=== PATIENT | female | born 1990 | race Caucasian/White ===

== ENCOUNTER 2018-02-19 19:46 | Emergency (ER) | payer SELFPAY ==
[2018-02-19] MEDS ORDERED: DIPHENHYDRAMINE 25 MG TAB/CAP ONE (20:32)
[2018-02-19] MEDS ORDERED: FAMOTIDINE 20 MG TAB ONE (20:32)
[2018-02-19] MEDS ORDERED: predniSONE 20 MG TAB ONE (20:33)
--- NOTE | 2018-02-19 20:40 | ER ---
Nurse's Notes [facility] Name: Elham Moran Age: 27 yrs Sex: Female : 1990 Arrival Date: 02/19/2018 Time: 19:52 Bed 12 Private MD: Diagnosis: Urticaria Presentation: 02/19 19:57 Presenting complaint: Patient states: Reports itchy rash to bilateral hand and feet aj that started today. Transition of care: patient was not received from another setting of care. Onset: The symptoms/episode began/occurred acutely. Anaphylaxis evaluation, no signs or symptoms of anaphylaxis were noted. Onset of symptoms was February 19, 2018. Risk Assessment: Do you want to hurt yourself or someone else? Patient reports no desire to harm self or others. Initial Sepsis Screen: Does the patient meet any 2 criteria? No. Patient's initial sepsis screen is negative. Does the patient have a suspected source of infection? No. Patient's initial sepsis screen is negative. Care prior to arrival: None. 19:57 Method Of Arrival: Ambulatory 19:57 Acuity: MISSAEL 5 Triage Assessment: 19:59 General: Appears in no apparent distress. comfortable, Behavior is calm, cooperative, aj appropriate for age. Pain: Denies pain. Neuro: Level of Consciousness is awake, alert, obeys commands, Oriented to person, place, time, situation, Appropriate for age. Respiratory: Airway is patent Respiratory effort is even, unlabored, Respiratory pattern is regular, symmetrical. Derm: Skin is pink, warm \T\ dry. normal, Rash noted that is itchy, red, on right hand, left hand and right foot. 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 - Social history:: Smoking status: Patient/guardian denies using tobacco. - Ebola Screening: : Patient negative for fever greater than or equal to 101.5 degrees Fahrenheit, and additional compatible Ebola Virus Disease symptoms Patient denies exposure to infectious person Patient denies travel to an Ebola-affected area in the 21 days before illness onset No symptoms or risks identified at this time. Screenin:21 Abuse screen: Denies threats or abuse. Denies injuries from another. Nutritional ao screening: No deficits noted. Tuberculosis screening: No symptoms or risk factors identified. Fall Risk None identified. Assessment: 20:19 General: Appears in no apparent distress. comfortable, Behavior is calm, cooperative, ao appropriate for age. Pain: Denies pain. Neuro: Level of Consciousness is awake, alert, obeys commands, Oriented to person, place, time, situation, Appropriate for age Moves all extremities. Full function Speech is normal, Facial symmetry appears normal. Cardiovascular: Capillary refill < 3 seconds Patient's skin is warm and dry. Respiratory: Airway is patent Respiratory effort is even, unlabored, Respiratory pattern is regular, symmetrical, Breath sounds are clear bilaterally. GI: No signs and/or symptoms were reported involving the gastrointestinal system. : No signs and/or symptoms were reported regarding the genitourinary system. EENT: No signs and/or symptoms were reported regarding the EENT system. Derm: Skin is intact, Skin is moist, Skin is pink, warm \T\ dry. normal, Skin temperature is warm Rash noted that is itchy, urticaria. Musculoskeletal: No signs and/or symptoms reported regarding the musculoskeletal system. 21:14 Reassessment: DC patient home. Patient agree with the POC and to follow up with PCP. ao Patient had no questions at this time. Vital Signs: 19:59 BP 117 / 76; Pulse 99; Resp 18; Temp 97.4; Pulse Ox 99% on R/A; Weight 103.87 kg; aj Height 5 ft. 7 in. (170.18 cm); 20:22 BP 115 / 80; Pulse 88; Resp 16; Pulse Ox 95% on R/A; Pain 0/10; ao 19:59 Body Mass Index 35.87 (103.87 kg, 170.18 cm) aj ED Course: 19:52 Patient arrived in ED. ds1 19:58 Triage completed. aj 19:59 Arm band placed on left wrist. Patient placed in waiting room, Patient notified of wait aj time. 20:11 Chacho Zaragoza NP is PHCP. pm1 20:11 Santino uBrr MD is Attending Physician. pm1 20:17 Feliz, Dandre, RN is Primary Nurse. ao 20:21 Patient has correct armband on for positive identification. Pulse ox on. ao 21:13 No provider procedures requiring assistance completed. Patient did not have IV access ao during this emergency room visit. Administered Medications: 20:27 Drug: Benadryl 25 mg Route: PO; ao 21:15 Follow up: Response: No adverse reaction ao 20:27 Drug: predniSONE 60 mg Route: PO; ao 21:15 Follow up: Response: No adverse reaction ao 20:27 Drug: Pepcid 20 mg Route: PO; ao 21:15 Follow up: Response: No adverse reaction ao Outcome: 20:40 Discharge ordered by MD. pm1 21:13 Discharged to home ambulatory. ao 21:13 Condition: stable 21:13 Discharge instructions given to patient, Instructed on discharge instructions, follow up and referral plans. Demonstrated understanding of instructions, follow-up care, Prescriptions given X 3. 21:15 Patient left the ED. ao Signatures: Donna Mac RN RN aj Sanford, Demi ds1 Dandre Feliz RN RN ao Marinas, Patrick, NP DIRECTOR OF STRATEGY & MOBILE pm1
--- NOTE | 2018-02-19 20:40 | EDPHYS ---
Physician Documentation [facility] Name: Elham Moran Age: 27 yrs Sex: Female : 1990 Arrival Date: 02/19/2018 Time: 19:52 Bed 12 Private MD: ED Physician Santino Burr HPI: 02/19 20:05 This 27 yrs old Female presents to ER via Ambulatory with complaints of pm1 Allergic Reaction. 20:05 The patient presents with rash, of the right hand, left hand and right foot. Onset: The pm1 symptoms/episode began/occurred today. Associated signs and symptoms: Pertinent positives: hives, itching, Pertinent negatives: chest pain, nausea, vomiting. Possible causes: The patient has no known obvious cause for the symptoms. At home the patient or guardian has treated the symptoms with nothing. The patient has not experienced similar symptoms in the past. The patient has not recently seen a physician. 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 - Social history:: Smoking status: Patient/guardian denies using tobacco. - Ebola Screening: : Patient negative for fever greater than or equal to 101.5 degrees Fahrenheit, and additional compatible Ebola Virus Disease symptoms Patient denies exposure to infectious person Patient denies travel to an Ebola-affected area in the 21 days before illness onset No symptoms or risks identified at this time. ROS: 20:05 Constitutional: Negative for fever, chills, and weight loss, Eyes: Negative for injury, pm1 pain, redness, and discharge, ENT: Negative for injury, pain, and discharge, Neck: Negative for injury, pain, and swelling, Cardiovascular: Negative for chest pain, palpitations, and edema, Respiratory: Negative for shortness of breath, cough, wheezing, and pleuritic chest pain, Abdomen/GI: Negative for abdominal pain, nausea, vomiting, diarrhea, and constipation, Back: Negative for injury and pain, MS/Extremity: Negative for injury and deformity. 20:05 Neuro: Negative for headache, weakness, numbness, tingling, and seizure. 20:05 Skin: Positive for rash, of the left hand and right hand and right foot. Exam: 20:05 Constitutional: This is a well developed, well nourished patient who is awake, alert, pm1 and in no acute distress. Head/Face: Normocephalic, atraumatic. Eyes: Pupils equal round and reactive to light, extra-ocular motions intact. Lids and lashes normal. Conjunctiva and sclera are non-icteric and not injected. Cornea within normal limits. Periorbital areas with no swelling, redness, or edema. ENT: Nares patent. No nasal discharge, no septal abnormalities noted. Tympanic membranes are normal and external auditory canals are clear. Oropharynx with no redness, swelling, or masses, exudates, or evidence of obstruction, uvula midline. Mucous membranes moist. Neck: Trachea midline, no thyromegaly or masses palpated, and no cervical lymphadenopathy. Supple, full range of motion without nuchal rigidity, or vertebral point tenderness. No Meningismus. Chest/axilla: Normal chest wall appearance and motion. Nontender with no deformity. No lesions are appreciated. Cardiovascular: Regular rate and rhythm with a normal S1 and S2. No gallops, murmurs, or rubs. Normal PMI, no JVD. No pulse deficits. Respiratory: Lungs have equal breath sounds bilaterally, clear to auscultation and percussion. No rales, rhonchi or wheezes noted. No increased work of breathing, no retractions or nasal flaring. Abdomen/GI: Soft, non-tender, with normal bowel sounds. No distension or tympany. No guarding or rebound. No evidence of tenderness throughout. Back: No spinal tenderness. No costovertebral tenderness. Full range of motion. 20:05 Skin: Appearance: normal except for affected area, consistent with urticaria, on the right foot and right hand and left hand. 20:05 Neuro: Orientation: is normal, Motor: is normal, moves all fours. Vital Signs: 19:59 BP 117 / 76; Pulse 99; Resp 18; Temp 97.4; Pulse Ox 99% on R/A; Weight 103.87 kg; aj Height 5 ft. 7 in. (170.18 cm); 20:22 BP 115 / 80; Pulse 88; Resp 16; Pulse Ox 95% on R/A; Pain 0/10; ao 19:59 Body Mass Index 35.87 (103.87 kg, 170.18 cm) arielle MDM: 20:12 Patient medically screened. pm1 20:34 Data reviewed: vital signs. Counseling: I had a detailed discussion with the patient pm1 and/or guardian regarding: the historical points, exam findings, and any diagnostic results supporting the discharge/admit diagnosis. Administered Medications: 20:27 Drug: Benadryl 25 mg Route: PO; ao 21:15 Follow up: Response: No adverse reaction ao 20:27 Drug: predniSONE 60 mg Route: PO; ao 21:15 Follow up: Response: No adverse reaction ao 20: Drug: Pepcid 20 mg Route: PO; ao 21:15 Follow up: Response: No adverse reaction ao Disposition: 02/20 06:36 Co-signature as Attending Physician, Santino Burr MD Available for consultation at ps1 all times. . Disposition: 02/19/18 20:40 Discharged to Home. Impression: Urticaria. - Condition is Stable. - Discharge Instructions: Food Allergy, Hives. - Prescriptions for Benadryl 25 mg Oral Capsule - take 1 capsule by ORAL route every 6 hours As needed; 30 tablet. Pepcid 20 mg Oral Tablet - take 1 tablet by ORAL route every 12 hours for 5 days; 10 tablet. Medrol (Donavon) 4 mg Oral Tablets, Dose Pack - take 1 tablet by ORAL route as directed - follow package instructions; 1 packet. - Medication Reconciliation Form, Thank You Letter form. - Follow up: Emergency Department; When: As needed; Reason: Worsening of condition. Follow up: Private Physician; When: 2 - 3 days; Reason: Recheck today's complaints, Continuance of care, Re-evaluation by your physician. - Problem is new. - Symptoms have improved. Signatures: Donna Mac RN RN aj Ortiz, Alex, RN RN ao Marinas, Patrick, JOEL EXPLOSIVE ORDNANCE DISPOSAL TECHNICIAN pm1 Santino Burr MD MD ps1 Corrections: (The following items were deleted from the chart) 02/19 21:15 20:40 02/19/2018 20:40 Discharged to Home. Impression: Urticaria. Condition is Stable. ao Forms are Medication Reconciliation Form, Thank You Letter, Antibiotic Education, Prescription Opioid Use. Follow up: Emergency Department; When: As needed; Reason: Worsening of condition. Follow up: Private Physician; When: 2 - 3 days; Reason: Recheck today's complaints, Continuance of care, Re-evaluation by your physician. Problem is new. Symptoms have improved. pm1
[2018-02-19 21:39] VITALS: TEMP 97.4
[2018-02-19 21:47] VITALS: BP 115/80; O2SAT 95
== END 2018-02-19 21:15 | disposition home or self-care (01) ==
LOC: ER 19:46
DX: L50.9 Urticaria, unspecified (principal)
CPT/HCPCS: 99283; J7512

== ENCOUNTER 2018-06-23 22:59 | Emergency (ER) | payer OTHER ==
--- OUTSIDE RECORDS SUMMARY | 2018-06-23 23:01 | XMS REPORT ---
:1990 [facility] Address [address] [place] [address] [address] [place] [address] Care Team Providers Name Role Phone Unavailable Unavailable Unavailable Problems This patient has no known problems. Allergies, Adverse Reactions, Alerts This patient has no known allergies or adverse reactions. Medications This patient has no known medications.
[2018-06-23] MEDS ORDERED: ONDANSETRON 4 MG (ODT) TAB ONE (23:46)
[2018-06-23] MEDS ORDERED: MORPHINE 4 MG/ML SYR ONE (23:46)
--- NOTE | 2018-06-24 01:16 | ER ---
Nurse's Notes [facility] Name: Elham Moran Age: 28 yrs Sex: Female : 1990 Arrival Date: 06/23/2018 Time: 23:08 Bed 18 Private MD: Diagnosis: Pilonidal sinus with abscess Presentation: 06/23 23:19 Presenting complaint: Patient states: abscess since last Saturday . Transition of care: ak1 patient was not received from another setting of care. Onset of symptoms is unknown. Risk Assessment: Do you want to hurt yourself or someone else? Patient reports no desire to harm self or others. Care prior to arrival: None. 23:19 Method Of Arrival: Ambulatory ak1 23:19 Acuity: MISSAEL 4 ak1 Triage Assessment: 23:20 General: Appears uncomfortable, Behavior is calm, cooperative. ak1 23:20 Pain: Complains of pain in gluteal cleft. 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 - Social history:: Smoking status: Patient uses tobacco products, smokes one-half pack cigarettes per day. - Ebola Screening: : No symptoms or risks identified at this time. Screenin:30 Abuse screen: Denies threats or abuse. Nutritional screening: No deficits noted. jb4 Tuberculosis screening: No symptoms or risk factors identified. Fall Risk None identified. Assessment: 23:30 General: Appears in no apparent distress. uncomfortable, Behavior is calm, cooperative, jb4 appropriate for age. Pain: Complains of pain in gluteal cleft Pain does not radiate. Pain currently is 10 out of 10 on a pain scale. Neuro: Level of Consciousness is awake, alert, obeys commands, Oriented to person, place, time, situation. Cardiovascular: Patient's skin is warm and dry. Respiratory: Airway is patent Respiratory effort is even, unlabored, Respiratory pattern is regular, symmetrical. GI: No signs and/or symptoms were reported involving the gastrointestinal system. : No signs and/or symptoms were reported regarding the genitourinary system. EENT: No signs and/or symptoms were reported regarding the EENT system. Derm: Skin is intact, Skin is pink, warm \T\ dry. Abscess located on gluteal cleft is half dollar sized. Musculoskeletal: Circulation, motion, and sensation intact. 06/24 00:30 Reassessment: Patient appears in no apparent distress at this time. Patient and/or jb4 family updated on plan of care and expected duration. Pain level reassessed. Patient is alert, oriented x 3, equal unlabored respirations, skin warm/dry/pink. 01:49 Reassessment: Patient appears in no apparent distress at this time. Patient and/or jb4 family updated on plan of care and expected duration. Pain level reassessed. Patient is alert, oriented x 3, equal unlabored respirations, skin warm/dry/pink. Vital Signs: 06/23 23:19 BP 107 / 61; Pulse 98; Resp 18; Temp 98.5(O); Pulse Ox 99% on R/A; Weight 103.42 kg ak1 (R); Height 5 ft. 7 in. (170.18 cm) (R); Pain 10/10; 06/24 01:20 BP 118 / 74; Pulse 90; Resp 16; Pulse Ox 97% on R/A; jb4 06/23 23:19 Body Mass Index 35.71 (103.42 kg, 170.18 cm) ak ED Course: 06/23 23:08 Patient arrived in ED. es 23:15 Laureano Mack PA is PHCP. [facility] 23:16 Elliott Garza MD is Attending Physician. [facility] 23:20 Triage completed. ak1 23:20 Arm band placed on Patient placed in an exam room, on a stretcher, Patient notified of ak1 wait time. 23:30 Yaw Awan, SKYE is Primary Nurse. jb4 23:30 Patient has correct armband on for positive identification. Bed in low position. Call jb4 light in reach. Side rails up X 1. Pulse ox on. NIBP on. 06/24 00:59 Assist provider with I \T\ D: of an abscess on right pilonidal cyst Set up I\T\D tray. mildred 4 Performed by Laureano LEUNG. 01:15 Valentín rOtiz MD is Referral Physician. jm 01:20 Patient did not have IV access during this emergency room visit. jb4 Administered Medications: 06/23 23:46 Drug: morphine 4 mg Route: IM; Site: left gluteus; jb4 06/24 01:48 Follow up: Response: No adverse reaction; Pain is decreased jb4 06/23 23:47 Drug: Zofran 4 mg Route: PO; jb4 06/24 01:48 Follow up: Response: No adverse reaction; Nausea is decreased jb4 00:08 Drug: Marcaine (0.5 %) 10 ml {Note: Administered by ER provider..} Volume: 10 ml; jb4 Route: Infiltration; 01:49 Follow up: Response: No adverse reaction jb4 00:09 Drug: Lidocaine (1 %) 20 ml {Note: Administered by ER provider .} Volume: 20 ml; Route: jb4 Infiltration; 01:49 Follow up: Response: No adverse reaction jb4 01:44 Drug: Tylenol #3 (300 mg-30 mg) 1 tablet Route: PO; jb4 01:44 Follow up: Response: No adverse reaction; Medication administered at discharge. jb4 Outcome: 01:16 Discharge ordered by . jm 01:20 Discharged to home ambulatory, with family. jb4 01:20 Condition: stable 01:20 Discharge instructions given to patient, family, Instructed on discharge instructions, follow up and referral plans. medication usage, Demonstrated understanding of instructions, follow-up care, medications, Prescriptions given X 2. 01:55 Patient left the ED. jb4 Signatures: Laureano Mack PA PA jmm Salyer, Edna es Krenek, Amber, RN RN ak1 Yaw Awan RN RN jb4
--- NOTE | 2018-06-24 01:16 | EDPHYS ---
Physician Documentation [facility] Name: Elham Moran Age: 28 yrs Sex: Female : 1990 Arrival Date: 06/23/2018 Time: 23:08 Bed 18 Private MD: ED Physician Elliott Garza HPI: 06/23 23:25 This 28 yrs old Female presents to ER via Ambulatory with complaints of STAFF jmm INFECTION. 23:25 the patient presents with a swollen area of the gluteal cleft. Onset: The jmm symptoms/episode began/occurred gradually, 1 week(s) ago. Possible cause(s): unknown. Associated signs and symptoms: Pertinent negatives: fever. Modifying factors: the symptoms are alleviated by repositioning , the symptoms are aggravated by pressure, sitting. The patient has not experienced similar symptoms in the past. 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 - Social history:: Smoking status: Patient uses tobacco products, smokes one-half pack cigarettes per day. - Ebola Screening: : No symptoms or risks identified at this time. ROS: 23:25 Constitutional: Negative for fever, chills, and weight loss, Cardiovascular: Negative jmm for chest pain, palpitations, and edema, Respiratory: Negative for shortness of breath, cough, wheezing, and pleuritic chest pain. 23:25 Skin: Positive for erythema, swelling. 23:25 All other systems are negative. Exam: 23:25 Head/Face: atraumatic. Eyes: EOMI, no conjunctival erythema appreciated ENT: Moist jmm Mucus Membranes Neck: Trachea midline, Supple Chest/axilla: Normal chest wall appearance and motion. Cardiovascular: Regular rate and rhythm. No edema appreciated Respiratory: Normal respirations, no respiratory distress appreciated Abdomen/GI: Non distended, soft 23:25 Constitutional: The patient appears alert, awake, uncomfortable. 23:25 Skin: erythema and swelling noted to the superior gluteal cleft, TTP. 23:25 Neuro: Orientation: is normal, Mentation: is normal, Memory: is normal. 23:25 Psych: Behavior/mood is pleasant, cooperative. Vital Signs: 23:19 BP 107 / 61; Pulse 98; Resp 18; Temp 98.5(O); Pulse Ox 99% on R/A; Weight 103.42 kg ak1 (R); Height 5 ft. 7 in. (170.18 cm) (R); Pain 10/10; 06/24 01:20 BP 118 / 74; Pulse 90; Resp 16; Pulse Ox 97% on R/A; jb4 06/23 23:19 Body Mass Index 35.71 (103.42 kg, 170.18 cm) ak1 Procedures: 06/23 23:25 I \T\ D: Incision and drainage was performed for an abscess of the pilonidal cyst Prepped [facility] with Betadine, Anesthetized with 10 ml's 1% Lidocaine. Incised with #11 blade. Drained moderate amount purulent fluid. bloody fluid. Packed with iodoform gauze, Dressing: sterile 4x4 gauze, the patient tolerated the procedure well. MDM: 23:25 Patient medically screened. [facility] 06/24 01:15 Data reviewed: vital signs, nurses notes. Counseling: I had a detailed discussion with [facility] the patient and/or guardian regarding: the historical points, exam findings, and any diagnostic results supporting the discharge/admit diagnosis, the need for outpatient follow up, to return to the emergency department if symptoms worsen or persist or if there are any questions or concerns that arise at home. 01:15 ED course: Patient advised to follow up with gen surgery. patient was otherwise given [facility] wound return precautions. . Administered Medications: 06/23 23:46 Drug: morphine 4 mg Route: IM; Site: left gluteus; jb4 06/24 01:48 Follow up: Response: No adverse reaction; Pain is decreased 4 06/23 23:47 Drug: Zofran 4 mg Route: PO; jb4 06/24 01:48 Follow up: Response: No adverse reaction; Nausea is decreased jb4 00:08 Drug: Marcaine (0.5 %) 10 ml {Note: Administered by ER provider..} Volume: 10 ml; jb4 Route: Infiltration; 01:49 Follow up: Response: No adverse reaction jb4 00:09 Drug: Lidocaine (1 %) 20 ml {Note: Administered by ER provider .} Volume: 20 ml; Route: jb4 Infiltration; 01:49 Follow up: Response: No adverse reaction jb4 01:44 Drug: Tylenol #3 (300 mg-30 mg) 1 tablet Route: PO; jb4 01:44 Follow up: Response: No adverse reaction; Medication administered at discharge. jb4 Disposition: 06/24/18 01:16 Discharged to Home. Impression: Pilonidal sinus with abscess. - Condition is Stable. - Discharge Instructions: Pilonidal Cyst, Incision and Drainage, Care After. - Prescriptions for Clindamycin HCl 300 mg Oral Capsule - take 1 capsule by ORAL route every 6 hours for 10 days; 40 capsule. Tylenol- Codeine #3 300-30 mg Oral Tablet - take 1 tablet by ORAL route every 6 hours As needed; 20 tablet. - Medication Reconciliation Form, Thank You Letter, Antibiotic Education, Prescription Opioid Use form. - Work release form (06/24/18 01:56). ak1 - Follow up: Valentín Ortiz MD; When: 2 - 3 days; Reason: Recheck today's complaints, Continuance of care, Re-evaluation by your physician. Addendum: 06/25/2018 07:22 Co-signature as Attending Physician, Elliott Garza MD I agree with the assessment and t w4 plan of care. Signatures: Laureano Mack PA PA jmm Krenek, Amber RN RN ak1 Yaw Awan RN RN jb4 Elliott Garza MD MD tw4 Corrections: (The following items were deleted from the chart) 06/24 01:55 01:16 06/24/2018 01:16 Discharged to Home. Impression: Pilonidal sinus with abscess. jb4 Condition is Stable. Forms are Medication Reconciliation Form, Thank You Letter, Antibiotic Education, Prescription Opioid Use. Follow up: Valentín Ortiz; When: 2 - 3 days; Reason: Recheck today's complaints, Continuance of care, Re-evaluation by your physician. jerica
[2018-06-24] MEDS ORDERED: CODEINE 30MG/APAP 300MG TAB ONE (01:50)
[2018-06-24 04:47] VITALS: TEMP 98.5
[2018-06-24 04:48] VITALS: BP 118/74; O2SAT 97
== END 2018-06-24 01:55 | disposition home or self-care (01) ==
LOC: ER 22:59
PROC: 0H98XZZ Drainage of Buttock Skin, External Approach (ICD-10-PCS; principal; 2018-06-24)
DX: L05.01 Pilonidal cyst with abscess (principal); F17.210 Nicotine dependence, cigarettes, uncomplicated
CPT/HCPCS: 96372; 99284

== ENCOUNTER 2018-09-06 20:21 | Emergency (ER) | payer OTHER, SELFPAY ==
--- OUTSIDE RECORDS SUMMARY | 2018-09-06 20:23 | XMS REPORT ---
:1990 [facility] Address [address] [place] [address] [address] [place] [address] Care Team Providers Name Role Phone Unavailable Unavailable Unavailable Problems This patient has no known problems. Allergies, Adverse Reactions, Alerts This patient has no known allergies or adverse reactions. Medications This patient has no known medications.
--- OUTSIDE RECORDS SUMMARY | 2018-09-06 20:24 | XMS REPORT ---
:1990 Author Organization [employer] Care Team Providers Name Role Phone Aniceto Pisano Provider Role Unavailable Allergies, Adverse Reactions, Alerts Substance Reaction Event Type N.K.D.A. Info Not Available Non Drug Allergy Problems Problem Type Condition Code Onset Dates Condition Status Assessment Pilonidal abscess of cleft L05.01 Active Medications No Known Medications Results No Known Results Summary Purpose [employer] Submission
[2018-09-06 21:43] LABS: Absolute Lymphocytes (CBC) 1.9 K/uL (0.7-4.9); Absolute Monocytes 0.6 K/uL (0.1-1.3); Basophils % 0.4 % (0-1.3); Eosinophils % 1.7 % (0-4.4); Lymphocytes % 19.8 % (15.3-44.8); MPV 8.8 fL (7.6-11.3); Monocytes % 5.7 % (3.3-12.3); RBC Red Blood Cell Count 4.73 M/uL (3.86-4.86)
[2018-09-06 21:50] LABS: Protime INR 1.04
[2018-09-06 22:07] LABS: Urine Blood NEGATIVE (NEG); Urine Glucose NEGATIVE (NEG); Urine Protein NEGATIVE (NEG); Urine Specific Gravity >1.030 (1.005-1.030); Urine pH 5.5 (5.0-7.0)
[2018-09-06 22:12] LABS: Barbiturates NEGATIVE (NEGATIVE); Benzodiazepines NEGATIVE (NEGATIVE); Cocaine NEGATIVE (NEGATIVE); METHAMPHETAM POSITIVE (NEGATIVE); Methadone NEGATIVE (NEGATIVE); Opiates NEGATIVE (NEGATIVE); Phencyclidine NEGATIVE (NEGATIVE); THC Cannibis NEGATIVE (NEGATIVE)
[2018-09-06 22:18] LABS: ALT/SGPT 35 U/L (12-78); AST/SGOT 61 U/L (15-37); Albumin 3.5 g/dL (3.4-5.0); Alkaline Phosphatase 98 U/L (45-117); BUN Blood Urea Nitrogen 14 mg/dL (7-18); Bicarbonate 26 mmol/L (21-32); Bilirubin Direct 0.2 mg/dL (0-0.2); Bilirubin Total 0.6 mg/dL (0.2-1.0); Glucose Level 100 mg/dL (74-106); NT PRO-BNP 24 pg/mL (<125); Potassium 3.6 mmol/L (3.5-5.1); Protein, Total 6.4 g/dL (6.4-8.2); Sodium Level 141 mmol/L (136-145); Troponin (Emerg Dept Use Only) < 0.02 ng/mL (0.0-0.045)
--- NOTE | 2018-09-06 23:16 | EDPHYS ---
Physician Documentation [facility] Name: Elham Moran Age: 28 yrs Sex: Female : 1990 Arrival Date: 09/06/2018 Time: 20:24 Bed 18 Private MD: TIFFANY Physician Jonathan Du HPI: 09/06 21:22 This 28 yrs old Female presents to ER via Wheelchair with complaints of Chest jessica Pain, Breathing Difficulty. 21:22 The patient or guardian reports chest pain that is located primarily in the substernal jessica area, anterior chest wall, bilaterally. The pain does not radiate. Associated signs and symptoms: Pertinent positives: shortness of breath. The chest pain is described as a heaviness. Duration: The patient or guardian reports a single episode, that is still ongoing, but improving. Modifying factors: The symptoms are alleviated by nothing. the symptoms are aggravated by nothing. Severity of pain: At its worst the pain was moderate in the emergency department the pain has improved mildly. The patient has not experienced similar symptoms in the past. 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 - Social history:: Smoking status: Patient uses tobacco products, smokes one pack cigarettes per day. - Ebola Screening: : Patient negative for fever greater than or equal to 101.5 degrees Fahrenheit, and additional compatible Ebola Virus Disease symptoms Patient denies exposure to infectious person Patient denies travel to an Ebola-affected area in the 21 days before illness onset No symptoms or risks identified at this time. - Family history:: not pertinent. ROS: 21:22 Constitutional: Negative for fever, chills, and weight loss, Eyes: Negative for injury, jessica pain, redness, and discharge, ENT: Negative for injury, pain, and discharge, Neck: Negative for injury, pain, and swelling, Abdomen/GI: Negative for abdominal pain, nausea, vomiting, diarrhea, and constipation, Back: Negative for injury and pain, : Negative for injury, bleeding, discharge, and swelling, MS/Extremity: Negative for injury and deformity, Skin: Negative for injury, rash, and discoloration, Neuro: Negative for headache, weakness, numbness, tingling, and seizure, Psych: Negative for depression, anxiety, suicide ideation, homicidal ideation, and hallucinations, Allergy/Immunology: Negative for hives, rash, and allergies, Endocrine: Negative for neck swelling, polydipsia, polyuria, polyphagia, and marked weight changes, Hematologic/Lymphatic: Negative for swollen nodes, abnormal bleeding, and unusual bruising. 21:22 Cardiovascular: Positive for chest pain. 21:22 Respiratory: Positive for cough, with no reported sputum. Exam: 21:22 Constitutional: This is a well developed, well nourished patient who is awake, alert, jessica and in no acute distress. Head/Face: Normocephalic, atraumatic. Eyes: Pupils equal round and reactive to light, extra-ocular motions intact. Lids and lashes normal. Conjunctiva and sclera are non-icteric and not injected. Cornea within normal limits. Periorbital areas with no swelling, redness, or edema. ENT: Nares patent. No nasal discharge, no septal abnormalities noted. Tympanic membranes are normal and external auditory canals are clear. Oropharynx with no redness, swelling, or masses, exudates, or evidence of obstruction, uvula midline. Mucous membranes moist. Neck: Trachea midline, no thyromegaly or masses palpated, and no cervical lymphadenopathy. Supple, full range of motion without nuchal rigidity, or vertebral point tenderness. No Meningismus. Chest/axilla: Normal chest wall appearance and motion. Nontender with no deformity. No lesions are appreciated. Cardiovascular: Regular rate and rhythm with a normal S1 and S2. No gallops, murmurs, or rubs. Normal PMI, no JVD. No pulse deficits. Respiratory: Lungs have equal breath sounds bilaterally, clear to auscultation and percussion. No rales, rhonchi or wheezes noted. No increased work of breathing, no retractions or nasal flaring. Abdomen/GI: Soft, non-tender, with normal bowel sounds. No distension or tympany. No guarding or rebound. No evidence of tenderness throughout. Back: No spinal tenderness. No costovertebral tenderness. Full range of motion. Skin: Warm, dry with normal turgor. Normal color with no rashes, no lesions, and no evidence of cellulitis. MS/ Extremity: Pulses equal, no cyanosis. Neurovascular intact. Full, normal range of motion. Neuro: Awake and alert, GCS 15, oriented to person, place, time, and situation. Cranial nerves II-XII grossly intact. Motor strength 5/5 in all extremities. Sensory grossly intact. Cerebellar exam normal. Normal gait. Psych: Awake, alert, with orientation to person, place and time. Behavior, mood, and affect are within normal limits. 21:22 Musculoskeletal/extremity: Extremities: all appear grossly normal, with no appreciated pain with palpation, ROM: no acute changes, intact in all extremities, full active range of motion, full passive range of motion, Circulation is intact in all extremities. DVT Exam: No signs of deep vein thrombosis. no pain, no swelling, no tenderness, negative Homans' sign noted on exam, no appreciated bluish discoloration, no erythema, no increased warmth. Vital Signs: 20:42 BP 120 / 82; Pulse 69; Resp 25; Temp 97.4(O); Pulse Ox 100% on R/A; Weight 90.72 kg; ed1 Height 5 ft. 6 in. (167.64 cm); Pain 10/10; 22:15 BP 124 / 73; Pulse 71; Resp 19; Temp 97.8(O); Pulse Ox 100% on R/A; Pain 0/10; ed1 09/07 00:54 BP 122 / 78; Pulse 83; Resp 15; Temp 97.9(TE); Pulse Ox 100% on R/A; Pain 6/10; ed1 09/06 20:42 Body Mass Index 32.28 (90.72 kg, 167.64 cm) ed1 MDM: 09/06 20:43 Patient medically screened. [facility] 21:25 Data reviewed: vital signs, nurses notes, lab test result(s), EKG, radiologic studies, [facility] plain films. 09/06 21:22 Order name: Basic Metabolic Panel [facility] 09/06 21:22 Order name: CBC with Diff [facility] 09/06 21:22 Order name: LFT's [facility] 09/06 21:22 Order name: Magnesium [facility] 09/06 21:22 Order name: NT PRO-BNP [facility] 09/06 21:22 Order name: PT-INR [facility] 09/06 21:22 Order name: Troponin (emerg Dept Use Only); Complete Time: 22:45 [facility] 09/06 21:22 Order name: Urine Drug Screen; Complete Time: 22:16 [facility] 09/06 21:22 Order name: Acetaminophen; Complete Time: 22:45 [facility] 09/06 21:22 Order name: ETOH Level; Complete Time: 22:18 [facility] 09/06 21:22 Order name: Ptt, Activated; Complete Time: 22:08 [facility] 09/06 21:22 Order name: Salicylate; Complete Time: 22:18 [facility] 09/06 21:25 Order name: Basic Metabolic Panel; Complete Time: 22:45 EDMS 09/06 21:25 Order name: CBC with Automated Diff; Complete Time: 22:08 EDSC 09/06 21:22 Order name: XRAY Chest (1 view); Complete Time: 00:46 [facility] 09/06 21:25 Order name: Liver (Hepatic) Function; Complete Time: 22:45 [facility]SC 09/06 21:26 Order name: Magnesium; Complete Time: 22:45 [facility] 09/06 21:26 Order name: NT PRO-BNP; Complete Time: 22:45 [facility]SC 09/06 21:26 Order name: Protime (+INR); Complete Time: 22:08 [facility] 09/06 21:27 Order name: D-Dimer; Complete Time: 22:30 [facility] 09/06 22:03 Order name: Urine Dipstick--Ancillary (enter results); Complete Time: 22:16 [facility] 09/06 22:03 Order name: Urine --Ancillary (enter results); Complete Time: 22:16 [facility] 09/06 22:10 Order name: Urine Culture [facility] 09/06 22:30 Order name: CT Chest For PE Angio [facility] 09/06 22:30 Order name: US Extremity Venous W Compression Ramses; Complete Time: 00:46 [facility] 09/06 22:37 Order name: Test, Serum; Complete Time: 22:45 dc 09/06 20:43 Order name: EKG - Nurse/Tech; Complete Time: 20:43 ed1 09/06 21:22 Order name: EKG; Complete Time: 21:27 [facility] 09/06 21:22 Order name: Cardiac monitoring; Complete Time: 21:32 [facility] 09/06 21:22 Order name: IV Saline Lock; Complete Time: 21:32 [facility] 09/06 21:22 Order name: Labs collected and sent; Complete Time: :32 [facility] 09/06 21:22 Order name: O2 Per Protocol; Complete Time: :32 [facility] 09/06 21:22 Order name: O2 Sat Monitoring; Complete Time: :32 [facility] 09/06 21:22 Order name: Urine Dipstick-Ancillary (obtain specimen); Complete Time: 22:02 [facility] 09/06 21:22 Order name: Urine Test (obtain specimen); Complete Time: 22:02 [facility] Administered Medications: 22:06 Not Given (Patient Refused): NS 0.9% 1000 ml IV at 1 bolus Per protocol; 1000 mL bolus ed1 22:26 Not Given (Patient Refused): Rocephin - (cefTRIAXone) 1 grams IVPB once over 30 mins; ed1 (mix in 50 mL NS) 09/07 00:02 Drug: Rocephin - (cefTRIAXone) 1 grams Route: IVPB; Infused Over: 30 mins; Site: left ed1 antecubital; 00:57 Follow up: Response: No adverse reaction; IV Status: Completed infusion; IV Intake: [id number] 00:02 Drug: NS 0.9% 1000 ml Route: IV; Rate: 1 bolus; Site: left antecubital; ed1 00:56 Follow up: IV Status: Completed infusion; IV Intake: 1000ml ed1 00:02 Not Given (Patient Refused): Mucomyst - Acetylcysteine 600 mg PO once ed1 Disposition: 09/06/18 23:16 Discharged to Home. Impression: Chest pain, unspecified, Dyspnea, Urinary tract infection, site not specified. - Condition is Stable. - Discharge Instructions: Nonspecific Chest Pain, Shortness of Breath, Urinary Tract Infection, Adult, Shortness of Breath, Fvhk-uz-Rmax, Urinary Tract Infection, Adult, Prhu-ej-Uran, Nonspecific Chest Pain, Sgcv-ju-Nlxi, Heat Exhaustion Information, Aspirin and Your Heart. - Prescriptions for Bactrim DS 800- 160 mg Oral Tablet - take 1 tablet by ORAL route every 12 hours for 7 days; 14 tablet. - Medication Reconciliation Form, Thank You Letter, Antibiotic Education, Prescription Opioid Use, Work release form form. - Follow up: Private Physician; When: 2 - 3 days; Reason: Recheck today's complaints, Continuance of care, Re-evaluation by your physician. - Problem is new. - Symptoms have improved. Signatures: Dispatcher [employer] EDMS Jonathan Du MD MD cha Riggs, Erika, RN RN ed1 Corrections: (The following items were deleted from the chart) 00:58 09/06 23:16 09/06/2018 23:16 Discharged to Home. Impression: Chest pain, unspecified; ed1 Dyspnea; Urinary tract infection, site not specified. Condition is Stable. Discharge Instructions: Nonspecific Chest Pain, Shortness of Breath, Shortness of Breath, Klyp-hj-Xcre, Nonspecific Chest Pain, Kfvk-pk-Ygfq, Heat Exhaustion Information, Aspirin and Your Heart, Urinary Tract Infection, Adult, Urinary Tract Infection, Adult, Vghf-un-Nvdg. Prescriptions for Bactrim DS 800-160 mg Oral Tablet - take 1 tablet by ORAL route every 12 hours for 7 days; 14 tablet. and Forms are Medication Reconciliation Form, Thank You Letter, Antibiotic Education, Prescription Opioid Use. Follow up: Private Physician; When: 2 - 3 days; Reason: Recheck today's complaints, Continuance of care, Re-evaluation by your physician. Problem is new. Symptoms have improved. jessica
--- NOTE | 2018-09-06 23:16 | ER ---
Nurse's Notes [facility] Name: Elham Moran Age: 28 yrs Sex: Female : 1990 Arrival Date: 09/06/2018 Time: 20:24 Bed 18 Private MD: Diagnosis: Chest pain, unspecified;Dyspnea;Urinary tract infection, site not specified Presentation: 09/06 20:40 Presenting complaint: Patient states: 30 minutes ago I was in [place] and my chest ed1 started hurting. It is getting worse and it feels like my throat is closing and I can't breathe. Transition of care: patient was not received from another setting of care. Onset of symptoms was September 06, 2018. Risk Assessment: Do you want to hurt yourself or someone else? Patient reports no desire to harm self or others. Initial Sepsis Screen: Does the patient meet any 2 criteria? No. Patient's initial sepsis screen is negative. Does the patient have a suspected source of infection? No. Patient's initial sepsis screen is negative. Care prior to arrival: None. 20:40 Method Of Arrival: Wheelchair ed1 20:40 Acuity: MISSAEL 3 ed1 Triage Assessment: 20:42 General: Appears uncomfortable, Behavior is anxious. Pain: Complains of pain in chest ed1 Pain currently is 10 out of 10 on a pain scale. Quality of pain is described as sharp, Pain began 30 min ago. EENT: No signs and/or symptoms were reported regarding the EENT system. Neuro: Level of Consciousness is awake, alert, obeys commands, Oriented to person, place, time, situation. Cardiovascular: Reports chest pain, diaphoresis, lightheadedness, shortness of breath, Heart tones S1 S2 present Rhythm is regular. Respiratory: Reports shortness of breath at rest Airway is patent Respiratory effort is even, unlabored, Respiratory pattern is regular, symmetrical, Breath sounds are clear bilaterally. GI: No signs and/or symptoms were reported involving the gastrointestinal system. : No signs and/or symptoms were reported regarding the genitourinary system. Derm: Skin is intact, is healthy with good turgor, Skin is clammy, Skin is normal, Skin temperature is warm. Musculoskeletal: Circulation, motion, and sensation intact. Range of motion: intact in all extremities. 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 - Social history:: Smoking status: Patient uses tobacco products, smokes one pack cigarettes per day. - Ebola Screening: : Patient negative for fever greater than or equal to 101.5 degrees Fahrenheit, and additional compatible Ebola Virus Disease symptoms Patient denies exposure to infectious person Patient denies travel to an Ebola-affected area in the 21 days before illness onset No symptoms or risks identified at this time. - Family history:: not pertinent. Screenin:45 Abuse screen: Denies threats or abuse. Denies injuries from another. Nutritional ed1 screening: No deficits noted. Tuberculosis screening: No symptoms or risk factors identified. Fall Risk None identified. Assessment: 20:45 General: Appears uncomfortable, Behavior is anxious. Pain: Complains of pain in chest ed1 Pain does not radiate. Pain currently is 10 out of 10 on a pain scale. Quality of pain is described as pressure, Pain began suddenly, 30 min ago. Neuro: Level of Consciousness is awake, alert, obeys commands, Oriented to person, place, time, situation. Cardiovascular: Reports chest pain, lightheadedness, shortness of breath, Heart tones S1 S2 present. Respiratory: Airway is patent Respiratory effort is even, unlabored, Respiratory pattern is regular, symmetrical. 21:52 Reassessment: Pt states that she feels better and wants to go to her car. IV removed. . ed1 22:15 Reassessment: Pt returned to room. No distress noted. Resp even and unlabored. Pt ed1 states "I feel a lot better. I don't know what was going on when I got here.". Cardiovascular: Denies chest pain. Respiratory: Airway is patent Respiratory effort is even, unlabored, Respiratory pattern is regular, symmetrical, Breath sounds are clear bilaterally. 09/07 00:40 Reassessment: No changes from previously documented assessment. Patient and/or family ed1 updated on plan of care and expected duration. Pain level reassessed. Patient is alert, oriented x 3, equal unlabored respirations, skin warm/dry/pink. Pt reports that she still has chest pain and now reports nausea Patient states symptoms have not improved. Vital Signs: 09/06 20:42 BP 120 / 82; Pulse 69; Resp 25; Temp 97.4(O); Pulse Ox 100% on R/A; Weight 90.72 kg; ed1 Height 5 ft. 6 in. (167.64 cm); Pain 10/10; 22:15 BP 124 / 73; Pulse 71; Resp 19; Temp 97.8(O); Pulse Ox 100% on R/A; Pain 0/10; ed1 09/07 00:54 BP 122 / 78; Pulse 83; Resp 15; Temp 97.9(TE); Pulse Ox 100% on R/A; Pain 6/10; ed1 09/06 20:42 Body Mass Index 32.28 (90.72 kg, 167.64 cm) ed1 ED Course: 09/06 20:24 Patient arrived in ED. es 20:40 Yuni Valencia, RN is Primary Nurse. ed1 20:41 Triage completed. ed1 20:42 Arm band placed on. EKG completed in triage. Results shown to MD. ed1 20:43 Jonathan Du MD is Attending Physician[facility] 20:45 Patient has correct armband on for positive identification. Placed in gown. Bed in low ed1 position. Call light in reach. Side rails up X 1. Adult w/ patient. security monitor on. Pulse ox on. NIBP on. Warm blanket given. 20:45 Patient maintains SpO2 saturation greater than 95% on room air. ed1 21:31 Inserted saline lock: 20 gauge in left antecubital area, using aseptic technique. Blood mt collected. 21:52 IV discontinued, intact, bleeding controlled, No redness/swelling at site. Pressure ed1 dressing applied, IV dc'd per pt request. 22:16 XRAY Chest (1 view) In Process Unspecified. EDMS 22:28 Notified ED physician of a critical lab result(s). D-Dimer 1049. Dr Du notified. bb 22:38 Radiology exam delayed due to IV insertion attempt and/or patient not having mw3 appropriate IV at this time. nurse to call when pt is ready. 22:44 Inserted saline lock: 20 gauge in left antecubital area, using aseptic technique. Blood mt collected. 23:01 Radiology exam delayed due to Patient is currently having an ultrasound completed. kw1 23:07 US Extremity Venous W Compression Ramses In Process Unspecified. EDMS 23:51 PT-INR Sent. ed1 23:51 Basic Metabolic Panel Sent. ed1 23:51 CBC with Diff Sent. ed1 23:51 LFT's Sent. ed1 23:51 Magnesium Sent. ed1 23:51 NT PRO-BNP Sent. ed1 06/16 00:06 CT Chest For PE Angio In Process Unspecified. EDMS 00:42 Awaiting ED provider evaluation. To speak with Dr. Du in regards to discharge. ed1 00:54 No provider procedures requiring assistance completed. IV discontinued, intact, ed1 bleeding controlled, No redness/swelling at site. Pressure dressing applied. Administered Medications: 09/06 22:06 Not Given (Patient Refused): NS 0.9% 1000 ml IV at 1 bolus Per protocol; 1000 mL bolus ed1 22:26 Not Given (Patient Refused): Rocephin - (cefTRIAXone) 1 grams IVPB once over 30 mins; ed1 (mix in 50 mL NS) 06/16 00:02 Drug: Rocephin - (cefTRIAXone) 1 grams Route: IVPB; Infused Over: 30 mins; Site: left ed1 antecubital; 00:57 Follow up: Response: No adverse reaction; IV Status: Completed infusion; IV Intake: [id number] 00:02 Drug: NS 0.9% 1000 ml Route: IV; Rate: 1 bolus; Site: left antecubital; ed1 00:56 Follow up: IV Status: Completed infusion; IV Intake: 1000ml ed1 00:02 Not Given (Patient Refused): Mucomyst - Acetylcysteine 600 mg PO once ed1 Intake: 00:56 IV: 1000ml; Total: 1000ml. ed1 00:57 IV: 10ml; Total: 1010ml. ed1 Outcome: 09/06 23:16 Discharge ordered by MD. lopez 06/16 00:54 Discharged to home ambulatory. ed1 Condition: good Discharge instructions given to patient, Instructed on discharge instructions, follow up and referral plans. medication usage, Demonstrated understanding of instructions, follow-up care, medications, Prescriptions given X 1. 00:58 Patient left the ED. ed1 Addendum: 09/10/2018 18:02 Addendum: Culture Results: Positive urine culture. Bacteria is resistant to, has s s intermediate sensitivity, or is not tested against prescribed antibiotics. Report given to FAHAD for further evaluation and then to business process representative for follow up with patient. Phone call Attempt #1 spoke with patient who verbalizes understanding of stopping Bactrim and take Macrobid as prescribed. Prescription called-in to pharmacy of choice. Macrobid 100 mg PO BID x 7 days #14 per XOCHITL Dias. Signatures: Dispatcher [employer] EDMS Jonathan Du MD MD cha Salyer, Silvia Saeed, RN RN bb Tawanna Eng RN RN ss Yuni Valencia RN RN ed1 Kiki Valdes mt, Kimberly kw1 Lorrie Walton mw3 Corrections: (The following items were deleted from the chart) 09/06 22:39 22:38 Radiology exam delayed due to IV insertion attempt and/or patient not having mw3 appropriate IV at this time. mw3 09/07 00:41 00:40 Reassessment: Patient appears in no apparent distress at this time. No changes ed1 from previously documented assessment. Patient and/or family updated on plan of care and expected duration. Pain level reassessed. Patient is alert, oriented x 3, equal unlabored respirations, skin warm/dry/pink. Patient states symptoms have not improved. ed1
[2018-09-06] MEDS ORDERED: CEFTRIAXONE/SWI 1gm 1 GM/10 ML SYR ONE (23:45)
[2018-09-06] MEDS ORDERED: NA CHLORIDE 0.9% 1,000 ML ONE (23:45)
[2018-09-06] MEDS ORDERED: ACETYLCYST 6,000 MG/30 ML VIAL ONE (23:45)
--- NOTE | 2018-09-06 23:53 | RAD REPORT ---
EXAM DESCRIPTION: USExtrem Venous W Compress Bil09/06/2018 11:05 pm CLINICAL HISTORY: Leg pain COMPARISON: none FINDINGS: The common femoral, superficial femoral, popliteal and posterior tibial veins bilaterally are compressible and demonstrate augmentation. Doppler demonstrates good flow. IMPRESSION: No evidence of deep venous thrombosis involving either lower extremity.
--- NOTE | 2018-09-07 00:08 | RAD REPORT ---
EXAM DESCRIPTION: [place] Single View09/06/2018 10:16 pm CLINICAL HISTORY: Chest pain COMPARISON: 2013 FINDINGS: The lungs appear clear of acute infiltrate. The heart is borderline enlarged IMPRESSION: No acute abnormalities displayed
[2018-09-07 02:45] VITALS: O2SAT 100
[2018-09-07 02:47] VITALS: BP 122/78; TEMP 97.9
--- NOTE | 2018-09-07 10:33 | EKG ---
Test Date: 2018-09-06 Test Time: 20:44:34 Line Prep Cook: JENNIFER MEASUREMENT RESULTS: Intervals: Rate: 64 NC: 142 QRSD: 88 QT: 390 QTc: 402 [place]: P: 39 NC: 142 QRS: 64 T: 54 INTERPRETIVE STATEMENTS: Normal sinus rhythm normal ECG Compared to ECG 06/13/2018 17:08:03 Sinus arrhythmia no longer present Electronically Signed On 09-07-18 10:33:23 CDT by Lawrence Rizzo
--- NOTE | 2018-09-08 11:05 | RAD REPORT ---
EXAM DESCRIPTION: CT - Chest For Pe Angio - 09/07/2018 6:15 am CLINICAL HISTORY: The patient is 28 years old and is Female; Chest pain;Dyspnea TECHNIQUE: Axial computed tomography angiography images of the chest with intravenous contrast durin g the arterial phase of enhancement. Sagittal and coronal reformatted images were created and revie wed. This CT exam was performed using one or more of the following dose reduction techniques: aut omated exposure control, adjustment of the mA and/or kV according to patient size, and/or use of iter ative reconstruction technique. Oblique reformatted images were created and reviewed. COMPARISON: Chest radiograph of the same day. FINDINGS: PULMONARY ARTERIES: Unremarkable. No pulmonary embolism. AORTA: No acute findings. No thoracic aortic aneurysm. LUNGS: Minimal dependent subsegmental atelectasis bilaterally. No focal consolidation. PLEURAL SPACE: No pleural effusion or pneumothorax. HEART: Unremarkable. No cardiomegaly. No significant pericardial effusion. No evidence of RV dysfunction. BONES/JOINTS: No acute fracture. No dislocation. SOFT TISSUES: Unremarkable. LYMPH NODES: Unremarkable. No enlarged lymph nodes. IMPRESSION: No pulmonary embolism or acute aortic abnormality. Electronically signed by: Quinn Tran DO 09/07/2018 12:16 AM CDT Due to temporary technical issues with the PACS/Fluency reporting system, reports are being signed by the in house radiologist as a courtesy to ensure prompt reporting. The interpreting radiologist is f ully responsible for the content of the report.
== END 2018-09-07 00:58 | disposition home or self-care (01) ==
LOC: ER 20:21
DX: R07.9 Chest pain, unspecified (principal); N39.0 Urinary tract infection, site not specified; F17.210 Nicotine dependence, cigarettes, uncomplicated
CPT/HCPCS: 36415; 71045; 71275; 80048; 80076; 80307; 80320; 80329; 81003; 81025; 83735; 83880; 84484; 84703; 85025; 85379; 85610; 85730; 87077; 87086; 87088; 87186; 93005; 93970; 96365; 99285; J0696; J7030; Q9967

== ENCOUNTER 2018-09-14 19:30 | Emergency (ER) | payer OTHER, SELFPAY ==
--- OUTSIDE RECORDS SUMMARY | 2018-09-14 19:32 | XMS REPORT ---
:1990 Author Organization [facility] Address [address] [place] [address] [address] [place] [address] Care Team Providers Name Role Phone Unavailable Unavailable Unavailable Problems This patient has no known problems. Allergies, Adverse Reactions, Alerts This patient has no known allergies or adverse reactions. Medications This patient has no known medications.
--- OUTSIDE RECORDS SUMMARY | 2018-09-14 19:32 | XMS REPORT ---
:1990 Author Organization [employer] Care Team Providers Name Role Phone Aniceto Pisano Provider Role Unavailable Allergies, Adverse Reactions, Alerts Substance Reaction Event Type N.K.D.A. 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
[2018-09-14 20:31] LABS: Basophils % 0.4 % (0-1.3); Eosinophils % 1.7 % (0-4.4); Hematocrit 44.3 % (36.0-45.0); Lymphocytes % 31.6 % (15.3-44.8); MPV 9.3 fL (7.6-11.3); Monocytes % 8.1 % (3.3-12.3); RBC Red Blood Cell Count 5.19 M/uL (3.86-4.86)
[2018-09-14 20:32] LABS: Absolute Lymphocytes (CBC) 2.8 K/uL (0.7-4.9)
[2018-09-14 20:45] LABS: ALT/SGPT 34 U/L (12-78); AST/SGOT 13 U/L (15-37); Alkaline Phosphatase 98 U/L (45-117); BUN Blood Urea Nitrogen 8 mg/dL (7-18); Bicarbonate 25 mmol/L (21-32); Bilirubin Direct 0.2 mg/dL (0-0.2); Bilirubin Total 0.6 mg/dL (0.2-1.0); Glucose Level 106 mg/dL (74-106); Magnesium 2.2 mg/dL (1.8-2.4); Potassium 3.6 mmol/L (3.5-5.1); Protein, Total 7.4 g/dL (6.4-8.2); Sodium Level 144 mmol/L (136-145); Troponin (Emerg Dept Use Only) < 0.02 ng/mL (0.0-0.045)
[2018-09-14] MEDS ORDERED: KETOROLAC 30 MG/ML INJ ONE (20:48)
--- NOTE | 2018-09-14 21:06 | RAD REPORT ---
EXAM DESCRIPTION: RAD - Chest Single View - 09/14/2018 8:44 pm CLINICAL HISTORY: Chest pain COMPARISON: September 06 TECHNIQUE: AP portable chest image was obtained 2 hours . FINDINGS: Lungs are clear. Heart and vasculature are normal. No measurable pleural effusion and no p neumothorax. No acute bony abnormality seen. No acute aortic findings suspected. IMPRESSION: No acute cardiopulmonary process. No significant change comparison.
[2018-09-14 21:14] LABS: Protime INR 1.07
[2018-09-14 22:19] LABS: Barbiturates NEGATIVE (NEGATIVE); Benzodiazepines NEGATIVE (NEGATIVE); Cocaine NEGATIVE (NEGATIVE); METHAMPHETAM NEGATIVE (NEGATIVE); Methadone NEGATIVE (NEGATIVE); Opiates NEGATIVE (NEGATIVE); Phencyclidine NEGATIVE (NEGATIVE); THC Cannibis NEGATIVE (NEGATIVE)
--- NOTE | 2018-09-15 00:47 | EDPHYS ---
Physician Documentation [facility] Name: Elham Moran Age: 28 yrs Sex: Female : 1990 Arrival Date: 09/14/2018 Time: 19:31 Bed 7 Private MD: ED Physician Jonathan Du HPI: 09/14 20:00 This 28 yrs old Female presents to ER via Ambulatory with complaints of Chest cp Pain. 20:00 The patient or guardian reports chest pain that is located primarily in the anterior cp chest wall. The pain does not radiate. 20:00 Associated signs and symptoms: Pertinent positives: shortness of breath, Pertinent cp negatives: abdominal pain, cough, diaphoresis, dizziness, lower extremity pain, lower extremity swelling, lightheadedness, palpitations, syncope, vomiting. 20:00 The chest pain is described as sharp. Duration: The patient or guardian reports a cp single episode, that is still ongoing, and unchanged. The patient has experienced similar episodes in the past, a few times, has appt with cardiology this week. 20:00 The patient has been recently seen at the [facility] Emergency cp Department, last week, for similar complaints. 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 - Social history:: Smoking status: Patient uses tobacco products, smokes one-half pack cigarettes per day. - Ebola Screening: : No symptoms or risks identified at this time. ROS: 20:05 Constitutional: Negative for body aches, chills, fever, poor PO intake. cp 20:05 Eyes: Negative for injury, pain, redness, and discharge. cp 20:05 ENT: Negative for drainage from ear(s), ear pain, sore throat, difficulty swallowing, difficulty handling secretions. 20:05 Cardiovascular: Positive for chest pain, Negative for edema, palpitations. 20:05 Respiratory: Positive for shortness of breath, Negative for cough, wheezing. 20:05 Abdomen/GI: Negative for abdominal pain, nausea, vomiting, and diarrhea, constipation. 20:05 Back: Negative for pain at rest, pain with movement, radiated pain. 20:05 Skin: Negative for rash. 20:05 Neuro: Negative for altered mental status, dizziness, headache, weakness. 20:05 All other systems are negative. Exam: 19:50 ECG was reviewed by the Attending Physician. cp 20:10 Constitutional: The patient appears in no acute distress, alert, awake, cp non-diaphoretic, non-toxic, well developed, well nourished, uncomfortable. 20:10 Head/Face: Normocephalic, atraumatic. cp 20:10 Eyes: Periorbital structures: appear normal, Conjunctiva: normal, no exudate, no injection, Sclera: no appreciated abnormality, Lids and lashes: appear normal, bilaterally. 20:10 ENT: External ear(s): are unremarkable, Nose: is normal, Mouth: Lips: moist, Oral mucosa: pink and intact, moist, Posterior pharynx: is normal, airway is patent, no erythema, no exudate. 20:10 Neck: ROM/movement: is normal, is supple, without pain, no range of motions limitations, no meningismus, no nuchal rigidity. 20:10 Chest/axilla: Inspection: normal, Palpation: crepitus, is not appreciated, tenderness, cp that is moderate, of the mid-sternal area, that partially reproduces the patient's complaints. 20:10 Cardiovascular: Rate: normal, Rhythm: regular, Pulses: Pulses are 2+ in right radial artery and left radial artery. Edema: is not appreciated, JVD: is not appreciated. 20:10 Respiratory: the patient does not display signs of respiratory distress, Respirations: cp normal, no use of accessory muscles, no retractions, no splinting, no tachypnea, labored breathing, is not present, Breath sounds: are clear throughout, no decreased breath sounds, no stridor, no wheezing. 20:10 Abdomen/GI: Inspection: abdomen appears normal, Bowel sounds: active, all quadrants, Palpation: abdomen is soft and non-tender, in all quadrants. 20:10 Back: pain, is absent, ROM is normal. 20:10 Skin: no rash present. 20:10 Neuro: Orientation: to person, place \T\ time. Mentation: is normal, Cerebellar function: is grossly normal, Motor: moves all fours, strength is normal, Sensation: is normal. Vital Signs: 19:45 BP 125 / 83; Pulse 91; Resp 30; Temp 98.2(O); Pulse Ox 97% on R/A; Weight 90.72 kg; tl2 Height 5 ft. 7 in. (170.18 cm); Pain 9/10; 20:35 BP 121 / 78; Pulse 75; Resp 14; Pulse Ox 98% on R/A; tl2 19:45 Body Mass Index 31.32 (90.72 kg, 170.18 cm) tl2 MDM: 19:52 Patient medically screened. cp 21:00 Differential diagnosis: acute AR, cardiac arrythmia, chest wall pain, pericarditis. cp 21:00 Differential diagnosis: acute myocardial infarction, acute pericarditis, chest wall cp pain, cholecystitis, Cholelithiasis costochondritis, pericarditis, pleurisy, pneumothorax, pulmonary embolus, thoracic aortic disection. 22:27 Data reviewed: vital signs, nurses notes, lab test result(s), EKG, radiologic studies, cp plain films. 22:27 Test interpretation: by ED physician or midlevel provider: ECG, plain radiologic cp studies. 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 22:28 Response to treatment: the patient's symptoms have markedly improved after treatment, cp VSS. Patient reports pain resolved, and as a result, I will discharge patient. Special discussion: Based on the patient's history, exam, and Dx evaluation, there is no indication for emergent intervention or inpatient Tx. It is understood by the patient/guardian that if the Sx's persist or worsen they need to return immediately for re-evaluation. 09/14 20:22 Order name: Basic Metabolic Panel cp 09/14 20:22 Order name: CBC with Diff cp 09/14 20:22 Order name: LFT's; Complete Time: 21:32 cp 09/14 20:22 Order name: Magnesium; Complete Time: 21:32 cp 09/14 20:22 Order name: PT-INR; Complete Time: 21:32 cp 09/14 20:22 Order name: Troponin (emerg Dept Use Only); Complete Time: 21:32 cp 09/14 19:39 Order name: EKG; Complete Time: 19:40 cp 09/14 20:22 Order name: XRAY Chest (1 view); Complete Time: 21:32 cp 09/14 20:23 Order name: Basic Metabolic Panel; Complete Time: 21:32 EDMS 09/14 20:23 Order name: CBC with Automated Diff; Complete Time: 21:32 EDMS 09/14 21:47 Order name: Urine Dipstick--Ancillary (enter results) cm6 09/14 21:50 Order name: Urine Drug Screen; Complete Time: 22:23 EDMS 09/14 22:23 Interpretation: Reviewed. 09/14 19:39 Order name: EKG - Nurse/Tech; Complete Time: 19:46 cp 09/14 20:22 Order name: Cardiac monitoring; Complete Time: 20:28 cp 09/14 20:22 Order name: IV Saline Lock; Complete Time: 20:28 cp 09/14 20:22 Order name: Labs collected and sent; Complete Time: 20:27 cp 09/14 20:22 Order name: O2 Per Protocol; Complete Time: 20:27 cp 09/14 20:22 Order name: O2 Sat Monitoring; Complete Time: 20:27 cp 09/14 21:33 Order name: Urine Dipstick-Ancillary (obtain specimen); Complete Time: 21:39 cp EC:50 Rate is 88 beats/min. Rhythm is regular. ID interval is normal. QRS interval is normal. cp QT interval is normal. Interpreted by me. Reviewed by me. Administered Medications: 20:35 Drug: TORadol 30 mg Route: IVP; Site: left antecubital; tl2 21:00 Follow up: Response: No adverse reaction; Pain is decreased tl2 Disposition: 09/15 10:04 Co-signature as Attending Physician, Jonathan Du MD I agree with the assessment and jessica plan of care. Disposition: 09/14/18 22:29 Discharged to Home. Impression: Other chest pain. - Condition is Stable. - Discharge Instructions: Nonspecific Chest Pain, Aspirin and Your Heart. - Prescriptions for Ibuprofen 800 mg Oral Tablet - take 1 tablet by ORAL route every 8 hours As needed take with food; 30 tablet. - Medication Reconciliation Form, Thank You Letter, Antibiotic Education, Prescription Opioid Use form. - Follow up: Lawrence Rizzo MD; When: 2 - 3 days; Reason: Recheck today's complaints. - Problem is new. - Symptoms have improved. Signatures: Dispatcher [employer] EDJonathan Ramirez MD MD cha Page, Corey, PA PA cp Simi Wilcox RN RN tl2 Corrections: (The following items were deleted from the chart) 09/14 22:32 22:29 09/14/2018 22:29 Discharged to Home. Impression: Other chest pain. Condition is tl2 Stable. Forms are Medication Reconciliation Form, Thank You Letter, Antibiotic Education, Prescription Opioid Use. Follow up: Lawrence Rizzo; When: 2 - 3 days; Reason: Recheck today's complaints. Problem is new. Symptoms have improved. cp
--- NOTE | 2018-09-15 00:47 | ER ---
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 tl2 Does not radiate. Pt reports shortness of breath. Pt states she was here recently for the same complaint and she was to follow up with a brand advocate but has not been able to get an appointment. Transition of care: patient was not received from another setting of care. Onset of symptoms was September 14, 2018 at 19:20. Risk Assessment: Do you want to hurt yourself or someone else? Patient reports no desire to harm self or others. Initial Sepsis Screen: Does the patient meet any 2 criteria? No. Patient's initial sepsis screen is negative. Does the patient have a suspected source of infection? No. Patient's initial sepsis screen is negative. Care prior to arrival: None. 19:42 Method Of Arrival: Ambulatory tl2 19:42 Acuity: MISSAEL 3 tl2 Triage Assessment: 19:45 General: Appears in no apparent distress. uncomfortable, Behavior is calm, cooperative, tl2 appropriate for age. Pain: Complains of pain in mid-sternal area Pain does not radiate. Pain currently is 9 out of 10 on a pain scale. Quality of pain is described as sharp, Pain began suddenly. Neuro: Level of Consciousness is awake, alert, obeys commands, Oriented to person, place, time, situation. 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 Respiratory: Reports shortness of breath Airway is patent Respiratory effort is even, unlabored, Respiratory pattern is regular, symmetrical. GI: No signs and/or symptoms were reported involving the gastrointestinal system. : No signs and/or symptoms were reported regarding the genitourinary system. Derm: Skin is pink, warm \T\ dry. 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 - Social history:: Smoking status: Patient uses tobacco products, smokes one-half pack cigarettes per day. - Ebola Screening: : No symptoms or risks identified at this time. Screenin:48 Abuse screen: Denies threats or abuse. Nutritional screening: No deficits noted. tl2 Tuberculosis screening: No symptoms or risk factors identified. Fall Risk None identified. Assessment: 19:48 General: see triage assessment. tl2 20:36 Reassessment: Patient appears in no apparent distress at this time. Patient and/or tl2 family updated on plan of care and expected duration. Pain level reassessed. Patient is alert, oriented x 3, equal unlabored respirations, skin warm/dry/pink. pt is relaxed and calm, awaiting lab results. 21:34 Reassessment: Patient appears in no apparent distress at this time. Patient and/or tl2 family updated on plan of care and expected duration. Pain level reassessed. Patient is alert, oriented x 3, equal unlabored respirations, skin warm/dry/pink. Pt states pain has improved and she is feeling better, denies shortness of breath at this time. Pt is asking about discharge. Will speak with PA about reviewing lab results Patient states feeling better. Patient states symptoms have improved. 22:25 Reassessment: Patient appears in no apparent distress at this time. Patient and/or tl2 family updated on plan of care and expected duration. Pain level reassessed. Patient is alert, oriented x 3, equal unlabored respirations, skin warm/dry/pink. pt insistent on leaving, PA notified and he is going to see pt right now. 22:29 Reassessment: Patient appears in no apparent distress at this time. Pt verbalized tl2 understanding of discharge instructions, need for follow up. Pt did not want to wait for discharge paperwork. Pt is ambulatory out of ER. Vital Signs: 19:45 BP 125 / 83; Pulse 91; Resp 30; Temp 98.2(O); Pulse Ox 97% on R/A; Weight 90.72 kg; tl2 Height 5 ft. 7 in. (170.18 cm); Pain 9/10; 20:35 BP 121 / 78; Pulse 75; Resp 14; Pulse Ox 98% on R/A; tl2 19:45 Body Mass Index 31.32 (90.72 kg, 170.18 cm) tl2 Vitals: 20:35 Cardiac Rhythm Assessment Sinus rhythm. tl2 ED Course: 19:31 Patient arrived in ED. am2 19:38 Jonathan Tucker PA is PHCP. cp 19:38 Jonathan Du MD is Attending Physician. cp 19:42 Simi Wilcox RN is Primary Nurse. tl2 19:43 Triage completed. tl2 19:45 Arm band placed on right wrist. tl2 19:48 Patient has correct armband on for positive identification. Placed in gown. Bed in low tl2 position. Call light in reach. Side rails up X 1. Adult w/ patient. potline monitor on. Pulse ox on. NIBP on. 19:48 Initial lab(s) drawn, by ED staff, sent to lab. EKG done, by commercial maintenance technician. reviewed by tl2 Jonathan LEUNG. Inserted saline lock: 20 gauge in left antecubital area, using aseptic technique. Blood collected. placed by SKYE Dsouza. Patient maintains SpO2 saturation greater than 95% on room air. 20:43 XRAY Chest (1 view) In Process Unspecified. EDMS 22:28 Lawrence Rizzo MD is Referral Physician. cp 22:29 No provider procedures requiring assistance completed. IV discontinued, intact, tl2 bleeding controlled, No redness/swelling at site. Pressure dressing applied. Administered Medications: 20:35 Drug: TORadol 30 mg Route: IVP; Site: left antecubital; tl2 21:00 Follow up: Response: No adverse reaction; Pain is decreased tl2 Outcome: 22:29 Discharge ordered by . cp 22:29 Discharged to home ambulatory. tl2 22:29 Condition: stable 22:29 Discharge instructions given to patient, Instructed on discharge instructions, follow up and referral plans. Demonstrated understanding of instructions, follow-up care. 22:32 Patient left the ED. tl2 Signatures: Dispatcher [employer] EDMS Jonathan Tucker PA PA cp Knox, Taylor, RN RN tl2 Donna Zavala am2
[2018-09-15 01:04] LABS: Urine Blood NEGATIVE (NEG); Urine Glucose NEGATIVE (NEG); Urine Protein NEGATIVE (NEG); Urine Specific Gravity >1.030 (1.005-1.030); Urine pH 5.5 (5.0-7.0)
[2018-09-15 02:12] VITALS: TEMP 98.2
[2018-09-15 02:14] VITALS: BP 121/78; O2SAT 98
--- NOTE | 2018-09-15 07:52 | EKG ---
Test Date: 2018-09-14 Test Time: 19:41:23 [employer]: DEVON MEASUREMENT RESULTS: Intervals: Rate: 88 IN: 134 QRSD: 80 QT: 350 QTc: 423 [place]: P: 40 IN: 134 QRS: 49 T: 53 INTERPRETIVE STATEMENTS: Normal sinus rhythm Normal ECG Compared to ECG 09/06/2018 20:44:34 No significant changes Electronically Signed On 09-15-18 07:52:06 CDT by Lawrence Rizzo
== END 2018-09-14 22:32 | disposition home or self-care (01) ==
LOC: ER 19:30
DX: R07.89 Other chest pain (principal); F17.210 Nicotine dependence, cigarettes, uncomplicated
CPT/HCPCS: 36415; 71045; 80048; 80076; 80307; 81003; 83735; 84484; 85025; 85610; 93005; 96374; 99285

== ENCOUNTER 2018-10-15 20:24 | Emergency (ER) | payer OTHER ==
--- OUTSIDE RECORDS SUMMARY | 2018-10-15 20:26 | XMS REPORT ---
:1990 Author [facility] Address [address] [place] [address] [address] [place] [address] Care Team Providers Name Role Phone Unavailable Unavailable Unavailable Problems This patient has no known problems. Allergies, Adverse Reactions, Alerts This patient has no known allergies or adverse reactions. Medications This patient has no known medications.
--- OUTSIDE RECORDS SUMMARY | 2018-10-15 20:26 | XMS REPORT ---
:1990 Author Organization [employer] Care Team Providers Name Role Phone Aniceto Pisano Provider Role Unavailable Allergies, Adverse Reactions, Alerts Substance Reaction Event Type N.K.D.A. 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
[2018-10-15 21:02] LABS: Specific Gravity 1.015 (1.005-1.030)
[2018-10-15 21:05] LABS: Absolute Lymphocytes (CBC) 0.8 K/uL (0.7-4.9); Basophils % 0.3 % (0-1.3); Hematocrit 41.8 % (36.0-45.0); Lymphocytes % 7.9 % (15.3-44.8); MPV 8.5 fL (7.6-11.3); RBC Red Blood Cell Count 4.87 M/uL (3.86-4.86)
[2018-10-15] MEDS ORDERED: NA CHLORIDE 0.9% 1,000 ML ONE (21:10)
[2018-10-15] MEDS ORDERED: KETOROLAC 30 MG/ML INJ ONE (21:10)
[2018-10-15] MEDS ORDERED: ONDANSETRON 4 MG/2 ML VIAL ONE (21:10)
[2018-10-15 21:14] LABS: Urine Bacteria 20-50 /HPF (<20); Urine Culture Reflex Order REFLEXED; Urine RBC <5 /HPF (NONE SEEN)
[2018-10-15 21:16] LABS: Urine Blood 1+ (NEG); Urine Glucose NEGATIVE (NEG); Urine Protein 2+ (NEG)
[2018-10-15 21:19] LABS: Bilirubin Direct 0.2 mg/dL (0-0.2); Bilirubin Total 0.8 mg/dL (0.2-1.0); Potassium 3.9 mmol/L (3.5-5.1); Protein, Total 7.4 g/dL (6.4-8.2)
[2018-10-15] MEDS ORDERED: CEFTRIAXONE/SWI 1gm 1 GM/10 ML SYR ONE (21:19)
[2018-10-15] MEDS ORDERED: ACETAMINOPHEN 500 MG TAB ONE (22:13)
[2018-10-15 22:26] LABS: Blood Morphology Comment NOT SEEN (NOT SEEN); Platelet Estimate ADEQ
--- NOTE | 2018-10-15 23:16 | EDPHYS ---
Physician Documentation [facility] Name: Elham Moran Age: 28 yrs Sex: Female : 1990 Arrival Date: 10/15/2018 Time: 20:27 Bed 30 Private MD: ED Physician Jonathan Du HPI: 10/15 20:50 This 28 yrs old Female presents to ER via Ambulatory with complaints of Back cp Pain. 20:50 The patient presents with pain that is acute, with no known mechanism of injury. The cp symptoms are located in the right mid back and right low back. Onset: The symptoms/episode began/occurred yesterday, and became worse today. The pain does not radiate. Associated signs and symptoms: Pertinent positives: fever, Pertinent negatives: abdominal pain, chest pain, constipation, incontinence, urinary retention, vomiting, weakness. Severity of symptoms: in the emergency department the symptoms are unchanged, despite home interventions. 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 - Social history:: Smoking status: Patient/guardian denies using tobacco. - Ebola Screening: : No symptoms or risks identified at this time. ROS: 21:00 Constitutional: Positive for fever, Negative for poor PO intake. cp 21:00 Eyes: Negative for injury, pain, redness, and discharge. cp 21:00 ENT: Negative for drainage from ear(s), ear pain, sore throat, difficulty swallowing, difficulty handling secretions. 21:00 Cardiovascular: Negative for chest pain, palpitations. 21:00 Respiratory: Negative for cough, shortness of breath, wheezing. 21:00 Back: Positive for flank pain, on the right, Negative for injury or acute deformity, decreased range of motion. 21:00 : Positive for flank pain, Negative for urinary symptoms, vaginal bleeding, vaginal discharge. 21:00 Skin: Negative for rash. 21:00 Neuro: Negative for altered mental status, dizziness, headache, weakness. 21:00 All other systems are negative. Exam: 21:05 Constitutional: The patient appears in no acute distress, alert, awake, non-toxic, well cp developed, well nourished, uncomfortable. 21:05 Head/Face: Normocephalic, atraumatic. cp 21:05 Eyes: Periorbital structures: appear normal, Conjunctiva: normal, no exudate, no injection, Sclera: no appreciated abnormality, Lids and lashes: appear normal, bilaterally. 21:05 ENT: External ear(s): are unremarkable, Nose: is normal, Mouth: Lips: moist, Oral mucosa: pink and intact, moist, Posterior pharynx: is normal, airway is patent, no erythema, no exudate. 21:05 Neck: ROM/movement: is normal, is supple, without pain, no range of motions limitations, no meningismus, no nuchal rigidity. 21:05 Chest/axilla: Inspection: normal, Palpation: is normal, no crepitus, no tenderness. 21:05 Cardiovascular: Rate: tachycardic, Rhythm: regular. 21:05 Respiratory: the patient does not display signs of respiratory distress, Respirations: normal, no use of accessory muscles, no retractions, no splinting, no tachypnea, labored breathing, is not present, Breath sounds: are clear throughout, no decreased breath sounds, no stridor, no wheezing. 21:05 Abdomen/GI: Inspection: abdomen appears normal, Bowel sounds: active, all quadrants, Palpation: soft, in all quadrants, mild abdominal tenderness, in the right lower quadrant and left lower quadrant, rebound tenderness, is not appreciated, voluntary guarding, is not appreciated, involuntary guarding, is not appreciated. 21:05 Back: pain, that is severe, of the right mid back and right low back, ROM is painful, with all movement. 21:05 Neuro: Orientation: to person, place \T\ time. Mentation: is normal, Motor: moves all fours, strength is normal. Vital Signs: 20:30 BP 135 / 73; Pulse 114; Resp 20; Temp 100.4; Pulse Ox 97% on R/A; Weight 81.65 kg; aj Height 5 ft. 7 in. (170.18 cm); 21:30 BP 107 / 65; Pulse 103; Resp 18; Pulse Ox 100% on R/A; wh 23:00 BP 97 / 61; Pulse 87; Resp 18; Temp 99.2; Pulse Ox 96% on R/A; wh 20:30 Body Mass Index 28.19 (81.65 kg, 170.18 cm) aj MDM: 20:45 Patient medically screened. jessica 21:00 Differential diagnosis: Cholelithiasis Pyelonephritis Scoliosis sprain, sepsis, UTI, cp appendicitis. 23:15 Data reviewed: vital signs, nurses notes, lab test result(s), radiologic studies, CT cp scan, and as a result, I will discharge patient. 23:15 Counseling: I had a detailed discussion with the patient and/or guardian regarding: the cp historical points, exam findings, and any diagnostic results supporting the discharge/admit diagnosis, lab results, radiology results, to return to the emergency department if symptoms worsen or persist or if there are any questions or concerns that arise at home. Response to treatment: the patient's symptoms have markedly improved after treatment, and as a result, I will discharge patient. 10/15 20:43 Order name: Urine Microscopic Only; Complete Time: 21:44 10/15 21:45 Interpretation: Normal except: UWBC >50; UBACT 20-50; SQEPI 5-10. 10/15 20:43 Order name: Basic Metabolic Panel; Complete Time: 21:44 10/15 22:35 Interpretation: Normal except: GFR 75. 10/15 20:43 Order name: CBC with Diff; Complete Time: 22:35 10/15 22:35 Interpretation: Normal except: RBC 4.87; SRIDEVI% 87.7; LYM% 7.9; MN% 3.2; NEUT A 9.2. 10/15 20:43 Order name: Creatinine for Radiology; Complete Time: 21:44 10/15 20:43 Order name: Hepatic Function; Complete Time: 21:44 10/15 22:36 Interpretation: Reviewed. 10/15 20:43 Order name: Lipase; Complete Time: 21:44 10/15 20:49 Order name: CT Stone Protocol 10/15 20:55 Order name: Urine Dipstick--Ancillary (enter results); Complete Time: 21:44 ar5 10/15 22:36 Interpretation: Normal except: UBLD 1+; UPROT 2+; U NIT POSITIVE; UESTR 2+. 10/15 20:59 Order name: Test, Urine; Complete Time: 21:44 EDMS 10/15 21:19 Order name: Urine Culture [facility] 10/15 22:23 Order name: Manual Differential; Complete Time: 22:35 EDMS 10/15 22:35 Interpretation: Normal except: SEGS 88; LYM 7. cp 10/15 20:43 Order name: Urine Dipstick-Ancillary (obtain specimen); Complete Time: 20:54 cp 10/15 20:43 Order name: Urine Test (obtain specimen); Complete Time: 21:00 cp 10/15 20:43 Order name: IV Saline Lock; Complete Time: 21:00 cp 10/15 20:43 Order name: Labs collected and sent; Complete Time: 21:00 cp 10/15 22:37 Order name: PO challenge; Complete Time: 22:42 cp Administered Medications: 20:55 Drug: Zofran 4 mg Route: IVP; Site: left antecubital; 23:26 Follow up: Response: No adverse reaction 20:55 Drug: NS 0.9% 1000 ml Route: IV; Rate: 1 bolus; Site: left antecubital; 23:26 Follow up: Response: No adverse reaction; IV Status: Completed infusion 21:03 Drug: Rocephin - (cefTRIAXone) 1 grams Route: IVPB; Infused Over: 30 mins; Site: left antecubital; 23:26 Follow up: Response: No adverse reaction; IV Status: Completed infusion 21:41 Drug: TORadol 30 mg Route: IVP; Site: left antecubital; [facility] 23:26 Follow up: Response: No adverse reaction 21:53 Drug: Tylenol 1000 mg Route: PO; 23:25 Follow up: Response: No adverse reaction Disposition: 10/15/18 23:15 Discharged to Home. Impression: Urinary tract infection, site not specified. - Condition is Stable. - Discharge Instructions: Urinary Tract Infection, Adult. - Prescriptions for Naprosyn 500 mg Oral Tablet - take 1 tablet by ORAL route 2 times per day take with food; 20 tablet. Zofran 4 mg Oral Tablet - take 1 tablet by ORAL route every 12 hours As needed; 20 tablet. Bactrim DS 800- 160 mg Oral Tablet - take 1 tablet by ORAL route every 12 hours for 10 days; 20 tablet. - Medication Reconciliation Form, Thank You Letter, Antibiotic Education, Prescription Opioid Use form. - Follow up: Private Physician; When: 2 - 3 days; Reason: Recheck today's complaints. - Problem is new. - Symptoms have improved. Addendum: 10/17/2018 07:10 Co-signature as Attending Physician, Jonathan Du MD I agree with the assessment and c solorzano plan of care. Signatures: Dispatcher [employer] Donna Cornelius, RN RN Jonathan Lopez MD MD cha Page, Corey, PA PA cp Neymar, Frida Zaheer Alatorre RN RN mg2 Corrections: (The following items were deleted from the chart) 10/15 23:27 23:15 10/15/2018 23:15 Discharged to Home. Impression: Urinary tract infection, site wh not specified. Condition is Stable. Forms are Medication Reconciliation Form, Thank You Letter, Antibiotic Education, Prescription Opioid Use. Follow up: Private Physician; When: 2 - 3 days; Reason: Recheck today's complaints. Problem is new. Symptoms have improved. cp
--- NOTE | 2018-10-15 23:16 | ER ---
Nurse's Notes [facility] Name: Elham Moran Age: 28 yrs Sex: Female : 1990 Arrival Date: 10/15/2018 Time: 20:27 Bed 30 Private MD: Diagnosis: Urinary tract infection, site not specified Presentation: 10/15 20:30 Presenting complaint: Patient states: Right flank pain that started yesterday with aj fever. Transition of care: patient was not received from another setting of care. Onset of symptoms was October 14, 2018. Risk Assessment: Do you want to hurt yourself or someone else? Patient reports no desire to harm self or others. Initial Sepsis Screen: Does the patient meet any 2 criteria? No. Patient's initial sepsis screen is negative. Does the patient have a suspected source of infection? No. Patient's initial sepsis screen is negative. Care prior to arrival: None. 20:30 Method Of Arrival: Ambulatory aj 20:30 Acuity: MISSAEL 3 aj Triage Assessment: 20:30 General: Appears in no apparent distress. uncomfortable, Behavior is calm, cooperative, aj appropriate for age. Pain: Complains of pain in right low back and posterior aspect of right lateral abdomen. Neuro: Level of Consciousness is awake, alert, obeys commands, Oriented to person, place, time, situation, Appropriate for age. Respiratory: Airway is patent Respiratory effort is even, unlabored, Respiratory pattern is regular, symmetrical. : Reports pain in right in lower back urinary frequency. 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 - Social history:: Smoking status: Patient/guardian denies using tobacco. - Ebola Screening: : No symptoms or risks identified at this time. Screenin:42 Abuse screen: Denies threats or abuse. Denies injuries from another. Nutritional wh screening: No deficits noted. Tuberculosis screening: No symptoms or risk factors identified. Fall Risk None identified. Assessment: 21:42 General: Appears in no apparent distress. uncomfortable, Behavior is calm, cooperative, wh appropriate for age. Pain: Complains of pain in low back pain Pain does not radiate. 21:42 Pain: Pain currently is 6 out of 10 on a pain scale. Quality of pain is described as wh aching, Pain began 1 day ago. Neuro: Level of Consciousness is awake, alert, obeys commands, Oriented to person, place, time, situation, Appropriate for age. Cardiovascular: Heart tones S1 S2 Capillary refill < 3 seconds. Respiratory: Airway is patent Respiratory effort is even, unlabored, Respiratory pattern is regular, symmetrical. GI: Abdomen is flat, non-distended, Abd is soft and non tender X 4 quads. : No signs and/or symptoms were reported regarding the genitourinary system. EENT: No signs and/or symptoms were reported regarding the EENT system. Derm: Skin is intact, is healthy with good turgor, Skin is pink, warm \T\ dry. normal. Musculoskeletal: Range of motion: intact in all extremities. 22:59 Reassessment: Patient appears in no apparent distress at this time. Patient and/or wh family updated on plan of care and expected duration. Pain level reassessed. Patient is alert, oriented x 3, equal unlabored respirations, skin warm/dry/pink. Patient states feeling better. Patient states symptoms have improved. Vital Signs: 20:30 BP 135 / 73; Pulse 114; Resp 20; Temp 100.4; Pulse Ox 97% on R/A; Weight 81.65 kg; aj Height 5 ft. 7 in. (170.18 cm); 21:30 BP 107 / 65; Pulse 103; Resp 18; Pulse Ox 100% on R/A; wh 23:00 BP 97 / 61; Pulse 87; Resp 18; Temp 99.2; Pulse Ox 96% on R/A; wh 20:30 Body Mass Index 28.19 (81.65 kg, 170.18 cm) ED Course: 20:27 Patient arrived in ED. ds1 20:30 Triage completed. aj 20:30 Arm band placed on right wrist. Patient placed in an exam room. aj 20:43 Jonathan Tucker PA is PHCP. cp 20:43 Jonathan Du MD is Attending Physician. cp 20:50 Frida Blackmon is Primary Nurse. 20:55 Inserted saline lock: 20 gauge in left antecubital area, using aseptic technique. Blood jp3 collected. 20:55 Initial lab(s) drawn, by md, sent to lab. Urine collected: clean catch specimen, clear, jp3 victoria colored. Patient maintains SpO2 saturation greater than 95% on room air. 20:58 Bed in low position. Call light in reach. Side rails up X 1. Verbal reassurance given. jp3 Pulse ox on. NIBP on. 21:34 CT Stone Protocol In Process Unspecified. EDKY 23:24 No provider procedures requiring assistance completed. IV discontinued, intact, bleeding controlled, No redness/swelling at site. Administered Medications: 20:55 Drug: Zofran 4 mg Route: IVP; Site: left antecubital; 23:26 Follow up: Response: No adverse reaction 20:55 Drug: NS 0.9% 1000 ml Route: IV; Rate: 1 bolus; Site: left antecubital; 23:26 Follow up: Response: No adverse reaction; IV Status: Completed infusion 21:03 Drug: Rocephin - (cefTRIAXone) 1 grams Route: IVPB; Infused Over: 30 mins; Site: left antecubital; 23:26 Follow up: Response: No adverse reaction; IV Status: Completed infusion 21:41 Drug: TORadol 30 mg Route: IVP; Site: left antecubital; mg2 23:26 Follow up: Response: No adverse reaction 21:53 Drug: Tylenol 1000 mg Route: PO; 23:25 Follow up: Response: No adverse reaction Outcome: 23:15 Discharge ordered by MD. 23:25 Discharged to home ambulatory, with family. 23:25 Condition: improved 23:25 Discharge instructions given to patient, Instructed on discharge instructions, follow up and referral plans. medication usage, POC UTI Demonstrated understanding of instructions, follow-up care, medications, POC Prescriptions given X 3. 23:27 Patient left the ED. Addendum: 10/18/2018 07:44 Addendum: Culture Results: Positive urine culture. No further action required. Bacteria a a5 sensitive to prescribed antibiotic. Signatures: Dispatcher [employer] EDMS Donna Mac RN RN aj Sanford, Demi ds1 Piedad Magdaleno RN RN aa5 Jonathan Tucker PA PA cp Habalo, Winsy Zaheer Alatorre RN RN mg2 Massimo Chen jp3 Corrections: (The following items were deleted from the chart) 10/15 23:01 21:30 BP 97 / 61; Pulse 87bpm; Resp 18bpm; Pulse Ox 96% RA; Temp 99.2F; wh wh
[2018-10-15 23:57] VITALS: BP 97/61; TEMP 99.2; O2SAT 96
--- NOTE | 2018-10-16 08:11 | RAD REPORT ---
EXAM DESCRIPTION: CT - Stone Protocol - 10/16/2018 6:17 am CLINICAL HISTORY: Flank pain Assess for obstructive uropathy. TECHNIQUE: CT scan of the abdomen and pelvis was performed without intravenous contrast. Stone bay col was utilized. 3.0 mm axial images were obtained along with coronal and sagittal reformatted image s. DOSE OPTIMIZATION: This facility uses dose optimization techniques as appropriate to perform exams, including at least one of the following techniques: 1. Automated exposure control. 2. Adjustment of the mA and/or kV according to patient size (this includes techniques or standardized protocols for targeted exams where dose is matched to the indication/reason for exam, i.e. extremiti es or head). 3. Use of iterative reconstructive technique. COMPARISON: None. FINDINGS: Lung Bases: Normal. Liver: There is evidence of hepatomegaly Spleen: Normal. Pancreas: Normal. Gallbladder: There are a few small calcified stones. Adrenal Glands: Normal. Right Kidney: Normal. Left Kidney: Normal. Right Ureter: Normal. Left Ureter: Normal. Urinary Bladder: Normal. Retroperitoneal Structures: Normal. Bowel Survey: There is increased stool within the ascending and transverse colon. The distal ileum is unremarkable. The appendix is unremarkable., Uterus and Adnexa: The uterus and right ovary are absent. Left ovary is unremarkable. Peritoneal Cavity: Normal. Mesenteric Structures: Normal. Abdominal Wall: No hernia. Bony Structures: No suspicious lesions. IMPRESSION: 1. Increased stool within the ascending and transverse colon. 2. Cholelithiasis. 3. Hepatomegaly. Electronically signed by: Gaurav Landrum MD 10/15/2018 9:54 PM CDT Due to temporary technical issues with the PACS/Fluency reporting system, reports are being signed by the in house radiologist as a courtesy to ensure prompt reporting. The interpreting radiologist is f ully responsible for the content of the report.
== END 2018-10-15 23:27 | disposition home or self-care (01) ==
LOC: ER 20:24
DX: N39.0 Urinary tract infection, site not specified (principal)
CPT/HCPCS: 36415; 74176; 76377; 80048; 80076; 81003; 81015; 81025; 83690; 85025; 87077; 87086; 87088; 87186; 96365; 96366; 96375; 99284; J0696; J2405; J7030

== ENCOUNTER 2019-03-10 09:20 | Emergency (ER) | payer OTHER, SELFPAY ==
--- OUTSIDE RECORDS SUMMARY | 2019-03-10 09:22 | XMS REPORT ---
:1990 Author Organization [employer] Care Team Providers Name Role Phone Aniceto Pisano Provider Role Unavailable Allergies, Adverse Reactions, Alerts Substance Reaction Event Type N.K.D.A. 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
--- OUTSIDE RECORDS SUMMARY | 2019-03-10 09:22 | XMS REPORT ---
:1990 [facility] Address [address] [place] [address] [address] [place] [address] Care Team Providers Name Role Phone Unavailable Unavailable Unavailable Problems This patient has no known problems. Allergies, Adverse Reactions, Alerts This patient has no known allergies or adverse reactions. Medications This patient has no known medications.
--- NOTE | 2019-03-10 09:54 | ER ---
Nurse's Notes [facility] Name: Elham Moran Age: 28 yrs Sex: Female : 1990 Arrival Date: 03/10/2019 Time: 09:25 Bed 23 Private MD: Diagnosis: Epigastric pain;Helicobacter pylori [H. pylori] as the cause of diseases classified elsewhere Presentation: 03/10 09:39 Presenting complaint: Patient states: epigastric burning after eating x 2-3 months. ss Transition of care: patient was not received from another setting of care. Onset of symptoms is unknown. Risk Assessment: Do you want to hurt yourself or someone else? Patient reports no desire to harm self or others. Initial Sepsis Screen: Does the patient meet any 2 criteria? No. Patient's initial sepsis screen is negative. Does the patient have a suspected source of infection? No. Patient's initial sepsis screen is negative. Care prior to arrival: None. 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 - Social history:: Smoking status: Patient uses tobacco products, smokes one-half pack cigarettes per day, Patient/guardian denies using alcohol, street drugs, The patient lives with family. - Ebola Screening: : Patient denies exposure to infectious person Patient denies travel to an Ebola-affected area in the 21 days before illness onset. - Family history:: not pertinent. Screenin:15 Abuse screen: Denies threats or abuse. Nutritional screening: No deficits noted. em Tuberculosis screening: No symptoms or risk factors identified. Fall Risk None identified. Assessment: 10:16 Pain: Complains of pain in epigastric area Pain currently is 7 out of 10 on a pain em scale. Pain began 2-3 months. Neuro: Level of Consciousness is awake, alert, obeys commands, Oriented to person, place, time, situation, Appropriate for age. Cardiovascular: Capillary refill < 3 seconds Patient's skin is warm and dry. Respiratory: Airway is patent Respiratory effort is even, unlabored, Respiratory pattern is regular, symmetrical. GI: Abdomen is flat, Bowel sounds present X 4 quads. Abd is soft X 4 quads Abdomen is tender to palpation in right upper quadrant and left upper quadrant. Derm: Skin is intact, is healthy with good turgor, Skin is pink, warm \T\ dry. Musculoskeletal: Capillary refill < 3 seconds, Range of motion: intact in all extremities. 10:20 General: The previous assessment is accurate, call light remains within reach.. Vital Signs: 09:41 BP 107 / 67; Pulse 65; Resp 16; Temp 98.3(O); Pulse Ox 100% on R/A; Weight 81.65 kg; ss Height 5 ft. 7 in. (170.18 cm); Pain 7/10; 09:41 Body Mass Index 28.19 (81.65 kg, 170.18 cm) ED Course: 09:25 Patient arrived in ED. am2 09:27 Pedro Gallegos MD is Attending Physician. ma2 09:35 Sen Thurman LVN is Primary Nurse. em 09:39 Triage completed. ss 09:41 Arm band placed on right wrist. ss 10:15 Patient has correct armband on for positive identification. Bed in low position. Call em light in reach. 10:15 No provider procedures requiring assistance completed. Patient did not have IV access em during this emergency room visit. Administered Medications: No medications were administered Outcome: 09:53 Discharge ordered by . ma2 10:20 Patient left the ED. em 10:25 Discharged to home ambulatory. em 10:25 Condition: good 10:25 Discharge instructions given to patient, Instructed on discharge instructions, follow up and referral plans. medication usage, Demonstrated understanding of instructions, follow-up care, medications, Prescriptions given X 4. Signatures: Sen Thurman LVN LVN em Smirch, Shelby, SKYE RN Donna Zavala am2 Pedro Gallegos MD MD health system
--- NOTE | 2019-03-10 09:55 | EDPHYS ---
Physician Documentation [facility] Name: Elham Moran Age: 28 yrs Sex: Female : 1990 Arrival Date: 03/10/2019 Time: 09:25 Bed 23 Private MD: ED Physician Pedro Gallegos HPI: 03/10 09:52 This 28 yrs old Female presents to ER via Ambulatory with complaints of ma2 Abdominal Pain. 09:52 Onset: The symptoms/episode began/occurred gradually, 2 month(s) ago. Associated signs ma2 and symptoms: Pertinent positives: nausea and vomiting. Severity of pain: At its worst the pain was very mild in the emergency department the pain has resolved. The patient has experienced similar episodes in the past. 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 - Social history:: Smoking status: Patient uses tobacco products, smokes one-half pack cigarettes per day, Patient/guardian denies using alcohol, street drugs, The patient lives with family. - Ebola Screening: : Patient denies exposure to infectious person Patient denies travel to an Ebola-affected area in the 21 days before illness onset. - Family history:: not pertinent. ROS: 09:52 Constitutional: Negative for fever, chills, and weight loss. ma2 09:52 All other systems are negative. Exam: 09:52 Constitutional: This is a well developed, well nourished patient who is awake, alert, ma2 and in no acute distress. Chest/axilla: Normal chest wall appearance and motion. Nontender with no deformity. No lesions are appreciated. Cardiovascular: Regular rate and rhythm with a normal S1 and S2. No gallops, murmurs, or rubs. Normal PMI, no JVD. No pulse deficits. Respiratory: Lungs have equal breath sounds bilaterally, clear to auscultation and percussion. No rales, rhonchi or wheezes noted. No increased work of breathing, no retractions or nasal flaring. Abdomen/GI: Soft, non-tender, with normal bowel sounds. No distension or tympany. No guarding or rebound. No evidence of tenderness throughout. Vital Signs: 09:41 BP 107 / 67; Pulse 65; Resp 16; Temp 98.3(O); Pulse Ox 100% on R/A; Weight 81.65 kg; ss Height 5 ft. 7 in. (170.18 cm); Pain 7/10; 09:41 Body Mass Index 28.19 (81.65 kg, 170.18 cm) ss MDM: 09:28 Patient medically screened. ma2 09:52 Differential diagnosis: gastroesophageal reflux disease. Data reviewed: vital signs, ma2 nurses notes. Counseling: I had a detailed discussion with the patient and/or guardian regarding: the historical points, exam findings, and any diagnostic results supporting the discharge/admit diagnosis, the presence of at least one elevated blood pressure reading (>120/80) during this emergency department visit, the need for outpatient follow up. Response to treatment: There is no appreciated change of the patient's symptoms at this time. Administered Medications: No medications were administered Disposition: 03/10/19 09:53 Discharged to Home. Impression: Epigastric pain, Helicobacter pylori [H. pylori] as the cause of diseases classified elsewhere. - Condition is Stable. - Discharge Instructions: Helicobacter Pylori Infection. - Prescriptions for clarithromycin 500 mg Oral tablet - take 1 tablet by ORAL route 2 times per day for 14 days; 24 tablet. omeprazole 40 mg Oral capsule,delayed release(DR/EC) - take 1 capsule by ORAL route 2 times per day before a meal; 24 capsule. Amoxicillin 500 mg Oral Capsule - take 1 capsule by ORAL route every 8 hours for 10 days; 30 tablet. Flagyl 500 mg Oral Tablet - take 1 tablet by ORAL route every 8 hours for 10 days; 30 tablet. - Work release form, Medication Reconciliation Form, Thank You Letter, Antibiotic Education, Prescription Opioid Use form. - Follow up: Private Physician; When: Tomorrow; Reason: Continuance of care. Signatures: Sen Thurman, Tawanna Teran LVN, RN RN ss Pedro Gallegos MD MD ma2 Corrections: (The following items were deleted from the chart) 09:54 09:53 03/10/2019 09:53 Discharged to Home. Impression: Epigastric pain. Condition is ma2 Stable. Forms are Medication Reconciliation Form, Thank You Letter, Antibiotic Education, Prescription Opioid Use. Follow up: Private Physician; When: Tomorrow; Reason: Continuance of care. ma2 10:20 09:54 03/10/2019 09:53 Discharged to Home. Impression: Epigastric pain; Helicobacter em pylori [H. pylori] as the cause of diseases classified elsewhere. Condition is Stable. Discharge Instructions: Helicobacter Pylori Infection. Forms are Medication Reconciliation Form, Thank You Letter, Antibiotic Education, Prescription Opioid Use. Follow up: Private Physician; When: Tomorrow; Reason: Continuance of care. ma2
[2019-03-10 10:49] VITALS: BP 107/67; TEMP 98.3; O2SAT 100
== END 2019-03-10 10:20 | disposition home or self-care (01) ==
LOC: ER 09:20
DX: R10.13 Epigastric pain (principal); B96.81 Helicobacter pylori [H. pylori] as the cause of diseases classified elsewhere; F17.210 Nicotine dependence, cigarettes, uncomplicated
CPT/HCPCS: 99282

== ENCOUNTER 2019-07-17 15:31 | Emergency (ER) | payer SELFPAY ==
--- OUTSIDE RECORDS SUMMARY | 2019-07-17 15:33 | XMS REPORT ---
:1990 Author Organization [employer] Care Team Providers Name Role Phone Aniceto Pisano Provider Role Unavailable Allergies, Adverse Reactions, Alerts Substance Reaction Event Type N.K.D.A. 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
--- OUTSIDE RECORDS SUMMARY | 2019-07-17 15:33 | XMS REPORT ---
:1990 Author Organization [facility] t Address [address] [place] [address] Care Team Providers Name Role Phone Unavailable Unavailable Unavailable Problems Condition Condition Condition Status Onset Resolution Last Treatin g Comments Name Details Category Date Date Treatment Clinician Date Pilonidal Pilonidal Diagnosis Active abscess of abscess of cleft cleft Allergies, Adverse Reactions, Alerts This patient has no known allergies or adverse reactions. Medications This patient has no known medications. Encounters Start End Encounter Admission Attending Care Care Encounter Date/Time Date/Time Type Type Clinicians Facility Department ID 2018-06-24 2018-06-24 Outpatient Mayank Talley 2 [id number] 13:00:00 13:00:00 Specialty/U Specialty/[facility] Clinic
[2019-07-17] MEDS ORDERED: FENTANYL CITR 100 MCG/2 ML ONE (15:57)
[2019-07-17] MEDS ORDERED: ONDANSETRON 4 MG/2 ML VIAL ONE (15:57)
[2019-07-17 16:54] LABS: Potassium 3.8 mmol/L (3.5-5.1)
[2019-07-17 16:55] LABS: Absolute Lymphocytes (CBC) 3.8 K/uL (0.7-4.9); Basophils % 0.4 % (0-1.3); Hematocrit 46.3 % (36.0-45.0); Lymphocytes % 33.6 % (15.3-44.8); MPV 9.1 fL (7.6-11.3)
--- NOTE | 2019-07-17 17:01 | RAD REPORT ---
EXAM DESCRIPTION: CT - Head C Spine Cap W Con - 07/17/2019 4:26 pm CLINICAL HISTORY: thrown from horse, head, neck, chest and abdomen pain COMPARISON: No comparisons TECHNIQUE: Axial [address] head images were obtained. Axial [address] cervical spine images were obtaine d with sagittal and coronal reconstruction images reviewed. During dynamic enhancement of 100mL non-i onic contrast, axial 5 mm images of the chest, abdomen and pelvis were obtained. Biphasic technique p erformed of the abdomen and pelvis. All CT scans are performed using dose optimization technique as appropriate and may include automated exposure control or mA/KV adjustment according to patient size. FINDINGS: No epidural or subdural hematoma present. No convincing evidence for measurable subarachno id hemorrhage. No edema or shift of midline structures. Ventricles are normal for age. No abnormal fl uid collections. Mastoid air cells and paranasal sinuses are clear. No skull fracture. CT cervical spine imaging shows normal height. Normal alignment of the vertebrae. No disc space narro wing. No paraspinal mass or hematoma seen. Central canal detail is inherently limited. Concerns for t raumatic disc herniation or traumatic cord injury can be further addressed with MR imaging. CT chest shows no pneumothorax, pulmonary contusion or pleural fluid collection. No mediastinal hemat lise and the aorta and pulmonary arteries are unremarkable. No chest will mass or abnormal axillary fi nding. No displaced rib fracture or other significant bony finding. CT abdomen and pelvis show no injury to solid abdominal viscera. Gallbladder and biliary tree are unr emarkable. No bowel injury or significant finding. No free air, free fluid or abnormal stranding. No urinary bladder abnormality. No significant bony finding. No significant vascular finding. IMPRESSION: No hemorrhage, edema or acute CT Head finding. No significant CT Cervical Spine finding. No significant CT Chest finding. No significant CT Abdomen and Pelvis finding.
--- NOTE | 2019-07-17 17:45 | EDPHYS ---
Physician Documentation [facility] Name: Elham Moran Age: 29 yrs Sex: Female : 1990 Arrival Date: 07/17/2019 Time: 15:32 Bed 6 Private MD: ED Physician Mohinder Turcios HPI: 07/16 17:50 This 29 yrs old Female presents to ER via Ambulatory with complaints of Fell jr8 off horse. 17:50 Associated injuries: The patient sustained injury to the head, injury to the low back, jr8 left arm and left leg. Onset: The symptoms/episode began/occurred acutely, today. The patient has not experienced similar symptoms in the past. The patient has not recently seen a physician. Patient stated that she was riding horse and while trotting was bucked off landing on left side of body. Unknown LOC. Dazed at time of event. Patient came in POV with pain to head, left elbow, back, and left hip. Able to ambulate . 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 - Immunization history: Last tetanus immunization: - up to date. - Social history:: Smoking status: unknown. ROS: 17:50 Eyes: Negative for injury, pain, redness, and discharge, ENT: Negative for injury, jr8 pain, and discharge, Neck: Negative for injury, pain, and swelling, Cardiovascular: Negative for chest pain, palpitations, and edema, Respiratory: Negative for shortness of breath, cough, wheezing, and pleuritic chest pain, Abdomen/GI: Negative for abdominal pain, nausea, vomiting, diarrhea, and constipation. 17:50 Back: Positive for pain at rest, pain with movement, of the thoracic area, lumbar area and left low back. 17:50 MS/extremity: Positive for abrasion, decreased range of motion, pain, swelling, of the left arm. 17:50 Neuro: Positive for headache, Negative for altered mental status, dizziness. Exam: 17:50 Head/Face: Normocephalic, atraumatic. Eyes: Pupils equal round and reactive to light, jr8 extra-ocular motions intact. Lids and lashes normal. Conjunctiva and sclera are non-icteric and not injected. Cornea within normal limits. Periorbital areas with no swelling, redness, or edema. ENT: Nares patent. No nasal discharge, no septal abnormalities noted. Tympanic membranes are normal and external auditory canals are clear. Oropharynx with no redness, swelling, or masses, exudates, or evidence of obstruction, uvula midline. Mucous membranes moist. Neck: Trachea midline, no thyromegaly or masses palpated, and no cervical lymphadenopathy. Supple, full range of motion without nuchal rigidity, or vertebral point tenderness. No Meningismus. Chest/axilla: Normal chest wall appearance and motion. Nontender with no deformity. No lesions are appreciated. Cardiovascular: Regular rate and rhythm with a normal S1 and S2. No gallops, murmurs, or rubs. Normal PMI, no JVD. No pulse deficits. Respiratory: Lungs have equal breath sounds bilaterally, clear to auscultation and percussion. No rales, rhonchi or wheezes noted. No increased work of breathing, no retractions or nasal flaring. Abdomen/GI: Soft, non-tender, with normal bowel sounds. No distension or tympany. No guarding or rebound. No evidence of tenderness throughout. Neuro: Awake and alert, GCS 15, oriented to person, place, time, and situation. Cranial nerves II-XII grossly intact. Motor strength 5/5 in all extremities. Sensory grossly intact. Cerebellar exam normal. Normal gait. 17:50 Back: pain, that is moderate, of the left low back and left mid back, ROM is painful, CVA tenderness, is absent, Mild spinal tenderness to the T-11 region also noted without step offs . 17:50 Musculoskeletal/extremity: Extremities: grossly normal except: noted in the left arm: decreased ROM, pain, swelling, tenderness, lateral left elbow , Circulation is intact in all extremities. Pulses: noted to be 2+ in the right radial artery and left radial artery, Sensation intact. 17:50 Skin: superficial abrasive moeller noted to left lateral elbow without lacerations . Vital Signs: 15:36 BP 151 / 134; Pulse 90; Resp 20; Temp 98.5; Pulse Ox 98% ; Height 5 ft. 7 in. (170.18 sv cm); 17:00 BP 128 / 79; Pulse 78; Resp 19; Pulse Ox 98% on R/A; vc 18:00 BP 124 / 57; Pulse 82; Resp 18; Pulse Ox 95% on R/A; vc Mookie Coma Score: 15:40 Eye Response: spontaneous(4). Verbal Response: oriented(5). Motor Response: obeys vc commands(6). Total: 15. Trauma Score (Adult): 15:40 Eye Response: spontaneous(1); Verbal Response: oriented(1); Motor Response: obeys vc commands(2); Systolic BP: > 89 mm Hg(4); Respiratory Rate: 10 to 29 per min(4); [place] Score: 15; Trauma Score: 12 MDM: 15:[address] Patient medically screened[address] [facility] 17:37 Data reviewed: vital signs, nurses notes, lab test result(s), radiologic studies, CT jr8 scan, plain films. Data interpreted: Pulse oximetry: on room air is 98 %. Interpretation: normal. Counseling: I had a detailed discussion with the patient and/or guardian regarding: the historical points, exam findings, and any diagnostic results supporting the discharge/admit diagnosis, lab results, radiology results, the need for outpatient follow up, a family practitioner, to return to the emergency department if symptoms worsen or persist or if there are any questions or concerns that arise at home. 07/16 15:50 Order name: Basic Metabolic Panel; Complete Time: 17:07/16 15:50 Order name: CBC with Diff; Complete Time: 17:07/16 15:50 Order name: CT Traumagram (Head C Spine CAP W Con); Complete Time: 17:07/16 15:50 Order name: Creatinine for Radiology; Complete Time: 17:07/16 15:50 Order name: Type And Screen; Complete Time: 17:58 07/16 17:06 Order name: XRAY Elbow LEFT 3 view; Complete Time: 17:58 07/16 15:50 Order name: Labs collected and sent; Complete Time: 16:21 07/16 15:50 Order name: IV; Complete Time: 16:07/16 17:46 Order name: Sling; Complete Time: 18:19 Administered Medications: 16:21 Drug: fentaNYL (PF) 75 mcg Route: IVP; Site: left jugular; vc 18:20 Follow up: Response: No adverse reaction; Pain is decreased; Nausea is decreased vc 16:21 Drug: Zofran (Ondansetron) 4 mg Route: IVP; Site: right jugular; vc 18:20 Follow up: Response: No adverse reaction; Pain is decreased; Nausea is decreased vc Disposition: 17:57 Co-signature as Attending Physician, Mohinder Turcios DO I agree with the assessment and ms3 plan of care. 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 C/o L flank and L elbow pain. My personal exam of patient reveals: Bedside US FAST negative. TTP L flank, L elbow TTP, pt will not move L elbow due to pain, LCTAB, Pulse 2+/4 L and R radials. I agree with assessment and care plan and confirm the diagnosis (es) above. Disposition: 07/17/19 17:45 Discharged to Home. Impression: Contusion of left elbow, Abrasion of left elbow, Contusion of left hip, Contusion of lower back and pelvis. - Condition is Stable. - Discharge Instructions: Contusion, Elbow Contusion, Hip Pain. - Prescriptions for Ibuprofen 800 mg Oral Tablet - take 1 tablet by ORAL route every 12 hours As needed take with food; 20 tablet. Tylenol- Codeine #3 300-30 mg Oral Tablet - take 2 tablets by ORAL route every 6 hours As needed; 20 tablet. - Medication Reconciliation Form, Thank You Letter, Antibiotic Education, Prescription Opioid Use form. - Follow up: Private Physician; When: 5 - 6 days; Reason: Recheck today's complaints, Continuance of care, Re-evaluation by your physician. - Problem is new. - Symptoms have improved. Signatures: Dispatcher [employer] Jaqui Santiago RN RN sv Roszak, Josh, PA PA jr8 Lindsay Hilton RN RN vc Sims, Marcus, DO DO ms3 Corrections: (The following items were deleted from the chart) 18:21 17:45 07/17/2019 17:45 Discharged to Home. Impression: Contusion of left elbow; vc Abrasion of left elbow; Contusion of left hip; Contusion of lower back and pelvis. Condition is Stable. Forms are Medication Reconciliation Form, Thank You Letter, Antibiotic Education, Prescription Opioid Use. Follow up: Private Physician; When: 5 - 6 days; Reason: Recheck today's complaints, Continuance of care, Re-evaluation by your physician. Problem is new. Symptoms have improved. jr8
--- NOTE | 2019-07-17 17:45 | ER ---
Nurse's Notes [facility] Name: Elham Moran Age: 29 yrs Sex: Female : 1990 Arrival Date: 07/17/2019 Time: 15:32 Bed 6 Private MD: Diagnosis: Contusion of left elbow;Abrasion of left elbow;Contusion of left hip;Contusion of lower back and pelvis Presentation: 07/16 15:33 Chief complaint: Patient states: fell off of her horse, bucked her of it. Was about 7 sv ft away from the horse where she fell. Denies LOC. c/o left arm/elbow pain and left hip pain and head pain. Coronavirus screen: Proceed with normal triage. Patient denies a cough. Patient denies shortness of breath or difficulty breathing. Patient denies measured and/or subjective temperature greater than 100.4F prior to today's visit. Patient denies travel on a cruise ship or to a country the [facility] currently lists as an affected area. Patient denies contact with known and/or suspected case of COVID-19. Ebola Screen: No symptoms or risks identified at this time. Risk Assessment: Do you want to hurt yourself or someone else? Patient reports no desire to harm self or others. Onset of symptoms was July 17, 2019. 15:33 Method Of Arrival: Ambulatory sv 15:33 Acuity: MISSAEL 2 sv 15:41 Initial Sepsis Screen: Does the patient meet any 2 criteria? No. Patient's initial sv sepsis screen is negative. Does the patient have a suspected source of infection? No. Patient's initial sepsis screen is negative. 18:31 Care prior to arrival: None. Mechanism of Injury: Fall horse. Trauma event details: vc Injury occurred in the [facility]. Triage Assessment: 15:42 General: Appears in no apparent distress. uncomfortable, Behavior is cooperative, sv appropriate for age. Pain: Complains of pain in pelvis and left arm and left hip and head pain. Neuro: Level of Consciousness is awake, alert, obeys commands, Oriented to person, place, time, situation, Gait is steady. Respiratory: Respiratory effort is even, unlabored. 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 - Immunization history: Last tetanus immunization: - up to date. - Social history:: Smoking status: unknown. Screenin:40 Abuse screen: Denies threats or abuse. Nutritional screening: No deficits noted. vc Tuberculosis screening: No symptoms or risk factors identified. Fall Risk None identified. Primary Survey: 15:45 NO uncontrolled hemorrhage observed. A: The patient is alert. Airway: patent. iw Breathing/Chest: Respiratory pattern: regular, Respiratory effort: spontaneous, unlabored, Breath sounds: clear, bilaterally. Circulation: Heart tones present. Skin color: pink. Disability Alert. Exposure/Environment: All clothing and personal items were removed. Forensic evidence collection is not deemed to be indicated at this time. Items placed in patient belonging bag. 16:30 Reassessment Airway Airway Patent Breathing/Chest Respiratory pattern Regular vc Respiratory effort Spontaneous Breath sounds Clear Chest inspection Symmetrical Circulation Heart rhythm Heart tones Present Pulses Palpable Color [place] Temperature Warm. Assessment: 15:45 General: Appears uncomfortable, Behavior is anxious. Pain: Complains of pain in iw posterior aspect of left lateral abdomen, anterior aspect of left lateral abdomen and left arm. Neuro: Level of Consciousness is awake, alert, obeys commands, Oriented to person, place, time, situation, Moves all extremities. Full function. Cardiovascular: Capillary refill < 3 seconds in bilateral fingers Patient's skin is warm and dry. Respiratory: Respiratory effort is even, unlabored, Respiratory pattern is regular. GI: Abdomen is flat, non-distended. Derm: Skin is intact, is healthy with good turgor. Musculoskeletal: Range of motion: intact in all extremities. 16:45 Reassessment: Patient appears in no apparent distress at this time. Patient and/or vc family updated on plan of care and expected duration. Pain level reassessed. 18:00 Reassessment: Patient appears in no apparent distress at this time. Patient and/or vc family updated on plan of care and expected duration. Pain level reassessed. Patient states feeling better. 18:20 Neuro: Level of Consciousness is awake, alert, obeys commands, Oriented to person, vc place, time, situation. 18:20 General: Appears Behavior is calm, appropriate for age. Cardiovascular: Patient's skin vc is warm and dry. Pulses are all present. Vital Signs: 15:36 BP 151 / 134; Pulse 90; Resp 20; Temp 98.5; Pulse Ox 98% ; Height 5 ft. 7 in. (170.18 sv cm); 17:00 BP 128 / 79; Pulse 78; Resp 19; Pulse Ox 98% on R/A; vc 18:00 BP 124 / 57; Pulse 82; Resp 18; Pulse Ox 95% on R/A; vc [employer] Coma Score: 15:40 Eye Response: spontaneous(4). Verbal Response: oriented(5). Motor Response: obeys vc commands(6). Total: 15. Trauma Score (Adult): 15:40 Eye Response: spontaneous(1); Verbal Response: oriented(1); Motor Response: obeys vc commands(2); Systolic BP: > 89 mm Hg(4); Respiratory Rate: 10 to 29 per min(4); [employer] Score: 15; Trauma Score: 12 ED Course: 15:32 Patient arrived in ED. mr 15:32 Arm band placed on. sv 15:36 Triage completed. sv 15:40 Prasanth Santamaria PA is PHCP. jr8 15:40 Mohinder Turcios DO is Attending Physician. jr8 15:42 Lindsay Hilton, SKYE is Primary Nurse. vc 15:45 Patient has correct armband on for positive identification. Placed in gown. Bed in low vc position. Call light in reach. Side rails up X2. Pulse ox on. NIBP on. 16:00 Inserted saline lock: 18 gauge in left EJ, using aseptic technique. vc 16:00 Patient maintains SpO2 saturation greater than 95% on room air. vc 16:10 Thermoregulation: warm blanket given to patient. vc 16:26 CT Traumagram (Head C Spine CAP W Con) In Process Unspecified. EDMS 17:24 XRAY Elbow LEFT 3 view In Process Unspecified. EDMS 18:20 No provider procedures requiring assistance completed. vc 18:25 IV discontinued, intact, bleeding controlled, No redness/swelling at site. Pressure vc dressing applied. Administered Medications: 16:21 Drug: fentaNYL (PF) 75 mcg Route: IVP; Site: left jugular; vc 18:20 Follow up: Response: No adverse reaction; Pain is decreased; Nausea is decreased vc 16:21 Drug: Zofran (Ondansetron) 4 mg Route: IVP; Site: right jugular; vc 18:20 Follow up: Response: No adverse reaction; Pain is decreased; Nausea is decreased vc Intake: 18:20 PO: 0ml; Total: 0ml. vc Outcome: 17:45 Discharge ordered by . marge 18:20 Discharged to home ambulatory. vc 18:20 Condition: good 18:20 Discharge instructions given to patient, Instructed on discharge instructions, follow up and referral plans. no drinking with medication, no driving heavy equipment, medication usage, Demonstrated understanding of instructions, follow-up care, medications, Prescriptions given X 2. 18:20 Patient's length of stay in the Emergency Department was greater than 2 hours. due to vc patient not wanting an IV so it took some time to convince her.Patient's length of stay extended due to 18:21 Patient left the ED. vc Signatures: Dispatcher [employer] Jaqui Santiago RN RN sv Rivera, Mary mr Williams, Irene, RN RN iw Roszak, Josh, PA PA jr8 Calcote, Vanessa, RN RN vc Corrections: (The following items were deleted from the chart) 15:38 15:33 Chief complaint: Patient states: fell off of her horse, bucked her of it. Denies sv LOC. c/o left arm/elbow pain and left hip pain sv 15:38 15:33 Acuity: MISSAEL 3 sv sv 15:42 15:33 Chief complaint: Patient states: fell off of her horse, bucked her of it. Denies sv LOC. c/o left arm/elbow pain and left hip pain and head pain sv 18:40 18:20 Neuro: Level of Consciousness is awake, alert, obeys commands, Oriented to vc person, place, time, situation, vc
--- NOTE | 2019-07-17 17:47 | RAD REPORT ---
EXAM DESCRIPTION: RAD - Elbow Left 3 View - 07/17/2019 5:24 pm CLINICAL HISTORY: PAIN, fall from horse, left elbow pain COMPARISON: None. FINDINGS: No fracture is identified and no elevated posterior fat pad. There is no dislocation or pe riosteal reaction noted. No foreign body or other soft tissue abnormality. IMPRESSION: Negative left elbow examination.
[2019-07-17 18:32] VITALS: BP 151/134; TEMP 98.5; O2SAT 98
== END 2019-07-17 18:21 | disposition home or self-care (01) ==
LOC: ER 15:31
DX: S30.0XXA Contusion of lower back and pelvis, initial encounter (principal); S50.312A Abrasion of left elbow, initial encounter; S50.02XA Contusion of left elbow, initial encounter; S70.02XA Contusion of left hip, initial encounter; V80.010A Animal-rider injured by fall from or being thrown from horse in noncollision accident, initial encounter; Y93.89 Activity, other specified; Y92.9 Unspecified place or not applicable
CPT/HCPCS: 36415; 70450; 71260; 72125; 74177; 80048; 85025; 86850; 86900; 86901; 99284; J2405; J3010; Q9967

== ENCOUNTER 2019-10-21 15:42 | Emergency (ER) | payer SELFPAY ==
--- OUTSIDE RECORDS SUMMARY | 2019-10-21 16:11 | XMS REPORT | Continuity of Care Document ---
:1990 Author Organization [facility] t Address [address] [place] [address] Care Team Providers Name Role Phone Unavailable Unavailable Unavailable Problems Condition Condition Condition Status Onset Resolution Last Treating Co mments Source Name Details Category Date Date Treatment Clinician Date Pilonidal Pilonidal Diagnosis Active C [facility] abscess of abscess of Daiana kes - kylah kylah [facility] cleft cleft l Outpati ent Clinics Allergies, Adverse Reactions, Alerts This patient has no known allergies or adverse reactions. Medications This patient has no known medications. Procedures This patient has no known procedures. Encounters Start End Encounter Admission Attending Care Care Encounter Source Date/Time Date/Time Type Type Clinicians Facility Department ID 2018-06-24 2018-06-24 Outpatient [facility] [id number] [facility] [address] 13:00:00 13:00:00 t Specialty/U [facility] s - Specialty rology [facility] /Urology Clinic l Clinic Outpati ent Clinics Results This patient has no known results.
--- NOTE | 2019-10-21 16:49 | ER ---
Nurse's Notes [facility] Name: Elham Moran Age: 29 yrs Sex: Female : 1990 Arrival Date: 10/21/2019 Time: 15:44 Bed 17 Private MD: Diagnosis: Puncture wound without foreign body of foot-left Presentation: 10/20 16:17 Chief complaint: Patient states: Stepped on a nail on Saturday. Puncture wound on L foot, ca1 no consult and not taking abx. Reports pain on L sole of foot. Coronavirus screen: Patient denies a cough. Patient denies shortness of breath or difficulty breathing. Patient denies measured and/or subjective temperature greater than 100.4F prior to today's visit. Patient denies travel on a cruise ship or to a country the [facility] currently lists as an affected area. Patient denies contact with known and/or suspected case of COVID-19. Proceed with normal triage. Ebola Screen: Patient negative for fever greater than or equal to 101.5 degrees Fahrenheit, and additional compatible Ebola Virus Disease symptoms Patient denies exposure to infectious person. Patient denies travel to an Ebola-affected area in the 21 days before illness onset. No symptoms or risks identified at this time. Initial Sepsis Screen: Does the patient meet any 2 criteria? No. Patient's initial sepsis screen is negative. Does the patient have a suspected source of infection? No. Patient's initial sepsis screen is negative. Risk Assessment: Do you want to hurt yourself or someone else? Patient reports no desire to harm self or others. Onset of symptoms was October 21, 2019. 16:17 Method Of Arrival: Ambulatory ca1 16:17 Acuity: MISSAEL 4 ca1 Triage Assessment: 16:20 General: Appears in no apparent distress. comfortable, Behavior is calm, cooperative, bp appropriate for age. Pain: Complains of pain in left foot. EENT: No deficits noted. Neuro: No deficits noted. Cardiovascular: No deficits noted. Respiratory: No deficits noted. GI: No signs and/or symptoms were reported involving the gastrointestinal system. : No signs and/or symptoms were reported regarding the genitourinary system. Derm: No deficits noted. Musculoskeletal: No deficits noted. Injury Description: Puncture sustained to left foot. 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 - Social history:: Smoking status: Patient reports the use of cigarette tobacco products, smokes one-half pack cigarettes per day. Screenin:50 Abuse screen: Denies threats or abuse. Denies injuries from another. Nutritional bp screening: No deficits noted. Tuberculosis screening: No symptoms or risk factors identified. Fall Risk None identified. Assessment: 16:20 General: SEE TRIAGE NOTE. bp 17:02 Reassessment: PT D/C HOME AMBULATORY, DX WITH PUNCTURE WOUND. bp Vital Signs: 16:17 BP 123 / 83; Pulse 98; Resp 16 S; Temp 97.3(TE); Pulse Ox 100% on R/A; Height 5 ft. 7 ca1 in. (170.18 cm) (R); 17:06 BP 131 / 79; Pulse 107; Resp 17; Temp 97.5; Pulse Ox 100% ; bp ED Course: 15:44 Patient arrived in ED. as 16:11 Jonathan Tucker PA is PHCP. cp 16:11 Arnaud Flaherty MD is Attending Physician. cp 16:18 Mihai Portillo, SKYE is Primary Nurse. bp 16:19 Triage completed. ca1 16:19 Arm band placed on right wrist. ca1 16:50 Patient has correct armband on for positive identification. Bed in low position. Call bp light in reach. Side rails up X2. 17:03 No provider procedures requiring assistance completed. Patient did not have IV access bp during this emergency room visit. Administered Medications: 16:50 Drug: Tetanus-Diphtheria Toxoid Adult 0.5 ml {Lead [employer]form[employer] Developer: [employer]. Exp: bp 05/14/2022. Lot #: [id number]. } Route: IM; Site: left deltoid; 17:02 Follow up: Response: No adverse reaction bp Outcome: 16:48 Discharge ordered by . cp 17:03 Discharged to home ambulatory. bp 17:03 Condition: stable 17:03 Discharge instructions given to patient, Instructed on discharge instructions, follow up and referral plans. medication usage, wound care, Demonstrated understanding of instructions, follow-up care, medications, wound care, Prescriptions given X 1. 17:07 Patient left the ED. bp Signatures: Lin Ortiz Corey, PA PA cp Peltier, Brian, RN RN bp Iva Santos RN RN ca1
--- NOTE | 2019-10-21 16:49 | EDPHYS ---
Physician Documentation [facility] Name: Elham Moran Age: 29 yrs Sex: Female : 1990 Arrival Date: 10/21/2019 Time: 15:44 Bed 17 Private MD: ED Physician Arnaud Flaherty HPI: 10/20 16:43 This 29 yrs old Female presents to ER via Ambulatory with complaints of cp Puncture Wound To Foot, Wound Check. 16:43 The patient presents with a puncture wound, from a nail. The complaints affect the left cp foot. Context: The problem was sustained outdoors, resulted from the patient stepping on a nail, while wearing shoes, the patient can fully bear weight, the patient is able to ambulate, without difficulty. Onset: The symptoms/episode began/occurred 4 day(s) ago. Associated signs and symptoms: Pertinent negatives: calf tenderness, fever, warmth. 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 - Social history:: Smoking status: Patient reports the use of cigarette tobacco products, smokes one-half pack cigarettes per day. ROS: 16:44 Constitutional: Negative for body aches, chills, fever. cp 16:44 Skin: Positive for puncture, of the left foot, Negative for erythema. 16:44 All other systems are negative. Exam: 16:45 Head/Face: Normocephalic, atraumatic. cp 16:45 Constitutional: The patient appears in no acute distress, alert, awake, non-toxic, well developed, well nourished. 16:45 Chest/axilla: Inspection: normal. 16:45 Cardiovascular: Rate: normal. 16:45 Respiratory: the patient does not display signs of respiratory distress, Respirations: normal, no use of accessory muscles, no retractions. 16:45 Skin: injury, that can be described as without bleeding, minimal swelling, no erythema, no drainage noted, puncture(s), that are deep, of the plantar surface of left foot. Vital Signs: 16:17 BP 123 / 83; Pulse 98; Resp 16 S; Temp 97.3(TE); Pulse Ox 100% on R/A; Height 5 ft. 7 ca1 in. (170.18 cm) (R); 17:06 BP 131 / 79; Pulse 107; Resp 17; Temp 97.5; Pulse Ox 100% ; bp MDM: 16:12 Patient medically screened. cp 16:43 Refusal of service: The patient/guardian displays adequate decision making capability cp and despite a detailed discussion of alternatives, benefits, risks, and consequences refuses: all X-rays. 16:43 Differential diagnosis: fracture, foreign body, cellulitis. cp 16:48 Data reviewed: vital signs, nurses notes. Counseling: I had a detailed discussion with cp the patient and/or guardian regarding: the historical points, exam findings, and any diagnostic results supporting the discharge/admit diagnosis, to return to the emergency department if symptoms worsen or persist or if there are any questions or concerns that arise at home. 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 Exp: bp 05/14/2022. Lot #: [id number]. } Route: IM; Site: left deltoid; 17:02 Follow up: Response: No adverse reaction bp Disposition: 17:00 Chart complete. cp 17:23 Co-signature as Attending Physician, Arnaud Flaherty MD I agree with the assessment and kdr plan of care. Disposition: 10/21/19 16:48 Discharged to Home. Impression: Puncture wound without foreign body of foot - left. - Condition is Stable. - Discharge Instructions: Puncture Wound. - Prescriptions for Cipro 500 mg Oral Tablet - take 1 tablet by ORAL route every 12 hours for 7 days; 14 tablet. - Medication Reconciliation Form, Thank You Letter, Antibiotic Education, Prescription Opioid Use form. - Follow up: Private Physician; When: 2 - 3 days; Reason: Worsening of condition. - Problem is new. - Symptoms are unchanged. Signatures: Arnaud Flaherty MD MD [facility] Jonathan Tucker PA PA cp Mihai Portillo RN RN bp Iva Santos RN RN ca1 Corrections: (The following items were deleted from the chart) 17:07 16:48 10/21/2019 16:48 Discharged to Home. Impression: Puncture wound without foreign bp body of foot - left. Condition is Stable. Forms are Medication Reconciliation Form, Thank You Letter, Antibiotic Education, Prescription Opioid Use. Follow up: Private Physician; When: 2 - 3 days; Reason: Worsening of condition. Problem is new. Symptoms are unchanged. cp
[2019-10-21] MEDS ORDERED: TETANUS & DIPHTHERIA TOX,ADULT 0.5 ML VIAL ONE (17:07)
[2019-10-21 17:23] VITALS: O2SAT 100
[2019-10-21 17:28] VITALS: BP 131/79; TEMP 97.5
== END 2019-10-21 17:07 | disposition home or self-care (01) ==
LOC: ER 15:42
DX: S91.332A Puncture wound without foreign body, left foot, initial encounter (principal); F17.210 Nicotine dependence, cigarettes, uncomplicated; W45.0XXA Nail entering through skin, initial encounter; Y93.89 Activity, other specified; Y92.89 Other specified places as the place of occurrence of the external cause; Z23 Encounter for immunization
CPT/HCPCS: 90714

== ENCOUNTER 2021-03-20 13:04 | Emergency (ER) | payer OTHER ==
--- OUTSIDE RECORDS SUMMARY | 2021-03-20 13:09 | XMS REPORT | Continuity of Care Document ---
:1990 Author Organization [facility] t Address [address] [place] [address] Care Team Providers Name Role Phone Phil Cabral DO Attending Clinician PERSON Attending Clinician Unavailable Rl FRANCISCO, Reina Attending Clinician Hannah Mckinney MD Attending Clinician Rebecca DAY Attending Clinician Unavailable [place] Attending Clinician Onel COLE, F Attending Clinician Rebecca Day MD Attending Clinician Jose G COLE, R Attending Clinician Teressa LOPEZ Attending Clinician Unavailable Doctor Unassigned, Name Attending Clinician Unavailable Hannah Mckinney MD Admitting Clinician Rebecca Day MD Admitting Clinician Payers Payer Name Policy Type Policy Number Effective Date Expiration Date [facility] [id number] 2019 00:00:00 WOMEN Advance Directives Directive Decision Effective Termination Comments Source Date Date Healthcare Agents on N/A Univ ersity FileNameRelation[facility] Agent Medical RelationshipCommunicationJeremy Branch [facility] [phone] (Mobile) Problems Condition Condition Condition Status Onset Resolution Last Treating Co mments Source Name Details Category Date Date Treatment Clinician Date Calculus Calculus Disease Active Unive rs of of 2-03 ity of gallbladde [place]adde [place] and bile r and bile 00 Me dical duct duct Branch without without cholecysti cholecysti tis tis Status Status Disease Active Univers post post 2-03 ity of laparoscop laparoscop 00:00: [place] 00 Medical cholecyste cholecyste Br anch ctomy ctomy Biliary Biliary Disease Active Univers colic colic 2-02 ity of 00:00: [place] 00 Medical Branch Acute Acute Disease Active 2019-03 Univers gallstone gallstone 0-30 ity of pancreatit pancreatit [place] 00 Medical Branch Choledocho Choledocho Disease Active 2019-03 U nivers lithiasis lithiasis 0-29 ity of 00:00: [place] 00 Medical Branch Screen for Screen for Disease Active U nivers STD STD 9 ity of (sexually ([place] transmitte transmitte 00 Me dical d disease) d disease) Br anch Encounter Encounter Disease Active Uni vers for for 12-14 ity of surveillan surveillan 00:00: [place] of ce of 00 Medical contracept contracept Br anch golden, golden, unspecifie unspecifie d d contracept contracept mack mack BMI BMI Disease Active Univers 28.0-28.9, 28.0-28.9, 9-22 it y of adult adult 00:00: [place] 00 [facility] Branch Vaginal Vaginal Disease Active Univers dryness dryness 12-14 ity of 00:00: [place] [facility] BMI BMI Disease Active Univers 36.0-36.9, 36.0-36.9, 1-09 it y of adult adult 00:00: [place] [facility] Branch Need for Need for Disease Active Unive rs varicella varicella 1-09 ity of vaccine vaccine 00:00: [place] 00 Medical Branch History of History of Disease Active U nivers hysterecto hysterecto 1-09 it y of my my 00:00: [place] 00 Medical Branch H/O total H/O total Disease Active 2017-03 Uni vers hysterecto hysterecto 1-16 it y of my with my with 00:00: [place] bilateral bilateral 00 Medi ginger salpingo-o salpingo-o Br anch ophorectom ophorectom y (BSO) y (BSO) History of History of Disease Active Overview : Univers 3 3 4-30 x3 it y of sections sections 00:00: [address] History of History of Disease Active U nivers asthma asthma 4-30 ity of 00:00: [address] Pilonidal Pilonidal Diagnosis Active [facility] abscess of abscess of Daiana kes - Memoria cleft cleft l Outpati ent Clinics Allergies, Adverse Reactions, Alerts Allergy Allergy Status Severity Reaction(s) Onset Inactive Treating Comm ents Source Name Type Date Date Clinician NO KNOWN Drug Active Univers ALLERGIE Class ity of S [facility] Social History Social Habit Start Date Stop Date Quantity Comments Source Exposure to Not sure [facility] SARS-CoV-2 (event) [facility] Cigarettes smoked 2020-05-19 2020-05-19 Univers ity of current (pack per 00:00:00 00:00:00 [facility] ) - Reported Branch Cigarette 2020-05-19 2020-05-19 University of pack-years 00:00:00 00:00:00 [facility] Tobacco use and 2020-05-19 2020-05-19 Former user Universi ty of exposure 00:00:00 00:00:00 [facility] Alcohol intake 2020-05-19 2020-05-19 Current University of 00:00:00 00:00:00 non-drinker of [facility] alcohol [place] (finding) History of tobacco 2017-02-22 Cigarette Smoker University of use 00:00:00 [facility] Sex [birth year] Universit y of 00:00:00 00:00:00 [facility] Smoking Status Start Date Stop Date Source Current some day 2020-05-19 00:00:00 [facility] smoker [facility] Branch Former smoker 2018-04-02 00:00:00 2018-04-02 00:00:00 Universi ty of [facility] Medications Ordered Filled Start Stop Current Ordering Indication Dosage Frequency Signature Comments Components Source Medication Medication Date Date Medication? Clinician (SIG) Name Name ketorolac 30mg 30 mg, Unive rs (TORADOL) 04-27 Slow IV ity of injection 18:00: 17:59 Push, Q6H, [place] 30 mg 00 :00 4 doses, Medical First dose Branch on Sat04/27/20 at 1200, Last dose on Sat04/28/20 at 0600, Routine
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 Restricted medication : PERSON, MARVEL little Yes 1{tbl} 1 tablet, Univers n tablet 1 04-27 Oral, ity of tablet 15:00: DAILY, [place] 00 First dose Medical on Sat Branch 04/27/20 at 0900, Until Discontinu ed, Routine enoxaparin Yes 40mg 40 mg, Unive rs (LOVENOX) 04-27 Subcutaneo ity of injection 15:00: [place], [place]ILY, [place] 40 mg 00 First dose Medical on Sat Branch 04/27/20 at 0900, Until Discontinu ed, Routine HYDROcodone Yes 2{tbl} 2 tablet, Univers -acetaminop 2-03 Oral, ity of hen (NORCO 12:41: Q4HPRN, [place] 5) 5-325 mg 32 Starting Medi ginger tablet 2 Sat04/27/20 Branc h tablet at 0641, Until Discontinu ed, Routine, Pain (scale 4-6) acetaminoph No 1000mg 1,000 mg, Univers en ADULT 04-27 02-03 IV ity of (OFIRMEV) 09:00: 10:07 Infusion, [place] injection 00 :00 Administer Medi ginger 1,000 mg over 15 Branch Minutes, Q6H ABX, 1 dose, First dose (after last modificati on) on Sat04/27/20 at 0300, Routine
Indicatio n: Non-periop erative Patient
Approved by: Per Policy (NPO Status) HYDROcodone 2020- No 1{tbl} 1 tablet, Univers -acetaminop 2-03 02-03 Oral, ity of hen (NORCO 08:21: 12:42 Q4HPRN, [place] 5) 5-325 mg 53 :09 Starting Medi ginger tablet 1 Sat04/27/20 Branc h tablet at 0221, Until Sat04/27/20 at 0642, Routine, Pain (scale 4-6) ondansetron Yes 4mg 4 mg, Slow Univers (ZOFRAN 2-03 IV Push, ity of (PF)) 06:52: Administer [place] injection 4 06 over 15 Medic al mg Minutes, Branch Q6HPRN, Starting Sat04/27/20 at 0052, Until Discontinu ed, Routine, Nausea and Vomiting (N/V) HYDROcodone 2020- No 1{tbl} 1 tablet, Univers -acetaminop 203 02-03 Oral, ity of hen (NORCO 01:15: 01:05 ONCE, 1 [place] 5) 5-325 mg 00 :00 dose, Med ical tablet 1 04/26/20 at Branch tablet 1915, Routine, PACU ondansetron 2020- No 4mg 4 mg, Slow Univers (ZOFRAN 203 02-03 IV Push, ity of (PF)) 01:04: 01:16 PRN, 1 [place] injection 4 02 :00 dose, Medical mg Starting Branch Sat04/26/20 at 1904, Until Sat04/26/20 at 1916, Routine, Nausea and Vomiting (N/V), PACU HYDROmorpho 2020- No .2mg 0.2 mg, Un kendrick ne 2 02-03 Slow IV ity of (DILAUDID) 01:04: 02:29 Push, [place] injection 02 :29 Q5MIN PRN, Medi ginger 0.2 mg 10 doses, Branch Starting Sat04/26/20 at 1904, Until Sat04/26/20 at 2028, Routine, Pain (scale 7-10), PACU
Us e approved by (Faculty): PACU USE -ANESTHESI A SERVICE-HY DROMORPHON E INJECTIONS morpHINE Yes 2mg 2 mg, Slow Uni vers injection 2 2-03 IV Push, ity of mg 00:15: Q4HPRN, [place] 23 Starting Medical Sat04/26/20 Branch at 1815, Until Discontinu ed, Routine, Pain (scale 7-10) acetaminoph Yes [id number] 650mg Take 650 Univers en 325 mg 2-03 mg by ity of Cap 00:00: mouth [place] 00 every 6 Medical (six) Branch hours as needed for Pain (scale 1-3) or Pain (scale 4-6). ibuprofen Yes [id number] 600mg Take 1 Univers 600 mg 2-03 tablet by ity of tablet 00:00: mouth [place] 00 every 6 Medical (six) Branch hours as needed for Pain (scale 1-3) or Pain (scale 4-6) (Alternate with acetaminop hen for mild-moder ate pain). acetaminoph Yes [id number] 650mg Take 650 Univers en 325 mg 2-03 mg by ity of Cap 00:00: mouth [place] 00 every 6 Medical (six) Branch hours as needed for Pain (scale 1-3) or Pain (scale 4-6). ibuprofen Yes [id number] 600mg Take 1 Univers 600 mg 2-03 tablet by ity of tablet 00:00: mouth [place] 00 every 6 Medical (six) Branch hours as needed for Pain (scale 1-3) or Pain (scale 4-6) (Alternate with acetaminop hen for mild-moder ate pain). HYDROcodone 2020- No 4647 1{tbl} Take 1 U nivers -acetaminop 04-2711 tablet by it y of hen (NORCO) 00:00: 05:59 mouth [place] 5-325 mg 00 :00 every 6 Medical tablet (six) Branch hours as needed for Pain (scale 7-10) for up to 7 days. Indication s: acute pain traMADoL 50 2020- No 4647 50mg Take 1 Uni vers mg tablet 04-27 tablet by ity of 00:00: 00:00 mouth [place] 00 :00 every 6 Medical (six) Branch hours as needed for Pain (scale 7-10) for up to 7 days. Indication s: acute pain acetaminoph 2020- No 1000mg 1,000 mg, Univers en ADULT 04-26 IV ity of ([facility]) 21:00: 08:36 [place]fusion[place] injection 00 :56 Administer Medi ginger 1,000 mg over 15 Branch Minutes, Q6H ABX, 4 doses, First dose on Sat04/26/20 at 1500, Last dose on Sat04/27/20 at 0900, Routine
Indicatio n: Non-periop erative Patient
Approved by: Per Policy (NPO Status) D5W 0.45% Yes IV Univers NaCl 2-02 Infusion, ity of (1/2NS) 1 L 20:00: at 125 [place] + KCL 20 00 mL/hr, Medical mEq CONTINUOUS Branch , Starting Sat04/26/20 at 1400, Until Discontinu ed, Routine pantoprazol 2020- No 40mg 40 mg, IV Univers e 04-26-09 Piggyback, ity of (PROTONIX) 20:00: 19:59 Q24H, 7 [place] 40 mg in 00 :00 doses, Medical NaCl 0.9% First dose Bran ch (NS) 100 mL (after MINI-BAG last modificati on) on Sat04/26/20 at 1400, Last dose on Sat05/02/20 at 1400, 100 mL FENTanyl PF 2020- No 50ug 50 mcg, Un kendrick (SUBLIMAZE 04-26 Slow IV ity o f (PF)) 19:30: 18:27 Push, [place] injection 00 :00 ONCE, 1 Medical 50 mcg dose, e Branch 04/26/20 at 1330, STAT FENTanyl PF 2020- No 100ug 100 mcg, Univers (SUBLIMAZE 04-26 Slow IV ity o f (PF)) 15:45: 15:06 Push, [place] injection 00 :00 ONCE, 1 Medical 100 mcg dose, Tue Branch 04/26/20 at 0945, STAT famotidine 2020- No 20mg 20 mg, IV U nivers (PEPCID 04-26 Piggyback, ity o f (PF)) 15:00: 15:05 ONCE, 1 [place] injection 00 :00 dose, Tue Medic al 20 mg 04/26/20 at Branch 0900, ALDI ondansetron 2020- No 4mg 4 mg, Slow Univers (ZOFRAN 04-26 IV Push, ity of (PF)) 15:00: 15:22 Administer [place] injection 4 00 :00 over 15 Medic al mg Minutes, Branch ONCE, 1 dose, 04/26/20 at 0900, STAT NaCl 0.9% 2020- No 1000mL at 999 Uni vers (NS) bolus 2-02 02-02 mL/hr, ity of infusion 15:00: 18:18 1,000 mL, Fel[place] as 1,000 mL 00 :00 IV Medical Infusion, Branch ONCE, 1 dose, 04/26/20 at 0900, LADI HYDROcodone 2019-03- No 4647 1{tbl} Take 1 U nivers -acetaminop 03-25 tablet by it y of hen 5-325 00:00: 05:59 mouth [place] mg tablet 00 :00 every 6 Medical (six) Branch hours as needed for Pain (scale 7-10) for up to 7 days. Indication s: acute pain HYDROcodone 2019-03- No 4647 1{tbl} Take 1 U nivers -acetaminop 03-25 tablet by it y of hen 5-325 00:00: 05:59 mouth [place] mg tablet 00 :00 every 6 Medical (six) Branch hours as needed for Pain (scale 7-10) for up to 7 days. Indication s: acute pain pantoprazol 2019-03 Yes 40mg 40 mg, Univ ers e 0-30 Oral, ity of (PROTONIX) 14:00: DAILY, [place] EC tablet 00 First dose Medi ginger 40 mg on Sat Branch 01/22/20 at 0900, Until Discontinu ed, Routine enoxaparin 2019-03 Yes 40mg 40 mg, Unive rs (LOVENOX) 0-30 Subcutaneo ity of injection 14:00: [place], DAILY, [place] 40 mg 00 First dose Medical on Sat Branch 01/22/20 at 0900, Until Discontinu ed, Routine HYDROmorpho 2019-03- No .5mg 0.5 mg, Un kendrick ne 0-30 10-30 Slow IV ity of (DILAUDID) 07:45: 07:58 Push, [place] injection 00 :00 ONCE, 1 Medical 0.5 mg dose, Sat Branch 01/22/20 at 0245, Routine
Use approved by (Faculty): GENERAL SURGERY
General surgeon approving: Mckinney celecoxib 2019-03 Yes 100mg 100 mg, Univ ers (CELEBREX) 0-30 Oral, BID ity of capsule 100 06:45: MEALS, [place] mg 00 First dose Medical on Sat Branch 01/22/20 at 0145, Until Discontinu ed, Routine ondansetron 2019-03 Yes 4mg 4 mg, Slow Univers (ZOFRAN 0-30 IV Push, ity of (PF)) 03:14: Q6HPRN, [place] injection 4 51 Starting Medi ginger mg [place] Branch 01/21/20 at 2214, Until Discontinu ed, Routine, Nausea and Vomiting (N/V) HYDROmorpho 2019-03 2020- No .5mg 0.5 mg, Un kendrick ne 0-30 10-30 Slow IV ity of (DILAUDID) 03:00: 02:04 Push, [place] injection 00 :00 ONCE, 1 Medical 0.5 mg dose, [place] Branch 01/21/20 at 2200, Routine
Use approved by (Faculty): GENERAL SURGERY
General surgeon approving: Mckinney acetaminoph 2019-03 Yes 650mg 650 mg, Un kendrick en 0-30 Oral, ity of (TYLENOL) 01:49: Q6HPRN, [place] tablet 650 07 Starting Medic al mg [facility] Branch 01/21/20 at 2048, Until Discontinu ed, Routine, Pain (scale 1-3), Pain (scale 4-6) HYDROcodone 2019-03 Yes 1{tbl} 1 tablet, Univers -acetaminop 0-30 Oral, ity of hen (NORCO 01:47: [facility]PRN[facility] 5-325 mg 05 Starting Medi ginger tablet 1 [place] Branch tablet 01/21/20 at 2046, Until Discontinu ed, Routine, Pain (scale 7-10) piperacilli 2019-03 Yes 3.375g 3.375 g, Univers n-tazobacta 0-30 IV ity of m (ZOSYN) 01:45: [place] 3.375 g in 00 Q6H ABX, Medic al NaCl 0.9% First dose Bran ch (NS) 100 mL on [place] MINI-BAG 01/21/20 at 2044, Until Discontinu ed, 100 mL
R karin for Anti-Infec tive: Empiric Therapy for Suspected Infection< br>Empiric Therapy Site: Abdominal< br>Duratio n of therapy: 72 hours D5W 0.45% 2019-03 Yes IV Univers NaCl 0-30 Infusion, ity of (1/2NS) 1 L 00:45: at 125 [place] + KCL 20 00 mL/hr, Medical mEq CONTINUOUS Branch , Starting [place] 01/21/20 at 1945, Until Discontinu ed, Routine morpHINE 2019-03- No 4mg 4 mg, Slow Un kendrick injection 4 01-20 IV Push, ity of mg 22:00: 21:22 ONCE, 1 00 :00 dose, [facility] Medical 01/21/20 Branch at 1700, STAT iohexol 2019-03- No 120mL 120 mL, Unive rs (OMNIPAQUE 01-20 Intravenou it y of 350 19:59: 19:59 s, ONCE, 1 [place] BULK-150 00 :00 dose, [place] Medica l mL) 01/21/20 Branch injection at 1515, 120 mL Routine ondansetron 2019-03 No 4mg 4 mg, Slow Univers (ZOFRAN 01-20 IV Push, ity of (PF)) 19:00: 18:12 ONCE, 1 [place] injection 4 00 :00 dose, [place] Med ical mg 01/21/20 Branch at 1400, LADI morpHINE 2019-03- No 4mg 4 mg, Slow Un kendrick injection 4 01-20 IV Push, ity of mg 19:00: 18:11 ONCE, 1 [place] 00 :00 dose, [facility] Medical 01/21/20 Branch at 1400, STAT pantoprazol 2019-03- No 40mg 40 mg, IV Univers e 01-20 Piggyback, ity of (PROTONIX) 19:00: 18:31 ONCE, 1 [place] 40 mg in 00 :00 dose, [place] Medica l NaCl 0.9% 01/21/20 Branch (NS) 100 mL at 1400, MINI-BAG 100 mL maalox:diph 2019-03- No 15mL 15 mL, Uni vers enhydrAMINE 01-20 Oral, ity of :lidocaine 19:00: 18:14 ONCE, 1 [place] 2 % viscous 00 :00 dose, [place] Med ical 1:1:1 01/21/20 Branch (FIRST-MOUT at 1400, HWASH BLM) Routine oral suspension 15 mL NaCl 0.9% 2019-03- No 1000mL at 999 Uni vers (NS) bolus 0-29 10-29 mL/hr, ity of infusion 18:00: 19:30 1,000 mL, [place] 1,000 mL 00 :00 IV Medical Infusion, Branch ONCE, 1 dose, [place] 01/21/20 at 1300, LADI estradioL 2020-0 Yes [id number] 2g Insert 2 g Univers 0.01 % (0.1 9-22 into ity of mg/gram) 00:00: vagina [place] vaginal 00 weekly. Medical cream Branch ascorbic 2020-0 Yes [id number] 500mg Take 1 Un kendrick acid, 9-22 tablet by ity of vitamin C, 00:00: mouth 3 [place] 500 mg 00 (three) Medical tablet times Branch daily. ergocalcife 2020-0 Yes [id number] Take 1 Univers rol, 9-22 capsule by ity of vitamin d2, 00:00: mouth [place] 1,250 mcg 00 weekly. Medical (50,000 Branch unit) capsule estradioL 2020-0 Yes [id number] 2g Insert 2 g Univers 0.01 % (0.1 9-22 into ity of mg/gram) 00:00: vagina [place] vaginal 00 weekly. Medical cream Branch ascorbic 2020-0 Yes [id number] 500mg Take 1 Un kendrick acid, 9-22 tablet by ity of vitamin C, 00:00: mouth 3 [place] 500 mg 00 (three) Medical tablet times Branch daily. ergocalcife 2020-0 Yes [id number] Take 1 Univers rol, 9-22 capsule by ity of vitamin d2, 00:00: mouth [place] 1,250 mcg 00 weekly. Medical (50,000 Branch unit) capsule estradioL 2020-0 Yes [id number] 2g Insert 2 g Univers 0.01 % (0.1 9-22 into ity of mg/gram) 00:00: vagina [place] vaginal 00 weekly. Medical cream Branch ascorbic 2020-0 Yes [id number] 500mg Take 1 Un kendrick acid, 9-22 tablet by ity of vitamin C, 00:00: mouth 3 [place] 500 mg 00 (three) Medical tablet times Branch daily. ergocalcife 2020-0 Yes [id number] Take 1 Univers rol, 9-22 capsule by ity of vitamin d2, 00:00: mouth [place] 1,250 mcg 00 weekly. Medical (50,000 Branch unit) capsule estradioL 2020-0 Yes [id number] 2g Insert 2 g Univers 0.01 % (0.1 9-22 into ity of mg/gram) 00:00: vagina [place] vaginal 00 weekly. Medical cream Branch ascorbic 2020-0 Yes [id number] 500mg Take 1 Un kendrick acid, 9-22 tablet by ity of vitamin C, 00:00: mouth 3 [place] 500 mg 00 (three) Medical tablet times Branch daily. ergocalcife 2020-0 Yes [id number] Take 1 Univers rol, 9-22 capsule by ity of vitamin d2, 00:00: mouth [place] 1,250 mcg 00 weekly. Medical (50,000 Branch unit) capsule estradioL 2020-0 Yes [id number] 2g Insert 2 g Univers 0.01 % (0.1 9-22 into ity of mg/gram) 00:00: vagina [place] vaginal 00 weekly. Medical cream Branch ascorbic 2020-0 Yes [id number] 500mg Take 1 Un kendrick acid, 9-22 tablet by ity of vitamin C, 00:00: mouth 3 [place] 500 mg 00 (three) Medical tablet times Branch daily. ergocalcife 2020-0 Yes [id number] Take 1 Univers rol, 9-22 capsule by ity of vitamin d2, 00:00: mouth [place] 1,250 mcg 00 weekly. Medical (50,000 Branch unit) capsule estradioL 2020-0 Yes [id number] 2g Insert 2 g Univers 0.01 % (0.1 9-22 into ity of mg/gram) 00:00: vagina [place] vaginal 00 weekly. Medical cream Branch ascorbic 2020-0 Yes [id number] 500mg Take 1 Un kendrick acid, 9-22 tablet by ity of vitamin C, 00:00: mouth 3 [place] 500 mg 00 (three) Medical tablet times Branch daily. ergocalcife 2020-0 Yes [id number] Take 1 Univers rol, 9-22 capsule by ity of vitamin d2, 00:00: mouth [place] 1,250 mcg 00 weekly. Medical (50,000 Branch unit) capsule estradioL 2020-0 Yes [id number] 2g Insert 2 g Univers 0.01 % (0.1 9-22 into ity of mg/gram) 00:00: vagina [place] vaginal 00 weekly. Medical cream Branch ascorbic 2020-0 Yes [id number] 500mg Take 1 Un kendrick acid, 9-22 tablet by ity of vitamin C, 00:00: mouth 3 [place] 500 mg 00 (three) Medical tablet times Branch daily. ergocalcife 2020-0 Yes [id number] Take 1 Univers rol, 9 capsule by ity of vitamin d2, 00:00: mouth [place] 1,250 mcg 00 weekly. Medical (50,000 Branch unit) capsule No known No Univers medications ity of [facility] Immunizations Ordered Filled Immunization Date Status Comments [facility] e Immunization Name Name [facility] 2019-11-09 Completed University of 00:00:00 [facility] Influenza Virus 2019-11-09 Completed Universit y of Vaccine Quad .5 mL 00:00:00 [facility] [place] [facility] 6+ MO Branch AP 2019-11-09 Completed University of 00:00:00 [facility] Influenza Virus 2019-11-09 Completed Universit y of Vaccine Quad .5 mL 00:00:00 [facility] [place] [facility] 6+ MO Branch TDAP 2019-11-09 Completed University of 00:00:00 [facility] Influenza Virus 2019-11-09 Completed Universit y of Vaccine Quad .5 mL 00:00:00 [facility] [place] [facility] 6+ MO Branch TDAP 2019-11-09 Completed University of 00:00:00 [facility] Influenza Virus 2019-11-09 Completed Universit y of Vaccine Quad .5 mL 00:00:00 [facility] [place] [facility] 6+ MO Branch TDAP 2019-11-09 Completed University of 00:00:00 [facility] Influenza Virus 2019-11-09 Completed Universit y of Vaccine Quad .5 mL 00:00:00 [facility] [place] [facility] 6+ MO Branch TDAP 2019-11-09 Completed University of 00:00:00 [facility] Influenza Virus 2019-11-09 Completed Universit y of Vaccine Quad .5 mL 00:00:00 [facility] [place] [facility] 6+ MO Branch TDAP 2019-11-09 Completed University of 00:00:00 [facility] Influenza Virus 2019-11-09 Completed Universit y of Vaccine Quad .5 mL 00:00:00 [facility] [place] [facility] 6+ MO Branch Vital Signs Vital Name Observation Time Observation Value Comments Source Systolic blood 2020-04-27 21:42:00 112 mm[Hg] Univer sity of pressure [facility] Diastolic blood 2020-04-27 21:42:00 57 mm[Hg] Unive rsity of pressure [place] [facility] Heart rate 2020-04-27 21:42:00 73 /min Universi ty of [place] [facility] Body temperature 2020-04-27 21:42:00 36.72 Bhavya Univ ersity of [place] [facility] Respiratory rate 2020-04-27 21:42:00 16 /min Univ ersity of [place] [facility] Oxygen saturation in 2020-04-27 21:42:00 100 /min University of Arterial blood by [facility] Pulse oximetry Branch Body height 2020-04-27 03:01:00 170.2 cm Universi ty of [place] [facility] Body weight 2020-04-27 03:01:00 90.719 kg Universi ty of [place] [facility] BMI 2020-04-27 03:01:00 31.32 kg/m2 Universi ty of [place] [facility] Systolic blood 2020-01-24 17:13:00 111 mm[Hg] Univer sity of pressure [place] [facility] Diastolic blood 2020-01-24 17:13:00 53 mm[Hg] Unive rsity of pressure [place] [facility] Heart rate 2020-01-24 17:13:00 52 /min Universi ty of [place] [facility] Body temperature 2020-01-24 17:13:00 36.83 Bhavya Univ ersity of [place] [facility] Respiratory rate 2020-01-24 17:13:00 16 /min Univ ersity of [place] [facility] Oxygen saturation in 2020-01-24 17:13:00 98 /min University of Arterial blood by [facility] Pulse oximetry Branch Body height 2020-01-22 13:41:00 170.2 cm Universi ty of [place] [facility] Body weight 2020-01-22 13:41:00 81.647 kg Universi ty of [place] [facility] BMI 2020-01-22 13:41:00 28.19 kg/m2 Universi ty of [place] [facility] Systolic blood 2019-12-15 14:00:00 111 mm[Hg] Univer sity of pressure [place] [facility] Diastolic blood 2019-12-15 14:00:00 65 mm[Hg] Unive rsity of pressure [place] [facility] Heart rate 2019-12-15 14:00:00 72 /min Universi ty of [place] [facility] Body temperature 2019-12-15 14:00:00 36.61 Bhavya Univ ersity of [place] [facility] Respiratory rate 2019-12-15 14:00:00 16 /min [facility] Body height 2019-12-15 14:00:00 170.2 cm [facility] Body weight 2019-12-15 14:00:00 82.01 kg [facility] BMI 2019-12-15 14:00:00 28.32 kg/m2 [facility] Procedures Procedure Date / Time Performing Clinician Source Performed HEPATIC FUNCTION PANEL 2020-04-27 08:12:00 Tom Kay [facility] ([id number]) (ALB[facility]BU/BC,ALT,AST,ALK PHOS) BASIC METABOLIC PANEL (NA, 2020-04-27 08:12:00 Tom Hyatt i, [facility] K, CL, CO2, GLUCOSE, BUN, Husam Medica l Branch CREATININE, CA) FL TIME OR 2020-04-26 23:48:19 Eloisa Mckinney [facility] (NON-REPORTABLE) [facility] LAPAROSCOPIC 2020-04-26 20:50:00 Eloisa Mckinney [facility] CHOLECYSTECTOMY [facility] Branch INTRAOPERATIVE 2020-04-26 20:50:00 Eloisa Mckinney [facility] CHOLANGIOGRAM [facility] LAPAROSCOPIC LYSIS OF 2020-04-26 20:50:00 Eloisa Mckinney [facility] ADHESIONS [facility] US ABDOMEN LIMITED 2020-04-26 16:55:03 Mihai Shine [place] [facility] POCT TEST 2020-04-26 15:58:00 Mihai Shine [facility] LIPASE 2020-04-26 15:07:00 Mihai Shine [place] o [facility] HEPATIC FUNCTION PANEL 2020-04-26 15:07:00 Mihai Shine [facility] ([id number]) (ALB,T.PRO,BILI Medical Branch T,BU/BC,ALT,AST,ALK PHOS) BASIC METABOLIC PANEL (NA, 2020-04-26 15:07:00 Mihai Shine [facility] K, CL, CO2, GLUCOSE, BUN, Medica l Branch CREATININE, CA) CBC WITH DIFF 2020-04-26 15:07:00 Mihai Shine [facility] URINALYSIS 2020-04-26 15:07:00 Mihai Shine [facility] acute hospital COVID-19 (ID NOW RAPID 2020-04-26 15:07:00 Mihai Shine [facility] TESTING) Medical Branch LAB ONLY COVID 2020-04-26 15:07:00 Wade Shineian Reina [facility] CBC WITH DIFF 2020-01-24 10:01:00 [facility] 2020-01-24 08:25:00 Wei Kevan [facility] acute hospital HEPATIC FUNCTION PANEL 2020-01-24 08:25:00 Kevan Carvajal [facility] ([id number]) (ALB,T.PRO,BILI Medical Branch T,BU/BC,ALT,AST,ALK PHOS) BASIC METABOLIC PANEL (NA, 2020-01-24 08:25:00 Kevan Carvajal [facility] K, CL, CO2, GLUCOSE, BUN, Medica l Branch CREATININE, CA) LIPASE 2020-01-23 07:53:00 Kevan Carvajal [facility] acute hospital HEPATIC FUNCTION PANEL 2020-01-23 07:53:00 Kevan Carvajal [facility] ([id number]) (ALB,T.PRO,BILI Medical Branch T,BU/BC,ALT,AST,ALK PHOS) BASIC METABOLIC PANEL (NA, 2020-01-23 07:53:00 Kevan Carvajal [facility] K, CL, CO2, GLUCOSE, BUN, Medica l [place] CREATININE, CA) CBC WITH DIFF 2020-01-23 07:53:00 Brian Jorge [facility] LIPASE 2020-01-22 21:59:00 Christiano An [facility] HEPATIC FUNCTION PANEL 2020-01-22 21:59:00 Christiano An [facility] ([id number]) (ALB,T.PRO,BILI Medical Branch T,BU/BC,ALT,AST,ALK PHOS) ERCP (ENDO) 2020-01-22 13:51:54 Maximo Day [facility] LIPASE 2020-01-22 08:03:00 Kevan Carvajal o f [facility] HEPATIC FUNCTION PANEL 2020-01-22 08:03:00 Kevan Carvajal [facility] ([id number]) (ALB,T.PRO,BILI Medical Branch T,BU/BC,ALT,AST,ALK PHOS) BASIC METABOLIC PANEL (NA, 2020-01-22 08:03:00 Kevan Carvajal [facility] K, CL, CO2, GLUCOSE, BUN, Medica l Branch CREATININE, CA) CBC WITH DIFF 2020-01-22 08:03:00 Brian Jorge [facility] COVID-19 (ID NOW RAPID 2020-01-21 21:28:00 Kapil Sykes [facility] TESTING) Medical Branch CT ABDOMEN PELVIS W 2020-01-21 19:59:57 Kapil Sykes [facility] CONTRAST [facility] US GALL BLADDER 2020-01-21 19:49:02 Kapil Sykes [facility] POCT TEST 2020-01-21 18:02:00 Kapil Sykes [facility] LIPASE 2020-01-21 18:01:00 Kapil Sykes [facility] COMP. METABOLIC PANEL 2020-01-21 18:01:00 Kapil Sykes [facility] ([id number]) Medical [place] CBC WITH DIFF 2020-01-21 18:01:00 Kapil Sykes [facility] URINALYSIS 2020-01-21 17:55:00 Kapil Sykes [facility] NOTICE OF PRIVACY 2020-01-21 17:25:15 Doctor Evgeny, [place] [facility] [place] CONSENT/REFUSAL FOR 2020-01-21 17:23:47 Doctor Evgeny [facility] DIAGNOSIS AND TREATMENT [facility] [place] AGREEMENTS AUTHORIZATIONS 2020-01-21 05:01:00 Doctor Evgeny, [facility] AND IRREVOCABLE [facility] [place] ASSIGNMENTS (FORM 2001) ASSIGNMENT OF BENEFITS 2019-12-15 13:42:10 Doctor Evgeny, [facility] Encounters Start End Encounter Admission Attending Care Care Encounter Source Date/Time Date/Time Type Type Clinicians Facility Department ID 2021-01-21 Emergency [facility] [id number] Univers 21:11:00 ity of [facility] 2021-01-21 Emergency [facility] [id number] Univers 01:51:26 ity of [facility] 2020-06-14 2020-06-14 Patient Misha [facility] [id number] Univers 00:00:00 00:00:00 Outreach Constantin PRIMARY [id number] i ty of [facility] [id number] [id number] Nd dical [address] [place] 2020-05-17 2020-05-17 Outpatient R [facility] [id number] Univers 11:15:00 11:15:00 [id number] ity [facility] 2020-05-17 2020-05-17 [facility] [id number] Univers 11:15:00 11:15:00 MARVEL ity [facility] 2020-04-26 2020-04-27 Emergency Mihai Shine [id number] Univers 08:40:00 17:30:00 Eloisa Mckinney [id number] ity of [facility] 4.2.7.2.686 Felice as [phone] [facility] 098 Branch 2020-02-02 2020-02-02 Outpatient R [facility] [id number] Univers 10:30:00 10:30:00 [id number] ity [facility] 2020-02-02 2020-02-02 [facility]patient [facility] [id number] Univers 10:30:00 10:30:00 [facility] 2020-01-26 2020-01-26 Transition Jordyn Middleton [id number] Univers 00:00:00 00:00:00 of Care Magalis Hernández [id number] ity of [place] [phone] [facility] 403 Branch 2020-01-21 2020-01-24 Hospital Kapil Sykes 1.2.8 [id number] Univers 12:43:00 12:56:00 Encounter Maximo Day 350.1.13. 10 ity of [facility] 4.2.7.2.686 Felice as [id number] [facility] 098 [place] 2019-12-15 2019-12-15 Office [facility] [id number] Univers 08:48:26 10:18:11 Visit Rubia R [employer] [id number] ity of [facility] [id number] Felice as MATERNAL [phone] Med ical & CHILD [address] [place] [address] 2019-12-15 2019-12-15 Outpatient [facility] [id number] Univers 08:45:00 08:45:00 RUBIA [id number] ity o [facility] 2019-12-15 2019-12-15 Outpatient [facility] [id number] Univers 08:45:00 08:45:00 RUBIA berman o [facility] 2019-12-15 2019-12-15 Orders Doctor EMI [id number] Univers 00:00:00 00:00:00 Only Unassigned, ANTONIO 350.1.13.10 ity of [facility] 4.2.7.2.686 Felice as [id number] [facility] 009 [place] 2019-12-15 2019-12-15 Telephone [facility] [id number] Univers 00:00:00 00:00:00 Rossin R [employer]ODUCTION PATTERN [employer]KER [id number] ity of [facility] [id number] Felice as MATERNAL [id number] [facility] CH[facility] [address] [place] [address] 2018-06-24 2018-06-24 [facility] [id number] 13:00:00 13:00:00 t Specialty/U Daiana kes - Specialty rology Memori a /Urology Clinic l Clinic Outpati ent Clinics Results Test Description Test Time Test Comments Results Result Comments Source Basic Metabolic Panel (NA, K, CL, CO2, Glucose, BUN, 2020-04 08:49:00 Creatinine, CA) Test Item Value Reference Range Interpretation Comme nts NA (test code = 7947073787) 132 mmol/L 135-145 L K (test code = 5339309332) 4.4 mmol/L 3.5-5 CL (test code = 9943581774) 102 mmol/L 98-108 CO2 TOTAL (test code = 0862218641) 24 mmol/L 23-31 AGAP (test code = 3930544123) 2-16 BUN (test code = 7418507960) 9 mg/dL 7-23 GLUCOSE (test code = 6084427246) 180 mg/dL 70-110 H CREATININE (test code = 0.60 mg/dL 0.5-1.04 9067648552) CALCIUM (test code = 0653996062) 8.2 mg/dL 8.6-10.6 L eGFR Calculation (Non- mL/min/1.73m2 [place]) (test code = 2291058420) eGFR Calculation ( mL/min/1.73m2 [place]) (test code = 6827099985) BLAINE (test code = BLAINE) Association of Glomerular Filtration Rate (GFR) and Staging of Kidney Disease* + +-------- + ------+| GFR (mL/min/1.73 m2) ?| With Kidney Damage ?| ?Without Kidney Damage+ +-- + +| ?>90 ?| ?Stage one ?| ? Normal ?+ +------- + -------+| ?60-89 ?| ?Stage two ?| ? Decreased GFR ? + +-------- + ------+| ?30-59 ?| ?Stage three ?| ? Stage three ? + +-------- + ------+| ?15-29 ?| ?Stage four ? | ? Stage four ?+ +------- + -------+| ?<15 (or dialysis) ? ?| ?Stage five ? | ? Stage five ?+ +------- + -------+ *Each stage assumes the associated GFR level has been in effect for at least three months. ?Stages 1 to 5, with or without kidney disease, indicate chronic kidney disease. Notes: Determination of stages one and two (with eGFR >59mL/min/1.73 m2) requires estimation of kidney damage for at least three months as defined by structural or functional abnormalities of the kidney, manifested by either:Pathological abnormalities or Markers of kidney damage (including abnormalities in the composition of the blood or urine or abnormalities in imaging tests). Lab Interpretation (test code = Abnormal 36343-7) [id number] (ALB,T.PRO,BILI T,BU/BC,ALT,AST,ALK PHOS)2020-04-27 08:49:00 Test Item Value Reference Range Interpretation Comments TOTAL BILI (test code = 4529618554) 0.7 mg/dL 0.1-1.1 BILI UNCON (test code = 7024944449) 0.5 mg/dL 0.1-1.1 BILI CONJ (test code = 2929544269) 0.0 mg/dL 0-0.3 T PROTEIN (test code = 8017653623) 6.0 g/dL 6.3-8.2 L ALBUMIN (test code = 6111722946) 3.6 g/dL 3.5-5 ALK PHOS (test code = 9069355049) 79 U/L 34-122 ALTv (test code = 1742-6) 222 U/L 5-35 H AST(SGOT) (test code = 8467111022) 173 U/L 13-40 H Lab Interpretation (test code = Abnormal 41410-9) [facility] COVID [id number] 04:08:00COVID DMT InterpretationInterpretation/Recommendations: Molecular NAAT Tests for Active Infection with the SARS-CoV-2 Virus: This patient has tested negative on two occasions for the SARS-CoV-2 virus that causes COVID-19 illness. This most likely indicates that the patient does not have an active infection with the SARS-CoV-2 virus, especially if these tests coincide with the patient's current presentation. However, infection is not completely ruled out as the false negative rate for molecular NAAT testing using a nasopharyngeal sample can be up to 30%, mostly dependent on the timing of sample collection in relation to illness onset and any deficiencies in sampling techniques. If the patient has symptoms concerning for COVID-19 illness, a repeat NAAT test (PCR, Rapid ID Now, etc.) should be performed, at which time the SARS-CoV-2 virus - if present - may have reached a detectable viral load (usually peaking by the end of the first week of symptoms). Tests for IgM and/or IgG Antibodies to SARS-CoV-2 Virus: Testing for IgM and IgG antibodies 1-3 weeks after illness onset will indicate whether the patient has produced antibodies to the virus. At this time, it is not known if the production of antibodies - specifically IgG antibodies - indicates whether the patient is immune to future infections with the SARS-CoV-2 virus. Interpretation Result Comments:These interpretation comments are based upon all COVID-19 testing the patient has had at [facility], including molecular NAAT testing (more commonly known as PCR testing andRapid ID Now testing) and antibody testing. It does not take into account any testing that a patienthas had outside of the [facility] medical record. [facility] LABORATORY SERVICESCOVID VdgwldnKAYC-GpD-2 Rapid ID NOW (no units) ? ? Date ? Value ? 04/26/2020 ? Not Detected ? ? ? 01/21/2020 ? Not Detected ? [facility] SERVICESUnRol[facility] [place] TIME OR (NON-REPORTABLE)2020-04-26 23:48:43These images do not require a Radiology diagnostic report.[facility] Abdomen Limited 2020-04-26 20:36:22 1. ?Cholelithiasis and choledocholithiasis. No evidence of cholecystitis.No intra or extrahepatic biliary duct dilation. Preliminary Report Dictated by Resident: Albert Ernst MD., have reviewed this study and agree with the abovereport.US ABDOMEN LIMITED TECHNIQUE: Limited abdominal ultrasound was performed focused on the liver,biliary system, pancreas and spleen. Main portal vein was evaluated withcolor and spectral Doppler imaging. [facility] HISTORY: 30 years- old; Female; gall bladder, known gallstones, eval forcholecystitis COMPARISON: CT 01/21/2020, FINDINGS: LIVER: The liver is normal in size and measures 16.2 cm. Normalechotexture, echogenicity, and contour No focal hepatic lesion. Hepatopetal ?flow within the main portal vein. GALLBLADDER: Cholelithiasis. No wall thickening (0.2 cm), gallbladderdistention, or pericholecystic fluid. Negative sonographic Camarena's sign.The common bile duct measures 0.5 cm. Echogenic foci measuring up to 2.5 mmare seen in the CBD, consistent with choledocholithiasis. PANCREAS: The visualized pancreatic head, neck and body are normal inechogenicity. RIGHT KIDNEY: The partially visualized right kidney is unremarkable. The visualized portions of the abdominal aorta has normal caliber, 1.8 cmproximally. [facility], Radiant Results Inft User - 04/26/2020 2:37 PM CSTUS ABDOMEN LIMITEDTECHNIQUE: Limited abdominal ultrasound was performed focused on the liver,biliary system, pancreas and spleen. Main portal vein was evaluated withcolor and spectral Doppler imaging. Skip Tender [facility]. HISTORY: 30 years-old; Female; gall bladder, known gallstones, eval forcholecystitis COMPARISON: CT 01/21/2020, FINDINGS: LIVER: The liver is normal in size and measures 16.2 cm. Normalechotexture, echogenicity, and contour No focal hepatic lesion. Hepatopetal flow within the main portal vein. GALLBLADDER: Cholelithiasis. No wall thickening (0.2 cm), gallbladderdistention, or pericholecystic fluid. Negative sonographic Camarena's sign.The common bile duct measures 0.5 cm. Echogenic foci measuring up to 2.5 mmare seen in the CBD, consistent with choledocholithiasis.PANCREAS: The visualized pancreatic head, neck and body are normal inechogenicity.RIGHT KIDNEY: The partially visualized right kidney is unremarkable.The visualized portions of the abdominal aorta has normal caliber,1.8 cmproximally.IMPRESSION1. Cholelithiasis and choledocholithiasis. No evidence of cholecystitis.No intra or extrahepatic biliary duct dilation.Preliminary Report Dictated by Resident: Bear Ramirez, Albert Matute MD., have reviewed this study and agree with the abovereport.[facility]OVID-[facility] (ID NOW RAPID TESTING) 2020-04-26 16:02:00 Test Item Value Reference Range Interpretation Comments SARS-CoV-2 Rapid ID NOW Not Detected Not Detected (test code = 49919-6) BLAINE (test code = BLAINE) ID NOW COVID-19 Assay is an isothermal nucleic acid amplification test intended for the qualitative detection of nucleic acid from SARS-CoV-2 viral RNA in nasopharyngeal (PROFESSOR OF PSYCHIATRY) specimens. It is used under Emergency Use Authorization (EUA) by FDA. The limit of detection (LOD) of the assay is 125 Genome Equivalents/mL. A positive result is indicative of the presence of SARS-CoV-2 RNA. ?Clinical correlation with patient history and other diagnostic information is necessary to determine patient infection status. A negative (Not Detected) result does not preclude SARS-CoV-2 infection. In patients with clinical symptoms and other tests that are consistent with SARS-CoV-2 infection, negative results should be treated as presumptive negative and a new specimen should be tested with alternative PCR molecular test. Invalid: Please collect a new specimen for repeat patient testing if clinically indicated. Lab Interpretation Normal (test code = 42859-5) [facility] HospitalPOCT [id number] 15:59:00 Test Item Value Reference Range Interpretation Comments POCT PREG (test code = 1605) Negative On board controls acceptable with Yes C Line (test code = 3574) POCT PREG LOT # (test code = 3575) [id number] POCT PREG TEST DATE (test 2021-11-22 code = 3576) Lab Interpretation (test code = Normal 04001-0) [facility] HospitalUrinalysis2021-02-02 15:54:00 Test Item Value Reference Range Interpretation Comments APPEARANCE (test code = Cloudy Clear A 8535823450) COLOR (test code = Yellow Yellow 5365369618) PH (test code = 4.8-8.0 0345227064) SP GRAVITY (test code = 1.003-1.030 8418099998) GLU U QUAL (test code = Normal Normal 1862810900) BLOOD (test code = Negative Negative 6189409889) KETONES (test code = Negative Negative 7243387642) PROTEIN (test code = Negative Negative 2887-8) UROBILIN (test code = Normal Normal 9728402237) BILIRUBIN (test code = Negative Negative 3082681300) NITRITE (test code = Positive Negative A 6457770008) LEUK DEMETRIS (test code = Negative Negative 3460705431) RBC/HPF (test code = See_Comment [Autom ated message] 8039645948) The system [employer] generated this result transmitted ref erence range: 0 - 3 HP F. The reference range was not used to int erpret this result as normal/abnormal . WBC/HPF (test code = <1 See_Comment [Autom ated message] 2165266846) The system [employer] generated this result transmitted ref erence range: 0 - 5 HP F. The reference range was not used to int erpret this result as normal/abnormal . BACTERIA (test code = Moderate Negative A 6503489740) MUCOUS (test code = Slight Negative LPF A 9076148400) AMORPHOUS (test code = Few Rare HPF A 3522598614) SQ EPITH (test code = See_Comment H [Auto mated message] 8880231979) The system [employer] generated this result transmitted ref erence range: <=2 HPF. The reference range was not used to int erpret this result as normal/abnormal . Lab Interpretation (test Abnormal code = 87199-5) [facility] (NA, K, CL, CO2, GLUCOSE, BUN, CREATININE, CA)2020-04-26 15:38:00 Test Item Value Reference Range Interpretation Comments NA (test code = 138 mmol/L 135-145 2089105032) K (test code = 4.6 mmol/L 3.5-5 5243364286) CL (test code = 104 mmol/L 98-108 7752299815) CO2 TOTAL (test code = 28 mmol/L 23-31 9444496668) AGAP (test code = 2-16 3084593834) BUN (test code = 14 mg/dL 7-23 8798938804) GLUCOSE (test code = 108 mg/dL 70-110 7244379498) CREATININE (test code 0.69 mg/dL 0.5-1.04 = 1112553579) CALCIUM (test code = 8.7 mg/dL 8.6-10.6 6822307015) eGFR Calculation mL/min/1.73m2 (Non-) (test code = 4590719117) eGFR Calculation mL/min/1.73m2 () (test code = 3545863529) BLAINE (test code = BLAINE) Association of Glomerular Filtration Rate (GFR) and Staging of Kidney Disease* + -+ + ---+| GFR (mL/min/1.73 m2) ?| With Kidney Damage ?| ?Without Kidney Damage+ -------+ ------+ ---------+| ?>90 ?| ?Stage one ?| ? Normal ?+ --+ -+ ----+| ?60-89 ?| ?Stage two ?| ? Decreased GFR ? + -+ + ---+| ?30-59 ?| ?Stage three ?| ? Stage three ? + -+ + ---+| ?15-29 ?| ?Stage four ? | ? Stage four ?+ --+ -+ ----+| ?<15 (or dialysis) ? ?| ?Stage five ? | ? Stage five ?+ --+ -+ ----+ *Each stage assumes the associated GFR level has been in effect for at least three months. ?Stages 1 to 5, with or without kidney disease, indicate chronic kidney disease. Notes: Determination of stages one and two (with eGFR >59mL/min/1.73 m2) requires estimation of kidney damage for at least three months as defined by structural or functional abnormalities of the kidney, manifested by either:Pathological abnormalities or Markers of kidney damage (including abnormalities in the composition of the blood or urine or abnormalities in imaging tests). [facility] Function Panel (ALB, T.PRO, BILI T, BU/BC, ALT, AST, ALK PHOS)2020-04-26 15:38:00 Test Item Value Reference Range Interpretation Comments TOTAL BILI (test code = 9979437295) 0.5 mg/dL 0.1-1.1 BILI UNCON (test code = 7904648009) 0.3 mg/dL 0.1-1.1 BILI CONJ (test code = 8506791431) 0.0 mg/dL 0-0.3 T PROTEIN (test code = 0168815932) 6.4 g/dL 6.3-8.2 ALBUMIN (test code = 3273738733) 3.9 g/dL 3.5-5 ALK PHOS (test code = 8975522311) 72 U/L 34-122 ALTv (test code = 1742-6) 51 U/L 5-35 H AST(SGOT) (test code = 0520000221) 108 U/L 13-40 H Lab Interpretation (test code = Abnormal 84525-5) [facility] HospitalLipase [id number] 15:38:00 Test Item Value Reference Range Interpretation Comments LIPASE (test code = 2178796105) 41 U/L 0-220 Lab Interpretation (test code = Normal 04877-8) [facility] HospitalCB with [id number] 15:29:00 Test Item Value Reference Range Interpretation Comments WBC (test code = See_Comment [Automated 2190-2) message] The sy stem which generated this result transmitted reference range : 4.30 - 11.10 10*3/?L. The reference range was not used to interpret this result as normal/abnormal . RBC (test code = See_Comment [Automated 152-8) message] The sy stem which generated this result transmitted reference range : 3.93 - 5.25 10*6/?L. The reference range was not used to interpret this result as normal/abnormal . HGB (test code = 14.2 g/dL 11.6-15 718-7) HCT (test code = 43.4 % 35.7-45.2 4544-3) MCV (test code = 91.6 fL 80.6-95.5 787-2) MCH (test code = 30.0 pg 25.9-32.8 785-6) MCHC (test code = 32.7 g/dL 31.6-35.1 786-4) RDW-SD (test code = 42.0 fL 39-49.9 09135-7) RDW-CV (test code = 12.5 % 12-15.5 788-0) PLT (test code = See_Comment [Automated 127-3) message] The sy stem which generated this result transmitted reference range : 166 - 358 10*3/ ?L. The reference r keerthi was not used to interpret this result as normal/abnormal . MPV (test code = 9.9 fL 9.5-12.9 02205-3) NRBC/100 WBC (test See_Comment [Automat ed code = 2683712233) message] The system which generated this result transmitted reference range : 0.0 - 10.0 /100 WBCs. The refer ence range was not u sed to interpret th is result as normal/abnormal . NRBC x10^3 (test code <0.01 See_Comment [Auto mated = 2454031136) message] The s ystem which generated this result transmitted reference range : 10*3/?L. The reference range was not used to interpret this result as normal/abnormal . GRAN MAT (NEUT) % 68.3 % (test code = 770-8) IMM GRAN % (test code 0.90 % = 2382150837) LYMPH % (test code = 25.3 % 736-9) MONO % (test code = 3.0 % 5905-5) EOS % (test code = 1.9 % 713-8) BASO % (test code = 0.6 % 706-2) GRAN MAT x10^3(ANC) 4.78 10*3/uL 1.88-7.09 (test code = 4151831143) IMM GRAN x10^3 (test 0.06 10*3/uL 0-0.06 code = 8859163618) LYMPH x10^3 (test code 1.77 10*3/uL 1.32-3.29 = 731-0) MONO x10^3 (test code 0.21 10*3/uL 0.33-0.92 L = 742-7) EOS x10^3 (test code = 0.13 10*3/uL 0.03-0.39 711-2) BASO x10^3 (test code 0.04 10*3/uL 0.01-0.07 = 704-7) Lab Interpretation Abnormal (test code = 94404-0) [facility] WITH [id number] 10:09:00 Test Item Value Reference Range Interpretation Comments WBC (test code = See_Comment [Automated 6690-2) message] The sy stem which generated this result transmitted reference range : 4.30 - 11.10 10*3/?L. The reference range was not used to interpret this result as normal/abnormal . RBC (test code = See_Comment L [Automated 789-8) message] The sy stem which generated this result transmitted reference range : 3.93 - 5.25 10*6/?L. The reference range was not used to interpret this result as normal/abnormal . HGB (test code = 11.3 g/dL 11.6-15 L 718-7) HCT (test code = 34.0 % 35.7-45.2 L 4544-3) MCV (test code = 92.4 fL 80.6-95.5 787-2) MCH (test code = 30.7 pg 25.9-32.8 785-6) MCHC (test code = 33.2 g/dL 31.6-35.1 786-4) RDW-SD (test code = 42.8 fL 39-49.9 63175-5) RDW-CV (test code = 12.7 % 12-15.5 788-0) PLT (test code = See_Comment [Automated 777-3) message] The sy stem which generated this result transmitted reference range : 166 - 358 10*3/ ?L. The reference r kerethi was not used to interpret this result as normal/abnormal . MPV (test code = 10.6 fL 9.5-12.9 06672-8) NRBC/100 WBC (test See_Comment [Automat ed code = 9160776166) message] The system which generated this result transmitted reference range : 0.0 - 10.0 /100 WBCs. The refer ence range was not u sed to interpret th is result as normal/abnormal . NRBC x10^3 (test code <0.01 See_Comment [Auto mated = [id number]) message] The s ystem which generated this result transmitted reference range : 10*3/?L. The reference range was not used to interpret this result as normal/abnormal . GRAN MAT (NEUT) % 39.9 % (test code = 770-8) IMM GRAN % (test code 0.50 % = 2683022277) LYMPH % (test code = 48.9 % 736-9) MONO % (test code = 8.3 % 5905-5) EOS % (test code = 1.8 % 713-8) BASO % (test code = 0.6 % 706-2) GRAN MAT x10^3(ANC) 2.61 10*3/uL 1.88-7.09 (test code = 2140616113) IMM GRAN x10^3 (test 0.03 10*3/uL 0-0.06 code = 4695231554) LYMPH x10^3 (test code 3.19 10*3/uL 1.32-3.29 = 731-0) MONO x10^3 (test code 0.54 10*3/uL 0.33-0.92 = 742-7) EOS x10^3 (test code = 0.12 10*3/uL 0.03-0.39 711-2) BASO x10^3 (test code 0.04 10*3/uL 0.01-0.07 = 704-7) Lab Interpretation Abnormal (test code = 51933-8) [facility]NA, K, CL, CO2, GLUCOSE, BUN, CREATININE, CA)2020-01-24 09:09:00 Test Item Value Reference Range Interpretation Comments NA (test code = 141 mmol/L 135-145 6941405744) K (test code = 4.0 mmol/L 3.5-5 9474296822) CL (test code = 108 mmol/L 98-108 5551648037) CO2 TOTAL (test code = 27 mmol/L 23-31 4034729764) AGAP (test code = 2-16 8053209247) BUN (test code = 7 mg/dL 7-23 9585283492) GLUCOSE (test code = 105 mg/dL 70-110 0404981032) CREATININE (test code = 0.58 mg/dL 0.5-1.04 4220174604) CALCIUM (test code = 8.2 mg/dL 8.6-10.6 L 0452096295) eGFR Calculation mL/min/1.73m2 (Non-) (test code = 6617843798) eGFR Calculation mL/min/1.73m2 () (test code = 5525653492) BLAINE (test code = BLAINE) Association of Glomerular Filtration Rate (GFR) and Staging of Kidney Disease* + --+ --+ ------+| GFR (mL/min/1.73 m2) ?| With Kidney Damage ?| ?Without Kidney Damage+ --------+ --------+ +| ?>90 ?| ?Stage one ?| ? Normal ?+ ---+ ---+ -------+| ?60-89 ?| ?Stage two ?| ? Decreased GFR ? + --+ --+ ------+| ?30-59 ?| ?Stage three ?| ? Stage three ? + --+ --+ ------+| ?15-29 ?| ?Stage four ? | ? Stage four ?+ ---+ ---+ -------+| ?<15 (or dialysis) ? ?| ?Stage five ? | ? Stage five ?+ ---+ ---+ -------+ *Each stage assumes the associated GFR level has been in effect for at least three months. ?Stages 1 to 5, with or without kidney disease, indicate chronic kidney disease. Notes: Determination of stages one and two (with eGFR >59mL/min/1.73 m2) requires estimation of kidney damage for at least three months as defined by structural or functional abnormalities of the kidney, manifested by either:Pathological abnormalities or Markers of kidney damage (including abnormalities in the composition of the blood or urine or abnormalities in imaging tests). Lab Interpretation Abnormal (test code = 46462-3) [id number][facility] (ALB,T.PRO,BILI T,BU/BC,ALT,AST,ALK PHOS)2020-01-24 09:09:00 Test Item Value Reference Range Interpretation Comments TOTAL BILI (test code = 0703092057) 0.4 mg/dL 0.1-1.1 BILI UNCON (test code = 8692191169) 0.5 mg/dL 0.1-1.1 BILI CONJ (test code = 7235286786) 0.0 mg/dL 0-0.3 T PROTEIN (test code = 2132482350) 5.4 g/dL 6.3-8.2 L ALBUMIN (test code = 5922280347) 3.1 g/dL 3.5-5 L ALK PHOS (test code = 4982213059) 69 U/L 34-122 ALTv (test code = 1742-6) 139 U/L 5-35 H AST(SGOT) (test code = 1625615373) 32 U/L 13-40 Lab Interpretation (test code = Abnormal 96420-2) [facility]:09[facility]00 Test Item Value Reference Range Interpretation Comments LIPASE (test code = 2573543050) 297 U/L 0-220 H Lab Interpretation (test code = Abnormal 74255-5) [facility] METABOLIC PANEL (NA, K, CL, CO2, GLUCOSE, BUN, CREATININE, CA)2020-01-23 08:28:00 Test Item Value Reference Range Interpretation Comments NA (test code = 139 mmol/L 135-145 0657064230) K (test code = 4.0 mmol/L 3.5-5 7374002050) CL (test code = 110 mmol/L 98-108 H 5035958629) CO2 TOTAL (test code = 24 mmol/L 23-31 6524991617) AGAP (test code = 2-16 0381336780) BUN (test code = 5 mg/dL 7-23 L 9536947607) GLUCOSE (test code = 110 mg/dL 70-110 0309153126) CREATININE (test code = 0.48 mg/dL 0.5-1.04 L 5654509900) CALCIUM (test code = 8.2 mg/dL 8.6-10.6 L 4534330142) eGFR Calculation mL/min/1.73m2 (Non-) (test code = 9718418965) eGFR Calculation mL/min/1.73m2 () (test code = 3019180736) BLAINE (test code = BLAINE) Association of Glomerular Filtration Rate (GFR) and Staging of Kidney Disease* + --+ --+ ------+| GFR (mL/min/1.73 m2) ?| With Kidney Damage ?| ?Without Kidney Damage+ --------+ --------+ +| ?>90 ?| ?Stage one ?| ? Normal ?+ ---+ ---+ -------+| ?60-89 ?| ?Stage two ?| ? Decreased GFR ? + --+ --+ ------+| ?30-59 ?| ?Stage three ?| ? Stage three ? + --+ --+ ------+| ?15-29 ?| ?Stage four ? | ? Stage four ?+ ---+ ---+ -------+| ?<15 (or dialysis) ? ?| ?Stage five ? | ? Stage five ?+ ---+ ---+ -------+ *Each stage assumes the associated GFR level has been in effect for at least three months. ?Stages 1 to 5, with or without kidney disease, indicate chronic kidney disease. Notes: Determination of stages one and two (with eGFR >59mL/min/1.73 m2) requires estimation of kidney damage for at least three months as defined by structural or functional abnormalities of the kidney, manifested by either:Pathological abnormalities or Markers of kidney damage (including abnormalities in the composition of the blood or urine or abnormalities in imaging tests). Lab Interpretation Abnormal (test code = 60203-4) [facility][id number][facility] (ALB,T.PRO,BILI T,BU/BC,ALT,AST,ALK PHOS)2020-01-23 08:28:00 Test Item Value Reference Range Interpretation Comments TOTAL BILI (test code = 2309218035) 1.1 mg/dL 0.1-1.1 BILI UNCON (test code = 4459975151) 1.2 mg/dL 0.1-1.1 H BILI CONJ (test code = 9617682314) 0.0 mg/dL 0-0.3 T PROTEIN (test code = 5430652145) 5.8 g/dL 6.3-8.2 L ALBUMIN (test code = 5773213929) 3.4 g/dL 3.5-5 L ALK PHOS (test code = 0509540657) 77 U/L 34-122 ALTv (test code = 1742-6) 201 U/L 5-35 H AST(SGOT) (test code = 7953386014) 66 U/L 13-40 H Lab Interpretation (test code = Abnormal 99727-0) [facility] 08[facility]28:00 Test Item Value Reference Range Interpretation Comments LIPASE (test code = 7533403649) 348 U/L 0-220 H Lab Interpretation (test code = Abnormal 87180-9) [facility] with [id number] 08:11:00 Test Item Value Reference Range Interpretation Comments WBC (test code = See_Comment [Automated 6690-2) message] The sy stem which generated this result transmitted reference range : 4.30 - 11.10 10*3/?L. The reference range was not used to interpret this result as normal/abnormal . RBC (test code = See_Comment L [Automated 789-8) message] The sy stem which generated this result transmitted reference range : 3.93 - 5.25 10*6/?L. The reference range was not used to interpret this result as normal/abnormal . HGB (test code = 11.8 g/dL 11.6-15 718-7) HCT (test code = 35.1 % 35.7-45.2 L 4544-3) MCV (test code = 90.7 fL 80.6-95.5 787-2) MCH (test code = 30.5 pg 25.9-32.8 785-6) MCHC (test code = 33.6 g/dL 31.6-35.1 786-4) RDW-SD (test code = 41.0 fL 39-49.9 13516-2) RDW-CV (test code = 12.3 % 12-15.5 788-0) PLT (test code = See_Comment [Automated 777-3) message] The sy stem which generated this result transmitted reference range : 166 - 358 10*3/ ?L. The reference r keerthi was not used to interpret this result as normal/abnormal . MPV (test code = 10.8 fL 9.5-12.9 25950-7) NRBC/100 WBC (test See_Comment [Automat ed code = 9847711668) message] The system which generated this result transmitted reference range : 0.0 - 10.0 /100 WBCs. The refer ence range was not u sed to interpret th is result as normal/abnormal . NRBC x10^3 (test code <0.01 See_Comment [Auto mated = 6037722192) message] The s ystem which generated this result transmitted reference range : 10*3/?L. The reference range was not used to interpret this result as normal/abnormal . GRAN MAT (NEUT) % 70.5 % (test code = 770-8) IMM GRAN % (test code 0.40 % = 0384173499) LYMPH % (test code = 21.2 % 736-9) MONO % (test code = 7.4 % 5905-5) EOS % (test code = 0.4 % 713-8) BASO % (test code = 0.1 % 706-2) GRAN MAT x10^3(ANC) 7.00 10*3/uL 1.88-7.09 (test code = 2520092805) IMM GRAN x10^3 (test 0.04 10*3/uL 0-0.06 code = 0105132110) LYMPH x10^3 (test code 2.10 10*3/uL 1.32-3.29 = 731-0) MONO x10^3 (test code 0.73 10*3/uL 0.33-0.92 = 742-7) EOS x10^3 (test code = 0.04 10*3/uL 0.03-0.39 711-2) BASO x10^3 (test code <0.03 0.01-0.07 = 704-7) Lab Interpretation Abnormal (test code = 35288-2) [facility] 22[facility]32:00 Test Item Value Reference Range Interpretation Comments LIPASE (test code = 5568843029) 1207 U/L 0-220 H Lab Interpretation (test code = Abnormal 27673-6) [facility][id number][facility] (ALB,T.PRO,BILI T,BU/BC,ALT,AST,ALK PHOS)2020-01-22 22:32:00 Test Item Value Reference Range Interpretation Comments TOTAL BILI (test code = 1.5 mg/dL 0.1-1.1 H 3902106774) BILI UNCON (test code = 1.2 mg/dL 0.1-1.1 H 8917683175) BILI CONJ (test code = 0.0 mg/dL 0-0.3 5012541602) T PROTEIN (test code = 6.4 g/dL 6.3-8.2 8731422616) ALBUMIN (test code = 3.8 g/dL 3.5-5 3840694060) ALK PHOS (test code = 82 U/L 34-122 Slight hemolysis 9606039413) ALTv (test code = 1742-6) 230 U/L 5-35 H AST(SGOT) (test code = 125 U/L 13-40 H Sligh t hemolysis 4710910452) Lab Interpretation (test Abnormal code = 15796-5) [facility] 09:19:00 Test Item Value Reference Range Interpretation Comments LIPASE (test code = 2972302639) 5595 U/L 0-220 H Lab Interpretation (test code = Abnormal 13952-7) [facility] (NA, K, CL, CO2, GLUCOSE, BUN, CREATININE, CA)2020-01-22 08:51:00 Test Item Value Reference Range Interpretation Comments NA (test code = 138 mmol/L 135-145 3695308883) K (test code = 3.8 mmol/L 3.5-5 1863927356) CL (test code = 107 mmol/L 98-108 5497444047) CO2 TOTAL (test code = 24 mmol/L 23-31 6849430446) AGAP (test code = 2-16 9730096183) BUN (test code = 8 mg/dL 7-23 4999809351) GLUCOSE (test code = 110 mg/dL 70-110 7396305594) CREATININE (test code = 0.58 mg/dL 0.5-1.04 1147467071) CALCIUM (test code = 8.2 mg/dL 8.6-10.6 L 6660312986) eGFR Calculation mL/min/1.73m2 (Non-) (test code = 4178106141) eGFR Calculation mL/min/1.73m2 () (test code = 7488039708) BLAINE (test code = BLAINE) Association of Glomerular Filtration Rate (GFR) and Staging of Kidney Disease* + --+ --+ ------+| GFR (mL/min/1.73 m2) ?| With Kidney Damage ?| ?Without Kidney Damage+ --------+ --------+ +| ?>90 ?| ?Stage one ?| ? Normal ?+ ---+ ---+ -------+| ?60-89 ?| ?Stage two ?| ? Decreased GFR ? + --+ --+ ------+| ?30-59 ?| ?Stage three ?| ? Stage three ? + --+ --+ ------+| ?15-29 ?| ?Stage four ? | ? Stage four ?+ ---+ ---+ -------+| ?<15 (or dialysis) ? ?| ?Stage five ? | ? Stage five ?+ ---+ ---+ -------+ *Each stage assumes the associated GFR level has been in effect for at least three months. ?Stages 1 to 5, with or without kidney disease, indicate chronic kidney disease. Notes: Determination of stages one and two (with eGFR >59mL/min/1.73 m2) requires estimation of kidney damage for at least three months as defined by structural or functional abnormalities of the kidney, manifested by either:Pathological abnormalities or Markers of kidney damage (including abnormalities in the composition of the blood or urine or abnormalities in imaging tests). Lab Interpretation Abnormal (test code = 71624-1) [facility]71432[facility] (ALB,T.PRO,BILI T,BU/BC,ALT,AST,ALK PHOS)2020-01-22 08:51:00 Test Item Value Reference Range Interpretation Comments TOTAL BILI (test code = 0176044586) 3.3 mg/dL 0.1-1.1 H BILI UNCON (test code = 1314373129) 2.0 mg/dL 0.1-1.1 H BILI CONJ (test code = 7981279914) 0.6 mg/dL 0-0.3 H T PROTEIN (test code = 7524992581) 6.1 g/dL 6.3-8.2 L ALBUMIN (test code = 6786391095) 3.5 g/dL 3.5-5 ALK PHOS (test code = 2796803151) 83 U/L 34-122 ALTv (test code = 1742-6) 302 U/L 5-35 H AST(SGOT) (test code = 1568678357) 177 U/L 13-40 H Lab Interpretation (test code = Abnormal 50003-5) [facility] [id number] 08:16:00 Test Item Value Reference Range Interpretation Comments WBC (test code = See_Comment [Automated message] 6690-2) The system [facility] generated this result transmitted ref erence range: 4.30 - 1 1.10 10*3/?L. The re ference range was not u sed to interpret this result as normal/abnor mal. RBC (test code = See_Comment [Automated message] 929-8) The system [facility] generated this result transmitted ref erence range: 3.93 - 5 .25 10*6/?L. The re ference range was not u sed to interpret this result as normal/abnor mal. HGB (test code = 13.1 g/dL 11.6-15 718-7) HCT (test code = 39.3 % 35.7-45.2 4544-3) MCV (test code = 92.0 fL 80.6-95.5 787-2) MCH (test code = 30.7 pg 25.9-32.8 785-6) MCHC (test code = 33.3 g/dL 31.6-35.1 786-4) RDW-SD (test code 42.8 fL 39-49.9 = 71474-4) RDW-CV (test code 12.7 % 12-15.5 = 788-0) PLT (test code = See_Comment [Automated message] 777-3) The system [facility] generated this result transmitted ref erence range: 166 - 35 8 10*3/?L. The re ference range was not u sed to interpret this result as normal/abnor mal. MPV (test code = 10.2 fL 9.5-12.9 05038-9) NRBC/100 WBC (test See_Comment [Automat ed message] code = 5469647064) The syste m which generated this result transmitted ref erence range: 0.0 - 10 .0 /100 WBCs. The refer ence range was not u sed to interpret this result as normal/abnor mal. NRBC x10^3 (test <0.01 See_Comment [Automated message] code = 1259661839) The syste m which generated this result transmitted ref erence range: 10*3/?L. The reference range was not used to interpr et this result as normal/abnormal . GRAN MAT (NEUT) % 64.3 % (test code = 770-8) IMM GRAN % (test 0.60 % code = 3510776482) LYMPH % (test code 21.9 % = 736-9) MONO % (test code 10.5 % = 5905-5) EOS % (test code = 2.1 % 713-8) BASO % (test code 0.6 % = 706-2) GRAN MAT 4.58 10*3/uL 1.88-7.09 x10^3(ANC) (test code = 3229315187) IMM GRAN x10^3 0.04 10*3/uL 0-0.06 (test code = 7684463249) LYMPH x10^3 (test 1.56 10*3/uL 1.32-3.29 code = 731-0) MONO x10^3 (test 0.75 10*3/uL 0.33-0.92 code = 742-7) EOS x10^3 (test 0.15 10*3/uL 0.03-0.39 code = 711-2) BASO x10^3 (test 0.04 10*3/uL 0.01-0.07 code = 704-7) [facility] (ID NOW RAPID TESTING)2020-01-21 21:54:00 Test Item Value Reference Range Interpretation Comments SARS-CoV-2 Rapid ID NOW Not Detected Not Detected (test code = 53117-9) BLAINE (test code = BLAINE) ID NOW COVID-19 Assay is an isothermal nucleic acid amplification test intended for the qualitative detection of nucleic acid from SARS-CoV-2 viral RNA in nasopharyngeal (PROFESSOR OF PSYCHIATRY) specimens. It is used under Emergency Use Authorization (EUA) by FDA. The limit of detection (LOD) of the assay is 125 Genome Equivalents/mL. A positive result is indicative of the presence of SARS-CoV-2 RNA. ?Clinical correlation with patient history and other diagnostic information is necessary to determine patient infection status. A negative (Not Detected) result does not preclude SARS-CoV-2 infection. In patients with clinical symptoms and other tests that are consistent with SARS-CoV-2 infection, negative results should be treated as presumptive negative and a new specimen should be tested with alternative PCR molecular test. Invalid: Please collect a new specimen for repeat patient testing if clinically indicated. Lab Interpretation Normal (test code = 67433-6) [facility] W [id number] 20:08:33CT Abdomen and Pelvis with intravenous contrast. CLINICAL HISTORY: Nausea, vomiting, abdominal pain.Gastroenteritis orcolitis is suspected. DOSE: Up-to-date CT equipment and radiation dose reduction techniques wereemployed. CTDIvol: ? mGy. DLP: ?mGy-cm. TECHNIQUE : Contiguous axial imaging from the l evel of the lung basesthrough the pubic symphysis were performed after the uncomplicatedadministration of Omnipaque contrast material. Coronal and sagittalreconstructions were obtained. Auto mA and/or iterative reconstruction wereused to reduce radiation dose. FINDINGS: Comparison has been made with 04/30/2017 study. Lower lungs: Clear. No pleural effusion or pericardial effusion. Nodefinite evidence of a hiatal hernia. Liver, Gallbladder and Spleen: Liver measures 16.9 cm in length and showedmultiplesmall low-density lesions in the lateral subdiaphragmatic rightlobe of the liver, largest is 6 mm insize and another 7 mm low-densitylesion in the lower right lobe, consistent with incidental small hepaticcysts. Some of the subdiaphragmatic cystic lesions are visualized innoncontrast enhanced CT scanof 04/30/2017. Spleen is enlarged, measuring 16 x 3.7 cm. In addition, 2.4 cm sizeaccessory splenule noted near the anterior edge of the main spleen. Nofocally enhancing lesions visualized in the liver or in the spleen. Gallbladder is hydropic measuring up to 11.5 x 4.5 cm in size and verysmall gallstones are seen in the dependent portion of its lumen. Mildgeneralized dilatation of the biliary ducts also noted with common hepaticduct measuring approximately 10 mm and proximal common bile duct ldczdnukr10 to 11 mm. Peritoneum: ?No free air or free fluid. No lymphadenopathy. Pancreas and Adrenals: ?Unremarkable pancreas and adrenal glands. Kidneys and Ureters: ?No visible calculi in the renal collecting systems. No hydroureter or hydronephrosis. Vessels: Normal. Retroperitoneum: No abnormal fluid or lymphadenopathy. Bowel: Diverticulosis of sigmoid and descending colon noted with additionalscattered diverticula suspected through rest of large bowel without anyacute changes. Appendix is normal. Bladder and Reproductive Organs: 2.6 cm cyst in the right ovary, multiplesmall cysts in the left ovary including corpus luteum of 2.9 cm size in theleft ovary noted. Bones: Unremarkable. Soft tissues: Unremarkable. CONCLUSION:1. Hydropic gallbladder and dilated biliary ducts. Some very small stonesnoted in the dependent portion of the gallbladder lumen. No stonevisualized in the duct.2. Small cystic lesions in the right lobe of the liver.3. S/P hysterectomy. Multiple cysts in the ovaries including corpus luteumin the left ovary.4. Splenomegaly.5. Constipation. Generalized diverticulosis of the large bowel without anyfocal changes of acute diverticulitis. [facility], Radiant Results Inft User - 01/21/2020 3:09 PM CDTCT Abdomen and Pelvis with intravenous contrast.CLINICAL HISTORY: Nausea, vomiting, abdominal pain. Gastroenteritis orcolitis is suspected.DOSE: Up-to-date CT equipment and radiation dosereduction techniques wereemployed. CTDIvol: mGy. DLP: mGy-cm.TECHNIQUE : Contiguous axial imagingfrom the level of the lung basesthrough the pubic symphysis were performed after the uncomplicatedadm inistration of Omnipaque contrast material. Coronal and sagittalreconstructions were obtained. Auto mA and/or iterative reconstruction wereused to reduce radiation dose.FINDINGS: Comparison has been made with 04/30/2017 study.Lower lungs: Clear. No pleural effusion or pericardial effusion. Nodefinite evidence of a hiatal hernia.Liver, Gallbladder and Spleen: Liver measures 16.9 cm in length and showedmultiple small low-density lesions in the lateral subdiaphragmatic rightlobe of the liver, largest is 6 mm in size and another 7 mm low-densitylesion in the lower right lobe, consistent with incidental small hepaticcysts. Some of the subdiaphragmatic cystic lesions are visualized innoncontrast enhanced CT scan of 04/30/2017.Spleen is enlarged, measuring 16 x 3.7 cm. In addition, 2.4 cm sizeaccessory splenule noted near the anterior edge of the main spleen. Nofocally enhancing lesions visualized in the liver or in the spleen.Gallbladder is hydropic measuring up to 11.5 x 4.5 cm in size and verysmall gallstones are seen in the dependent portion of its lumen. Mildgeneralized dilatation of the biliary ducts also noted with common hepaticduct measuring approximately 10 mm and proximal common bile duct monica uring10 to 11 mm. Peritoneum: No free air or free fluid. No lymphadenopathy.Pancreas and Adrenals:Unremarkable pancreas and adrenal glands.Kidneys and Ureters: No visible calculi in the renal collecting systems. No hydroureter or hydronephrosis. Vessels: Normal.Retroperitoneum: No abnormal fluid or lymphadenopathy.Bowel: Diverticulosis of sigmoid and descending colon noted with additionalscattered diverticula suspected through rest of large bowel without anyacute changes. Appendix is normal.Bladder and Reproductive Organs: 2.6 cm cyst in the right ovary, multiplesmall cysts in the left ovary including corpus luteum of 2.9 cm size in theleft ovary noted.Bones: Unremarkable.Soft tissues: Unremarkable.CONCLUSION:1. Hydropic gallbladder and dilated biliary ducts. Some very small stonesnoted in the dependent portion of the gallbladder lumen. No stonevisualized in the duct.2. Small cystic lesionsin the right lobe of the liver.3. S/P hysterectomy. Multiple cysts in the ovaries including corpus luteumin the left ovary.4. Splenomegaly.5. Constipation. Generalized diverticulosis of the large bowelwithout anyfocal changes of acute diverticulitis.[facility] GALL [id number] 19:52:09HISTORY: RUQ Abdominal pain. TECHNIQUE: Gallbladder is evaluated in multiple planes with the patientindifferent positions. Color imaging is utilized. FINDINGS: Gallbladder is moderately distended, consistent with hydropicgallbladder, measuring 11.8 x 5.2 cm in size several small gallstones areseen inthe dependent portion of the lumen of the gallbladder with distalacoustic shadowing confirmed. Each individual gallstone is measuring 3 mmto 6 mm in size. Entire biliary ductal system is dilated with common hepatic duct measuring9.1 mm. At least one stone is seen in distal common bile duct. Hepatic andportal venous system appeared patent. CONCLUSION:1. Hydropic gallbladder containing multiple small gallstones. Camarena's signcould not be evaluated because patient was premedicated in the emergencyroomfor pain.2. Dilated entire biliary ductal system with at least one stone detected inthe common bile duct. [facility], Radiant Results Inft User - 01/21/2020 2:53 PM CDTHISTORY: RUQ Abdominal pain.TECHNIQUE: Gallbladder is evaluated in multiple planes with the patient indifferent positions. Color imagingis utilized.FINDINGS: Gallbladder is moderately distended, consistent with hydropicgallbladder, measuring 11.8 x 5.2 cm in size several small gallstones areseen in the dependent portion of the lumen ofthe gallbladder with distalacoustic shadowing confirmed. Each individual gallstone is measuring 3 mmt o 6 mm in size.Entire biliary ductal system is dilated with common hepatic duct measuring9.1 mm. At least one stone is seen in distal common bile duct. Hepatic andportal venous system appeared patent. CONCLUSION:1. Hydropic gallbladder containing multiple small gallstones. Camarena's signcould not be evaluated because patient was premedicated in the emergencyroom for pain.2. Dilated entire biliary ductal system with at least one stone detected inthe common bile duct. [facility]. METABOLIC PANEL (11901)2020-01-21 19:15:00 Test Item Value Reference Range Interpretation Comments NA (test code = 135 mmol/L 135-145 1833475914) K (test code = 4.4 mmol/L 3.5-5 1253919304) CL (test code = 107 mmol/L 98-108 4981979025) CO2 TOTAL (test code = 23 mmol/L 23-31 7512505393) AGAP (test code = 2-16 6234996015) BUN (test code = 9 mg/dL 7-23 3015473248) GLUCOSE (test code = 103 mg/dL 70-110 2462260361) CREATININE (test code = 0.58 mg/dL 0.5-1.04 1235698996) TOTAL BILI (test code = 2.8 mg/dL 0.1-1.1 H 7702520019) CALCIUM (test code = 9.1 mg/dL 8.6-10.6 6345257286) T PROTEIN (test code = 7.4 g/dL 6.3-8.2 3956426795) ALBUMIN (test code = 4.4 g/dL 3.5-5 6513531389) ALK PHOS (test code = 111 U/L 34-122 5868820196) ALTv (test code = 510 U/L 5-35 H 1742-6) AST(SGOT) (test code = 484 U/L 13-40 H 2185064887) eGFR Calculation mL/min/1.73m2 (Non-) (test code = 3621998660) eGFR Calculation mL/min/1.73m2 () (test code = 4020162490) BLAINE (test code = BLAINE) Association of Glomerular Filtration Rate (GFR) and Staging of Kidney Disease* + --+ --+ ------+| GFR (mL/min/1.73 m2) ?| With Kidney Damage ?| ?Without Kidney Damage+ --------+ --------+ +| ?>90 ?| ?Stage one ?| ? Normal ?+ ---+ ---+ -------+| ?60-89 ?| ?Stage two ?| ? Decreased GFR ? + --+ --+ ------+| ?30-59 ?| ?Stage three ?| ? Stage three ? + --+ --+ ------+| ?15-29 ?| ?Stage four ? | ? Stage four ?+ ---+ ---+ -------+| ?<15 (or dialysis) ? ?| ?Stage five ? | ? Stage five ?+ ---+ ---+ -------+ *Each stage assumes the associated GFR level has been in effect for at least three months. ?Stages 1 to 5, with or without kidney disease, indicate chronic kidney disease. Notes: Determination of stages one and two (with eGFR >59mL/min/1.73 m2) requires estimation of kidney damage for at least three months as defined by structural or functional abnormalities of the kidney, manifested by either:Pathological abnormalities or Markers of kidney damage (including abnormalities in the composition of the blood or urine or abnormalities in imaging tests). Lab Interpretation Abnormal (test code = 40029-4) [facility] Test Item Value Reference Range Interpretation Comments LIPASE (test code = 3523258081) 67 U/L 0-220 Lab Interpretation (test code = Normal 59244-0) [facility]12[facility]00 Test Item Value Reference Range Interpretation Comments APPEARANCE (test code = Clear Clear 1369402658) COLOR (test code = Lindsey Yellow A 1015685725) PH (test code = 4.8-8.0 3600455231) SP GRAVITY (test code = 1.003-1.030 5078375670) GLU U QUAL (test code = Normal Normal 4942779742) BLOOD (test code = Negative Negative 6028955466) KETONES (test code = Negative Negative 6379375745) PROTEIN (test code = Negative Negative 2887-8) UROBILIN (test code = 4.0 mg/dL Normal A 7544208501) BILIRUBIN (test code = Negative Negative 0615270334) NITRITE (test code = Negative Negative 7601170352) LEUK DEMETRIS (test code = Negative Negative 6885215700) RBC/HPF (test code = See_Comment H [Autom ated message] 2950520049) The system [employer] generated this result transmit mirta reference range : 0 - 3 HPF. The refe rence range was not u sed to interpret th is result as normal/abnormal . WBC/HPF (test code = See_Comment [Autom ated message] 0079913291) The system [employer] [facility] generated this result transmit mirta reference range : 0 - 5 HPF. The refe rence range was not u sed to interpret th is result as normal/abnormal . BACTERIA (test code = Few Negative A 1712136796) SQ EPITH (test code = HPF 2311294805) Lab Interpretation (test Abnormal code = 61683-5) [facility] with [id number] 18:10:00 Test Item Value Reference Range Interpretation Comments WBC (test code = See_Comment [Automated 8790-2) message] The sy stem which generated this result transmitted reference range : 4.30 - 11.10 10*3/?L. The reference range was not used to interpret this result as normal/abnormal . RBC (test code = See_Comment [Automated 009-8) message] The sy stem which generated this result transmitted reference range : 3.93 - 5.25 10*6/?L. The reference range was not used to interpret this result as normal/abnormal . HGB (test code = 15.1 g/dL 11.6-15 H 718-7) HCT (test code = 45.5 % 35.7-45.2 H 4544-3) MCV (test code = 91.0 fL 80.6-95.5 787-2) MCH (test code = 30.2 pg 25.9-32.8 785-6) MCHC (test code = 33.2 g/dL 31.6-35.1 786-4) RDW-SD (test code = 41.1 fL 39-49.9 35313-0) RDW-CV (test code = 12.4 % 12-15.5 788-0) PLT (test code = See_Comment [Automated 777-3) message] The sy stem which generated this result transmitted reference range : 166 - 358 10*3/ ?L. The reference r keerthi was not used to interpret this result as normal/abnormal . MPV (test code = 10.0 fL 9.5-12.9 41581-6) NRBC/100 WBC (test See_Comment [Automat ed code = 9791704863) message] The system which generated this result transmitted reference range : 0.0 - 10.0 /100 WBCs. The refer ence range was not u sed to interpret th is result as normal/abnormal . NRBC x10^3 (test code <0.01 See_Comment [Auto mated = 0529908157) message] The s ystem which generated this result transmitted reference range : 10*3/?L. The reference range was not used to interpret this result as normal/abnormal . GRAN MAT (NEUT) % 65.7 % (test code = 770-8) IMM GRAN % (test code 0.50 % = 4605248997) LYMPH % (test code = 24.0 % 736-9) MONO % (test code = 7.7 % 5905-5) EOS % (test code = 1.6 % 713-8) BASO % (test code = 0.5 % 706-2) GRAN MAT x10^3(ANC) 5.60 10*3/uL 1.88-7.09 (test code = 4155983727) IMM GRAN x10^3 (test 0.04 10*3/uL 0-0.06 code = 9986198445) LYMPH x10^3 (test code 2.05 10*3/uL 1.32-3.29 = 731-0) MONO x10^3 (test code 0.66 10*3/uL 0.33-0.92 = 742-7) EOS x10^3 (test code = 0.14 10*3/uL 0.03-0.39 711-2) BASO x10^3 (test code 0.04 10*3/uL 0.01-0.07 = 704-7) Lab Interpretation Abnormal (test code = 54761-9) [id number] 18:02:00 Test Item Value Reference Range Interpretation Comments POCT PREG (test code = 1605) negative On board controls acceptable with present C Line (test code = 3574) POCT PREG LOT # (test code = 3575) [id number] POCT PREG TEST DATE (test 2021-06-22 code = 3576) Lab Interpretation (test code = Normal 64010-0) [facility]"
[2021-03-20 15:16] LABS: SARS-COV-2 RT PCR POSITIVE (NEGATIVE)
--- NOTE | 2021-03-20 15:22 | ER ---
Nurse's Notes [facility] Name: Elham Moran Age: 31 yrs Sex: Female : 1990 Arrival Date: 03/20/2021 Time: 13:09 Bed Waiting Private MD: Diagnosis: Coronavirus infection, unspecified Presentation: 03/20 13:59 Chief complaint: Patient states: she has a headache, body ache, cough and congestion. ap3 Symptoms began 03/19/2021. Coronavirus screen: congestion, cough unrelated to allergies, headache, Client presents with at least one sign or symptom that may indicate coronavirus-19. Standard/surgical mask placed on the client. Provider contacted for isolation considerations. Ebola Screen: No symptoms or risks identified at this time. Initial Sepsis Screen: Does the patient meet any 2 criteria? No. Patient's initial sepsis screen is negative. Does the patient have a suspected source of infection? No. Patient's initial sepsis screen is negative. Risk Assessment: Do you want to hurt yourself or someone else? Patient reports no desire to harm self or others. Onset of symptoms was March 19, 2021. 13:59 Method Of Arrival: Ambulatory ap3 13:59 Acuity: MISSAEL 4 ap3 Triage Assessment: 14:02 Headache History: The patient has had previous headaches and this one is different than ap3 previous episodes, and this one is more severe than previous episodes. General: Appears in no apparent distress. Behavior is calm, cooperative. Pain: Complains of pain in head and generalized body aches Pain currently is 10 out of 10 on a pain scale. Pain began suddenly, 2-3 days ago. Also complains of no other associated symptoms. EENT: Reports nasal discharge. Neuro: Level of Consciousness is awake, alert, obeys commands, Oriented to person, place, time, situation, Appropriate for age Moves all extremities. Speech is normal. Cardiovascular: Patient's skin is warm and dry. Respiratory: Reports cough that is Airway is patent Respiratory effort is even, unlabored, Respiratory pattern is regular, symmetrical, the patient has mild shortness of breath. 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 - Social history:: Smoking status: Patient denies any tobacco usage or history of. Screenin:01 Abuse screen: Denies threats or abuse. Nutritional screening: No deficits noted. ap3 Tuberculosis screening: No symptoms or risk factors identified. 15:30 Fall Risk None identified. ap3 Vital Signs: 13:59 Pulse 71; Temp 98.5(O); Pulse Ox 97% on R/A; Weight 106.14 kg; Height 5 ft. 7 in. ap3 (170.18 cm); 15:24 BP 121 / 81; Pulse 67; Temp 98.7(O); Pulse Ox 98% on R/A; ap3 13:59 Body Mass Index 36.65 (106.14 kg, 170.18 cm) ap3 ED Course: 13:09 Patient arrived in ED. ds1 14:00 Manju David FNP-C is [facility]. kb 14:00 Jonathan Du MD is Attending Physician. kb 14:01 Triage completed. ap3 14:03 Arm band placed on left wrist. ap3 15:29 No provider procedures requiring assistance completed. Patient did not have IV access ap3 during this emergency room visit. 15:30 Patient has correct armband on for positive identification. ap3 Administered Medications: No medications were administered Outcome: 15:22 Discharge ordered by . kb 15:29 Discharged to home ambulatory. ap3 15:29 Condition: good 15:29 Discharge instructions given to patient, Instructed on discharge instructions, follow up and referral plans. Demonstrated understanding of instructions, follow-up care. 15:30 Patient left the ED. ap3 Signatures: Manju David FNP-C FNP-Ckb Sanford, Demi ds1 Donna Vásquez RN RN ap3
--- NOTE | 2021-03-20 15:23 | EDPHYS ---
Physician Documentation [facility] [place] Name: Elham Moran Age: 31 yrs Sex: Female : 1990 Arrival Date: 03/20/2021 Time: 13:09 Bed Waiting Private MD: TIFFANY Physician Jonathan Du HPI: 03/20 18:57 This 31 yrs old Female presents to ER via Ambulatory with complaints of Headache, kb Nausea, Fever. 18:57 Pt reports headache, bodyaches, cough and congestion since yesterday. kb 18:57 The patient or guardian reports cough, flu symptoms, myalgias. Onset: The kb symptoms/episode began/occurred yesterday. Severity of symptoms: At their worst the symptoms were moderate, in the emergency department the symptoms are unchanged. Modifying factors: The symptoms are alleviated by nothing, the symptoms are aggravated by nothing. Associated signs and symptoms: Pertinent positives: rhinorrhea, Pertinent negatives: chest pain, diarrhea, ear ache, fever, nausea, sore throat, vomiting. The patient has not experienced similar symptoms in the past. The patient has not recently seen a physician. 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 - Social history:: Smoking status: Patient denies any tobacco usage or history of. ROS: 18:57 Cardiovascular: Negative for chest pain, palpitations, and edema. kb 18:57 Constitutional: Positive for body aches, fatigue, malaise. 18:57 ENT: Positive for rhinorrhea, sinus congestion. 18:57 Respiratory: Positive for cough, Negative for dyspnea on exertion, hemoptysis, orthopnea, pleurisy, shortness of breath, sputum production, wheezing. 18:57 Neuro: Positive for headache. 18:57 All other systems are negative. Exam: 18:57 Constitutional: This is a well developed, well nourished patient who is awake, alert, kb and in no acute distress. Head/Face: Normocephalic, atraumatic. ENT: Moist Mucous membranes Cardiovascular: Regular rate and rhythm with a normal S1 and S2. No gallops, murmurs, or rubs. No pulse deficits. Respiratory: Respirations even and unlabored. No increased work of breathing. Talking in full sentences Skin: Warm, dry with normal turgor. Normal color. MS/ Extremity: Pulses equal, no cyanosis. Neurovascular intact. Full, normal range of motion. Neuro: Awake and alert, GCS 15, oriented to person, place, time, and situation. Moves all extremities. Normal gait. Psych: Awake, alert, with orientation to person, place and time. Behavior, mood, and affect are within normal limits. Vital Signs: 13:59 Pulse 71; Temp 98.5(O); Pulse Ox 97% on R/A; Weight 106.14 kg; Height 5 ft. 7 in. ap3 (170.18 cm); 15:24 BP 121 / 81; Pulse 67; Temp 98.7(O); Pulse Ox 98% on R/A; ap3 13:59 Body Mass Index 36.65 (106.14 kg, 170.18 cm) ap3 MDM: 14:00 Patient medically screened. kb 18:57 Data reviewed: vital signs, nurses notes. Data interpreted: Pulse oximetry: on room air kb is 98 %. Interpretation: normal. Counseling: I had a detailed discussion with the patient and/or guardian regarding: the historical points, exam findings, and any diagnostic results supporting the discharge/admit diagnosis, lab results, the need for outpatient follow up, a family practitioner, to return to the emergency department if symptoms worsen or persist or if there are any questions or concerns that arise at home. 03/20 14:01 Order name: COVID-19/FLU A+B (Document "Date of Onset" if Symptomatic); Complete Time: kb 15:17 Administered Medications: No medications were administered Disposition: 03/21 12:55 Co-signature as Attending Physician, Jonathan Du MD I agree with the assessment and jessica plan of care. Disposition Summary: 03/20/21 15:22 Discharge Ordered Location: Home kb Condition: Stable kb Diagnosis - Coronavirus infection, unspecified kb Followup: kb - With: Emergency Department - When: As needed - Reason: Worsening of condition Followup: kb - With: Private Physician - When: 2 - 3 days - Reason: Recheck today's complaints, Continuance of care, Re-evaluation by your physician Discharge Instructions: - Discharge Summary Sheet kb - Viral Respiratory Infection, [id number] kb - COVID-19 kb Forms: - Medication Reconciliation Form kb - Thank You Letter kb - Antibiotic Education kb - Prescription Opioid Use kb - Work release form ap3 Signatures: Dispatcher [employer] EDManju James, [employer] COMMERCIAL MANAGEMENT ACCOUNTANT-Jonathan Barker MD MD cha Prokisch, Amanda RN RN ap3
[2021-03-20 16:00] VITALS: BP 121/81; TEMP 98.7; O2SAT 98
== END 2021-03-20 15:30 | disposition home or self-care (01) ==
LOC: ER 13:04
DX: U07.1 COVID-19 (principal)
CPT/HCPCS: 0240U; 99281

== ENCOUNTER 2021-08-25 11:54 | Emergency (ER) | payer OTHER, SELFPAY ==
--- OUTSIDE RECORDS SUMMARY | 2021-08-25 11:56 | XMS REPORT | Continuity of Care Document ---
:1990 Author Organization [facility] t Address [address] [place] [address] Care Team Providers Name Role Phone PCP, DOES NOT HAVE A Primary Care Physician Unavailable RUSS Attending Clinician Unavailable Russ FRANCISCO Attending Clinician Yesika VENEGAS III Attending Clinician Unavailable PERSON Attending Clinician Unavailable Hannah BERMUDEZ Attending Clinician Unavailable Hannah HARDEN Attending Clinician Unavailable RUSS Admitting Clinician Unavailable Hannah HARDEN Admitting Clinician Unavailable Payers Payer Name Policy Type Policy Number Effective Date Expiration Date S shala [employer] [place] [id number] 2019 WOMEN 00:00:00 MEDICAID PENDING PENDING 2020 2020 00:00:00 00:00:00 Problems Condition Condition Condition Status Onset Resolution Last Treating Co mments Source Name Details Category Date Date Treatment Clinician Date Pilonidal Pilonidal Disease Active Overview: Univers cyst cyst 1-10 Formattin ity of 00:00: g of this [place] 00 note Medical might be Branch different from the original. Added automatic ally from request for surgery [id number] Calculus Calculus Disease Active Unive rs of of 2-03 ity of gallbladde [place]de [place] and bile r and bile 00 Me dical duct duct Branch without without cholecysti cholecysti tis tis Status Status Disease Active Univers post post 2-03 ity of laparosc[place] 00 Medical cholecyste cholecyste Br anch ctomy ctomy Biliary Biliary Disease Active Univers colic colic 2-02 ity of 00:00: [place] 00 [facility] Vaginal Vaginal Disease Active Univers dryness dryness 9- ity of 00:00: [place] 00 [facility] H/O total H/O total Disease Active 2017-03 Uni vers hysterecto hysterecto 1-16 it y of my with my with 00:00: [place] bilateral bilateral 00 Medi ginger salpingo-o salpingo-o Br anch ophorectom ophorectom y (BSO) y (BSO) History of History of Disease Active Overview : Univers 3 3 4-30 Formattin ity of sections sections 00:00: g of this [place] as 00 note Medical might be Branch different from the original. x3 History of History of Disease Active U nivers asthma asthma 4-30 ity of 00:00: [place] 00 [facility] Pilonidal Pilonidal Diagnosis Active C ommon abscess of abscess of Sp she kylah - [facility] cleft cleft [facility] Allergies, Adverse Reactions, Alerts Allergy Allergy Status Severity Reaction(s) Onset Inactive Treating Comm ents Source Name Type Date Date Clinician NO KNOWN Drug Active Univers ALLERGIE Class ity of S [facility] Social History Social Habit Start Date Stop Date Quantity Comments Source Exposure to Yes University of SARS-CoV-2 (event) [facility] Alcohol intake 2021-04-03 2021-04-03 0 /d University of 00:00:00 00:00:00 [facility] Cigarettes smoked 2021-03-28 2021-03-28 Univers ity of current (pack per 00:00:00 00:00:00 ) - Reported Branch Cigarette 2021-03-28 2021-03-28 University of pack-years 00:00:00 00:00:00 [facility] Tobacco use and 2021-03-28 2021-03-28 Former user Universi ty of exposure 00:00:00 00:00:00 [facility] History of tobacco 2020-04-25 Cigarette Smoker University of use 00:00:00 [facility] Sex Ass[birth year] Universit y of 00:00:00 00:00:00 [facility] Smoking Status Start Date Stop Date Source Former smoker 2021-03-28 00:00:00 2021-03-28 00:00:00 Universi ty of [facility] Medications Ordered Filled Start Stop Current Ordering Indication Dosage Frequency Signature Comments Components Source Medication Medication Date Date Medication? Clinician (SIG) Name Name doxycycline Yes [id number] 100mg Take 1 Univers hyclate 100 1-01 capsule by [place] of mg capsule [place] (two[place] Medical times Branch daily. HYDROcodone Yes [id number] 1{tbl} Take 1-2 Univers -acetaminop 1-01 tablets by it y of hen 5-325 00:00: mouth [place] mg tablet 00 every 6 Medical (six) Branch hours as needed for Pain (scale 1-3). Indication s: acute pain acetaminoph Yes [id number] 650mg Take 650 Univers en 325 mg 2-03 mg by ity of Cap 00:00: mouth [place] 00 every 6 Medical (six) Branch hours as needed for Pain (scale 1-3) or Pain (scale 4-6). ibuprofen Yes [id number] 600mg Take 1 Univers 600 mg 2-03 tablet by ity of tablet 00:00: mouth [place] 00 every 6 Medical (six) Branch hours as needed for Pain (scale 1-3) or Pain (scale 4-6) (Alternate with acetaminop hen for mild-moder ate pain). estradioL 2019- Yes [id number] 2g Insert 2 g Univers 0.01 % (0.1 12-14 into ity of mg/gram) 00:00: vagina [place] vaginal 00 weekly. Medical cream Branch ascorbic 2020-0 Yes [id number] 500mg Take 1 Un kendrick acid, 9-22 tablet by ity of vitamin C, 00:00: [place] 500 mg 00 (three) Medical tablet times Branch daily. ergocalcife 2019-0 Yes [id number] 78823L Take 1 Univers rol, 9-22 capsule by ity of vitamin d2, 00:00: mouth [place] 1,250 mcg 00 weekly. Medical (50,000 Branch unit) capsule Immunizations Ordered Filled Immunization Date Status Comments Sour e Immunization Name Name TDAP 2019-11-09 [facility] 00:00:00 [facility] Influenza Virus 2019-11-09 Completed Universit y of Vaccine Quad .5 mL 00:00:00 [facility] 6+ MO [place] Vital Signs Vital Name Observation Time Observation Value Comments Source Systolic blood 2021-04-03 15:19:00 105 mm[Hg] Univer sity of pressure [facility] Diastolic blood 2021-04-03 15:19:00 68 mm[Hg] Unive rsity of pressure [facility] Heart rate 2021-04-03 15:19:00 80 /min [facility] Body temperature 2021-04-03 15:19:00 [facility].83 [facility] Res[facility] 2021-04-03 15:19:00 20 /[facility] Body height 2021-04-03 15:19:00 172.7 cm [facility] Body weight 2021-04-03 15:19:00 106.867 kg [facility] BMI 2021-04-03 15:19:00 35.82 kg/m2 [facility] Oxygen saturation in 2021-04-03 15:19:00 98 /min [facility] blood by [facility] Pulse oximetry Branch Procedures This patient has no known procedures. Encounters Start End Encounter Admission Attending Care Care Encounter Source Date/Time Date/Time Type Type Clinicians Facility Department ID 2021-04-06 Outpatient R RUSS [facility] LARRY [id number] Univers 14:17:13 ALEJANDRO berman [facility] 2021-04-15 2021-04-[address] [facility] [id number] Univers 09:00:00 09:00:00 [id number] cullen [facility] 2021-04-15 2021-04-[address] [facility] [id number] Univers 09:00:00 09:00:00 ALEJANDRO berman [facility] 2021-04-03 2021-04-03 Office Russ [facility] [id number] Univers 09:00:00 09:28:54 Visit Alejandro PHILLIPS [id number] i ty of [place] [id number] Kt s PROFESSIO [id number] Me dical NAL [address] Branch BUILDING 2021-04-03 2021-04-[address] [facility] [id number] Univers 09:00:00 09:28:54 ALEJANDRO [facility] 2021-03-29 2021-03-29 [facility] [id number] Univers 10:15:00 10:12:34 LALITHA [facility] 2021-03-28 2021-03-28 [facility] [id number] Univers 10:45:00 11:39:27 MARVEL [facility] 2021-03-25 2021-03-25 Emergency X LARA [facility] ERT [id number] Univers 13:47:00 16:01:00 ABRAHAN [facility] 2020-05-17 2020-05-17 [facility] [id number] Univers 11:15:00 [facility]15[facility] 2020-04-27 Outpatient X DERECK [facility] LARRY [id number] Univers 08:40:00 17:30:00 CHANTE [facility] 2018-06-24 2018-06-24 [id number] Common 13:00:00 13:00:00 t Specialty/U Sp she Specialty rology - [facility] Results This patient has no known results.
[2021-08-25 12:35] LABS: Urine Blood Negative (Negative); Urine Glucose Negative (Negative); Urine Protein Negative (Negative); Urine Specific Gravity >=1.030 (1.005-1.030)
--- NOTE | 2021-08-25 13:30 | ER ---
Nurse's Notes [facility] Name: Elham Moran Age: 31 yrs Sex: Female : 1990 Arrival Date: 08/25/2021 Time: 11:56 Bed 15 Private MD: Diagnosis: Pain in right ankle and joints of right foot Presentation: 08/25 12:01 Chief complaint: Patient states: "I hit Right ankle yesterday at a restaurant and today vg1 its swollen and tender and my job sent me home to get it checked out". Coronavirus screen: Vaccine status: Patient reports receiving the 2nd dose of the covid vaccine. Client denies travel out of the [place] in the last 14 days. Ebola Screen: Patient denies exposure to infectious person. Patient denies travel to an Ebola-affected area in the 21 days before illness onset. Initial Sepsis Screen: Does the patient meet any 2 criteria? No. Patient's initial sepsis screen is negative. Does the patient have a suspected source of infection? No. Patient's initial sepsis screen is negative. Risk Assessment: Do you want to hurt yourself or someone else? Patient reports no desire to harm self or others. Onset of symptoms was August 24, 2021. 12:01 Method Of Arrival: Ambulatory vg1 12:01 Acuity: MISSAEL 4 vg1 Triage Assessment: 12:02 General: Appears comfortable, Behavior is calm, cooperative. Pain: Complains of pain in vg1 right lateral malleolus Pain currently is 4 out of 10 on a pain scale. Musculoskeletal: Circulation, motion, and sensation intact. 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 - Social history:: Smoking status: Patient denies any tobacco usage or history of. Screenin:44 Abuse screen: Denies threats or abuse. Nutritional screening: No deficits noted. ap3 Tuberculosis screening: No symptoms or risk factors identified. Fall Risk None identified. Vital Signs: 12:01 BP 110 / 73; Pulse 73; Resp 16; Temp 99.0(TE); Pulse Ox 100% on R/A; Weight 108.86 kg; vg1 Height 5 ft. 7 in. (170.18 cm); Pain 4/10; 12:01 Body Mass Index 37.59 (108.86 kg, 170.18 cm) 1 ED Course: 11:56 Patient arrived in ED. rg4 12:02 Jonathan Tucker PA is PHCP. cp 12:02 Jonathan Du MD is Attending Physician. cp 12:02 Triage completed. vg1 12:02 Arm band placed on. vg1 12:51 Patient moved to radiology via wheelchair. 1 12:52 X-ray completed. Patient tolerated procedure well. Patient moved back from radiology. mh1 12:55 XRAY Ankle RIGHT 3 view In Process Unspecified. EDMS 13:21 Patient placed in an exam room, on a stretcher. ll1 13:22 Donna Vásquez, SKYE is Primary Nurse. ap3 13:29 Jayesh Ding MD is Referral Physician. cp 13:45 Patient has correct armband on for positive identification. ap3 13:45 No provider procedures requiring assistance completed. Patient did not have IV access ap3 during this emergency room visit. Administered Medications: 13:33 Drug: Ibuprofen 800 mg Route: PO; ap3 13:35 Follow up: Response: No adverse reaction ap3 Medication: 13:45 VIS not applicable for this client. ap3 Outcome: 13:30 Discharge ordered by . cp 13:45 Discharged to home ambulatory. ap3 13:45 Condition: good 13:45 Discharge instructions given to patient, Instructed on discharge instructions, follow up and referral plans. Demonstrated understanding of instructions, follow-up care. 13:45 Patient left the ED. ap3 Signatures: Dispatcher [employer] EDMS Nikki Munoz 1 Jonathan Tucker PA PA cp Garcia, Rubi rg4 Donna Vásquez RN RN ap3 Joanna Nguyen RN RN 1 Roland Sky RN RN 1
--- NOTE | 2021-08-25 13:30 | EDPHYS ---
Physician Documentation [facility] Name: Elham Moran Age: 31 yrs Sex: Female : 1990 Arrival Date: 08/25/2021 Time: 11:56 Bed 15 Private MD: Jonathan Oliveira HPI: 08/25 12:25 This 31 yrs old Female presents to ER via Ambulatory with complaints of Ankle Injury. cp 12:25 The patient presents with an injury, pain, that is acute. The complaints affect the cp right lateral malleolus. Onset: The symptoms/episode began/occurred yesterday. Context: resulted from direct blow from leg of chair. Associated signs and symptoms: The patient has no apparent associated signs or symptoms. 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 - Social history:: Smoking status: Patient denies any tobacco usage or history of. ROS: 12:30 MS/extremity: Positive for pain, swelling, tenderness, of the right lateral malleolus, cp Negative for decreased range of motion, deformity, paresthesias. 12:30 Constitutional: Negative for body aches, chills, fever, poor PO intake. cp 12:30 Neck: Negative for pain with movement, pain at rest, stiffness. 12:30 Respiratory: Negative for cough, shortness of breath, wheezing. 12:30 Abdomen/GI: Negative for abdominal pain, nausea, vomiting, and diarrhea. 12:30 Back: Negative for pain at rest, pain with movement. 12:30 Neuro: Negative for dizziness, headache, weakness. 12:30 All other systems are negative. Exam: 12:35 Constitutional: The patient appears in no acute distress, alert, awake, well developed, cp well nourished. 12:35 Musculoskeletal/extremity: Extremities: grossly normal except: noted in the right cp lateral malleolus: pain, tenderness, mild swelling, ROM: limited passive range of motion due to pain, in the right ankle, Pulses: noted to be 2+ in the right dorsalis pedis artery, the right foot Sensation intact. overlying skin warm and dry, intact. Vital Signs: 12:01 BP 110 / 73; Pulse 73; Resp 16; Temp 99.0(TE); Pulse Ox 100% on R/A; Weight 108.86 kg; vg1 Height 5 ft. 7 in. (170.18 cm); Pain 4/10; 12:01 Body Mass Index 37.59 (108.86 kg, 170.18 cm) vg1 MDM: 13:00 Differential diagnosis: fracture, dislocation. cp 13:21 Data reviewed: vital signs, nurses notes, radiologic studies, plain films. Test cp interpretation: by ED physician or midlevel provider: xrays of right ankle negative for fracture. 13:26 Patient medically screened. cp 13:30 Counseling: I had a detailed discussion with the patient and/or guardian regarding: the cp historical points, exam findings, and any diagnostic results supporting the discharge/admit diagnosis, radiology results, to return to the emergency department if symptoms worsen or persist or if there are any questions or concerns that arise at home. 13:30 ED course: Patient declined any crutches and/or Aircast splint at this time. Will cp discharge to home and can return to work. 06 12:35 Order name: Urine --Ancillary (enter results); Complete Time: 13:17 eb 08/25 12:36 Order name: Urine Dipstick-Ancillary; Complete Time: 13:17 EDTN 08/25 12:03 Order name: XRAY Ankle RIGHT 3 view vg1 Administered Medications: 13:33 Drug: Ibuprofen 800 mg Route: PO; ap3 13:35 Follow up: Response: No adverse reaction ap3 Disposition Summary: 08/25/21 13:30 Discharge Ordered Location: Home cp Problem: new cp Symptoms: have improved cp Condition: Stable cp Diagnosis - Pain in right ankle and joints of right foot cp Followup: cp - With: Jayesh Ding MD - When: 1 week - Reason: Worsening of condition Discharge Instructions: - Discharge Summary Sheet cp - Elastic Bandage and RICE Therapy cp - Ankle Pain cp - Form - Return To Work cp Forms: - Medication Reconciliation Form cp - Thank You Letter cp - Antibiotic Education cp - Prescription Opioid Use cp - Work release form eb Prescriptions: - Ibuprofen 800 mg Oral Tablet - take 1 tablet by ORAL route every 8 hours As needed take with food; 30 tablet; cp Refills: 0, Product Selection Permitted Signatures: Dispatcher [employer] EDMS Jonathan Tucker PA PA cp Prokisch, Amanda RN RN ap3 Joanna Nguyen RN RN vg1 Corrections: (The following items were deleted from the chart) 13:17 Crutches ordered. cp cp 13:33 13:17 Splint - Ankle: Aircast ordered. cp cp
[2021-08-25] MEDS ORDERED: IBUPROFEN 400 MG TAB ONE (13:36)
--- NOTE | 2021-08-25 13:52 | RAD REPORT ---
EXAM DESCRIPTION: RAD - Ankle Right 3 View - 08/25/2021 12:54 pm CLINICAL HISTORY: Swelling COMPARISON: No comparisons FINDINGS: No fracture or dislocation is seen.
[2021-08-25 13:58] VITALS: BP 110/73; TEMP 99; O2SAT 100
== END 2021-08-25 13:45 | disposition home or self-care (01) ==
LOC: ER 11:54
DX: M25.571 Pain in right ankle and joints of right foot (principal)
CPT/HCPCS: 81003; 81025; 99283

== ENCOUNTER 2021-08-31 07:30 | Emergency (ER) | payer SELFPAY ==
--- OUTSIDE RECORDS SUMMARY | 2021-08-31 07:32 | XMS REPORT | Continuity of Care Document ---
:1990 Author Organization [facility] t Address [address] [place] [address] Care Team Providers Name Role Phone PCP, [...] Effective Date Expiration Date S shala [facility] [place] [place] [id number] 2019 WOMEN 00:00:00 MEDICAID PENDING PENDING 2020 [...] Added automatic ally from request for surgery [id number] Calculus Calculus Disease Active Unive rs of [...] Univers colic colic 2-02 ity of 00:00: [place] 00 [facility] Vaginal Vaginal Disease Active Univers dryness dryness 9- ity of 00:00: [place] 00 [facility] H/O total H/O total Disease Active 2017-03 Uni vers hysterecto hysterecto 1-16 it y of my with my with 00:00: [place] bilateral bilateral 00 Medi ginger salpingo-o salpingo-o Br anch ophorectom ophorectom y (BSO) y (BSO) History of History of Disease Active Overview : Univers 3 3 4-30 Formattin ity of sections sections 00:00: g of this Felice as 00 note Medical might be Branch different from the original. x3 History of History of Disease Active U nivers asthma asthma 4-30 ity of 00:00: [place] 00 [facility] Pilonidal Pilonidal Diagnosis Active C ommon abscess of abscess of Sp she kylah - [facility] cleft cleft [facility] Allergies, Adverse Reactions, Alerts Allergy Allergy Status Severity Reaction(s) Onset Inactive Treating Comm ents Source Name Type Date Date Clinician NO KNOWN Drug Active Univers ALLERGIE Class ity of S [facility] Social History Social Habit Start Date Stop Date Quantity Comments Source Exposure to Yes University of SARS-CoV-2 (event) [facility] Alcohol intake 2021-04-03 2021-04-03 0 /d University of 00:00:00 00:00:00 [facility] Cigarettes smoked 2021-03-28 2021-03-28 Univers ity of current (pack per 00:00:00 00:00:00 ) - Reported Branch Cigarette 2021-03-28 2021-03-28 University of pack-years 00:00:00 00:00:00 [facility] Tobacco use and 2021-03-28 2021-03-28 Former user Universi ty of exposure 00:00:00 00:00:00 [facility] History of tobacco 2020-04-25 Cigarette Smoker University of use 00:00:00 [facility] Sex Ass[birth year] At [birth year] Universit y of 00:00:00 00:00:00 [facility] Smoking Status Start Date Stop Date Source Former smoker 2021-03-28 00:00:00 2021-03-28 00:00:00 Universi ty of [facility] Medications Ordered Filled Start Stop Current Ordering Indication Dosage Frequency Signature Comments Components Source Medication Medication Date Date Medication? Clinician (SIG) Name Name doxycycline Yes [id number] 100mg Take 1 Univers hyclate 100 1-01 [...] 1-3). Indication s: acute pain acetaminoph Yes [id number] 650mg Take 650 Univers en 325 mg 2-03 mg by ity of Cap 00:00: mouth [place] 00 every 6 Medical (six) Branch hours as needed for Pain (scale 1-3) or Pain (scale 4-6). ibuprofen Yes [id number] 600mg Take 1 Univers 600 mg 2-03 tablet by ity of tablet 00:00: mouth [place] 00 every 6 Medical (six) Branch hours as needed for Pain (scale 1-3) or Pain (scale 4-6) (Alternate with acetaminop hen for mild-moder ate pain). estradioL 2019- Yes [id number] 2g Insert 2 g Univers 0.01 % (0.1 12-14 into ity of mg/gram) 00:00: vagina [place] vaginal 00 weekly. Medical cream Branch ascorbic 2020-0 Yes [id number] 500mg Take 1 Un kendrick acid, 9-22 tablet by ity of vitamin C, 00:00: mouth [place] 500 mg 00 (three) Medical tablet times Branch daily. ergocalcife 2019-0 Yes [id number] 12053I Take 1 Univers rol, 9-22 capsule by ity of vitamin d2, 00:00: mouth [place] 1,250 mcg 00 weekly. Medical (50,000 Branch unit) capsule Immunizations Ordered Filled Immunization Date Status Comments Sour e Immunization Name Name TDAP 2019-11-09 [facility] 00:00:00 [facility] Influenza Virus 2019-11-09 Completed Universit y of Vaccine Quad .5 mL 00:00:00 [facility] 6+ MO [place] Vital Signs Vital Name Observation Time Observation Value Comments Source Systolic blood 2021-04-03 15:19:00 105 mm[Hg] Univer sity of pressure [facility] Diastolic blood 2021-04-03 15:19:00 68 mm[Hg] Unive rsity of pressure [facility] Heart rate 2021-04-03 15:19:00 80 /min [facility] Body temperature 2021-04-03 15:19:00 36.83 Bhavya [facility] 2021-04-03 15:19:00 20 /min [facility] Body height 2021-04-03 15:19:00 172.7 cm [facility] Body weight 2021-04-03 15:19:00 106.867 kg [facility] BMI 2021-04-03 15:19:00 35.82 kg/m2 [facility] Oxygen saturation in 2021-04-03 15:19:00 98 /min [facility] blood by [facility] Pulse oximetry Branch Procedures This patient has no known procedures. Encounters Start End Encounter Admission Attending Care Care Encounter Source Date/Time Date/Time Type Type Clinicians Facility Department ID 2021-04-06 Outpatient R RUSS [facility] LARRY [id number] Univers 14:17:13 ALEJANDRO berman [facility] 2021-04-15 2021-04-15 Outpatient R [facility] [id number] Univers 09:00:00 09:00:00 [id number] cullen [facility] 2021-04-15 2021-04-15 Outpatient R RUSS [facility] [id number] Univers 09:00:00 09:00:00 ALEJANDRO berman [facility] 2021-04-03 2021-04-03 Office Russ [facility] [id number] Univers 09:00:00 09:28:54 Visit Alejandro PHILLIPS [id number] i ty of AGENCY [id number] Kt s PROFESSIO [id number] Me dical NAL [address] Branch BUILDING 2021-04-03 2021-04-03 Outpatient R RUSS [facility] [id number] Univers 09:00:00 09:28:54 ALEJANDRO [facility] 2021-03-29 2021-03-29 [facility] [id number] Univers 10:15:00 10:12:34 LALITHA [facility] 2021-03-28 2021-03-28 [facility] [id number] Univers 10:45:00 11:39:27 MARVEL [facility] 2021-03-25 2021-03-25 Emergency X LARA [facility] ERT [id number] Univers 13:47:00 16:01:00 ABRAHAN [facility] 2020-05-17 2020-05-17 [facility] [id number] Univers [facility]:15[facility] 2020-04-27 Outpatient X DERECK [facility] [id number] Univers 08:40:00 17:30:00 CHANTE [facility] 2018-06-24 2018-06-24 Outpatient [id number] Common 13:00:00 13:00:00 t Specialty/U Sp she Specialty rology - [facility] Results This patient has no known results.
[2021-08-31] MEDS ORDERED: IBUPROFEN 400 MG TAB ONE (07:58)
[2021-08-31] MEDS ORDERED: IBUPROFEN 200 MG TAB PO ONE (07:59)
--- NOTE | 2021-08-31 09:27 | EDPHYS ---
Physician Documentation [facility] Name: Elham Moran Age: 31 yrs Sex: Female : 1990 Arrival Date: 08/31/2021 Time: 07:33 Bed 12 Private MD: ED Physician Toribio Cheng HPI: 08/31 07:46 This 31 yrs old Female presents to ER via Ambulatory with complaints of Cough. jr11 07:46 The patient or guardian reports cough, described as mild, with no sputum, concern she jr11 has covid, worked asked for a test, no dyspnea, no CP. Onset: The symptoms/episode began/occurred yesterday. Severity of symptoms: At their worst the symptoms were mild, in the emergency department the symptoms are unchanged. Modifying factors: The symptoms are alleviated by nothing, the symptoms are aggravated by nothing. Associated signs and symptoms: Pertinent positives: rhinorrhea, Pertinent negatives: chest pain, sore throat, vomiting. Pt with mild URI sx's, cough, asked to take covid test, vox x2 pfizer . 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 - Social history:: Smoking status: Patient denies any tobacco usage or history of. ROS: 07:46 All other systems are negative. jr11 Exam: 07:46 Constitutional: This is a well developed, well nourished patient who is awake, alert, jr11 and in no acute distress. Eyes: Extra-ocular motions intact. Lids and lashes normal. Conjunctiva and sclera are non-icteric and not injected. Cornea within normal limits. Periorbital areas with no swelling, redness, or edema. Neck: Trachea midline, no thyromegaly or masses palpated, and no cervical lymphadenopathy. Supple, full range of motion without nuchal rigidity, or vertebral point tenderness. No Meningismus. Chest/axilla: Normal chest wall appearance and motion. Nontender with no deformity. No lesions are appreciated. Cardiovascular: Regular rate and rhythm with a normal S1 and S2. No gallops, murmurs, or rubs. Normal PMI, no JVD. No pulse deficits. Respiratory: Lungs have equal breath sounds bilaterally, clear to auscultation and percussion. No rales, rhonchi or wheezes noted. No increased work of breathing, no retractions or nasal flaring. Abdomen/GI: Soft, non-tender, with normal bowel sounds. No distension or tympany. No guarding or rebound. No evidence of tenderness throughout. Back: No spinal tenderness. No costovertebral tenderness. Full range of motion. Skin: Warm, dry with normal turgor. Normal color with no rashes, no lesions, and no evidence of cellulitis. MS/ Extremity: Pulses equal, no cyanosis. Neurovascular intact. Full, normal range of motion. Neuro: Awake and alert, GCS 15, oriented to person, place, time, and situation. No gross motor or sensory deficits. 07:46 Head/face: Noted is 07:46 ENT: Nose: Nasal mucosa: edematous. Vital Signs: 07:35 BP 111 / 58; Pulse 67; Resp 16; Temp 97.8; Pulse Ox 100% ; Weight 117.93 kg; Height 5 ll1 ft. 7 in. (170.18 cm); Pain 5/10; 07:35 Body Mass Index 40.72 (117.93 kg, 170.18 cm) ll1 MDM: 07:43 Patient medically screened. [facility] 07:46 Differential Diagnosis: Upper Respiratory Infection. Data reviewed: vital signs, nurses jr11 notes. ED course: Pt with URI, will swab, if neg, symptomatic management . 08/31 07:45 Order name: Influenza Screen (a \T\ B); Complete Time: 09:25 [facility] 08/31 07:47 Order name: Influenza Screen (A EDMS Administered Medications: 07:55 Drug: Ibuprofen 600 mg Route: PO; ll1 Disposition Summary: 08/31/21 09:27 Discharge Ordered Location: Home [facility] Condition: Stable jr11 Diagnosis - Acute upper respiratory infection, unspecified jr11 Followup: jr11 - With: Emergency Department - When: - Reason: Trouble breathing Discharge Instructions: - Discharge Summary Sheet jr11 - Viral Respiratory Infection [facility] Forms: - Medication Reconciliation Form jr11 - Thank You Letter jr11 - Antibiotic Education jr11 - Work release form ss - Prescription Opioid Use jr11 Signatures: Dispatcher [employer] Roland Vargas RN RN ll1 Toribio Cheng MD MD jr11
--- NOTE | 2021-08-31 09:27 | ER ---
Nurse's Notes [facility] Name: Elham Moran Age: 31 yrs Sex: Female : 1990 Arrival Date: 08/31/2021 Time: 07:33 Bed 12 Private MD: Diagnosis: Acute upper respiratory infection, unspecified Presentation: 08/31 07:35 Chief complaint: Patient states: Exposed to covid at work. Cough, MYRICK, body aches, sore ll1 throat for 2 days. No known fever. Coronavirus screen: Vaccine status: Patient reports receiving the 2nd dose of the covid vaccine. Client denies travel out of the [place] in the last 14 days. cough unrelated to allergies, headache, sore throat, Client presents with at least one sign or symptom that may indicate coronavirus-19. Standard/surgical mask placed on the client. Ebola Screen: Patient denies travel to an Ebola-affected area in the 21 days before illness onset. Initial Sepsis Screen: Does the patient meet any 2 criteria? No. Patient's initial sepsis screen is negative. Does the patient have a suspected source of infection? Yes: Productive cough/pneumonia. Risk Assessment: Do you want to hurt yourself or someone else? Patient reports no desire to harm self or others. Onset of symptoms was August 30, 2021. 07:35 Method Of Arrival: Ambulatory ll1 07:35 Acuity: MISSAEL 4 ll1 Triage Assessment: 07:36 General: Appears uncomfortable, Behavior is calm, cooperative, appropriate for age. ll1 Pain: Complains of pain in body Quality of pain is described as aching. Neuro: Reports headache. Respiratory: Reports cough that is. Musculoskeletal: Reports pain in body. 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 - Social history:: Smoking status: Patient denies any tobacco usage or history of. Screenin:21 Abuse screen: Denies threats or abuse. Denies injuries from another. Nutritional ss screening: No deficits noted. Tuberculosis screening: Never had TB. Fall Risk None identified. Assessment: 08:21 Reassessment: Patient appears in no apparent distress at this time. Patient and/or ss family updated on plan of care and expected duration. Pain level reassessed. Patient is alert, oriented x 3, equal unlabored respirations, skin warm/dry/pink. awaiting swab results. Vital Signs: 07:35 BP 111 / 58; Pulse 67; Resp 16; Temp 97.8; Pulse Ox 100% ; Weight 117.93 kg; Height 5 ll1 ft. 7 in. (170.18 cm); Pain 5/10; 07:35 Body Mass Index 40.72 (117.93 kg, 170.18 cm) ll1 ED Course: 07:33 Patient arrived in ED. mr 07:34 Toribio Cheng MD is Attending Physician. jr11 07:34 Arm band placed on Patient placed in an exam room, on a stretcher. ll1 07:41 Triage completed. ll1 07:49 Roland Sky RN is Primary Nurse. ll1 08:21 Patient has correct armband on for positive identification. Bed in low position. ss 09:37 No provider procedures requiring assistance completed. Patient did not have IV access ss during this emergency room visit. Administered Medications: 07:55 Drug: Ibuprofen 600 mg Route: PO; ll1 Medication: 08:21 VIS not applicable for this client. ss Outcome: 09:27 Discharge ordered by . jr11 09:37 Discharged to home ambulatory. ss 09:37 Condition: good 09:37 Discharge instructions given to patient, Instructed on discharge instructions, follow up and referral plans. Demonstrated understanding of instructions, follow-up care. 09:38 Patient left the ED. ss Signatures: Margarita Campbell mr EngTawanna RN RN Roland Sky RN RN ll1 Toribio Cheng MD MD jr11
[2021-08-31 09:48] VITALS: BP 111/58; TEMP 97.8; O2SAT 100
== END 2021-08-31 09:38 | disposition home or self-care (01) ==
LOC: ER 07:30
DX: J06.9 Acute upper respiratory infection, unspecified (principal); Z20.822 Contact with and (suspected) exposure to COVID-19
CPT/HCPCS: 87804; 99283; U0003

== ENCOUNTER 2021-11-21 08:26 | Emergency (ER) | payer SELFPAY ==
--- OUTSIDE RECORDS SUMMARY | 2021-11-21 08:28 | XMS REPORT | Continuity of Care Document ---
:1990 Author Organization [facility] t Address [address] [place] [address] Care Team Providers Name Role Phone PCP, PATIENT DOES NOT HAVE A Primary Care Physician Unavaila ALEJANDRO Malik Attending Clinician Unavailable Alejandro Solano MD Attending Clinician LALITHA VENEGAS III Attending Clinician Unavailable PERSON, MARVEL Attending Clinician Unavailable ABRAHAN BERMUDEZ Attending Clinician Unavailable CHANTE HARDEN Attending Clinician Unavailable ALEJANDRO SOLANO Admitting Clinician Unavailable CHANTE HARDEN Admitting Clinician Unavailable Payers Payer Name Policy Type Policy Number Effective Date Expiration Date S shala [employer] [place] [id number] 2019 WOMEN 00:00:00 MEDICAID PENDING PENDING 2020 2020 00:00:00 00:00:00 Problems Condition Condition Condition Status Onset Resolution Last Treating Co mments Source Name Details Category Date Date Treatment Clinician Date Pilonidal Pilonidal Disease Active Overview: Univers cyst cyst 1-10 Formattin ity of 00:00: g of this [place] 00 note Medical might be Branch different from the original. Added automatic ally from request for surgery [id number] Calculus Calculus Disease Active Unive rs of [...] Univers colic colic 2-02 ity of 00:00: [place] 00 [facility] Vaginal Vaginal Disease Active Univers dryness dryness 9-22 ity of 00:00: [address] H/O total H/O total Disease Active 2017-03 Uni vers hysterecto hysterecto 1-16 it y of my with my with 00:00: [place] bilateral bilateral 00 Medi ginger salpingo-o salpingo-o Br anch ophorectom ophorectom y (BSO) y (BSO) History of History of Disease Active Overview : Univers 3 3 4-30 Formattin ity of sections sections 00:00: g of this Fel[place] as 00 note Medical might be Branch different from the original. x3 History of History of Disease Active U nivers asthma asthma 4-30 ity of 00:00: [place] 00 [facility] Pilonidal Pilonidal Diagnosis Active C ommon abscess of abscess of Sp she - [facility] cleft cleft [facility] Allergies, Adverse Reactions, Alerts Allergy Allergy Status Severity Reaction(s) Onset Inactive Treating Comm ents Source Name Type Date Date Clinician NO KNOWN Drug Active Univers ALLERGIE Class ity of S [facility] Social History Social Habit Start Date Stop Date Quantity Comments Source Exposure to Yes [facility] SARS-CoV-2 (event) [facility] Alcohol intake 2021-04-03 2021-04-03 0 /d University of 00:00:00 00:00:00 [facility] Cigarettes smoked 2021-03-28 2021-03-28 Univers ity of current (pack per 00:00:00 00:00:00 ) - Reported Branch Cigarette 2021-03-28 2021-03-28 University of pack-years 00:00:00 00:00:00 [facility] Tobacco use and 2021-03-28 2021-03-28 Former user Universi ty of exposure 00:00:00 00:00:00 [facility] History of tobacco 2020-04-25 Cigarette Smoker University of use 00:00:00 [facility] Sex Ass[birth year] At [birth year] Universit y of 00:00:00 00:00:00 [facility] Smoking Status Start Date Stop Date Source Former smoker 2021-03-28 00:00:00 2021-03-28 [facility] Medications Ordered Filled Start Stop Current Ordering Indication Dosage Frequency Signature Comments Components Source Medication Medication Date Date Medication? Clinician (SIG) Name Name doxycycline Yes [id number] 100mg Take 1 Univers hyclate 100 1-01 [...] 1-3). Indication s: acute pain acetaminoph Yes [id number] 650mg Take 650 Univers en 325 mg 2-03 mg by ity of Cap 00:00: mouth [place] 00 every 6 Medical (six) Branch hours as needed for Pain (scale 1-3) or Pain (scale 4-6). ibuprofen Yes [id number] 600mg Take 1 Univers 600 mg 2-03 tablet by ity of tablet 00:00: mouth [place] 00 every 6 Medical (six) Branch hours as needed for Pain (scale 1-3) or Pain (scale 4-6) (Alternate with acetaminop hen for mild-moder ate pain). estradioL Yes [id number] 2g Insert 2 g Univers 0.01 % (0.1 -22 into ity of mg/gram) 00:00: vagina [place] vaginal 00 weekly. Medical cream Branch ascorbic Yes [id number] 500mg Take 1 Un kendrick acid, 9-22 tablet by ity of vitamin C, 00:00: mouth 3 [place] 500 mg 00 (three) Medical tablet times Branch daily. ergocalcife Yes [id number] 81634G Take 1 Univers rol, 9-22 capsule by ity of vitamin d2, 00:00: mouth [place] 1,250 mcg 00 weekly. Medical (50,000 Branch unit) capsule Immunizations Ordered Filled Immunization Date Status Comments [facility] e Immunization Name Name TDAP 2019-11-09 Completed University of 00:00:00 [facility] Influenza Virus 2019-11-09 Completed Universit y of Vaccine Quad .5 mL 00:00:00 [facility] 6+ [place] Vital Signs Vital Name Observation Time Observation Value Comments Source Systolic blood 2021-04-03 15:19:00 105 mm[Hg] Univer sity of pressure [facility] Diastolic blood 2021-04-03 15:19:00 68 mm[Hg] Unive rsity of [facility] Heart rate 2021-04-03 15:19:00 80 /min Universi ty [facility] Body temperature 2021-04-03 15:19:00 36.83 Bhavya [facility] Respiratory rate 2021-04-03 15:19:00 20 /min [facility] Body height 2021-04-03 15:19:00 172.7 cm Universi [facility] Body weight 2021-04-03 15:19:00 [facility] 2021-04-03 15:19:00 35.82 kg/m2 [facility] Oxygen saturation in 2021-04-03 15:19:00 98 /min [facility] Arterial blood [facility] Pulse oximetry Branch Procedures This patient has no known procedures. Encounters Start End Encounter Admission Attending Care Care Encounter Source Date/Time Date/Time Type Type Clinicians Facility Department ID 2021-04-06 Outpatient R RUSS [facility] LARRY [id number] Univers 14:17:13 ALEJANDRO [facility] 2021-04-15 2021-04-15 Outpatient R [facility] [id number] Univers 09:00:00 09:00:00 [id number] [facility] 2021-04-15 2021-04-15 Outpatient R RUSS [facility] [id number] Univers 09:00:00 09:00:00 ALEJANDRO berman [facility] 2021-04-03 2021-04-03 Office Russ [facility] [id number] Univers 09:00:00 09:28:54 Visit Alejandro PHILLIPS [id number] i [facility] [id number] Kt WANG [id number] Al dical NAL [address] Branch BUILDING 2021-04-03 2021-04-03 [facility] [id number] Univers 09:00:00 09:28:54 ALEJANDRO [facility] 2021-03-29 2021-03-29 [facility] [id number] Univers 10:15:00 10:12:34 LALITHA [facility] 2021-03-28 2021-03-28 [facility] [id number] Univers 10:45:00 11:39:27 MARVEL [facility] 2021-03-25 2021-03-25 Emergency X LARA [facility] ERT [id number] Univers 13:47:00 16:01:00 ABRAHAN [facility] 2020-05-17 2020-05-17 [facility] [id number] Univers 11:15:00 11:15:00 MARVEL [facility] 2020-04-26 2020-04-27 Outpatient X DERECK [facility] LARRY [id number] Univers 08:40:00 17:30:00 CHANTE [facility] 2018-06-24 2018-06-24 [id number] Common 13:00:00 13:00:00 t Specialty/U Sp she Specialty rology - [facility] Results This patient has no known results.
--- NOTE | 2021-11-21 08:48 | ER ---
Nurse's Notes [facility] Name: Elham Moran Age: 31 yrs Sex: Female : 1990 Arrival Date: 11/21/2021 Time: 08:28 Bed 10 Private MD: Diagnosis: Pain of coccyx area Presentation: 11/21 08:36 Chief complaint: Patient states: pt arrived er aox4 said a pilonidal cyst formed on iw tail bone 4days ago ,it often comes and goes. Coronavirus screen: Client denies travel out of the [place] in the last 14 days. At this time, the client does not indicate any symptoms associated with coronavirus-19. Ebola Screen: No symptoms or risks identified at this time. Initial Sepsis Screen: Does the patient meet any 2 criteria? No. Patient's initial sepsis screen is negative. Risk Assessment: Do you want to hurt yourself or someone else? Patient reports no desire to harm self or others. Onset of symptoms was November 17, 2021 at 08:00. 08:36 Method Of Arrival: Ambulatory iw 08:36 Acuity: MISSAEL 4 iw 08:36 Initial Sepsis Screen: Does the patient have a suspected source of infection? No. iw Patient's initial sepsis screen is negative. Triage Assessment: 08:36 General: Behavior is calm, cooperative. iw 08:41 General: Appears in no apparent distress. iw Historical: - Allergies: 19:27 NKA; iw - PSHx: 19:27 Total abdominal hysterectomy (2018); iw - Immunization history:: Client reports receiving the 2nd dose of the Covid vaccine. - Social history:: Patient uses Patient/guardian denies using street drugs, IV drugs, The patient lives Smoking status: unknown. - Coronavirus screen:: The patient has NOT traveled to [place] in the past 14 days. The patient has NOT had contact with known/suspected case of Coronavirus?. - Ebola Screening: : No symptoms or risks identified at this time. Screenin:50 Abuse screen: Denies threats or abuse. Denies injuries from another. Nutritional iw screening: No deficits noted. Tuberculosis screening: No symptoms or risk factors identified. Fall Risk None identified. Assessment: 08:36 General: Appears in no apparent distress. Pain: Complains of pain in coccyx. Neuro: iw Level of Consciousness is awake, alert, obeys commands, Oriented to person, place, time, situation. Cardiovascular: Patient's skin is warm and dry. Respiratory: Respiratory effort is even, unlabored, Respiratory pattern is regular. Derm: Skin is intact, is healthy with good turgor. Musculoskeletal: Range of motion: intact in all extremities. Vital Signs: 08:36 BP 121 / 69; Pulse 79; Resp 16; Temp 98.2; Pulse Ox 100% on R/A; Weight 85.73 kg; iw Height 5 ft. 7 in. (170.18 cm); Pain 6/10; 08:41 BP 121 / 69; Pulse 79; Resp 16; Temp 98.2; Pulse Ox 100% on R/A; Pain 6/10; iw 08:36 Body Mass Index 29.60 (85.73 kg, 170.18 cm) iw ED Course: 08:28 Patient arrived in ED. mr 08:29 Jonathan Tucker PA is PHCP. cp 08:29 Mohinder Turcios DO is Attending Physician. cp 08:36 Samia Page, SKYE is Primary Nurse. iw 08:36 Arm band placed on right wrist. iw 08:36 Patient has correct armband on for positive identification. iw 08:39 Triage completed. iw 08:55 No provider procedures requiring assistance completed. Patient did not have IV access iw during this emergency room visit. Administered Medications: No medications were administered Medication: 08:40 VIS not applicable for this client. iw Outcome: 08:48 Discharge ordered by MD. cp 08:56 Discharged to home ambulatory. iw 08:56 Condition: good 08:56 Discharge instructions given to patient, Instructed on discharge instructions, follow up and referral plans. medication usage, Demonstrated understanding of instructions, follow-up care, medications, Prescriptions given X 3. 08:57 Patient left the ED. [email or web address] Signatures: Campbell Margarita mr Samia Page RN RN iw Jonathan Tucker PA PA cp Campbell, Kaitlyn kc6 Corrections: (The following items were deleted from the chart) 08:41 08:39 PSHx: Total abdominal hysterectomy; iw iw 09:00 08:36 Chief complaint: Patient states: pt arrived er aox4 said a polycyst fromed on iw tail bone 4days ago ,it often comes and goes iw 19:27 08:39 Allergies: NKA; iw iw 19:27 08:40 PSHx: Total abdominal hysterectomy (2018); iw iw
--- NOTE | 2021-11-21 08:49 | EDPHYS ---
Physician Documentation [facility] Name: Elham Moran Age: 31 yrs Sex: Female : 1990 Arrival Date: 11/21/2021 Time: 08:28 Bed 10 Private MD: ED Physician Mohinder Turcios HPI: 11/21 08:40 This 31 yrs old Female presents to ER via Unassigned with complaints of Knot on cp Tailbone. 08:40 Patient is a 31-year-old female who presents to the emergency department with cp complaints of pain in the tailbone area. Patient reports a history of pilonidal cyst with drainage in the past and that she feels the start of similar symptoms. Patient requesting antibiotics at this time and declines any examination and or drainage. Historical: - Allergies: 19:27 NKA; iw - PSHx: 19:27 Total abdominal hysterectomy (2018); iw - Immunization history:: Client reports receiving the 2nd dose of the Covid vaccine. - Social history:: Patient uses Patient/guardian denies using street drugs, IV drugs, The patient lives Smoking status: unknown. - Coronavirus screen:: The patient has NOT traveled to [place] in the past 14 days. The patient has NOT had contact with known/suspected case of Coronavirus?. - Ebola Screening: : No symptoms or risks identified at this time. ROS: 08:43 Constitutional: Negative for fever. cp 08:43 Abdomen/GI: Negative for abdominal pain, vomiting, diarrhea, constipation. 08:43 : Negative for urinary symptoms. 08:43 Skin: Positive for of the area of coccyx, pain. 08:43 All other systems are negative. Exam: 08:44 Head/Face: Normocephalic, atraumatic. cp 08:44 Constitutional: The patient appears in no acute distress, alert, awake, comfortable, non-toxic, well developed, well nourished. 08:44 Cardiovascular: Rate: normal. 08:44 Respiratory: the patient does not display signs of respiratory distress, Respirations: normal. 08:44 Abdomen/GI: Exam negative for discomfort, distension, guarding, Inspection: abdomen appears normal. Vital Signs: 08:36 BP 121 / 69; Pulse 79; Resp 16; Temp 98.2; Pulse Ox 100% on R/A; Weight 85.73 kg; iw Height 5 ft. 7 in. (170.18 cm); Pain 6/10; 08:41 BP 121 / 69; Pulse 79; Resp 16; Temp 98.2; Pulse Ox 100% on R/A; Pain 6/10; iw 08:36 Body Mass Index 29.60 (85.73 kg, 170.18 cm) iw MDM: 08:36 Patient medically screened. cp 08:46 Data reviewed: vital signs, nurses notes, and as a result, I will discharge patient. cp Administered Medications: No medications were administered Disposition: 08:53 Co-signature as Attending Physician, Mohinder Turcios DO I was present in the emergency ms3 department for consultation in the care of this patient.. Disposition Summary: 11/21/21 08:48 Discharge Ordered Location: Home cp Problem: new cp Symptoms: are unchanged cp Condition: Stable cp Diagnosis - Pain of coccyx area cp Followup: cp - With: Private Physician - When: 1 - 2 days - Reason: Worsening of condition Discharge Instructions: - Discharge Summary Sheet cp - Pilonidal Cyst cp Forms: - Medication Reconciliation Form cp - Thank You Letter cp - Antibiotic Education cp - Prescription Opioid Use cp Prescriptions: - Clindamycin HCl 300 mg Oral Capsule - take 1 capsule by ORAL route every 6 hours for 10 days; 40 capsule; Refills: 0, cp Product Selection Permitted - Ibuprofen 800 mg Oral Tablet - take 1 tablet by ORAL route every 8 hours As needed take with food; 30 tablet; cp Refills: 0, Product Selection Permitted Signatures: Samia Page RN RN iw Jonathan Tucker PA PA cp Mohinder Turcios DO DO ms3 Corrections: (The following items were deleted from the chart) 08:41 08:39 PSHx: Total abdominal hysterectomy; iw iw 08:43 08:38 This 31 yrs old Female presents to ER via Unassigned with complaints of Knot on cp Tailbone. cp 19:27 08:39 Allergies: NKA; iw iw 19:27 08:40 PSHx: Total abdominal hysterectomy (2018); iw iw
[2021-11-21 09:05] VITALS: BP 121/69; TEMP 98.2; O2SAT 100
== END 2021-11-21 08:57 | disposition home or self-care (01) ==
LOC: ER 08:26
DX: M53.3 Sacrococcygeal disorders, not elsewhere classified (principal)

== ENCOUNTER 2022-05-22 08:18 | Emergency (ER) | payer SELFPAY ==
--- OUTSIDE RECORDS SUMMARY | 2022-05-22 08:22 | XMS REPORT | Continuity of Care Document ---
:1990 Author Organization [facility] t Address [address] [facility] [address] [place] [address] Care Team Providers Name Role Phone PCP, PATIENT DOES NOT HAVE A Primary Care Physician Unavaila ALEJANDRO Malik Attending Clinician Unavailable Alejandro Solano MD Attending Clinician Doctor Unassigned, [place] Attending Clinician Unavailable Gramm Sunita COLE Attending Clinician Only, Ang Db Test Attending Clinician Unavailable Lalitha Lamb MD Attending Clinician LALITHA LAMB III Attending Clinician Unavailable Service/[place], Surgery C Attending Clinician Unavailable Darshan Lake MD Attending Clinician DARSHAN LAKE Attending Clinician Unavailable LOIS BERMUDEZ Attending Clinician Unavailable Lois Bermudez MD Attending Clinician Constantin Cabral DO Attending Clinician Mihai Shine MD Attending Clinician Eloisa Harden MD Attending Clinician ELOISA HARDEN Attending Clinician Unavailable MAXIMO DAY Attending Clinician Unavailable Magalis Middleton Attending Clinician Kapil Gottlieb Attending Clinician Maximo Day MD Attending Clinician Rubia Gómez Attending Clinician RUBIA LOPEZ Attending Clinician Unavailable ALEJANDRO SOLANO Admitting Clinician Unavailable Hank FRANCISCO, Eloisa Young Admitting Clinician ELOISA HARDEN Admitting Clinician Unavailable Maximo Day MD Admitting Clinician Payers Payer Name Policy Type Policy Number Effective Date Expiration Date Milady last [employer] [place] [id number] 2019 00:00:00 WOMEN Problems Condition Condition Condition Status Onset Resolution Last Treating Co mments Source Name Details Category Date Date Treatment Clinician Date Pilonidal Pilonidal Disease Active Overview: Univers cyst cyst 04-03 Formattin ity of 00:00: g of this [place] 00 note Medical might be Branch different from the original. Added automatic ally from request for surgery [id number] Calculus Calculus Disease Active Unive rs of of 203 ity of gallbladde [place] bile r and bile 00 Me dical duct duct Branch without without cholecysti cholecysti tis tis Status Status Disease Active Univers post post 2 [place] of laparosc[place] Medical cholecyste cholecyste Br anch ctomy ctomy Biliary Biliary Disease Active Univers colic colic 2- ity of 00:00: [place] 00 Medical Branch Vaginal Vaginal Disease Active Univers dryness dryness 12-14 ity of 00:00: [place] 00 Medical Branch H/O total H/O total [...] x3 History of History of Disease Active 2018-0 U nivers asthma asthma 4-30 ity of 00:00: [place] 00 [facility] Branch Pilonidal Pilonidal Diagnosis Active C ommon abscess of abscess of Sp she - [facility] cleft cleft [facility] Allergies, Adverse Reactions, Alerts Allergy Allergy Status Severity Reaction(s) Onset Inactive Treating Comm ents Source Name Type Date Date Clinician NO KNOWN Drug Active Univers ALLERGIE Class ity of S [facility] Social History Social Habit Start Date Stop Date Quantity Comments Source Exposure to Yes University of SARS-CoV-2 (event) [facility] Alcohol intake 2021-04-03 2021-04-03 0 /d University of 00:00:00 00:00:00 [facility] Cigarettes smoked 2021-03-28 2021-03-28 Univers ity of current (pack per 00:00:00 00:00:00 [facility] ) - Reported [place] Cigarette 2021-03-28 2021-03-28 University of pack-years 00:00:00 00:00:00 [facility] Tobacco use and 2021-03-28 2021-03-28 Former user Universi ty of exposure 00:00:00 00:00:00 [facility] History of tobacco 2020-04-25 Cigarette Smoker University of use 00:00:00 [facility] Sex Ass[birth year] At [birth year] Universit y of 00:00:00 00:00:00 [facility] Smoking Status Start Date Stop Date Source Former smoker 2021-03-28 00:00:00 2021-03-28 00:00:00 Universi ty of [facility] Medications Ordered Filled Start Stop Current Ordering Indication Dosage Frequency Signature Comments Components Source Medication Medication Date Date Medication? Clinician (SIG) Name Name doxycycline Yes [id number] 100mg Take 1 Univers hyclate 100 1-01 [...] 1-3). Indication s: acute pain acetaminoph Yes [id number] 650mg Take 650 Univers en 325 mg 2-03 mg by ity of Cap 00:00: mouth [place] 00 every 6 Medical (six) Branch hours as needed for Pain (scale 1-3) or Pain (scale 4-6). ibuprofen Yes [id number] 600mg Take 1 Univers 600 mg 2-03 tablet by ity of tablet 00:00: mouth [place] 00 every 6 Medical (six) Branch hours as needed for Pain (scale 1-3) or Pain (scale 4-6) (Alternate with acetaminop hen for mild-moder ate pain). estradioL Yes [id number] 2g Insert 2 g Univers 0.01 % (0.1 9- into ity of mg/gram) 00:00: vagina [place] vaginal 00 weekly. Medical cream Branch ascorbic Yes [id number] 500mg Take 1 Un kendrick acid, 9- tablet by ity of vitamin C, 00:00: mouth [place] 500 mg 00 (three) Medical tablet times Branch daily. ergocalcife Yes [id number] 22104J Take 1 Univers rol, 9- capsule by ity of vitamin d2, 00:00: mouth [place] 1,250 mcg 00 weekly. Medical (50,000 Branch unit) capsule Immunizations Ordered Filled Immunization Date Status Comments [facility] e Immunization Name Name TDAP 2019-11-09 Completed [facility] 00:00:00 [facility] Influenza Virus 2019-11-09 Completed [facility] of Vaccine Quad .5 mL 00:00:00 [facility] 6+ MO [place] Vital Signs Vital Name Observation Time Observation Value Comments Source Systolic blood 2021-04-03 15:19:00 105 [facility]Hg[facility] Diastolic blood 2021-04-03 15:19:00 68 mm[Hg] [facility] Heart rate 2021-04-03 15:19:00 80 /min [facility] Body temperature 2021-04-03 15:19:00 36.83 Bhavya [facility] Respiratory rate 2021-04-03 15:19:00 20 /min [facility] Body height 2021-04-03 15:19:00 172.7 cm [facility] Body weight 2021-04-03 15:19:00 106.867 kg [facility] BMI 2021-04-03 15:19:00 35.82 kg/m2 [facility] Oxygen saturation in 2021-04-03 15:19:00 98 /min [facility] Arterial blood by [facility] Pulse oximetry Branch Procedures This patient has no known procedures. Encounters Start End Encounter Admission Attending Care Care Encounter Source Date/Time Date/Time Type Type Clinicians Facility Department ID 2021-04-06 Outpatient Teressa SOLANO [facility] LARRY [id number] Univers 14:17:13 ALEJANDRO scottymark [facility] 2021-01-21 Emergency [facility] [id number] Univers 21:11[facility]21 Emergency [facility] [id number] Univers 01:51:26 [facility] 2021-04-15 2021-04-15 Outpatient Teressa SOLANO [facility] [id number] Univers 09:00:00 09:00:00 ALEJANDRO scottymark [facility] 2021-04-03 2021-04-03 [facility] [id number] Univers 09:00:00 09:28:54 Visit Alejandro PHILLIPS [id number] [facility] [id number] Kt WANG [phone] [address] 2021-04-03 2021-04-03 [facility] [id number] Univers 09:00:00 09:28:54 ALEJANDRO cullen [facility] 2021-04-03 2021-04-03 [facility] [id number] Univers 09:00:00 09:28:54 ALEJANDRO scottymark [facility] 2021-04-03 2021-04-03 [facility] [id number] Univers 09:00:00 09:28:54 ALEJANDRO mark [facility] 2021-04-03 2021-04-03 Orders Doctor [place] [id number] Univers 00:00:00 00:00:00 Only Unassigned, ANTONIO [id number] [facility] [id number] Felice as [phone] [facility] 009 Branch 2021-04-03 2021-04-03 Letter Russ [facility] [id number] Univers 00:00:00 00:00:00 (Out) Alejandro JACQUELINE [id number] i ty of [facility] [id number] [place] [phone] Me dical NAL 188 [facility] 2021-04-03 2021-04-03 Prep For [place], [facility] [id number] Univers 00:00:00 00:00:00 Surgery Sunita Hinson JACQUELINE [id number] ity of [facility] [id number] [place] [phone] Wy dical NAL 204 [facility] 2021-03-29 2021-03-29 Laboratory Only, Ang Db Test [facility] [id number] [id number] Univers 10:15:00 10:15:00 Only Lalitha Lamb [facility] [id number] ity of [place] [id number] Felice as YANG?BLEA [id number] Wy dical [facility] [address] [place] [facility]ICAL [facility] 2021-03-29 2021-03-29 Outpatient R [facility] [id number] Univers 10:15:00 10:12:34 LALITHA [facility] 2021-03-29 2021-03-29 Outpatient R [facility] [id number] Univers 10:15:00 10:12:34 LALITHA [facility] 2021-03-28 2021-03-28 Office Service/[place], Surgery C [facility] [id number] Univers 10:45:00 11:39:27 Visit Darshan [place] [id number] ity of CL[place] [id number] [place] [id number] [facility] 203 Branch 2021-03-28 2021-03-28 Outpatient R KASIA, [facility] [id number] Univers 10:45:00 11:39:27 DARSHAN berman [facility] 2021-03-28 2021-03-28 Outpatient R PERSON, [facility] [id number] Univers 10:45:00 11:39:27 DARSHAN berman [facility] 2021-03-28 2021-03-28 Outpatient R PERSON, [facility] [id number] Univers 10:45:00 10:45:00 DARSHAN berman [facility] 2021-03-25 2021-03-25 Emergency [facility] [id number] Univers 13:47:00 16:01:00 LOIS mark [facility] 2021-03-25 2021-03-25 Emergency [facility] [id number] Univers 13:47:00 16:01:00 Lois PHILLIPS [id number] ity [facility] [id number] [place] [id number] [facility] 084 [place] 2021-03-25 2021-03-25 Emergency X [facility] [id number] Univers 13:47:00 16:01:00 LOIS mark [facility] 2021-03-25 2021-03-25 Emergency Janneth [facility] [id number] Univers 13:47:00 16:01:00 LOIS [facility] 2020-06-14 2020-06-14 Patient Misha [facility] [id number] Univers 00:00:00 00:00:00 Outreach Constantin RICHTER [id number] i ty of [facility] [id number] [place] [id number] Wy dical [address] [place] 2020-05-17 2020-05-17 Outpatient R PERSON, [facility] [id number] Univers 11:15:00 11:15:00 DARSHAN mark [facility] 2020-05-17 2020-05-17 Outpatient R PERSON, [facility] [id number] Univers 11:15:00 11:15:00 DARSHAN mark [facility] 2020-04-26 2020-04-27 Emergency Mihai Shine [id number] Univers 08:40:00 17:30:00 HankDanellegretta Ham [id number] ity of [facility] [id number] [place] as [id number] [address] 2020-04-26 2020-04-27 Outpatient X [facility] LARRY [id number] Univers 08:40:00 17:30:00 ELOISA mark [facility] 2020-02-02 2020-02-02 [facility] [id number] Univers 10:30:00 10:30:00 MAXIMO berman [facility] 2020-01-26 2020-01-26 Transition Jordyn [place] [id number] Univers 00:00:00 00:00:00 of Care Magalis Hernández [id number] ity [facility] [id number] [place] [id number] [facility] 403 Branch 2020-01-21 2020-01-24 [facility] Onel Aristeovance Maria D Susan 1.2.8 40.114 [id number] Univers 12:43:00 12:56:00 Encounter Maximo Day 350.1.13. 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 [id number] ity [facility] [id number] Felice as MATERNAL [phone] [facility] ical & CHILD [address] [place] [address] 2019-12-15 2019-12-15 [facility] [id number] Univers 08:45:00 08:45:00 RUBIA berman o f [facility] 2019-12-15 2019-12-15 Orders Doctor [place] [id number] Univers 00:00:00 00:00:00 Only Unassigned, ANTONIO [id number] ity of [place] [facility] [id number] Felice as [id number] [address] 2019-12-15 2019-12-15 Telephone Jessica [facility] [id number] [facility] 00:00:00 00:00:00 Rubia Gannon HEAD OF MARKETING [id number] [facility] [id number] Felice as MATERNAL [phone] Med ical & CHILD [address] [place] [address] 2018-06-24 2018-06-24 [id number] Common 13:00:00 13:00:00 t Specialty/U Sp she Specialty rology - [facility] Results This patient has no known results.
--- NOTE | 2022-05-22 08:30 | ER ---
Nurse's Notes [facility] Name: Elham Moran Age: 32 yrs Sex: Female : 1990 Arrival Date: 05/22/2022 Time: 08:20 Bed Waiting Private MD: Diagnosis: Pilonidal cyst with abscess Presentation: 05/22 08:27 Chief complaint: Patient states: she has a cyst on her tailbone that presented itself ap3 approx 3 days ago. patient states pain is 10/10. Coronavirus screen: At this time, the client does not indicate any symptoms associated with coronavirus-19. Ebola Screen: No symptoms or risks identified at this time. Initial Sepsis Screen: Does the patient meet any 2 criteria? No. Patient's initial sepsis screen is negative. Does the patient have a suspected source of infection? No. Patient's initial sepsis screen is negative. Risk Assessment: Do you want to hurt yourself or someone else? Patient reports no desire to harm self or others. Onset of symptoms was May 19, 2022. 08:27 Method Of Arrival: Ambulatory ap3 08:27 Acuity: MISSAEL 4 ap3 Triage Assessment: 08:28 General: Appears uncomfortable, Behavior is crying. Pain: Complains of pain in gluteal ap3 cleft Pain began gradually, 2-3 days ago. Neuro: Level of Consciousness is awake, alert, obeys commands, Oriented to person, place, time, situation, Gait is steady, Speech is normal. Cardiovascular: Patient's skin is warm and dry. Respiratory: Airway is patent Respiratory effort is even, unlabored, Respiratory pattern is regular, symmetrical. Derm: Abscess located on gluteal cleft. 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 - Social history:: Smoking status: Patient denies any tobacco usage or history of. Screenin: [facility] ED Fall Risk Assessment (Adult) History of falling in the last 3 months, ap3 including since admission No falls in past 3 months (0 pts). Abuse screen: Denies threats or abuse. Nutritional screening: No deficits noted. Tuberculosis screening: No symptoms or risk factors identified. Vital Signs: 08:26 BP 121 / 72; Pulse 91; Resp 19; Temp 98.3; Pulse Ox 97% ; ap3 ED Course: 08:20 Patient arrived in ED. am2 08:21 Laureano Mack PA is PHCP. diane 08:22 Mohidner Turcios DO is Attending Physician. ms3 08:24 Lorenza White, RN is Primary Nurse. db 08:27 Triage completed. ap3 08:29 Aniceto Pisano MD is Referral Physician. ms3 08:29 Arm band placed on left wrist. ap3 08:29 Patient has correct armband on for positive identification. ap3 08:29 No provider procedures requiring assistance completed. Patient did not have IV access ap3 during this emergency room visit. Administered Medications: No medications were administered Medication: 08:29 VIS not applicable for this client. ap3 Outcome: 08:29 Discharge ordered by MD. ms3 08:31 Discharged to home ambulatory. ap3 08:31 Condition: good 08:31 Discharge instructions given to patient, Instructed on discharge instructions, follow up and referral plans. medication usage, Demonstrated understanding of instructions, follow-up care, medications, Prescriptions given X 2. 08:32 Patient left the ED. ap3 Signatures: Laureano Mack PA PA jmm Moreno, Amanda am2 Donna Vásquez RN RN ap3 Mohinder Turcios DO DO ms3 Lorenza White, SKYE RN db Corrections: (The following items were deleted from the chart) 08:28 08:27 Allergies: NKA; ap3 ap3
--- NOTE | 2022-05-22 08:30 | EDPHYS ---
Physician Documentation [facility] Name: Elham Moran Age: 32 yrs Sex: Female : 1990 Arrival Date: 05/22/2022 Time: 08:20 Bed Waiting Private MD: ED Physician Mohinder Turcios HPI: 05/22 09:58 This 32 yrs old Female presents to ER via Ambulatory with complaints of Skin Problem. ms3 09:58 32-year-old female with past medical history of pilonidal cyst presents for abscess on ms3 her tailbone for 3 days. Patient states she has had the area I indeed a couple of times. Patient states her discomfort is currently 10/10 and the pain is throbbing. Patient endorses nausea. Patient denies vomiting, fevers, chills.. 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 - Social history:: Smoking status: Patient denies any tobacco usage or history of. ROS: 09:58 Constitutional: Negative for fever, and chills. Neck: Negative for injury, pain, and ms3 swelling, Cardiovascular: Negative for chest pain, and palpitations. Respiratory: Negative for shortness of breath, cough, wheezing, and pleuritic chest pain, Abdomen/GI: Negative for abdominal pain, nausea, vomiting, diarrhea, and constipation. 09:58 Skin: Positive for 09:58 All other systems are negative. Exam: 09:58 Constitutional: This is a well developed, well nourished patient who is awake, alert, ms3 and in no acute distress. Head/Face: Normocephalic, atraumatic. Chest/axilla: Normal chest wall appearance and motion. Nontender with no deformity. Cardiovascular: Regular rate and rhythm with a normal S1 and S2. No gallops, murmurs, or rubs. Normal PMI, no JVD. No pulse deficits. Respiratory: Lungs have equal breath sounds bilaterally, clear to auscultation and percussion. No rales, rhonchi or wheezes noted. No increased work of breathing, no retractions or nasal flaring. 09:58 Skin: on the , Induration with overlying erythema over lower sacrum.. Vital Signs: 08:26 BP 121 / 72; Pulse 91; Resp 19; Temp 98.3; Pulse Ox 97% ; ap3 MDM: 08:29 Patient medically screened. ms3 09:58 Differential diagnosis: Pilonidal cyst. Data reviewed: vital signs, nurses notes, and ms3 as a result, I will discharge patient. Counseling: I had a detailed discussion with the patient and/or guardian regarding: the historical points, exam findings, and any diagnostic results supporting the discharge/admit diagnosis, the need for outpatient follow up, to return to the emergency department if symptoms worsen or persist or if there are any questions or concerns that arise at home. ED course: Discussed incision and drainage of abscess with patient. Patient declined stating she does not want that done at this time. Patient given doxycycline 100 mg twice daily and ibuprofen prescriptions. Patient to follow-up with Dr. Pisano in 2 to 3 days. Patient understands agrees plan. All questions were answered. Return precautions discussed include fevers, chills, worsening symptoms, or any other concerns. Administered Medications: No medications were administered Disposition Summary: 05/22/22 08:29 Discharge Ordered Location: Home ms3 Condition: Stable ms3 Diagnosis - Pilonidal cyst with abscess ms3 Followup: ms3 - With: Aniceto Pisano MD - When: 2 - 3 days - Reason: Recheck today's complaints Discharge Instructions: - Discharge Summary Sheet ms3 - Pilonidal Cyst ms3 Forms: - Medication Reconciliation Form ms3 - Thank You Letter ms3 - Antibiotic Education ms3 - Prescription Opioid Use ms3 Prescriptions: - Ibuprofen 600 mg Oral Tablet - take 1 tablet by ORAL route every 6 hours As needed take with food; 30 tablet; ms3 Refills: 0, Product Selection Permitted - Doxycycline Hyclate 100 mg Oral Tablet - take 1 tablet by ORAL route every 12 hours; 20 tablet; Refills: 0, Product ms3 Selection Permitted Signatures: Donna Vásquez RN RN ap3 Mohinder Turcios DO DO ms3 Corrections: (The following items were deleted from the chart) 08:28 08:27 Allergies: NKA; ap3 ap3
[2022-05-22 08:41] VITALS: BP 121/72; TEMP 98.3; O2SAT 97
== END 2022-05-22 08:32 | disposition home or self-care (01) ==
LOC: ER 08:18
DX: L05.01 Pilonidal cyst with abscess (principal)

== ENCOUNTER 2022-07-25 17:59 | Emergency (ER) | payer SELFPAY ==
--- OUTSIDE RECORDS SUMMARY | 2022-07-25 18:03 | XMS REPORT | Continuity of Care Document ---
:1990 Author Organization [facility] t Address [address] [facility] [address] [place] [address] Care Team Providers Name Role Phone PCP, PATIENT DOES NOT HAVE A Primary Care Physician UnavailALEJANDRO Forbes Attending Clinician Unavailable ELOISA HARDEN Attending Clinician Unavailable Emi Salvador PA-C Attending Clinician Eloisa Harden MD Attending Clinician Jayesh Landon MD Attending Clinician Alejandro Solano MD Attending Clinician Doctor Unassigned, [place] Attending Clinician Unavailable Gramm Sunita COLE A Attending Clinician Only, Ang Db Test Attending Clinician Unavailable Lalitha Lamb MD Attending Clinician LALITHA LAMB III Attending Clinician Unavailable Service/[place], Surgery C Attending Clinician Unavailable Darshan Lake MD Attending Clinician DARSHAN LAKE Attending Clinician Unavailable LOIS BERMUDEZ Attending Clinician Unavailable Lois Bermudez MD Attending Clinician Constantin Cabral DO Attending Clinician Mihai Shine MD Attending Clinician MAXIMO DAY Attending Clinician Unavailable Magalis Middleton Attending Clinician Kapil Gottlieb Attending Clinician Maximo Day MD Attending Clinician Rubia Gómez Attending Clinician RUBIA LOPEZ Attending Clinician Unavailable ALEJANDRO SOLANO Admitting Clinician Unavailable ELOISA HARDEN Admitting Clinician Unavailable Eloisa Harden MD Admitting Clinician Maximo Day MD Admitting Clinician Payers Payer Name Policy Type Policy Number Effective Date Expiration Date S shala [facility] [id number] 2019 00:00:00 MEDICAID PENDING PENDING 2022 2022 00:00:00 00:00:00 [facility] [id number] 2021 NON-CONTRACT 00:00:00 Problems Condition Condition Condition Status Onset Resolution Last Treating Co mments Source Name Details Category Date Date Treatment Clinician Date Pilonidal Pilonidal Disease Active Uni vers abscess abscess 3 ity of 00:00: [place] [address] Medical Branch Pilonidal Pilonidal Disease Active Overview: Univers cyst cyst -10 Formattin ity of 00:00: g of this [place] 00 note Medical might be Branch different from the original. Added automatic ally from request for surgery [id number] Calculus Calculus Disease Active Unive rs of of 2 ity of gallbladde gallbladde [place] r and bile r and bile 00 Me dical duct duct Branch without without cholecysti cholecysti tis tis Status Status Disease Active Univers post post 2 ity of laparoscop [place]oscop [place] 00 Medical cholecyste cholecyste Br anch ctomy ctomy Biliary Biliary Disease Active Univers colic colic 2- ity of 00:00: [place] [address] Medical Branch Vaginal Vaginal Disease Active Univers dryness dryness 9- ity of 00:00: [place] [facility] H/O total H/O total Disease Active 2018-1 Uni vers hysterecto hysterecto 1-16 it y of my with my with 00:00: [place] bilateral bilateral 00 Medi ginger salpingo-o salpingo-o Br anch ophorectom ophorectom y (BSO) y (BSO) History of History of Disease Active Overview : Univers 3 3 4-30 Formattin ity of sections sections 00:00: g of this [place] 00 note Medical might be Branch different from the original. x3 History of History of Disease Active U nivers asthma asthma 4-30 ity of 00:00: [place] 00 [facility] Pilonidal Pilonidal Diagnosis Active C ommon abscess of abscess of Sp she kylah - [facility] cleft cleft [facility] Allergies, Adverse Reactions, Alerts Allergy Allergy Status Severity Reaction(s) Onset Inactive Treating Comm ents Source Name Type Date Date Clinician NO KNOWN Drug Active Univers ALLERGIE Class ity of S [facility] Social History Social Habit Start Date Stop Date Quantity Comments Source Alcohol intake 2022-05-24 2022-05-24 0 /d University of 00:00:00 00:00:00 [facility] Exposure to 2022-05-13 2022-05-23 Not sure [facility] SARS-CoV-2 (event) 00:00:00 22:31:00 [facility] Cigarettes smoked 2021-03-28 2021-03-28 Univers ity of current (pack per 00:00:00 00:00:00 [facility] ) - Reported Branch Cigarette 2021-03-28 2021-03-28 University of pack-years 00:00:00 00:00:00 [facility] Tobacco use and 2021-03-28 2021-03-28 Former smokeless Uni versity of exposure 00:00:00 00:00:00 tobacco user [facility] History of tobacco 2020-04-25 Cigarette Smoker University of use 00:00:00 [facility] Sex [birth year] Universit y of 00:00:00 00:00:00 [facility] Smoking Status Start Date Stop Date Source Ex-smoker 2021-03-28 00:00:00 2021-03-28 00:00:00 Universi ty of [facility] Medications Ordered Filled Start Stop Current Ordering Indication Dosage Frequency Signature Comments Components Source Medication Medication Date Date Medication? Clinician (SIG) Name Name HYDROcodone 2022- No 1{tbl} 1 tablet, Univers -acetaminop -05-24 Oral, ity of hen (NORCO 19:45: 20:12 ONCE, 1 [place] 5) 5-325 mg 00 :00 dose, On Medi ginger tablet 1 [place] 05/24/22 Branc h tablet at 1345, Routine, PACU HYDROcodone 2022-0 2022- No 1{tbl} 1 tablet, Univers -acetaminop 05-24 Oral, ity of hen (NORCO 19:45: 20:12 ONCE, 1 [place] 5) 5-325 mg 00 :00 dose, On Medi ginger tablet 1 [place] 05/24/22 Branc h tablet at 1345, Routine, PACU HYDROmorphO 2022-0 Yes .2mg 0.2 mg, Uni vers ne 05-24 Slow IV ity of (DILAUDID) 19:31: Push, [place] injection 31 Q5MIN PRN, Medi ginger 0.2 mg 10 doses, Branch Starting on [place] 05/24/22 at 1331, Until Discontinu ed, Routine, Pain (scale 7-10), PACU
Us e approved by (Faculty): PACU USE -ANESTHESI A SERVICE-HY DROMORPHON E INJECTIONS FENTanyl PF 2022-0 Yes 25ug 25 mcg, Uni vers (SUBLIMAZE 05-24 Slow IV ity of (PF)) 19:31: Push, [place] injection 31 Q5MIN PRN, Medi ginger 25 mcg 4 doses, Branch Starting on [place] 05/24/22 at 1331, Until Discontinu ed, Routine, Pain (scale 4-6), PACU ondansetron 2022-0 Yes 4mg 4 mg, Slow Univers (ZOFRAN 3-02 IV Push, ity of (PF)) 19:31: PRN, 1 [place] injection 4 31 dose, Medical mg Starting Branch on [place] 05/24/22 at 1331, Until Discontinu ed, Routine, Nausea and Vomiting (N/V), PACU HYDROmorphO 0 2022- No .2mg 0.2 mg, Un kendrick ne 05-24 03- Slow IV ity of (DILAUDID) 19:31: 00:18 Push, [place] injection 31 :26 Q5MIN PRN, Medi ginger 0.2 mg 10 doses, Branch Starting on [place] 05/24/22 at 1331, Until [place] 05/24/22 at 1818, Routine, Pain (scale 7-10), PACU
Us e approved by (Faculty): PACU USE -ANESTHESI A SERVICE-HY DROMORPHON E INJECTIONS FENTanyl PF 2022- No 25ug 25 mcg, Un kendrick (SUBLIMAZE 05-24 Slow IV ity o f (PF)) 19:31: 00:18 Push, [place] injection 31 :26 Q5MIN PRN, Medi ginger 25 mcg 4 doses, Branch Starting on [place]ita 05/24/22 at 1331, Until [place] 05/24/22 at 1818, Routine, Pain (scale 4-6), PACU ondansetron 2022- No 4mg 4 mg, Slow Univers (ZOFRAN 05-24 IV Push, ity of (PF)) 19:31: 00:18 PRN, 1 [place] injection 4 31 :26 dose, Medical mg Starting Branch on [place]ita 05/24/22 at 1331, Until [place] 05/24/22 at 1818, Routine, Nausea and Vomiting (N/V), PACU D5W 0.45% Yes IV Univers NaCl 3-02 Infusion, ity of (1/2NS) 1 L 08:00: at 125 [place] + KCL 20 00 mL/hr, Medical mEq CONTINUOUS Branch , Starting on [place] 05/24/22 at 0200, Until Discontinu ed, Routine pantoprazol 2022- Yes 40mg 40 mg, Uni vers e 05-24- Slow IV ity of (PROTONIX) 08:00: 07:59 Push, [place] injection 00 :00 Q24H, 3 Medical 40 mg doses, Branch First dose on [place] 05/24/22 at 0200, Last dose on 05/26/22 at 0200 pantoprazol 2022- No 40mg 40 mg, Uni vers e 05-24- Slow IV ity of (PROTONIX) 08:00: 00:18 Push, [place] injection 00 :26 Q24H, 3 Medical 40 mg doses, Branch First dose on [place] 05/24/22 at 0200, Last dose on 05/26/22 at 0200 D5W 0.45% 2022- No IV Univers NaCl 05-24 Infusion, ity of (1/2NS) 1 L 08:00: 00:18 at 125 [place] + KCL 20 00 :26 mL/hr, Medical mEq CONTINUOUS Branch , Starting on [place] 05/24/22 at 0200, Until [place] 05/24/22 at 1818, Routine morpHINE (2 Yes 2mg 2 mg, Slow Univers mg/mL) 05-24 IV Push, ity of injection 2 07:54: Q4HPRN, [place] mg 57 Starting Medical on [place] Branch 05/24/22 at 0154, Until Discontinu ed, Routine, Breakthrou gh pain morpHINE (2 2022- No 2mg 2 mg, Slow Univers mg/mL) 05-24 IV Push, ity of injection 2 07:54: 00:18 Q4HPRN, [place] mg 57 :26 Starting Medical on [place] Branch 05/24/22 at 0154, Until [place] 05/24/22 at 1818, Routine, Breakthrou gh pain acetaminoph 2022- Yes 1000mg 1,000 mg, Univers en ADULT 05-24 IV ity of (OFIRMEV) 07:54: 07:53 [place]fusion, [place] injection 48 :48 at 400 Medical 1,000 mg mL/hr Branch Administer over 15 Minutes, Q8HPRN, Starting on [place] 05/24/22 at 0154, Until Sat05/25/22 at 0153, Routine, Pain (scale 1-3)
In dication: Perioperat mack Patient acetaminoph 2022- No 1000mg 1,000 mg, Univers en ADULT 05-24 IV ity of (OFIRMEV) 07:54: 00:18 Infusion, [place] injection 48 :26 at 400 Medical 1,000 mg mL/hr Branch Administer over 15 Minutes, Q8HPRN, Starting on [place] 05/24/22 at 0154, Until Sat05/24/22 at 1818, Routine, Pain (scale 1-3)
In dication: Perioperat mack Patient HYDROcodone 2022- No 1{tbl} 1 tablet, Univers -acetaminop -05-24 Oral, ity of hen (NORCO) 06:00: 05:17 ONCE, 1 [place] 10-325 mg 00 :00 dose, On Medica l tablet 1 Sat05/24/22 Branc h tablet at 0000, Routine HYDROcodone 2022- No 1{tbl} 1 tablet, Univers -acetaminop -05-24 Oral, ity of hen (NORCO) 06:00: 05:17 ONCE, 1 [place] 10-325 mg 00 :00 dose, On Medica l tablet 1 Sat05/24/22 Branc h tablet at 0000, Routine piperacilli 2022- No 3.375g 3.375 g, Univers n-tazobacta 05-24 IV ity of m (ZOSYN) 05:30: 06:20 [place]gyback, [place] 3.375 g in 00 :00 ONCE, 1 Medica l NaCl 0.9% dose, On Branch (NS) 100 mL 05/23/22 MINI-BAG at 2330, Administer over 30 Minutes, 100 mL
R karin for Anti-Infec tive: Documented Infection< br>Documen mirta Infection Site: Skin / Soft Tissue
Duration of Therapy: 7 days piperacilli No 3.375g 3.375 g, Univers n-tazobacta 05-24 IV ity of m (ZOSYN) 05:30: 06:20 Piggyback, [place] 3.375 g in 00 :00 ONCE, 1 Medica l NaCl 0.9% dose, On Branch (NS) 100 mL Sat05/23/22 MINI-BAG at 2330, Administer over 30 Minutes, 100 mL
R karin for Anti-Infec tive: Documented Infection< br>Documen mirta Infection Site: Skin / Soft Tissue
Duration of Therapy: 7 days acetaminoph 2022- No 650mg 650 mg, U nivers en 05-24- Oral, ity of (TYLENOL) 05:00: 05:41 ONCE, 1 [place] tablet 650 00 :00 dose, On Medic al mg Sat05/23/22 Branch at 2300, LADI acetaminoph 2022-0 2022- No 650mg 650 mg, U nivers en - 03- Oral, ity of (TYLENOL) 05:00: 05:41 ONCE, 1 [place] tablet 650 00 :00 dose, On Medic al mg Sat05/23/22 Branch at 2300, LADI amoxicillin 2022-0 Yes [id number] 1{tbl} Take 1 Univers -clavulanat 3-02 tablet by ity of e 00:00: mouth in [place] (AUGMENTIN) 00 the Medical 875-125 mg morning Branch per tablet and 1 tablet in the evening. traMADoL 50 2022-0 Yes [id number] 50mg Take 1 Univ ers mg tablet 3-02 tablet by ity o f 00:00: mouth [place] 00 every 6 Medical (six) Branch hours as needed for Pain (scale 7-10). Indication s: acute pain amoxicillin 2022-0 Yes [id number] 1{tbl} Take 1 Univers -clavulanat 3-02 tablet by ity of e 00:00: mouth in [place] (AUGMENTIN) 00 the Medical 875-125 mg morning Branch per tablet and 1 tablet in the evening. traMADoL 50 2022-0 Yes [id number] 50mg Take 1 Univ ers mg tablet 3-02 tablet by ity o f 00:00: mouth [place] 00 every 6 Medical (six) Branch hours as needed for Pain (scale 7-10). Indication s: acute pain traMADoL 50 2022-0 2022- No [id number] 50mg Take 1 Uni vers mg tablet 3-02 03-02 tablet by ity of 00:00: 00:00 mouth [place] 00 :00 every 6 Medical (six) Branch hours as needed for Pain (scale 7-10). Indication s: acute pain amoxicillin 2022-0 2022- No [id number] 1{tbl} Take 1 Univers -clavulanat 3-02 03-02 tablet by it y of e 00:00: 00:00 mouth in [place] (AUGMENTIN) 00 :00 the Medical 875-125 mg morning Branch per tablet and 1 tablet in the evening. Do all this for 7 days. traMADoL 50 2022- No [id number] 50mg Take 1 Uni vers mg tablet 05-24- tablet by ity of 00:00: 00:00 mouth [place] 00 :00 every 6 Medical (six) Branch hours as needed for Pain (scale 7-10). Indication s: acute pain amoxicillin 2022- No [id number] 1{tbl} Take 1 Univers -clavulanat 05-24 tablet by it y of e 00:00: 00:00 mouth in [place] (AUGMENTIN) 00 :00 the Medical 875-125 mg morning Branch per tablet and 1 tablet in the evening. Do all this for 7 days. doxycycline Yes [id number] 100mg Take 1 Univers hyclate 100 1-01 capsule by it y of mg capsule 00:00: mouth 2 [place] 00 (two) Medical times Branch daily. HYDROcodone Yes [id number] 1{tbl} Take 1-2 Univers -acetaminop 1-01 tablets by it y of hen 5-325 00:00: mouth [place] mg tablet 00 every 6 Medical (six) Branch hours as needed for Pain (scale 1-3). Indication s: acute pain doxycycline Yes [id number] 100mg Take 1 Univers hyclate 100 1-01 capsule by it y of mg capsule 00:00: mouth 2 [place] 00 (two) Medical times Branch daily. HYDROcodone 2021- Yes [id number] 1{tbl} Take 1-2 Univers -acetaminop 1-01 tablets by it y of hen 5-325 00:00: mouth [place] mg tablet 00 every 6 Medical (six) Branch hours as needed for Pain (scale 1-3). Indication s: acute pain doxycycline 2021- Yes [id number] 100mg Take 1 Univers hyclate 100 1-01 capsule by it y of mg capsule 00:00: mouth 2 [place] 00 (two) Medical times Branch daily. HYDROcodone 2021-0 Yes [id number] 1{tbl} Take 1-2 Univers -acetaminop 1-01 tablets by it y of hen 5-325 00:00: mouth [place] mg tablet 00 every 6 Medical (six) Branch hours as needed for Pain (scale 1-3). Indication s: acute pain acetaminoph 2020-0 Yes [id number] 650mg Take 650 Univers en 325 mg 2-03 mg by ity of Cap 00:00: mouth [place] 00 every 6 Medical (six) Branch hours as needed for Pain (scale 1-3) or Pain (scale 4-6). ibuprofen 2020-0 Yes [id number] 600mg Take 1 Univers 600 mg 2-03 tablet by ity of tablet 00:00: mouth [place] 00 every 6 Medical (six) Branch hours as needed for Pain (scale 1-3) or Pain (scale 4-6) (Alternate with acetaminop hen for mild-moder ate pain). acetaminoph 0 Yes [id number] 650mg Take 650 Univers en 325 mg 2-03 mg by ity of Cap 00:00: mouth [place] 00 every 6 Medical (six) Branch hours as needed for Pain (scale 1-3) or Pain (scale 4-6). ibuprofen Yes [id number] 600mg Take 1 Univers 600 mg 2-03 tablet by ity of tablet 00:00: mouth [place] 00 every 6 Medical (six) Branch hours as needed for Pain (scale 1-3) or Pain (scale 4-6) (Alternate with acetaminop hen for mild-moder ate pain). acetaminoph 0 Yes [id number] 650mg Take 650 Univers en 325 mg 2-03 mg by ity of Cap 00:00: mouth [place] 00 every 6 Medical (six) Branch hours as needed for Pain (scale 1-3) or Pain (scale 4-6). ibuprofen 0 Yes [id number] 600mg Take 1 Univers 600 mg 2-03 tablet by ity of tablet 00:00: mouth [place] 00 every 6 Medical (six) Branch hours as needed for Pain (scale 1-3) or Pain (scale 4-6) (Alternate with acetaminop hen for mild-moder ate pain). estradioL 2019-0 Yes [id number] 2g Insert 2 g Univers 0.01 % (0.1 12-14 into ity of mg/gram) 00:00: vagina [place] vaginal 00 weekly. Medical cream Branch ascorbic 2019-0 Yes [id number] 500mg Take 1 Un kendrick acid, 9- tablet by ity of vitamin C, 00:00: mouth 3 [place] 500 mg 00 (three) Medical tablet times Branch daily. ergocalcife 2020-0 Yes [id number] Take 1 Univers rol, 9-22 capsule by ity of vitamin d2, 00:00: mouth [place] 1,250 mcg 00 weekly. Medical (50,000 Branch unit) capsule estradioL 2020-0 Yes [id number] 2g Insert 2 g Univers 0.01 % (0.1 9-22 into ity of mg/gram) 00:00: vagina [place] vaginal 00 weekly. Medical cream Branch ascorbic 2020-0 Yes [id number] 500mg Take 1 Un kendrick acid, 9-22 tablet by ity of vitamin C, 00:00: mouth 3 [place] 500 mg 00 (three) Medical tablet times Branch daily. ergocalcife 2020-0 Yes [id number] Take 1 Univers rol, 9-22 capsule by ity of vitamin d2, 00:00: mouth [place] 1,250 mcg 00 weekly. Medical (50,000 Branch unit) capsule estradioL 2020-0 Yes [id number] 2g Insert 2 g Univers 0.01 % (0.1 9-22 into ity of mg/gram) 00:00: vagina [place] vaginal 00 weekly. Medical cream Branch ascorbic 2020-0 Yes [id number] 500mg Take 1 Un kendrick acid, 9-22 tablet by ity of vitamin C, 00:00: mouth 3 [place] 500 mg 00 (three) Medical tablet times Branch daily. ergocalcife 2020-0 Yes [id number] Take 1 Univers rol, 9-22 capsule by ity of vitamin d2, 00:00: mouth [place] 1,250 mcg 00 weekly. Medical (50,000 Branch unit) capsule Immunizations Ordered Filled Immunization Date Status Comments [facility] e Immunization Name Name TD 2019-11-09 Completed University of 00:00:00 [facility] Influenza Virus 2019-11-09 Completed Universit y of Vaccine Quad .5 mL 00:00:00 [facility] IM 6+ MO Branch TDAP 2019-11-09 Completed University of 00:00:00 [facility] Influenza Virus 2019-11-09 Completed Universit y of Vaccine [place] .5 mL 00:00:00 [facility] IM 6+ MO Branch TDAP 2019-11-09 Completed University of 00:00:00 [facility] Influenza Virus 2019-11-09 Completed Universit y of Vaccine Quad .5 mL 00:00:00 [facility] [place] [facility] 6+ MO Branch Vital Signs Vital Name Observation Time Observation Value Comments Source Systolic blood 2022-05-24 22:00:00 112 mm[Hg] Univer sity of pressure [place] [facility] [place] Diastolic blood 2022-05-24 22:00:00 68 mm[Hg] Unive rsity of pressure [place] [facility] Respiratory rate 2022-05-24 22:00:00 16 /min Univ ersity of [facility] Oxygen saturation in 2022-05-24 22:00:00 96 /min University of Arterial blood by s0cket ginger Pulse oximetry Branch Heart rate 2022-05-24 19:52:00 93 /min Universi ty of [facility] Body temperature 2022-05-24 19:52:00 36 Bhavya Univ ersity of [place] [facility] [place] Body weight 2022-05-24 04:36:00 113.399 kg Universi ty of [place] [facility] [place] BMI 2022-05-24 04:36:00 38.02 kg/m2 Universi ty of [place] [facility] [place] Systolic blood 2022-05-24 14:41:00 116 mm[Hg] Univer sity of [facility] Medical Branch Diastolic blood 2022-05-24 14:41:00 74 mm[Hg] Unive rsity of pressure [place] [facility] [place] Heart rate 2022-05-24 14:41:00 72 /min Universi ty of [place] [facility] [place] Body temperature 2022-05-24 14:41:00 35.61 Bhavya Univ ersity of [place] [facility] [place] Respiratory rate 2022-05-24 14:41:00 18 /min Univ ersity of [facility] Oxygen saturation in 2022-05-24 14:41:00 100 /min University of Arterial blood by [employer] Pulse oximetry Branch Body weight 2022-05-24 04:36:00 113.399 kg Universi ty of [place] [facility] BMI 2022-05-24 04:36:00 38.02 kg/m2 Universi ty of [place] [facility] Systolic blood 2021-04-03 15:19:00 105 mm[Hg] Univer sity of pressure [place] [facility] Diastolic blood 2021-04-03 15:19:00 68 mm[Hg] Unive rsity of pressure [place] [facility] [place] Heart rate 2021-04-03 15:19:00 80 /min Universi ty of [facility] Body temperature 2021-04-03 15:19:00 36.83 Bhavya [facility] Respiratory rate 2021-04-03 15:19:00 20 /min [facility] Body height 2021-04-03 15:19:00 172.7 cm [facility] Body weight 2021-04-03 15:19:00 106.867 kg [facility] BMI 2021-04-03 15:19:00 35.82 kg/m2 [facility] Oxygen saturation in 2021-04-03 15:19:00 98 /min [facility] Arterial blood by [facility] Pulse oximetry Branch Procedures Procedure Date / Time Performed Performing Clinician [facility] e INCISION AND DRAINAGE 2022-05-24 18:38:00 Jayesh Landon [facility] Branch BASIC METABOLIC PANEL 2022-05-24 12:25:00 [facility] (NA, K, CL, CO2, Medical Branch GLUCOSE, BUN, CREATININE, CA) BASIC METABOLIC PANEL 2022-05-24 12:25:00 [facility] (NA, K, CL, CO2, Medical Branch GLUCOSE, BUN, CREATININE, CA) TEST, SERUM 2022-05-24 05:24:[address] [facility] COMP. METABOLIC PANEL 2022-05-24 05:24:00 Madeleine [facility] ([id number]) [facility] CBC WITH DIFF 2022-05-24 05:24:00 Emi Salvador [facility] TEST, SERUM 2022-05-24 05:24:[address] [facility] COMP. METABOLIC PANEL 2022-05-24 05:24:00 Madeleine [facility] ([id number]) [facility] CBC WITH DIFF 2022-05-24 05:24[facility]00 [facility] CONSENT/REFUSAL FOR 2022-05-24 04:26:35 [facility] Name Medical Branch TREATMENT CONSENT/REFUSAL FOR 2022-05-24 04:26:35 [facility]igned, [facility] AND Name [facility] TREATMENT Encounters Start End Encounter Admission Attending Care Care Encounter Source Date/Time Date/Time Type Type Clinicians Facility Department ID 2021-04-06 [facility] [id number] Univers 14:17:13 ALEJANDRO berman [facility] 2021-01-21 Emergency [facility] [id number] Univers 21:11:00 ity [facility] 2021-01-21 Emergency [facility] [id number] Univers [facility]23 2022-05-24 Outpatient X DERECK [facility]ARR[facility] [id number] Univers 22:41:00 16:05:00 ELOISA [facility] 2022-05-23 2022-05-24 Emergency Emi Salvador [id number] Univers 22:41:00 16:05:00 DereckEloisa Hannah ALVAREZ [id number] ity [facility] [id number] [place] as [id number] [facility] [address] [place] 2022-05-24 2022-05-24 Surgery LOU Landon [id number] Univers 10:43:00 12:19:00 Jayesh ALVAREZ [id number] it y [facility] [id number] [place] as [id number] [facility] [address] [place] 2021-04-15 2021-04-15 [facility] [id number] Univers 09:00:00 09:00:00 ALEJANDRO cullen [facility] 2021-04-03 2021-04-03 Outpatient Teressa SOLANO [facility] [id number] Univers 09:00:00 09:28:54 ALEJANDRO scottymark [facility] 2021-04-03 2021-04-03 [facility] [id number] Univers 09:00:00 09:28:54 Visit Alejandro PHILLIPS [id number] i ty of [place] 4[place]2.7.2.686 [place] PROFESSIO [id number] Wa dical [address] 2021-04-03 2021-04-03 Outpatient R RUSS, [facility] [id number] Univers 09:00:00 09:28:54 ALEJANDRO berman [facility] 2021-04-03 2021-04-03 Outpatient R RUSS [facility] [id number] Univers 09:00:00 09:28:54 ALEJANDRO mark [facility] 2021-04-03 2021-04-03 Orders Doctor EMI [id number] Univers 00:00:00 00:00:00 Only Unassigned, ANTONIO [id number] ity of [place] [facility] 4.2.7.2.686 Felice as [id number] [address] 2021-04-03 2021-04-03 [facility] [id number] Univers 00:00:00 00:00:00 (Out) Alejandro PHILLIPS [id number] i ty [place] 4[place]2.[place].2.686 [place] PROFESS[place] [id number] Wa dical [facility] [address] [facility] 2021-04-03 2021-04-03 Prep For [facility], [facility] [id number] Univers 00:00:00 00:00:00 Surgery Sunita PHILLIPS [id number] [facility] [facility] 4.2.7.2.[place] PROFESS[place] [id number] Wa dical NAL [address] [facility] 2021-03-29 2021-03-29 Laboratory Only, Ang Db Test [facility] 1.2.8 [id number] Univers 10:15:00 10:15:00 Only Lalitha Lamb [facility] [id number] ity of [place] [id number] Felice as YANG?BLEA [id number] Wa dical ROXANNAEY [address] [place] MEDICAL OFFICE [facility] 2021-03-29 2021-03-29 Outpatient R III, [facility] [id number] Univers 10:15:00 10:12:34 [facility]ITHA [facility] [facility] 2021-03-29 2021-03-29 Outpatient R III, [facility] [id number] Univers 10:15:00 10:12:34 LALITHA cullen [facility] 2021-03-28 2021-03-28 Office Service/[place], Surgery C [facility] IT [id number] Univers 10:45:00 11:39:27 Visit Person, Darshan CARLIN [id number] ity of [facility] [id number] [facility] [phone] [facility] [address] 2021-03-28 2021-03-28 Outpatient R PERSON, [facility] [id number] Univers 10:45:00 11:39:27 DARSHAN berman [facility] 2021-03-28 2021-03-28 Outpatient R PERSON, [facility] [id number] Univers 10:45:00 11:39:27 [facility] 2021-03-28 Outpatient R PERSON, [facility] [id number] Univers 10:45:00 10:45:00 DARSHAN [facility] 2021-03-25 2021-03-25 Emergency [facility] [id number] Univers 13:47:00 16:01:00 LOIS [facility] 2021-03-25 2021-03-25 [facility] [id number] Univers 13:47:00 16:01:00 Lois PHILLIPS [id number] ity [facility] [id number] [facility] [id number] [facility] [address] 2021-03-25 2021-03-25 Emergency X LARA [facility] ERT [id number] Univers 13:47:00 16:01:00 LOIS [facility] 2021-03-25 2021-03-25 Emergency Janneth BERMUDEZ [facility] ERT [id number] Univers 13:47:00 16:01:00 [facility] 2020-06-14 2020-06-14 Patient Misha [facility] [id number] Univers 00:00:00 00:00:00 Outreach Constantin RICHTER [id number] i ty of [facility] [place] [phone] [place] [address] 2020-05-17 2020-05-17 Outpatient R PERSON, [facility] [id number] Univers 11:15:00 11:15:00 DARSHAN ity [facility] 2020-05-17 2020-05-17 Outpatient R PERSON, [facility] [id number] Univers 11:15:00 11:15:00 DARSHAN [facility] 2020-04-26 2020-04-27 Emergency Mihai Shine [id number] Univers 08:40:00 17:30:00 Eloisa Hardne [id number] ity [facility] 4.2.7.2.686 Felice as [id number] [address] 2020-04-26 2020-04-27 Outpatient X DERECK [facility] LARRY [id number] Univers 08:40:00 17:30:00 ELOISA [facility] 2020-02-02 2020-02-02 Outpatient R SHAY [facility] [id number] Univers 10:30:00 10:30:00 MAXIMO berman [facility] 2020-01-26 2020-01-26 Transition Jordyn Middleton [id number] Univers 00:00:00 00:00:00 of Care Magalis Hernández [id number] ity [facility] [place] [id number] [facility] [address] 2020-01-21 2020-01-24 Hospital Kapil Sykes [id number] Univers 12:43:00 12:56:00 Encounter Maximo Day 350.1.13. 10 ity [facility] 4.2.7.2.686 Felice as [phone] [facility] [address] 2019-12-15 2019-12-15 [facility] [id number] Univers 08:48:26 10:18:11 Visit Rubia Teressa HOT MAN [id number] ity of [facility] 4.2.7.2.686 Felice as MATERNAL [phone] [facility] CH[facility] [address] [place] [address] 2019-12-15 2019-12-15 Outpatient R JESSICA NVMARTINE [facility] [id number] Univers 08:45:00 08:45:00 RUBIA ity o f [facility] 2019-12-15 2019-12-15 Orders Doctor EMI [id number] Univers 00:00:00 00:00:00 Only Unassigned, ANTONIO [id number] ity of [place] [facility] 4.2.7.2.686 Felice as [id number] [address] 2019-12-15 2019-12-15 Telephone Jessica [facility] [id number] Univers 00:00:00 00:00:00 Rubia Teressa HOT MAN [id number] ity of [facility] [id number] Felice as MATERNAL [id number] [facility] ical & CHILD [address] [place] [address] 2018-06-24 2018-06-24 Outpatient [facility] [id number] Common 13:00:00 13:00:00 t Specialty/U Sp she Specialty rology - [facility] /[facility] Results Test Description Test Time Test Comments Results Result Comments Source Basic Metabolic Panel (NA, K, CL, CO2, Glucose, BUN, 2022-05 12:50:13 Creatinine, CA) Test Item Value Reference Range Interpretation Comme nts NA (test code = 1457963194) 142 mmol/L 135-145 K (test code = 6772606203) 4.4 mmol/L 3.5-5.0 CL (test code = 6115373245) 106 mmol/L 98-108 CO2 TOTAL (test code = 0849557725) 29 mmol/L 23-31 AGAP (test code = 5029378970) 7 2-16 BUN (test code = 6524728043) 8 mg/dL 7-23 GLUCOSE (test code = 7472765960) 121 mg/dL 70-110 H CREATININE (test code = 0.74 mg/dL 0.50-1.04 9945821359) CALCIUM (test code = 3383205045) 8.8 mg/dL 8.6-10.6 eGFR (test code = 0037907263) 91.5 mL/min/1.73m2 BLAINE (test code = BLAINE) Association of [...] tests). Lab Interpretation (test code = Abnormal 20584-4) [facility] Metabolic Panel (NA, K, CL, CO2, Glucose, BUN, Creatinine, CA)2022-05-24 12:50:13 Test Item Value Reference Range Interpretation Comments NA (test code = 142 mmol/L 135-145 8907496207) K (test code = 4.4 mmol/L 3.5-5.0 0353732034) CL (test code = 106 mmol/L 98-108 5724127357) CO2 TOTAL (test code = 29 mmol/L 23-31 7499162921) AGAP (test code = 7 2-16 7963940307) BUN (test code = 8 mg/dL 7-23 9130187042) GLUCOSE (test code = 121 mg/dL 70-110 H 2566459310) CREATININE (test code = 0.74 mg/dL 0.50-1.04 5687527628) CALCIUM (test code = 8.8 mg/dL 8.6-10.6 7040180885) eGFR (test code = 91.5 mL/min/1.73m2 4765492709) BLAINE (test code = BLAINE) Association of [...] tests). Lab Interpretation Abnormal (test code = 11997-6) [facility]. METABOLIC PANEL ([id number])2022-05-24 05:52:48 Test Item Value Reference Range Interpretation Comments NA (test code = 137 mmol/L 135-145 3823994773) K (test code = 4.1 mmol/L 3.5-5.0 4222699621) CL (test code = 105 mmol/L 98-108 0847078683) CO2 TOTAL (test code = 25 mmol/L 23-31 7007165001) AGAP (test code = 7 2-16 6762210017) BUN (test code = 10 mg/dL 7-23 4522543248) GLUCOSE (test code = 126 mg/dL 70-110 H 1319993269) CREATININE (test code = 0.80 mg/dL 0.50-1.04 7892205816) TOTAL BILI (test code = 0.6 mg/dL 0.1-1.8 3501791970) CALCIUM (test code = 8.7 mg/dL 8.6-10.6 6140378139) T PROTEIN (test code = 6.3 g/dL 6.3-8.2 7256196618) ALBUMIN (test code = 3.9 g/dL 3.5-5.0 2586210740) ALK PHOS (test code = 68 U/L 34-122 9679977639) ALTv (test code = 20 U/L 5-35 1742-6) AST(SGOT) (test code = 20 U/L 13-40 9584373607) eGFR (test code = 83.7 mL/min/1.73m2 7701273929) BLAINE (test code = BLAINE) Association of [...] tests). Lab Interpretation Abnormal (test code = 07909-4) [facility]. METABOLIC PANEL (96478)2022-05-24 05:52:48 Test Item Value Reference Range Interpretation Comments NA (test code = 137 mmol/L 135-145 3697740142) K (test code = 4.1 mmol/L 3.5-5.0 6243714906) CL (test code = 105 mmol/L 98-108 2122758064) CO2 TOTAL (test code = 25 mmol/L 23-31 1065810016) AGAP (test code = 7 2-16 6096669863) BUN (test code = 10 mg/dL 7-23 1948452449) GLUCOSE (test code = 126 mg/dL 70-110 H 3392023401) CREATININE (test code = 0.80 mg/dL 0.50-1.04 2731043668) TOTAL BILI (test code = 0.6 mg/dL 0.1-1.9 8497817350) CALCIUM (test code = 8.7 mg/dL 8.6-10.6 7301646413) T PROTEIN (test code = 6.3 g/dL 6.3-8.2 1818546978) ALBUMIN (test code = 3.9 g/dL 3.5-5.0 0405356244) ALK PHOS (test code = 68 U/L 34-122 1975116149) ALTv (test code = 20 U/L 5-35 1742-6) AST(SGOT) (test code = 20 U/L 13-40 8078025985) eGFR (test code = 83.7 mL/min/1.73m2 2201447044) BLAINE (test code = BLAINE) Association of [...] tests). Lab Interpretation Abnormal (test code = 60208-8) [facility] [id number] 05:51:22 Test Item Value Reference Range Interpretation Comments PREG SERUM (test code Negative = 1360347182) BLAINE (test code = BLAINE) Less than 10 IU/L. ?If low titer or ectopic is suspected, resubmit specimen in 48-72 hours. [facility], [id number] 05:51:22 Test Item Value Reference Range Interpretation Comments PREG SERUM (test code Negative = 3276393917) BLAINE (test code = BLAINE) Less than 10 IU/L. ?If low titer or ectopic is suspected, resubmit specimen in 48-72 hours. [facility] WITH [id number] 05:47:26 Test Item Value Reference Range Interpretation Comments WBC (test code = 10.66 See_Comment [Automated 4290-2) message] The sy stem which generated this result transmitted reference range : 4.30 - 11.10 10*3/?L. The reference range was not used to interpret this result as normal/abnormal . RBC (test code = 4.35 See_Comment [Automated 789-8) message] The sy stem which generated this result transmitted reference range : 3.93 - 5.25 10*6/?L. The reference range was not used to interpret this result as normal/abnormal . HGB (test code = 12.6 g/dL 11.6-15.0 718-7) HCT (test code = 38.0 % 35.7-45.2 4544-3) MCV (test code = 87.4 fL 80.6-95.5 787-2) MCH (test code = 29.0 pg 25.9-32.8 785-6) MCHC (test code = 33.2 g/dL 31.6-35.1 786-4) RDW-SD (test code = 39.8 fL 39.0-49.9 21523-6) RDW-CV (test code = 12.4 % 12.0-15.5 788-0) PLT (test code = 274 See_Comment [Automated 777-3) message] The sy stem which generated this result transmitted reference range : 166 - 358 10*3/ ?L. The reference r keerthi was not used to interpret this result as normal/abnormal . MPV (test code = 9.8 fL 9.5-12.9 90785-2) NRBC/100 WBC (test 0.0 See_Comment [Automat ed code = 6874763021) message] The system which generated this result transmitted reference range : 0.0 - 10.0 /100 WBCs. The refer ence range was not u sed to interpret th is result as normal/abnormal . NRBC x10^3 (test code See_Comment [Auto mated = 4812182118) message] The s ystem which generated this result transmitted reference range : 10*3/?L. The reference range was not used to interpret this result as normal/abnormal . GRAN MAT (NEUT) % 68.4 % (test code = 770-8) IMM GRAN % (test code 0.40 % = 0154761014) LYMPH % (test code = 22.7 % 736-9) MONO % (test code = 6.8 % 5905-5) EOS % (test code = 1.3 % 713-8) BASO % (test code = 0.4 % 706-2) GRAN MAT x10^3(ANC) 7.29 10*3/uL 1.88-7.09 H (test code = 7058317760) IMM GRAN x10^3 (test 0.04 10*3/uL 0.00-0.06 code = 0505378058) LYMPH x10^3 (test code 2.42 10*3/uL 1.32-3.29 = 731-0) MONO x10^3 (test code 0.73 10*3/uL 0.33-0.92 = 742-7) EOS x10^3 (test code = 0.14 10*3/uL 0.03-0.39 711-2) BASO x10^3 (test code 0.04 10*3/uL 0.01-0.07 = 704-7) Lab Interpretation Abnormal (test code = 84058-9) [facility] WITH [id number] 05:47:26 Test Item Value Reference Range Interpretation Comments WBC (test code = 10.66 See_Comment [Automated 6690-2) message] The sy stem which generated this result transmitted reference range : 4.30 - 11.10 10*3/?L. The reference range was not used to interpret this result as normal/abnormal . RBC (test code = 4.35 See_Comment [Automated 179-8) message] The sy stem which generated this result transmitted reference range : 3.93 - 5.25 10*6/?L. The reference range was not used to interpret this result as normal/abnormal . HGB (test code = 12.6 g/dL 11.6-15.0 718-7) HCT (test code = 38.0 % 35.7-45.2 4544-3) MCV (test code = 87.4 fL 80.6-95.5 787-2) MCH (test code = 29.0 pg 25.9-32.8 785-6) MCHC (test code = 33.2 g/dL 31.6-35.1 786-4) RDW-SD (test code = 39.8 fL 39.0-49.9 42930-1) RDW-CV (test code = 12.4 % 12.0-15.5 788-0) PLT (test code = 274 See_Comment [Automated 777-3) message] The sy stem which generated this result transmitted reference range : 166 - 358 10*3/ ?L. The reference r keerthi was not used to interpret this result as normal/abnormal . MPV (test code = 9.8 fL 9.5-12.9 58249-6) NRBC/100 WBC (test 0.0 See_Comment [Automat ed code = 3413665213) message] The system which generated this result transmitted reference range : 0.0 - 10.0 /100 WBCs. The refer ence range was not u sed to interpret th is result as normal/abnormal . NRBC x10^3 (test code See_Comment [Auto mated = 5914413870) message] The s ystem which generated this result transmitted reference range : 10*3/?L. The reference range was not used to interpret this result as normal/abnormal . GRAN MAT (NEUT) % 68.4 % (test code = 770-8) IMM GRAN % (test code 0.40 % = 2477851657) LYMPH % (test code = 22.7 % 736-9) MONO % (test code = 6.8 % 5905-5) EOS % (test code = 1.3 % 713-8) BASO % (test code = 0.4 % 706-2) GRAN MAT x10^3(ANC) 7.29 10*3/uL 1.88-7.09 H (test code = 9662531350) IMM GRAN x10^3 (test 0.04 10*3/uL 0.00-0.06 code = 0995556746) LYMPH x10^3 (test code 2.42 10*3/uL 1.32-3.29 = 731-0) MONO x10^3 (test code 0.73 10*3/uL 0.33-0.92 = 742-7) EOS x10^3 (test code = 0.14 10*3/uL 0.03-0.39 711-2) BASO x10^3 (test code 0.04 10*3/uL 0.01-0.07 = 704-7) Lab Interpretation Abnormal (test code = 25466-2) [facility]"
--- NOTE | 2022-07-25 18:48 | ER ---
Nurse's Notes [facility] Name: Elham Moran Age: 32 yrs Sex: Female : 1990 Arrival Date: 07/25/2022 Time: 17:59 Bed 10 Private MD: Diagnosis: Pilonidal cyst with abscess Presentation: 07/25 18:30 Chief complaint: Patient states: "I have a cyst and it just started hurting yesterday". aa5 Coronavirus screen: At this time, the client does not indicate any symptoms associated with coronavirus-19. Ebola Screen: Patient denies travel to an Ebola-affected area in the 21 days before illness onset. Initial Sepsis Screen: Does the patient meet any 2 criteria? No. Patient's initial sepsis screen is negative. Does the patient have a suspected source of infection? No. Patient's initial sepsis screen is negative. Risk Assessment: Do you want to hurt yourself or someone else? Patient reports no desire to harm self or others. Onset of symptoms was July 2022. 18:30 Method Of Arrival: Ambulatory aa5 18:30 Acuity: MISSAEL 4 aa5 Historical: - Allergies: 18:31 No Known Allergies; aa5 - PMHx: 18:31 None; aa5 - PSHx: 18:31 section; Elbow; Total abdominal hysterectomy (2018); aa5 - Immunization history:: Adult Immunizations unknown. - Social history:: Smoking status: Patient denies any tobacco usage or history of. Screenin:[facility] ED Fall Risk Assessment (Adult) History of falling in the last 3 months, ko1 including since admission No falls in past 3 months (0 pts) Confusion or Disorientation No (0 pts) Intoxicated or Sedated No (0 pts) Impaired Gait No (0 pts) Mobility Assist Device Used No (0 pt) Altered Elimination No (0 pt) Score/Fall Risk Level 0 - 2 = Low Risk Oriented to surroundings, Maintained a safe environment, Educated pt \\T\\ family on fall prevention, incl call for assistance when getting out of bed, Assessed \\T\\ reinforced patient's understanding of fall precautions, Provided non-skid footwear, Hourly rounding (assess needs \\T\\ fall precautionary measures) done, Used ambulatory aids as needed (educated on \\T\\ assisted with), Used gait belt as appropriate. Abuse screen: Denies threats or abuse. Denies injuries from another. Nutritional screening: No deficits noted. Tuberculosis screening: No symptoms or risk factors identified. Assessment: 18:49 General: Appears in no apparent distress. comfortable, Behavior is calm, cooperative, ko1 appropriate for age. Pain:. 18:49 Neuro: No deficits noted. Cardiovascular: No deficits noted. Respiratory: No deficits ko1 noted. GI: No deficits noted. : No deficits noted. EENT: No deficits noted. Derm: Abscess located on coccyx. Musculoskeletal: No deficits noted. Vital Signs: 18:30 BP 122 / 85; Pulse 89; Resp 16 S; Temp 98(TE); Pulse Ox 100% on R/A; Weight 111.58 kg aa5 (R); Height 5 ft. 7 in. (R); 18:49 BP 118 / 72; Pulse 85; Resp 18; Pulse Ox 99% ; ko1 18:30 Body Mass Index 38.53 (111.58 kg, 170.18 cm) aa5 ED Course: 18:02 Patient arrived in ED. am2 18:23 Jonathan Tucker PA is PHCP. cp 18:23 Jonathan Du MD is Attending Physician. cp 18:30 Arm band placed on. aa5 18:31 Triage completed. aa5 18:37 Farhana Ortiz, SKYE is Primary Nurse. ko1 18:46 Buddy Pathak MD is Referral Physician. cp 18:49 Patient has correct armband on for positive identification. Bed in low position. Call ko1 light in reach. Side rails up X 1. 18:49 No provider procedures requiring assistance completed. Patient did not have IV access ko1 during this emergency room visit. Administered Medications: No medications were administered Medication: 18:49 VIS not applicable for this client. ko1 Outcome: 18:47 Discharge ordered by MD. cp 19:03 Discharged to home ambulatory, with family. ko1 19:03 Condition: good 19:03 Discharge instructions given to patient, Instructed on discharge instructions, follow up and referral plans. medication usage, Demonstrated understanding of instructions, follow-up care, medications, Prescriptions given X 1. 19:03 Patient left the ED. ko1 Signatures: Piedad Magdaleno RN RN aa Jonathan Tucker PA PA cp Donna Zavala am2 Angel, Farhana, RN RN ko1
--- NOTE | 2022-07-25 18:48 | EDPHYS ---
Physician Documentation [facility] Name: Elham Moran Age: 32 yrs Sex: Female : 1990 Arrival Date: 07/25/2022 Time: 17:59 Bed 10 Private MD: ED Physician Jonathan Du HPI: 07/25 18:42 This 32 yrs old Female presents to ER via Ambulatory with complaints of Cyst. cp 18:42 The patient presents with an abscess of the coccyx area. Description: painful, tender, cp swollen. 18:42 Onset: The symptoms/episode began/occurred yesterday. cp 18:42 Patient reports history of pilonidal cyst and reports pain and swelling to coccyx area cp since yesterday. 18:42 Associated signs and symptoms: Pertinent negatives: discharge, drainage, fever. cp Historical: - Allergies: 18:31 No Known Allergies; aa5 - PMHx: 18:31 None; aa5 - PSHx: 18:31 section; Elbow; Total abdominal hysterectomy (2018); aa5 - Immunization history:: Adult Immunizations unknown. - Social history:: Smoking status: Patient denies any tobacco usage or history of. ROS: 18:44 Constitutional: Negative for body aches, chills, fever, poor PO intake. cp 18:44 Cardiovascular: Negative for chest pain, palpitations. 18:44 Abdomen/GI: Negative for abdominal pain, nausea, vomiting, and diarrhea. 18:44 Skin: Positive for abscess, of the coccyx area. 18:44 Respiratory: Negative for cough, shortness of breath, wheezing. cp 18:44 : Negative for urinary symptoms. 18:44 All other systems are negative. Exam: 18:45 Head/Face: Normocephalic, atraumatic. cp 18:45 Constitutional: The patient appears in no acute distress, alert, awake, non-toxic, well developed, well nourished, uncomfortable. 18:45 Chest/axilla: Inspection: normal. cp 18:45 Cardiovascular: Rate: normal. 18:45 Respiratory: the patient does not display signs of respiratory distress, Respirations: cp normal, no use of accessory muscles, no retractions, labored breathing, is not present. 18:45 Abdomen/GI: Exam negative for discomfort, distension, guarding, Inspection: abdomen appears normal. 18:45 Back: pain, that is moderate, of the coccyx. Vital Signs: 18:30 BP 122 / 85; Pulse 89; Resp 16 S; Temp 98(TE); Pulse Ox 100% on R/A; Weight 111.58 kg aa5 (R); Height 5 ft. 7 in. (R); 18:49 BP 118 / 72; Pulse 85; Resp 18; Pulse Ox 99% ; ko1 18:30 Body Mass Index 38.53 (111.58 kg, 170.18 cm) aa5 MDM: 18:23 Patient medically screened. cp 18:40 Differential diagnosis: abscess, cellulitis. cp 18:45 ED course: Patient declines any further testing to include labs, I\T\D of area. Requests cp antibiotic and discharge. 18:47 Data reviewed: vital signs, nurses notes. cp 18:47 Counseling: I had a detailed discussion with the patient and/or guardian regarding: the cp historical points, exam findings, and any diagnostic results supporting the discharge/admit diagnosis, the need for outpatient follow up, a general surgeon, to return to the emergency department if symptoms worsen or persist or if there are any questions or concerns that arise at home. Administered Medications: No medications were administered Disposition Summary: 07/25/22 18:47 Discharge Ordered Location: Home cp Problem: new cp Symptoms: are unchanged cp Condition: Stable cp Diagnosis - Pilonidal cyst with abscess cp Followup: cp - With: Buddy Pathak MD - When: 48 Hours - Reason: Recheck today's complaints Discharge Instructions: - Discharge Summary Sheet cp - Pilonidal Cyst cp Forms: - Medication Reconciliation Form cp - Thank You Letter cp - Antibiotic Education cp - Prescription Opioid Use cp Prescriptions: - Clindamycin HCl 300 mg Oral Capsule - take 1 capsule by ORAL route every 6 hours for 10 days; 40 capsule; Refills: 0, cp Product Selection Permitted Signatures: Piedad Magdaleno RN RN aa5 Jonathan Tucker PA PA cp
[2022-07-25 19:23] VITALS: TEMP 98
[2022-07-25 19:24] VITALS: BP 118/72; O2SAT 99
== END 2022-07-25 19:03 | disposition home or self-care (01) ==
LOC: ER 17:59
DX: L05.01 Pilonidal cyst with abscess (principal)
CPT/HCPCS: 99283

== ENCOUNTER 2022-09-02 21:16 | Emergency (ER) | payer SELFPAY ==
--- OUTSIDE RECORDS SUMMARY | 2022-09-02 21:21 | XMS REPORT | Continuity of Care Document ---
:1990 Author Organization [facility] t Address [address] [facility] [address] [place] [address] Care Team Providers Name Role Phone PCP, PATIENT DOES NOT HAVE A Primary Care Physician UnavailALEJANDRO Forbes Attending Clinician Unavailable ELOISA HARDEN Attending Clinician Unavailable Emi Salvador PA-C Attending Clinician Eloisa Harden MD Attending Clinician Jayesh Landon MD Attending Clinician Alejandro Solano MD Attending Clinician Doctor Unassigned, [place] Attending Clinician Unavailable Gramm Sunita COLE A [...] Effective Date Expiration Date S shala [facility] [id number] 2019 00:00:00 MEDICAID PENDING PENDING 2022 2022 00:00:00 00:00:00 [facility] [id number] 2021 NON-CONTRACT 00:00:00 Problems Condition Condition Condition Status Onset Resolution Last Treating Co mments Source Name Details Category Date Date Treatment Clinician Date Pilonidal Pilonidal Disease Active Uni vers abscess abscess 05-24 ity of 00:00: [place] [address] Medical Branch Pilonidal Pilonidal Disease Active Overview: Univers cyst cyst 1-10 Formattin ity of 00:00: g of this [place] 00 note Medical might be Branch different from the original. Added automatic ally from request for surgery [id number] Calculus Calculus Disease Active Unive rs of of 04-27 ity of gallblad[place] bile r and bile 00 Me dical duct duct Branch without without cholecysti cholecysti tis tis Status Status Disease Active Univers post post 2 [place]y of laparoscop [place]oscop [place] 00 Medical cholecyste cholecyste Br anch ctomy ctomy Biliary Biliary Disease Active Univers colic colic 2- ity of 00:00: [place] [address] Medical Branch Vaginal Vaginal Disease Active Univers dryness dryness 9- ity of 00:00: [place] [facility] H/O total H/O total Disease Active 2018-1 Uni vers hysterecto hysterecto 1-16 it y of my with my with 00:00: [place] bilateral bilateral 00 Medi ginger salpingo-o salpingo-o [...] asthma 4-30 ity of 00:00: [place] [address] 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 she - [facility] cleft cleft [facility] Allergies, Adverse Reactions, Alerts Allergy Allergy Status Severity Reaction(s) Onset Inactive Treating Comm ents Source Name Type Date Date Clinician NO KNOWN Drug Active Univers ALLERGIE Class ity of S [facility] Social History Social Habit Start Date Stop Date Quantity Comments Source Alcohol intake 2022-05-24 2022-05-24 0 /d University of 00:00:00 00:00:00 [facility] Exposure to 2022-05-13 2022-05-23 Not sure [facility] SARS-CoV-2 (event) 00:00:00 22:31:00 [facility] Cigarettes smoked 2021-03-28 2021-03-28 Univers ity of current (pack per 00:00:00 00:00:00 [facility] ) - Reported Branch Cigarette 2021-03-28 2021-03-28 University of pack-years 00:00:00 00:00:00 [facility] Tobacco use and 2021-03-28 2021-03-28 Former smokeless Uni versity of exposure 00:00:00 00:00:[address] [facility] History of tobacco 2020-04-25 Cigarette Smoker University of use 00:00:00 [facility] Sex Ass[birth year] At [birth year] Universit y of 00:00:00 00:00:00 [facility] Smoking Status Start Date Stop Date Source Ex-smoker 2021-03-28 00:00:00 2021-03-28 00:00:00 Universi ty of [facility] Medications Ordered Filled Start Stop Current Ordering [...] Routine, Nausea and Vomiting (N/V), PACU HYDROmorphO 2022-0 2022- No .2mg 0.2 mg, Un kendrick [...] PACU D5W 0.45% Yes IV Univers NaCl 02 Infusion, ity of (1/2NS) 1 L 08:00: [place] 125 [place] + KCL 20 00 mL/hr, Medical mEq CONTINUOUS Branch , Starting on Clarita 05/24/22 at 0200, Until Discontinu ed, Routine pantoprazol 2022- No 40mg 40 mg, Uni [...] Clarita 05/24/22 at 1818, Routine morpHINE (2 2022- Yes 2mg 2 mg, Slow Univers mg/mL) [...] 1818, Routine, Breakthrou gh pain acetaminoph 2022- No 1000mg 1,000 mg, Univers [...] No 650mg 650 mg, U nivers en 05-24 03- Oral, ity of (TYLENOL) 05:00: 05:41 ONCE, 1 [place] tablet 650 00 :00 dose, On Medic al mg Sat05/23/22 Branch at 2300, LADI amoxicillin 0 Yes [id number] 1{tbl} Take 1 Univers -clavulanat 3-02 tablet by ity of e 00:00: mouth in [place] (AUGMENTIN) 00 the Medical 875-125 mg morning Branch per tablet and 1 tablet in the evening. traMADoL 50 2022-0 Yes [id number] 50mg Take 1 Univ ers mg tablet 3-02 tablet by ity o f 00:00: mouth [place] 00 every 6 Medical (six) Branch hours as needed for Pain (scale 7-10). Indication s: acute pain amoxicillin 0 Yes [id number] 1{tbl} Take 1 Univers -clavulanat 3-02 tablet by ity of e 00:00: mouth in [place] (AUGMENTIN) 00 the Medical 875-125 mg morning Branch per tablet and 1 tablet in the evening. traMADoL 50 0 Yes [id number] 50mg Take 1 Univ ers mg tablet 3-02 tablet by ity o f 00:00: mouth [place] 00 every 6 Medical (six) Branch hours as needed for Pain (scale 7-10). Indication s: acute pain traMADoL 50 2022-0 2022- No [id number] 50mg Take 1 Uni vers mg tablet 3-02 03-02 tablet by ity of 00:00: 00:00 mouth [place] 00 :00 every 6 Medical (six) Branch hours as needed for Pain (scale 7-10). Indication s: acute pain amoxicillin 2022-0 2022- No [id number] 1{tbl} Take 1 Univers -clavulanat 3-02 03-02 tablet by it y of e 00:00: 00:00 mouth in [place] (AUGMENTIN) 00 :00 the Medical 875-125 mg [...] Indication s: acute pain amoxicillin 2022- No [id number] 1{tbl} Take 1 Univers -clavulanat 05-24 tablet by it y of e 00:00: 00:00 mouth in [place] (AUGMENTIN) 00 :00 the Medical 875-125 mg morning Branch per tablet and 1 tablet in the evening. Do all this for 7 days. doxycycline Yes [id number] 100mg Take 1 Univers hyclate 100 1-01 [...] 1-3). Indication s: acute pain doxycycline Yes [id number] 100mg Take 1 Univers hyclate 100 1-01 [...] 1-3). Indication s: acute pain doxycycline Yes [id number] 100mg Take 1 Univers hyclate 100 1-01 [...] Indication s: acute pain acetaminoph 2020-0 Yes [id number] 650mg Take 650 Univers en 325 mg 2-03 mg by ity of Cap 00:00: mouth [place] 00 every 6 Medical (six) Branch hours as needed for Pain (scale 1-3) or Pain (scale 4-6). ibuprofen 2020-0 Yes [id number] 600mg Take 1 Univers 600 mg 2-03 tablet by ity of tablet 00:00: mouth [place] 00 every 6 Medical (six) Branch hours as needed for Pain (scale 1-3) or Pain (scale 4-6) (Alternate with acetaminop hen for mild-moder ate pain). acetaminoph 0 Yes [id number] 650mg Take 650 Univers en 325 mg 2-03 mg by ity of Cap 00:00: mouth [place] 00 every 6 Medical (six) Branch hours as needed for Pain (scale 1-3) or Pain (scale 4-6). ibuprofen Yes [id number] 600mg Take 1 Univers 600 mg 2-03 tablet by ity of tablet 00:00: mouth [place] 00 every 6 Medical (six) Branch hours as needed for Pain (scale 1-3) or Pain (scale 4-6) (Alternate with acetaminop hen for mild-moder ate pain). acetaminoph 0 Yes [id number] 650mg Take 650 Univers en 325 mg 2-03 mg by ity of Cap 00:00: mouth [place] 00 every 6 Medical (six) Branch hours as needed for Pain (scale 1-3) or Pain (scale 4-6). ibuprofen 0 Yes [id number] 600mg Take 1 Univers 600 mg 2-03 tablet by ity of tablet 00:00: mouth [place] 00 every 6 Medical (six) Branch hours as needed for Pain (scale 1-3) or Pain (scale 4-6) (Alternate with acetaminop hen for mild-moder ate pain). estradioL 2019-0 Yes [id number] 2g Insert 2 g Univers 0.01 % (0.1 12-14 into ity of mg/gram) 00:00: vagina [place] vaginal 00 weekly. Medical cream Branch ascorbic 2019-0 Yes [id number] 500mg Take 1 Un kendrick acid, 9- tablet by ity of vitamin C, 00:00: mouth 3 [place] 500 mg 00 (three) Medical tablet times Branch daily. ergocalcife 2020-0 Yes [id number] Take 1 Univers rol, 9-22 capsule by ity of vitamin d2, 00:00: mouth [place] 1,250 mcg 00 weekly. Medical (50,000 Branch unit) capsule estradioL 2020-0 Yes [id number] 2g Insert 2 g Univers 0.01 % (0.1 9-22 into ity of mg/gram) 00:00: vagina [place] vaginal 00 weekly. Medical cream Branch ascorbic 2020-0 Yes [id number] 500mg Take 1 Un kendrick acid, 9-22 tablet by ity of vitamin C, 00:00: mouth 3 [place] 500 mg 00 (three) Medical tablet times Branch daily. ergocalcife 2020-0 Yes [id number] Take 1 Univers rol, 9-22 capsule by ity of vitamin d2, 00:00: mouth [place] 1,250 mcg 00 weekly. Medical (50,000 Branch unit) capsule estradioL 2020-0 Yes [id number] 2g Insert 2 g Univers 0.01 % (0.1 9-22 into ity of mg/gram) 00:00: vagina [place] vaginal 00 weekly. Medical cream Branch ascorbic 2020-0 Yes [id number] 500mg Take 1 Un kendrick acid, 9-22 tablet by ity of vitamin C, 00:00: mouth 3 [place] 500 mg 00 (three) Medical tablet times Branch daily. ergocalcife 2020-0 Yes [id number] Take 1 Univers rol, 9-22 capsule by ity of vitamin d2, 00:00: mouth [place] 1,250 mcg 00 weekly. Medical (50,000 Branch unit) capsule Immunizations Ordered Filled Immunization Date Status Comments [facility] e Immunization Name Name TDAP 2019-11-09 Completed University of 00:00:00 [facility] Influenza Virus 2019-11-09 Completed Universit y of Vaccine Quad .5 mL 00:00:00 [facility] [place] [facility] IM 6+ MO Branch TDAP 2019-11-09 Completed University of 00:00:00 [facility] Influenza Virus 2019-11-09 Completed Universit y of Vaccine Quad .5 mL 00:00:00 [facility] [place] [facility] IM 6+ MO Branch TDAP 2019-11-09 Completed University of 00:00:00 [facility] Influenza Virus 2019-11-09 Completed Universit y of Vaccine Quad .5 mL 00:00:00 [facility] 6+ MO Branch Vital Signs Vital Name Observation Time Observation Value Comments Source Systolic blood 2022-05-24 22:00:00 112 mm[Hg] Univer sity of pressure [place] [facility] [place] Diastolic blood 2022-05-24 22:00:00 68 mm[Hg] Unive rsity of pressure [place] [facility] Respiratory rate 2022-05-24 22:00:00 16 /min Univ ersity of [facility] Oxygen saturation in 2022-05-24 22:00:00 96 /min University of Arterial blood by [employer] Pulse oximetry Branch Heart rate 2022-05-24 19:52:00 93 /min Universi ty of [facility] Body temperature 2022-05-24 19:52:00 36 Bhavya Univ ersity of [place] [facility] [place] Body weight 2022-05-24 04:36:00 113.399 kg Universi ty of [place] [facility] [place] BMI 2022-05-24 04:36:00 38.02 kg/m2 Universi ty of [facility] Systolic blood 2022-05-24 14:41:00 116 mm[Hg] Univer sity of [facility] Medical [place] Diastolic blood 2022-05-24 14:41:00 74 mm[Hg] Unive rsity of pressure [place] [facility] [place] Heart rate 2022-05-24 14:41:00 72 /min Universi ty of [place] [facility] [place] Body temperature 2022-05-24 14:41:00 35.61 Bhavya Univ ersity of [place] [facility] [place] Respiratory rate 2022-05-24 14:41:00 18 /min Univ ersity of [facility] Oxygen saturation in 2022-05-24 14:41:00 100 /min University of Arterial blood by [employer] ginger Pulse oximetry Branch Body weight 2022-05-24 04:36:00 113.399 kg Universi ty of [place] [facility] [place] BMI 2022-05-24 04:36:00 38.02 kg/m2 Universi ty of [place] [facility] Systolic blood 2021-04-03 15:19:00 105 mm[Hg] Univer sity of pressure [place] [facility] Diastolic blood 2021-04-03 15:19:00 68 mm[Hg] Unive rsity of pressure [place] [facility] [place] Heart rate 2021-04-03 15:19:00 80 /min Universi ty of [place] [facility] [place] Body temperature 2021-04-03 15:19:00 36.83 Bhavya [facility] Respiratory rate 2021-04-03 15:19:00 20 /min [facility] Body height 2021-04-03 15:19:00 172.7 cm [facility] Body weight 2021-04-03 15:19:00 106.867 kg [facility] BMI 2021-04-03 15:19:00 35.82 kg/m2 [facility] Oxygen saturation in 2021-04-03 15:19:00 98 /min [facility] Arterial blood by [facility] Pulse oximetry Branch Procedures Procedure Date / Time Performed Performing Clinician [facility] e INCISION AND DRAINAGE 2022-05-24 18:38:00 Jayesh Landon [facility] BASIC METABOLIC PANEL 2022-05-24 12:25:00 [facility] (NA, K, CL, CO2, Medical Branch GLUCOSE, BUN, CREATININE, CA) BASIC METABOLIC PANEL 2022-05-24 12:25:00 [facility] (NA, K, CL, CO2, Medical Branch GLUCOSE, BUN, CREATININE, CA) TEST, SERUM 2022-05-24 05:24:00 Emi Salvador [facility] COMP. METABOLIC PANEL 2022-05-24 05:24:00 Mdaeleine [facility] ([id number]) [facility] CBC WITH DIFF 2022-05-24 05:24:00 Emi Salvador [facility] TEST, SERUM 2022-05-24 05:24:00 Emi Salvador [facility] COMP. METABOLIC PANEL 2022-05-24 05:24:00 Madeleine [facility] ([id number]) [facility] CBC WITH DIFF 2022-05-24 05:24:00 Emi Salvador [facility] CONSENT/REFUSAL FOR 2022-05-24 04:26:35 Doctor Unassigned, No [facility] [place] DI[facility] AND Name Medical [place] TREATMENT CONSENT/REFUSAL FOR 2022-05-24 04:26:35 [facility], [facility] TREATMENT Encounters Start End Encounter Admission Attending Care Care Encounter Source Date/Time Date/Time Type Type Clinicians Facility Department ID 2021-04-06 [facility] [id number] Univers 14:17:13 ALEJANDRO berman [facility] 2021-01-21 Emergency [facility] [id number] Univers 21:11:00 ity [facility] 2021-01-21 Emergency [facility] [id number] Univers [facility] 2022-[facility]-23 2022-05-24 Outpatient X DERECK [facility] LARRY [id number] Univers 22:41:00 16:05:00 ELOISA [facility] 2022-05-23 2022-05-24 Emergency Emi Salvador 1.2.840.1 [id number] Univers 22:41:00 16:05:00 DereckEloisa Hannah ALVAREZ [id number] [facility] [id number] Felice as [phone] [facility] 104 Branch 2022-05-24 2022-05-24 Surgery LOU Landon [id number] Univers 10:43:00 12:19:00 Jayesh ALVAREZ [id number] it [facility] [id number] Felice as [phone] [facility] 103 Branch 2021-04-15 2021-04-15 [facility] [id number] Univers 09:00:00 09:00:00 ALEJANDRO scottymark [facility] 2021-04-03 2021-04-03 Outpatient Teressa SOLANO [facility] [id number] Univers 09:00:00 09:28:54 ALEJANDRO [facility] 2021-04-03 2021-04-03 [facility] [id number] Univers 09:00:00 09:28:54 Visit Alejandro PH[place] [id number] i ty of [id number] PROFESSIO [phone] Va dical [address] 2021-04-03 2021-04-03 Outpatient R RUSS, [facility] [id number] Univers 09:00:00 09:28:54 ALEJANDRO berman [facility] 2021-04-03 2021-04-03 Outpatient R RUSS, [facility] [id number] Univers 09:00:00 09:28:54 ALEJANDRO mark [facility] 2021-04-03 2021-04-03 Orders Doctor EMI [id number] [id number] Univers 00:00:00 00:00:00 Only Unassigned, ANTONIO [id number] ity of [place] [facility] [id number] Felice as [phone] [address] 2021-04-03 2021-04-03 Letter [facility] [id number] Univers 00:00:00 00:00:00 (Out) Alejandro PHILL[place] 350.1.13.10 i ty of [place] [id number] Va dical [facility] [address] [facility] 2021-04-03 2021-04-03 Prep For [facility], [facility] 1.2.840.114 [id number] Univers 00:00:00 00:00:00 Surgery Sunita PHILL[place] [id number] ity of [facility] 4.2.7.2.[place] [id number] Va dical NAL [address] [facility] 2021-03-29 2021-03-29 Laboratory Only, Ang Db Test [facility] 1.2.8 40.114 [id number] Univers 10:15:00 10:15:00 Only Lalitha Lamb [facility] [id number] ity [facility] [id number] Felice as YANG?BLEA [phone] Va dical EY [address] [place] [facility] 2021-03-29 2021-03-29 Outpatient R THEO III, [facility] [id number] Univers 10:15:00 10:12:34 LALITHA berman [facility] 2021-03-29 2021-03-29 [facility] [id number] Univers 10:15:00 10:12:34 LALITHA cullen [facility] 2021-03-28 2021-03-28 Office Service/[place], Surgery C UN[facility] IT 1.2.840.114 [id number] Univers 10:45:00 11:39:27 Visit Person, Darshan CARLIN 350.1.13.10 ity of [facility] 4.2.7.2.686 [facility] [id number] [facility] 203 Branch 2021-03-28 2021-03-28 Outpatient R PERSON, [facility] [id number] Univers 10:45:00 11:39:27 DARSHAN berman [facility] 2021-03-28 2021-03-28 Outpatient R PERSON, [facility] [id number] Univers 10:45:00 11:39:27 [facility] 2021-03-28 2021-03-28 Outpatient R PERSON, [facility] [id number] Univers 10:45:00 10:45:00 DARSHAN [facility] 2021-03-25 2021-03-25 Emergency [facility] E[facility] [id number] Univers 13:47:00 16:01:00 LOIS [facility] 2021-03-25 2021-03-25 Emergency [facility] [id number] Univers 13:47:00 16:01:00 Lois [place] 350.1.13.10 ity of [place] 4.2.7.2.686 [facility] [id number] [facility] 084 Branch 2021-03-25 2021-03-25 Emergency X LARA [facility] ERT [id number] Univers 13:47:00 16:01:00 LOIS [facility] 2021-03-25 2021-03-25 Emergency Janneth BERMUDEZ [facility] ERT [id number] Univers 13:47:00 16:01:00 LOIS [facility] 2020-06-14 2020-06-14 Patient Misha [facility] 1.2.840.114 [id number] Univers 00:00:00 00:00:00 Outreach Constantin RICHTER 350.1.13.10 i ty of [facility] 4.2.7.2.[place] BRIANAON [phone] Va dical [address] [place] 2020-05-17 2020-05-17 Outpatient R PERSON, [facility] [id number] Univers 11:15:00 11:15:00 DARSHAN mark [facility] 2020-05-17 2020-05-17 Outpatient R PERSON, [facility] [id number] Univers 11:15:00 11:15:00 DARSHAN [facility] 2020-04-26 2020-04-27 Emergency Mihia Shine 1.2.840.11 [id number] Univers 08:40:00 17:30:00 Eloisa Harden 350.1.13.10 ity [facility] 4.2.7.2.686 Felice as [phone] [address] 2020-04-26 2020-04-27 Outpatient X DERECK [facility] LARRY [id number] Univers 08:40:00 17:30:00 ELOISA [facility] 2020-02-02 2020-02-02 Out[facility] [id number] Univers 10:30:00 10:30:00 MAXIMO berman [facility] 2020-01-26 2020-01-26 Transition Jordyn Middleton 1.2.840.114 [id number] Univers 00:00:00 00:00:00 of Care Magalis Hernández 350.1.13.10 ity [place] [id number] [facility] [address] [place] 2020-01-21 2020-01-24 Hospital Kapil Sykes 1.2.8 40.114 [id number] Univers 12:43:00 12:56:00 Encounter Maximo Day 350.1.13. 10 ity [facility] 4.2.7.2.686 Felice as [id number] [facility] [address] [place] 2019-12-15 2019-12-15 Office [facility] 1.2.840.114 [id number] Univers 08:48:26 10:18:11 Visit Rubia Teressa [employer]IC[employer] 350.1.13.10 ity of [facility] 4.2.7.2.686 Felice as MATERNAL [id number] [facility] ical & CHILD [address] [place] [address] 2019-12-15 2019-12-15 Outpatient R JESSICA MSMARTINE [facility] [id number] Univers 08:45:00 08:45:00 RUBIA ity o f [facility] 2019-12-15 2019-12-15 Orders Doctor EMI 1.2.840.114 [id number] Univers 00:00:00 00:00:00 Only Unassigned, ANTONIO 350.1.13.10 ity of [place] [facility] 4.2.7.2.686 Felice as [phone] [address] 2019-12-15 2019-12-15 Telephone Jessica [facility] [id number] Univers 00:00:00 00:00:00 Rubia Teressa [employer]ATING [employer] OFFICER 350.1.13.10 ity of [facility] [id number] Felice as MATERNAL [id number] [facility] ical & CHILD [address] [place] [address] 2018-06-24 2018-06-24 Outpatient [facility] [id number] Common 13:00:00 13:00:00 t Specialty/U Sp she Specialty rology - [facility] Results Test Description Test Time Test Comments Results Result Comments Source Basic Metabolic Panel (NA, K, CL, CO2, Glucose, BUN, 2022-05 12:50:13 Creatinine, CA) Test Item Value Reference Range Interpretation Comme nts NA (test code = 2675562839) 142 mmol/L 135-145 K (test code = 4305467098) 4.4 mmol/L 3.5-5.0 CL (test code = 7551807733) 106 mmol/L 98-108 CO2 TOTAL (test code = 7551144027) 29 mmol/L 23-31 AGAP (test code = 0920149217) 7 2-16 BUN (test code = 5596947965) 8 mg/dL 7-23 GLUCOSE (test code = 9490009801) 121 mg/dL 70-110 H CREATININE (test code = 0.74 mg/dL 0.50-1.04 3703529293) CALCIUM (test code = 1878828334) 8.8 mg/dL 8.6-10.6 eGFR (test code = 0152884303) 91.5 mL/min/1.73m2 BLAINE (test code = LBAINE) Association of Glomerular Filtration Rate (GFR) and [...] tests). Lab Interpretation (test code = Abnormal 53632-6) [facility] Metabolic Panel (NA, K, CL, CO2, Glucose, BUN, Creatinine, CA)2022-05-24 12:50:13 Test Item Value Reference Range Interpretation Comments NA (test code = 142 mmol/L 135-145 3474939774) K (test code = 4.4 mmol/L 3.5-5.0 4235598105) CL (test code = 106 mmol/L 98-108 6634976902) CO2 TOTAL (test code = 29 mmol/L 23-31 1008264918) AGAP (test code = 7 2-16 6987019356) BUN (test code = 8 mg/dL 7-23 8400918829) GLUCOSE (test code = 121 mg/dL 70-110 H 4029751499) CREATININE (test code = 0.74 mg/dL 0.50-1.04 6320220461) CALCIUM (test code = 8.8 mg/dL 8.6-10.6 1231382183) eGFR (test code = 91.5 mL/min/1.73m2 0210851053) BLAINE (test code = BLAINE) Association of [...] tests). Lab Interpretation Abnormal (test code = 50919-1) [facility]. METABOLIC PANEL ([id number])2022-05-24 05:52:48 Test Item Value Reference Range Interpretation Comments NA (test code = 137 mmol/L 135-145 1906295117) K (test code = 4.1 mmol/L 3.5-5.0 1643859792) CL (test code = 105 mmol/L 98-108 9842804663) CO2 TOTAL (test code = 25 mmol/L 23-31 7131232012) AGAP (test code = 7 2-16 2090001390) BUN (test code = 10 mg/dL 7-23 0348738152) GLUCOSE (test code = 126 mg/dL 70-110 H 1088338496) CREATININE (test code = 0.80 mg/dL 0.50-1.04 0448971300) TOTAL BILI (test code = 0.6 mg/dL 0.1-1.2 4264826320) CALCIUM (test code = 8.7 mg/dL 8.6-10.6 3057643893) T PROTEIN (test code = 6.3 g/dL 6.3-8.2 1298316991) ALBUMIN (test code = 3.9 g/dL 3.5-5.0 1330147977) ALK PHOS (test code = 68 U/L 34-122 9841809862) ALTv (test code = 20 U/L 5-35 2-6) AST(SGOT) (test code = 20 U/L 13-40 6143815850) eGFR (test code = 83.7 mL/min/1.73m2 5025422251) BLAINE (test code = BLAINE) Association of [...] tests). Lab Interpretation Abnormal (test code = 44869-6) [facility]. METABOLIC PANEL ([id number])2022-05-24 05:52:48 Test Item Value Reference Range Interpretation Comments NA (test code = 137 mmol/L 135-145 9934693765) K (test code = 4.1 mmol/L 3.5-5.0 0289231628) CL (test code = 105 mmol/L 98-108 7162880905) CO2 TOTAL (test code = 25 mmol/L 23-31 5550927614) AGAP (test code = 7 2-16 1137851079) BUN (test code = 10 mg/dL 7-23 3079442960) GLUCOSE (test code = 126 mg/dL 70-110 H 7414436545) CREATININE (test code = 0.80 mg/dL 0.50-1.04 7140122436) TOTAL BILI (test code = 0.6 mg/dL 0.1-1.0 2197426373) CALCIUM (test code = 8.7 mg/dL 8.6-10.6 4995525061) T PROTEIN (test code = 6.3 g/dL 6.3-8.2 8815345628) ALBUMIN (test code = 3.9 g/dL 3.5-5.0 7996544204) ALK PHOS (test code = 68 U/L 34-122 7518990060) ALTv (test code = 20 U/L 5-35 1742-6) AST(SGOT) (test code = 20 U/L 13-40 2217024576) eGFR (test code = 83.7 mL/min/1.73m2 5286021537) BLAINE (test code = BLAINE) Association of [...] tests). Lab Interpretation Abnormal (test code = 22798-9) [facility] [id number] 05:51:22 Test Item Value Reference Range Interpretation Comments PREG SERUM (test code Negative = 8956949817) BLAINE (test code = BLAINE) Less than 10 IU/L. ?If low titer or ectopic is suspected, resubmit specimen in 48-72 hours. [facility] [id number] 05:51:22 Test Item Value Reference Range Interpretation Comments PREG SERUM (test code Negative = 2539588066) BLAINE (test code = BLAINE) Less than 10 IU/L. ?If low titer or ectopic is suspected, resubmit specimen in 48-72 hours. [facility] [id number] 05:47:26 Test Item Value Reference Range Interpretation Comments WBC (test code = 10.66 See_Comment [Automated 8790-2) message] The sy stem [...] RDW-SD (test code = 39.8 fL 39.0-49.9 82700-0) RDW-CV (test code = 12.4 % 12.0-15.5 788-0) PLT (test code = 274 See_Comment [Automated 777-3) message] The sy stem which generated this result transmitted reference range : 166 - 358 10*3/ ?L. The reference r keerthi was not used to interpret this result as normal/abnormal . MPV (test code = 9.8 fL 9.5-12.9 62608-4) NRBC/100 WBC (test 0.0 See_Comment [Automat ed code = 1402782699) message] The system which generated this result transmitted reference range : 0.0 - 10.0 /100 WBCs. The refer ence range was not u sed to interpret th is result as normal/abnormal . NRBC x10^3 (test code See_Comment [Auto mated = 1964751738) message] The s ystem which generated this result transmitted reference range : 10*3/?L. The reference range was not used to interpret this result as normal/abnormal . GRAN MAT (NEUT) % 68.4 % (test code = 770-8) IMM GRAN % (test code 0.40 % = 0721414728) LYMPH % (test code = 22.7 % 736-9) MONO % (test code = 6.8 % 5905-5) EOS % (test code = 1.3 % 713-8) BASO % (test code = 0.4 % 706-2) GRAN MAT x10^3(ANC) 7.29 10*3/uL 1.88-7.09 H (test code = 8501887803) IMM GRAN x10^3 (test 0.04 10*3/uL 0.00-0.06 code = 3340218420) LYMPH x10^3 (test code 2.42 10*3/uL 1.32-3.29 = 731-0) MONO x10^3 (test code 0.73 10*3/uL 0.33-0.92 = 742-7) EOS x10^3 (test code = 0.14 10*3/uL 0.03-0.39 711-2) BASO x10^3 (test code 0.04 10*3/uL 0.01-0.07 = 704-7) Lab Interpretation Abnormal (test code = 30810-7) [facility] WITH [id number] 05:47:26 Test Item Value Reference Range Interpretation Comments WBC (test code = 10.66 See_Comment [Automated 6690-2) message] The sy stem which generated this result transmitted reference range : 4.30 - 11.10 10*3/?L. The reference range was not used to interpret this result as normal/abnormal . RBC (test code = 4.35 See_Comment [Automated 659-8) message] The sy stem which generated this [...] RDW-SD (test code = 39.8 fL 39.0-49.9 38150-1) RDW-CV (test code = 12.4 % 12.0-15.5 788-0) PLT (test code = 274 See_Comment [Automated 777-3) message] The sy stem which generated this result transmitted reference range : 166 - 358 10*3/ ?L. The reference r keerthi was not used to interpret this result as normal/abnormal . MPV (test code = 9.8 fL 9.5-12.9 26823-4) NRBC/100 WBC (test 0.0 See_Comment [Automat ed code = 3786915810) message] The system which generated this result transmitted reference range : 0.0 - 10.0 /100 WBCs. The refer ence range was not u sed to interpret th is result as normal/abnormal . NRBC x10^3 (test code See_Comment [Auto mated = 5563380654) message] The s ystem which generated this result transmitted reference range : 10*3/?L. The reference range was not used to interpret this result as normal/abnormal . GRAN MAT (NEUT) % 68.4 % (test code = 770-8) IMM GRAN % (test code 0.40 % = 3994460027) LYMPH % (test code = 22.7 % 736-9) MONO % (test code = 6.8 % 5905-5) EOS % (test code = 1.3 % 713-8) BASO % (test code = 0.4 % 706-2) GRAN MAT x10^3(ANC) 7.29 10*3/uL 1.88-7.09 H (test code = 0070328825) IMM GRAN x10^3 (test 0.04 10*3/uL 0.00-0.06 code = 0267931714) LYMPH x10^3 (test code 2.42 10*3/uL 1.32-3.29 = 731-0) MONO x10^3 (test code 0.73 10*3/uL 0.33-0.92 = 742-7) EOS x10^3 (test code = 0.14 10*3/uL 0.03-0.39 711-2) BASO x10^3 (test code 0.04 10*3/uL 0.01-0.07 = 704-7) Lab Interpretation Abnormal (test code = 35679-4) [facility]"
--- NOTE | 2022-09-02 21:39 | ER ---
Nurse's Notes [facility] Name: Elham Moran Age: 32 yrs Sex: Female : 1990 Arrival Date: 09/02/2022 Time: 21:16 Bed 15 Private MD: Diagnosis: Sebaceous cyst;Cutaneous abscess of face Presentation: 09/02 21:32 Chief complaint: Patient states: bump to bridge of nose,onset 3weeks. Patient stated pf1 has been popping the bump approximately every 2 days for the past 3 weeks with pus discharge. 21:32 Coronavirus screen: Vaccine status: Patient reports receiving the 2nd dose of the covid pf1 vaccine. pfizer Client denies travel out of the [place] in the last 14 days. At this time, the client does not indicate any symptoms associated with coronavirus-19. Ebola Screen: Patient negative for fever greater than or equal to 101.5 degrees Fahrenheit, and additional compatible Ebola Virus Disease symptoms. Initial Sepsis Screen: Does the patient meet any 2 criteria? No. Patient's initial sepsis screen is negative. Does the patient have a suspected source of infection? No. Patient's initial sepsis screen is negative. Risk Assessment: Do you want to hurt yourself or someone else? Patient reports no desire to harm self or others. 21:32 Method Of Arrival: Ambulatory pf1 21:32 Acuity: MISSAEL 5 pf1 Historical: - Allergies: 21:35 No Known Allergies; pf1 - PMHx: 21:35 None; pf1 - PSHx: 21:35 section; Elbow; Total abdominal hysterectomy (2018); pf1 - Immunization history:: Adult Immunizations up to date, Client reports receiving the 2nd dose of the Covid vaccine, Last tetanus immunization: < 5 years ago Flu vaccine is not up to date. - Social history:: Smoking status: Patient denies any tobacco usage or history of. Patient/guardian denies using alcohol, street drugs. Screenin:32 [facility] ED Fall Risk Assessment (Adult) History of falling in the last 3 months, pf1 including since admission No falls in past 3 months (0 pts) Confusion or Disorientation No (0 pts) Intoxicated or Sedated No (0 pts) Impaired Gait No (0 pts) Mobility Assist Device Used Yes (1 pt) Altered Elimination No (0 pt) Score/Fall Risk Level 0 - 2 = Low Risk Oriented to surroundings, Maintained a safe environment, Educated pt \T\ family on fall prevention, incl call for assistance when getting out of bed, Assessed \T\ reinforced patient's understanding of fall precautions, Provided non-skid footwear, Hourly rounding (assess needs \T\ fall precautionary measures) done, Used ambulatory aids as needed (educated on \T\ assisted with), Used gait belt as appropriate. 21:32 Abuse screen: Denies threats or abuse. Nutritional screening: No deficits noted. pf1 Tuberculosis screening: No symptoms or risk factors identified. Assessment: 21:32 General: Appears in no apparent distress. comfortable, well groomed, well developed, pf1 Behavior is calm, cooperative, appropriate for age, quiet. 21:32 Pain: Denies pain. Neuro: No deficits noted. Level of Consciousness is awake, alert, pf1 obeys commands, Oriented to person, place, time, situation. Cardiovascular: No deficits noted. Capillary refill < 3 seconds Patient's skin is warm and dry. Respiratory: No deficits noted. Airway is patent Respiratory effort is even, unlabored, Respiratory pattern is regular, symmetrical. GI: No deficits noted. No signs and/or symptoms were reported involving the gastrointestinal system. : No deficits noted. No signs and/or symptoms were reported regarding the genitourinary system. EENT: Reports bump to bridge of nose. Derm: Skin is red, with scant amount of blood noted from bridge of nose. Vital Signs: 21:35 BP 130 / 57; Pulse 84; Resp 18; Temp 98.6; Pulse Ox 100% ; Weight 113.4 kg; Height 5 rv1 ft. 7 in. ; Pain 0/10; 21:35 Body Mass Index 39.16 (113.40 kg, 170.18 cm) rv1 21:35 Pain Scale: Adult rv1 ED Course: 21:20 Patient arrived in ED. es 21:21 Navjot Carrasco MD is Attending Physician. bs3 21:32 Patient has correct armband on for positive identification. Bed in low position. Call pf1 light in reach. 21:32 Arm band placed on right wrist. pf1 21:32 No provider procedures requiring assistance completed. pf1 21:32 Patient did not have IV access during this emergency room visit. pf1 21:38 Staci Emanuel MD is Referral Physician. bs3 09/03 05:17 Triage completed. pf1 Administered Medications: No medications were administered Medication: 09/02 21:32 VIS not applicable for this client. pf1 Outcome: 21:38 Discharge ordered by . bs3 21:49 Discharged to home ambulatory, with family. pf1 21:49 Condition: good 21:49 Discharge instructions given to patient, family, Instructed on discharge instructions, follow up and referral plans. Demonstrated understanding of instructions, follow-up care, medications, Prescriptions given X 1. 21:50 Patient left the ED. pf1 Signatures: Domitila Gloria Brandon, MD MD bs3 Ewelina Feldman RN RN pf1 Madonna Parker rv1
--- NOTE | 2022-09-02 21:39 | EDPHYS ---
Physician Documentation [facility] Name: Elham Moran Age: 32 yrs Sex: Female : 1990 Arrival Date: 09/02/2022 Time: 21:16 Bed 15 Private MD: ED Physician Navjot Carrasco HPI: 09/02 21:35 This 32 yrs old Female presents to ER via Unassigned with complaints of knot bs3 on bridge of nose now bleeding. 21:35 32-year-old female no past pertinent medical history presents with swelling to the bs3 bridge of her nose that started 3 weeks ago it started to come to a head recently, she tried to express something from the wound and Alcaine blood and a little bit of thick discharge she had bleeding and therefore was concerned and came in she denies anything else bothering her she denies any changes in the wound although it got slightly bigger over the past several weeks. Historical: - Allergies: 21:35 No Known Allergies; pf1 - PMHx: 21:35 None; pf1 - PSHx: 21:35 section; Elbow; Total abdominal hysterectomy (2018); pf1 - Immunization history:: Adult Immunizations up to date, Client reports receiving the 2nd dose of the Covid vaccine, Last tetanus immunization: < 5 years ago Flu vaccine is not up to date. - Social history:: Smoking status: Patient denies any tobacco usage or history of. Patient/guardian denies using alcohol, street drugs. ROS: 21:35 Constitutional: Negative for fever, chills bs3 21:35 All other systems are negative. Exam: 21:35 Constitutional: This is a well developed, well nourished patient who is awake, alert, bs3 and in no acute distress. Head/Face: Normocephalic, atraumatic. Eyes: Pupils equal round and reactive to light, extra-ocular motions intact. Lids and lashes normal. ENT: On the bridge of her nose is a soft palpable mass with a small amount of oozing blood no purulent discharge Neck: Trachea midline, no thyromegaly, no neck stiffness Chest/axilla: Normal chest wall appearance and motion. Nontender with no deformity. No lesions are appreciated. Cardiovascular: Regular rate and rhythm with a normal S1 and S2. symmetric pulses in upper extremities Respiratory: Lungs have equal breath sounds bilaterally, clear to auscultation, no respiratory distress Abdomen/GI: Soft, non-tender, no rebound or guarding Skin: Warm, dry with normal turgor. Normal color with no rashes, no lesions, and no evidence of cellulitis. MS/ Extremity: Pulses equal, no cyanosis. Neurovascular intact. Full, normal range of motion. Neuro: Awake and alert, GCS 15, oriented to person, place, time, and situation. Cranial nerves II-XII grossly intact. Motor strength 5/5 in all extremities. Sensory grossly intact. Psych: Awake, alert, with orientation to person, place and time. Behavior, mood, and affect are within normal limits. Vital Signs: 21:35 BP 130 / 57; Pulse 84; Resp 18; Temp 98.6; Pulse Ox 100% ; Weight 113.4 kg; Height 5 rv1 ft. 7 in. ; Pain 0/10; 21:35 Body Mass Index 39.16 (113.40 kg, 170.18 cm) rv1 21:35 Pain Scale: Adult rv1 MDM: 21:21 Patient medically screened. bs3 21:35 Data reviewed: vital signs, nurses notes. ED course: Patient with possible cyst versus bs3 lipoma versus infected cyst or small abscess given the location we will trial antibiotics and warm soaks advised outpatient follow-up with ENT or dermatology return precautions given. Administered Medications: No medications were administered Disposition Summary: 09/02/22 21:38 Discharge Ordered Location: Home bs3 Problem: new bs3 Symptoms: have improved bs3 Condition: Stable bs3 Diagnosis - Sebaceous cyst bs3 - Cutaneous abscess of face bs3 Followup: bs3 - With: Staci Emanuel MD - When: 1 week - Reason: Recheck today's complaints Discharge Instructions: - Discharge Summary Sheet bs3 - Skin Abscess bs3 - Epidermoid Cyst, [id number]-Exhl bs3 Forms: - Medication Reconciliation Form bs3 - Thank You Letter bs3 - Antibiotic Education bs3 - Prescription Opioid Use bs3 Prescriptions: - Bactrim DS 800-160 mg Oral Tablet - take 1 tablet by ORAL route every 12 hours for 7 days; 14 tablet; Refills: 0, bs3 Product Selection Permitted Signatures: Navjot Carrasco MD MD bs3 Ewelina Feldman RN RN pf1
[2022-09-02 21:54] VITALS: BP 130/57; TEMP 98.6; O2SAT 100
== END 2022-09-02 21:50 | disposition home or self-care (01) ==
LOC: ER 21:16
DX: L72.3 Sebaceous cyst (principal); J34.0 Abscess, furuncle and carbuncle of nose
CPT/HCPCS: 99283

== ENCOUNTER 2023-10-27 03:32 | Emergency (ER) | payer SELFPAY ==
--- OUTSIDE RECORDS SUMMARY | 2023-10-27 03:39 | XMS REPORT | Continuity of Care Document ---
Author Name Unknown Address [address] [facility] [address] [place] [address] [facility] thconnect Address [address] [facility] [address] [place] [address] Care Team Providers Care Program Engagement Director Name Role Phone Pcp, Patient Does Not Have A Primary Care Physic casey ALEJANDRO SOLANO Attending Clinician Unavailable ELOISA HARDEN Attending Clinician Unavailkeanu Salvador PA-C, Rafal Attending Clinician [phone] Eloisa Harden MD Attending Clinician [phone] Jayesh Landon MD Attending Clinician [phone] Alejandro Solano MD Attending Clinician [phone] Doctor Unassigned, [place] Attending Clinician U billy Esquivel COMMUNITY DEVELOPMENT COORDINATOR, Sunita A Attending Clinician [phone] Only, Ang Db Test Attending Clinician UnavailLalitha Viveros MD Attending Clinician [phone] LALITHA VENEGAS III Attending Clinician Unavailkeanu berman Service/[place], Surgery C Attending Clinician U Darshan Durham MD Attending Clinician [phone] DARSHAN LAKE Attending Clinician Unavailable LOIS BERMUDEZ Attending Clinician Unavailable Lois Bermudez MD Attending Clinician [phone] Constantin Cabral DO Attending Clinician [phone] Mihai Shine MD Attending Clinician [phone] MAXIMO DAY Attending Clinician Unavailab Magalis Morejon Attending Clinician Onel COLE Ryanchato Killian Attending Clinician [phone] Maximo Day MD Attending Clinician [phone] Rubia Gómez Attending Clinician [phone] RUBIA LOPEZ Attending Clinician Unavailab ALEJANDRO Galdamez Admitting Clinician Unavailable ELOISA HARDEN Admitting Clinician Unavailkeanu Harden MD, Eloisa Young Admitting Clinician [phone] Maximo Day MD Admitting Clinician Payers Payer Name Policy Type Policy Number Effective Date Expirati on Date Source [employer] [place] [employer] [id number] 00:00:00 MEDICAID PENDING PENDING 2022 00:00:00 2022 00:00:00 [facility] NON-CONTRACT [id number] 2021 00:00:00 Problems Condition Name Condition Details Condition Category Status Onset Date Resolution Date Last Treatment Date Treating Clinician Comments Source Pilonidal abscess Pilonidal abscess Disease Active 3- 00:00: 00 [facility] Pilonidal cyst Pilonidal cyst Disease Active 04-03 00:00: 00 Overview: Formattin g of this note might be different from the original. Added automatic ally from request for surgery [id number] [facility] Calculus of gallbladde r and bile duct without cholecysti tis Calculus of gallbladde r and bile duct without cholecysti tis Disease Active 2- 00:00: 00 [facility] Status post laparoscop ic cholecyste ctomy Status post laparoscop ic cholecyste ctomy Disease Active 2- 00:00: 00 [facility] Biliary colic Biliary colic Disease Active 2 00:00: 00 [facility] Vaginal dryness Vaginal dryness Disease Active 12-14 00:00: 00 [facility] H/O total hysterecto my with bilateral salpingo-o ophorectom y (BSO) H/O total hysterecto my with bilateral salpingo-o ophorectom y (BSO) Disease Active 2017-03 1-16 00:00: 00 [facility] History of 3 sections History of 3 sections Disease Active 07-22 00:00: 00 Overview: Formattin g of this note might be different from the original. 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 [facility] Allergies, Adverse Reactions, Alerts Allergy Name Allergy Type Status Severity Reaction(s) Onset Date Inactive Date Treating Clinician Comments Source NO KNOWN ALLERGIE S Drug Class Active [facility] Social History Social Habit Start Date Stop Date Quantity Comments [facility] SARS-CoV-2 (event) 2022-05-13 00:00:00 2022-05-23 22:31:00 Not sure [facility] History of Social function 2021-03-28 00:00:00 2021-03-28 00:00:00 [facility] Cigarettes smoked current (pack per day) - Reported 2019-12-15 00:00:00 2019-12-15 00:00:00 [facility] Cigarette pack-years 2019-12-15 00:00:00 2019-12-15 00:00:00 [facility] Tobacco use and exposure 2019-12-15 00:00:00 2019-12-15 00:00:00 Former smokeless tobacco user [facility] Alcohol intake 2019-12-15 00:00:00 2019-12-15 00:00:00 0 /d [facility] History of tobacco use 2017-02-22 00:00:00 Cigarette Smoker [facility] Sex Assigned At 1990 00:00:00 1990 00:00:00 [facility] Smoking Status Start Date Stop Date Source Ex-smoker 2021-03-28 00:00:00 2021-03-28 00:00:00 [facility] Occasional tobacco smoker 2019-12-15 00:00:00 [facility] Medications Ordered Medication Name Filled Medication Name Start Date Stop Date Current Medication? Ordering Clinician Indication Dosage Frequency Signature (SIG) Comments Components Source HYDROcodone -acetaminop hen (NORCO 5) 5-325 mg tablet 1 tablet 05-24 19:45: 00 05-24 20:12 :00 No 1{tbl} 1 tablet, Oral, ONCE, 1 dose, On Clarita 05/24/22 at 1345, Routine, PACU [facility] HYDROmorphO ne (DILAUDID) injection 0.2 mg 05-24 19:31: 31 Yes .2mg 0.2 mg, Slow IV Push, Q5MIN PRN, 10 doses, Starting on Clarita 05/24/22 at 1331, Until Discontinu ed, Routine, Pain (scale 7-10), PACU
Us e approved by (Faculty): PACU USE -ANESTHESI A SERVICE-HY DROMORPHON E INJECTIONS [facility] FENTanyl PF (SUBLIMAZE (PF)) injection 25 mcg 05-24 19:31: 31 Yes 25ug 25 mcg, Slow IV Push, Q5MIN PRN, 4 doses, Starting on Clarita 05/24/22 at 1331, Until Discontinu ed, Routine, Pain (scale 4-6), PACU [facility] ondansetron (ZOFRAN (PF)) injection 4 mg 05-24 19:31: 31 Yes 4mg 4 mg, Slow IV Push, PRN, 1 dose, Starting on Clarita 05/24/22 at 1331, Until Discontinu ed, Routine, Nausea and Vomiting (N/V), PACU [facility] D5W 0.45% NaCl (1/2NS) 1 L + KCL 20 mEq 05-24 08:00: 00 Yes IV Infusion, at 125 mL/hr, CONTINUOUS , Starting on Clarita 05/24/22 at 0200, Until Discontinu ed, Routine [facility] pantoprazol e (PROTONIX) injection 40 mg 05-24 08:00: 00 05-27 07:59 :00 No 40mg 40 mg, Slow IV Push, Q24H, 3 doses, First dose on Sat05/24/22 at 0200, Last dose on Sat05/26/22 at 0200 [facility] morpHINE (2 mg/mL) injection 2 mg 05-24 07:54: 57 Yes 2mg 2 mg, Slow IV Push, Q4HPRN, Starting on Sat05/24/22 at 0154, Until Discontinu ed, Routine, Breakthrou gh pain [facility] acetaminoph en ADULT (OFIRMEV) injection 1,000 mg 05-24 07:54: 48 05-25 07:53 :48 No 1000mg 1,000 mg, IV Infusion, at 400 mL/hr Administer over 15 Minutes, Q8HPRN, Starting on Sat05/24/22 at 0154, Until Sat05/25/22 at 0153, Routine, Pain (scale 1-3)
In dication: Perioperat mack Patient [facility] HYDROcodone -acetaminop hen (NORCO) 10-325 mg tablet 1 tablet 05-24 06:00: 00 05-24 05:17 :00 No 1{tbl} 1 tablet, Oral, ONCE, 1 dose, On Sat05/24/22 at 0000, Routine [facility] piperacilli n-tazobacta m (ZOSYN) 3.375 g in NaCl 0.9% (NS) 100 mL MINI-BAG 05-24 05:30: 00 05-24 06:20 :00 No 3.375g 3.375 g, IV Piggyback, ONCE, 1 dose, On Sat05/23/22 at 2330, Administer over 30 Minutes, 100 mL
Reas on for Anti-Infec tive: Documented Infection< br>Documen mirta Infection Site: Skin / Soft Tissue
Duration of Therapy: 7 days [facility] acetaminoph en (TYLENOL) tablet 650 mg 05-24 05:00: 00 05-24 05:41 :00 No 650mg 650 mg, Oral, ONCE, 1 dose, On Sat05/23/22 at 2300, LADI [facility] traMADoL 50 mg tablet 05-24 00:00: 00 05-24 00:00 :00 No [id number] 50mg Take 1 tablet by mouth every 6 (six) hours as needed for Pain (scale 7-10). Indication s: acute pain [facility] amoxicillin -clavulanat e (AUGMENTIN) 875-125 mg per tablet 05-24 00:00: 00 05-24 00:00 :00 No [id number] 1{tbl} Take 1 tablet by mouth in the morning and 1 tablet in the evening. Do all this for 7 days. [facility] doxycycline hyclate 100 mg capsule 03-25 00:00: 00 Yes [id number] 100mg Take 1 capsule by mouth 2 (two) times daily. [facility] HYDROcodone -acetaminop hen 5-325 mg tablet 03-25 00:00: 00 Yes [id number] 1{tbl} Take 1-2 tablets by mouth every 6 (six) hours as needed for Pain (scale 1-3). Indication s: acute pain [facility] acetaminoph en 325 mg Cap 04-27 00:00: 00 Yes [id number] 650mg Take 650 mg by mouth every 6 (six) hours as needed for Pain (scale 1-3) or Pain (scale 4-6). [facility] ibuprofen 600 mg tablet 04-27 00:00: 00 Yes [id number] 600mg Take 1 tablet by mouth every 6 (six) hours as needed for Pain (scale 1-3) or Pain (scale 4-6) (Alternate with acetaminop hen for mild-moder ate pain). [facility] estradioL 0.01 % (0.1 mg/gram) vaginal cream 12-14 00:00: 00 Yes [id number] 2g Insert 2 g into vagina weekly. [facility] ascorbic acid, vitamin C, 500 mg tablet 12-14 00:00: 00 Yes [id number] 500mg Take 1 tablet by mouth 3 (three) times daily. [facility] ergocalcife rol, vitamin d2, 1,250 mcg (50,000 unit) capsule 12-14 00:00: 00 Yes [id number] 16094I Take 1 capsule by mouth weekly. [facility] Immunizations Ordered Immunization Name Filled Immunization Name Date Status Comments Source TDAP 2019-11-09 00:00:00 Completed [facility] Influenza Virus Vaccine Quad .5 mL IM 6+ MO 2019-11-09 00:00:00 Completed [facility] TDAP 2019-11-09 00:00:00 Completed [facility] Influenza Virus Vaccine Quad .5 mL IM 6+ MO 2019-11-09 00:00:00 Completed [facility] TDAP 2019-11-09 00:00:00 Completed [facility] Influenza Virus Vaccine Quad .5 mL IM 6+ MO 2019-11-09 00:00:00 Completed [facility] TDAP Unknown Completed [facility] Influenza Virus Vaccine Quad .5 mL IM 6+ MO (FLUZONE/FLULAVAL/F LUARIX) Unknown Completed [facility] TDAP Unknown Completed [facility] Influenza Virus Vaccine Quad .5 mL IM 6+ MO (FLUZONE/FLULAVAL/F LUARIX) Unknown Completed [facility] TDAP Unknown Completed [facility] Influenza Virus Vaccine Quad .5 mL IM 6+ MO (FLUZONE/FLULAVAL/F LUARIX) Unknown Completed [facility] Vital Signs Vital Name Observation Time Observation Value Comments S shala Systolic blood pressure 2022-05-24 22:00:00 112 mm[Hg] [facility] Diastolic blood pressure 2022-05-24 22:00:00 68 mm[Hg] [facility] Respiratory rate 2022-05-24 22:00:00 16 /min [facility] Oxygen saturation in Arterial blood by Pulse oximetry 2022-05-24 22:00:00 96 /min [facility] Heart rate 2022-05-24 19:52:00 93 /min [facility] Body temperature 2022-05-24 19:52:00 36 Bhavya [facility] Body weight 2022-05-24 04:36:00 113.399 kg [facility] BMI 2022-05-24 04:36:00 38.02 kg/m2 [facility] Systolic blood pressure 2022-05-24 14:41:00 116 mm[Hg] [facility] Diastolic blood pressure 2022-05-24 14:41:00 74 mm[Hg] [facility] Heart rate 2022-05-24 14:41:00 72 /min [facility] Body temperature 2022-05-24 14:41:00 35.61 Bhavya [facility] Respiratory rate 2022-05-24 14:41:00 18 /min [facility] Oxygen saturation in Arterial blood by Pulse oximetry 2022-05-24 14:41:00 100 /min [facility] Body weight 2022-05-24 04:36:00 113.399 kg [facility] BMI 2022-05-24 04:36:00 38.02 kg/m2 [facility] Systolic blood pressure 2021-04-03 15:19:00 105 mm[Hg] [facility] Diastolic blood pressure 2021-04-03 15:19:00 68 mm[Hg] [facility] Heart rate 2021-04-03 15:19:00 80 /min [facility] Body temperature 2021-04-03 15:19:00 36.83 Bhavya [facility] Respiratory rate 2021-04-03 15:19:00 20 /min [facility] Body height 2021-04-03 15:19:00 172.7 cm [facility] Body weight 2021-04-03 15:19:00 106.867 kg [facility] BMI 2021-04-03 15:19:00 35.82 kg/m2 [facility] Oxygen saturation in Arterial blood by Pulse oximetry 2021-04-03 15:19:00 98 /min [facility] Procedures Procedure Date / Time Performed Performing Clinicia n Source INCISION AND DRAINAGE BUTTOCK 2022-05-24 18:38:00 Jayesh Landon [facility] BASIC METABOLIC PANEL (NA, K, CL, CO2, GLUCOSE, BUN, CREATININE, CA) 2022-05-24 12:25:00 [facility] BASIC METABOLIC PANEL (NA, K, CL, CO2, GLUCOSE, BUN, CREATININE, CA) 2022-05-24 12:25:00 [facility] TEST, SERUM 2022-05-24 05:24:00 Ebony Salvador [facility] COMP. METABOLIC PANEL ([id number]) 2022-05-24 05:24:00 Rafal Salvador [facility] CBC WITH DIFF 2022-05-24 05:24:00 Rafal Salvador [facility] TEST, SERUM 2022-05-24 05:24:00 Ebony Salvador [facility] COMP. METABOLIC PANEL ([id number]) 2022-05-24 05:24:00 Rafal Salvador [facility] CBC WITH DIFF 2022-05-24 05:24:00 Rafal Salvador [facility] CONSENT/REFUSAL FOR DIAGNOSIS AND TREATMENT 2022-05-24 04:26:35 Doctor Unassigned, [place] [facility] CONSENT/REFUSAL FOR DIAGNOSIS AND TREATMENT 2022-05-24 04:26:35 Doctor Unassigned, [place] [facility] Encounters Start Date/Time End Date/Time Encounter Type Admission Type Attending [facility] Facility Care Department Encounter ID Source 2021-04-06 14:17:13 Outpatient ALEJANDRO BLOOM [facility] [id number] [facility] 2021-01-21 21:11:00 Emergency [facility] [id number] [facility] 2021-01-21 01:51:26 Emergency [facility] [id number] [facility] 2022-05-23 22:41:00 2022-05-24 16:05:00 Outpatient ELOISA PARISI [facility] [id number] [facility] 2022-05-23 22:41:00 2022-05-24 16:05:00 Emergency Rafal Salvador Diana [facility] 1.2840.114 350.1.13.10 4.2.7.2.686 [id number] [facility] 2022-05-24 10:43:00 2022-05-24 12:19:00 Surgery Jayesh Landon [facility] 1.2840.114 350.1.13.10 4.2.7.2.686 [id number] [facility] 2021-04-15 09:00:00 2021-04-15 09:00:00 Outpatient R ALEJANDRO SOLANO [facility] [id number] [facility] 2021-04-03 09:00:00 2021-04-03 09:28:54 Outpatient R ALEJANDRO SOLANO [facility] [id number] [facility] 2021-04-03 09:00:00 2021-04-03 09:28:54 Office Visit Alejandro Solano [facility] 1.2840.114 350.1.13.10 4.2.7.2.686 [id number] [facility] 2021-04-03 09:00:00 2021-04-03 09:28:54 Outpatient R ALEJANDRO SOLANO [facility] [id number] [facility] 2021-04-03 09:00:00 2021-04-03 09:28:54 Outpatient R ALEJANDRO SOLANO [facility] [id number] [facility] 2021-04-03 00:00:00 2021-04-03 00:00:00 Orders Only Doctor Unassigned, [place] [facility] 1.2840.114 350.1.13.10 4.2.7.2.686 [id number] [facility] 2021-04-03 00:00:00 2021-04-03 00:00:00 Letter (Out) [facility] 1.2.840.114 350.1.13.10 4.2.7.2.686 [id number] [facility] 2021-04-03 00:00:00 2021-04-03 00:00:00 Prep For Surgery [facility] Esquivel [facility] 1.2.840.114 350.1.13.10 4.2.7.2.686 [id number] [facility] 2021-03-29 10:15:00 2021-03-29 10:15:00 Laboratory Only Only, Ang Rommel Velasco [place] Lalitha Napoles [facility] 1.2.840.114 350.1.13.10 4.2.7.2.686 [id number] [facility] 2021-03-29 10:15:00 2021-03-29 10:12:34 Outpatient R LALITHA VENEGAS III [facility] [id number] [facility] 2021-03-29 10:15:00 2021-03-29 10:12:34 Outpatient R LALITHA VENEGAS III [facility] [id number] [facility] 2021-03-28 10:45:00 2021-03-28 11:39:27 Office Visit Service/Gen surg, [facility] 1..840.114 350.1.13.10 4.2.7.2.686 [id number] [facility] 2021-03-28 10:45:00 2021-03-28 11:39:27 Outpatient R EBONY LAKESHUA [facility] [id number] [facility] 2021-03-28 10:45:00 2021-03-28 11:39:27 [facility] [id number] 2021-03-28 10:45:00 2021-03-28 10:45:00 Outpatient R PERSONDARSHAN [facility] [id number] [facility] 2021-03-27 00:00:00 2021-03-27 00:00:00 Patient Secure Msg Doctor Unassigned, [place] [facility] 1..114 350.1.13.10 4.2.7.2.686 [id number] [facility] 2021-03-25 13:47:00 2021-03-25 16:01:00 Emergency X LOIS BERMUDEZ [facility] [id number] [facility] 2021-03-25 13:47:00 2021-03-25 16:01:00 Emergency Lois Bermudez [facility] 1.114 350.1.13.10 4.2.7.2.686 [id number] [facility] 2021-03-25 13:47:00 2021-03-25 16:01:00 Emergency X LOIS BERMUDEZ [facility] ERT [id number] [facility] 2021-03-25 13:47:00 2021-03-25 16:01:00 Emergency Janneth LOIS BERMUDEZ [facility] E[facility] [id number] [facility] 2020-06-14 00:00:00 2020-06-14 00:00:00 Patient Outreach Constantin Cabral [facility] 1.114 350.1.13.10 4.2.7.2.686 [id number] [facility] 2020-05-19 00:00:00 2020-05-19 00:00:00 Patient Secure Msg Doctor Unassigned, [place] [facility] 1.114 350.1.13.10 4.2.7.2.686 [id number] [facility] 2020-05-17 11:15:00 2020-05-17 11:15:00 Outpatient R PERSONEBONYDARSHAN [facility] [id number] [facility] 2020-05-17 11:15:00 2020-05-17 11:15:00 Outpatient Teressa DARSHAN [place] [facility] [id number] [facility] 2020-04-26 08:40:00 2020-04-27 17:30:00 Emergency Shine, Eloisa [facility] 1.114 350.1.13.10 4.2.7.2.686 [id number] [facility] 2020-04-26 08:40:00 2020-04-27 17:30:00 Outpatient X DERECK ELOISA [facility] [id number] [facility] 2020-02-02 10:30:00 2020-02-02 10:30:00 Outpatient MAXIMO SHEA [facility] [id number] [facility] 2020-01-26 00:00:00 2020-01-26 00:00:00 Transition of Care [place] Magalis Shearjosafat [facility] 1..114 350.1.13.10 4.2.7.2.686 [id number] [facility] 2020-01-21 12:43:00 2020-01-24 12:56:00 Hospital Encounter Kapil Sykes [facility] 1..114 350.1.13.10 4.2.7.2.686 [id number] [facility] 2019-12-18 00:00:00 2019-12-18 00:00:00 Patient Secure Msg Doctor Unassigned, [place] [facility] 1..114 350.1.13.10 4.2.7.2.686 [id number] [facility] 2019-12-15 08:48:26 2019-12-15 10:18:11 Office Visit Rubia Lopez [facility] 1.2.840.114 350.1.13.10 4.2.7.2.686 [id number] [facility] 2019-12-15 08:45:00 2019-12-15 08:45:00 Outpatient R ANA LOPEZALISA [facility] [id number] [facility] 2019-12-15 00:00:00 2019-12-15 00:00:00 Orders Only Doctor Unassigned, [place] [facility] 1.2.840.114 350.1.13.10 4.2.7.2.686 [id number] [facility] 2019-12-15 00:00:00 2019-12-15 00:00:00 Maeve Jose G Rubia [facility] 1..840.114 350.1.13.10 4.2.7.2.686 [id number] [facility] 2018-06-24 13:00:00 2018-06-24 13:00:00 [facility] [id number] [facility] Results Test Description Test Time Test Comments Results Result Co mments [facility] (NA, K, CL, CO2, Glucose, BUN, Creatinine, CA)2022-05-24 12:50:13* Test Item Value Reference Range Interpretation Comme nts NA (test code = 9466439510) 142 mmol/L 135-145 K (test code = 1579932338) 4.4 mmol/L 3.5-5.0 CL (test code = 2739788406) 106 mmol/L 98-108 CO2 TOTAL (test code = 5654632965) 29 mmol/L 23-31 AGAP (test code = 3091223919) 7 2-16 BUN (test code = 9632579919) 8 mg/dL 7-23 GLUCOSE (test code = 2328502094) 121 mg/dL 70-110 H CREATININE (test code = 0358995957) 0.74 mg/dL 0.50-1.04 CALCIUM (test code = 7016912566) 8.8 mg/dL 8.6-10.6 eGFR (test code = 6435991690) 91.5 mL/min/1.73m2 BLAINE (test code = BLAINE) [...] imaging tests). Lab Interpretation (test code = 81705-3) Abnormal [facility]. METABOLIC PANEL ([id number])2022-05-24 05:52:48* Test Item Value Reference Range Interpretation Comme nts NA (test code = 0174030145) 137 mmol/L 135-145 K (test code = 3129861325) 4.1 mmol/L 3.5-5.0 CL (test code = 3793508965) 105 mmol/L 98-108 CO2 TOTAL (test code = 8083540834) 25 mmol/L 23-31 AGAP (test code = 4218130964) 7 2-16 BUN (test code = 6488238573) 10 mg/dL 7-23 GLUCOSE (test code = 5169466527) 126 mg/dL 70-110 H CREATININE (test code = 2714460869) 0.80 mg/dL 0.50-1.04 TOTAL BILI (test code = 2458866296) 0.6 mg/dL 0.1-1.1 CALCIUM (test code = 0634569476) 8.7 mg/dL 8.6-10.6 T PROTEIN (test code = 5077713313) 6.3 g/dL 6.3-8.2 ALBUMIN (test code = 7908730360) 3.9 g/dL 3.5-5.0 ALK PHOS (test code = 5520370763) 68 U/L 34-122 ALTv (test code = 1742-6) 20 U/L 5-35 AST(SGOT) (test code = 1776206039) 20 U/L 13-40 eGFR (test code = 7801651105) 83.7 mL/min/1.73m2 BLAINE (test code = BLAINE) Association [...] imaging tests). Lab Interpretation (test code = 78335-7) Abnormal [facility]. METABOLIC PANEL (07589)2022-05-24 05:52:48* Test Item Value Reference Range Interpretation Comme nts NA (test code = 2882130663) 137 mmol/L 135-145 K (test code = 1129928129) 4.1 mmol/L 3.5-5.0 CL (test code = 7328911837) 105 mmol/L 98-108 CO2 TOTAL (test code = 0097598108) 25 mmol/L 23-31 AGAP (test code = 9810523557) 7 2-16 BUN (test code = 6551554726) 10 mg/dL 7-23 GLUCOSE (test code = 0518042309) 126 mg/dL 70-110 H CREATININE (test code = 5399859585) 0.80 mg/dL 0.50-1.04 TOTAL BILI (test code = 6978333225) 0.6 mg/dL 0.1-1.1 CALCIUM (test code = 9569812737) 8.7 mg/dL 8.6-10.6 T PROTEIN (test code = 4503187859) 6.3 g/dL 6.3-8.2 ALBUMIN (test code = 1733633154) 3.9 g/dL 3.5-5.0 ALK PHOS (test code = 6848753252) 68 U/L 34-122 ALTv (test code = 1742-6) 20 U/L 5-35 AST(SGOT) (test code = 1761504109) 20 U/L 13-40 eGFR (test code = 6418834329) 83.7 mL/min/1.73m2 BLAINE (test code = BLAINE) Association [...] imaging tests). Lab Interpretation (test code = 88932-1) [facility] TEST, [id number] 05:51:22* Test Item Value Reference Range Interpretation Comme nts PREG SERUM (test code = 5566808041) Negative BLAINE (test code = BLAINE) Less than 10 IU/L. ?If low titer or ectopic is suspected, resubmit specimen in 48-72 hours. [facility] [id number] 05:51:22* Test Item Value Reference Range Interpretation Comme nts PREG SERUM (test code = 7944118730) Negative BLAINE (test code = BLAINE) Less than 10 IU/L. ?If low titer or ectopic is suspected, resubmit specimen in 48-72 hours. [facility] [id number] 05:47:26* Test Item Value Reference Range Interpretation Comme nts WBC (test code = 6690-2) 10.66 See_Comment [Automated Chunk Moto] The system which generated this result transmitted reference range: 4.30 - 11.10 10*3/?L. The reference range was not used to interpret this result as normal/abnormal. RBC (test code = 789-8) 4.35 See_Comment [Automated messa ge] The system which generated this result transmitted reference range: 3.93 - 5.25 10*6/?L. The reference range was not used to interpret this result as normal/abnormal. HGB (test code = 718-7) 12.6 g/dL 11.6-15.0 HCT (test code = 4544-3) 38.0 % 35.7-45.2 MCV (test code = 787-2) 87.4 fL 80.6-95.5 MCH (test code = 785-6) 29.0 pg 25.9-32.8 MCHC (test code = 786-4) 33.2 g/dL 31.6-35.1 RDW-SD (test code = 66350-0) 39.8 fL 39.0-49.9 RDW-CV (test code = 788-0) 12.4 % 12.0-15.5 PLT (test code = 777-3) 274 See_Comment [Automated messa ge] The system which generated this result transmitted reference range: 166 - 358 10*3/?L. The reference range was not used to interpret this result as normal/abnormal. MPV (test code = 66532-3) 9.8 fL 9.5-12.9 NRBC/100 WBC (test code = 6271720046) 0.0 See_Comment [Automated Skinf[employer] ssage] The system which generated this result transmitted reference range: 0.0 - 10.0 /100 WBCs. The reference range was not used to interpret this result as normal/abnormal. NRBC x10^3 (test code = 0019012724) See_Comment [Automated messa ge] The system which generated this result transmitted reference range: 10*3/?L. The reference range was not used to interpret this result as normal/abnormal. GRAN MAT (NEUT) % (test code = 770-8) 68.4 % IMM GRAN % (test code = 5576258865) 0.40 % LYMPH % (test code = 736-9) 22.7 % MONO % (test code = 5905-5) 6.8 % EOS % (test code = 713-8) 1.3 % BASO % (test code = 706-2) 0.4 % GRAN MAT x10^3(ANC) (test code = 5648708082) 7.29 10*3/uL 1.88-7.09 H IMM GRAN x10^3 (test code = 5849860970) 0.04 10*3/uL 0.00-0.06 LYMPH x10^3 (test code = 731-0) 2.42 10*3/uL 1.32-3.29 MONO x10^3 (test code = 742-7) 0.73 10*3/uL 0.33-0.92 EOS x10^3 (test code = 711-2) 0.14 10*3/uL 0.03-0.39 BASO x10^3 (test code = 704-7) 0.04 10*3/uL 0.01-0.07 Lab Interpretation (test code = 38378-4) Abnormal [facility] WITH [id number] 05:47:26* Test Item Value Reference Range Interpretation Comme nts WBC (test code = 6690-2) 10.66 See_Comment [Automated Applixa ge] The system which generated this result transmitted reference range: 4.30 - 11.10 10*3/?L. The reference range was not used to interpret this result as normal/abnormal. RBC (test code = 789-8) 4.35 See_Comment [Automated Applixa ge] The system which generated this result transmitted reference range: 3.93 - 5.25 10*6/?L. The reference range was not used to interpret this result as normal/abnormal. HGB (test code = 718-7) 12.6 g/dL 11.6-15.0 HCT (test code = 4544-3) 38.0 % 35.7-45.2 MCV (test code = 787-2) 87.4 fL 80.6-95.5 MCH (test code = 785-6) 29.0 pg 25.9-32.8 MCHC (test code = 786-4) 33.2 g/dL 31.6-35.1 RDW-SD (test code = 77465-6) 39.8 fL 39.0-49.9 RDW-CV (test code = 788-0) 12.4 % 12.0-15.5 PLT (test code = 777-3) 274 See_Comment [Automated messa ge] The system which generated this result transmitted reference range: 166 - 358 10*3/?L. The reference range was not used to interpret this result as normal/abnormal. MPV (test code = 43668-8) 9.8 fL 9.5-12.9 NRBC/100 WBC (test code = 1177918589) 0.0 See_Comment [Automated [employer] ssage] The system which generated this result transmitted reference range: 0.0 - 10.0 /100 WBCs. The reference range was not used to interpret this result as normal/abnormal. NRBC x10^3 (test code = 7875673654) See_Comment [Automated messa ge] The system which generated this result transmitted reference range: 10*3/?L. The reference range was not used to interpret this result as normal/abnormal. GRAN MAT (NEUT) % (test code = 770-8) 68.4 % IMM GRAN % (test code = 9444943068) 0.40 % LYMPH % (test code = 736-9) 22.7 % MONO % (test code = 5905-5) 6.8 % EOS % (test code = 713-8) 1.3 % BASO % (test code = 706-2) 0.4 % GRAN MAT x10^3(ANC) (test code = 8684328933) 7.29 10*3/uL 1.88-7.09 H IMM GRAN x10^3 (test code = 5429437639) 0.04 10*3/uL 0.00-0.06 LYMPH x10^3 (test code = 731-0) 2.42 10*3/uL 1.32-3.29 MONO x10^3 (test code = 742-7) 0.73 10*3/uL 0.33-0.92 EOS x10^3 (test code = 711-2) 0.14 10*3/uL 0.03-0.39 BASO x10^3 (test code = 704-7) 0.04 10*3/uL 0.01-0.07 Lab Interpretation (test code = 66479-0) Abnormal [facility]"
[2023-10-27] MEDS ORDERED: LIDOCAINE 1% 20 ML MDV ONE (03:57)
[2023-10-27] MEDS ORDERED: ONDANSETRON 4 MG (ODT) TAB ONE (03:58)
[2023-10-27] MEDS ORDERED: HYDROCODONE/APAP 10/325 TAB ONE (03:58)
[2023-10-27] MEDS ORDERED: IBUPROFEN 400 MG TAB ONE (03:58)
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
--- NOTE | 2023-10-28 12:46 | RAD REPORT ---
EXAM DESCRIPTION: CT - Head Brain Wo Cont - 10/27/2023 6:44 am CLINICAL HISTORY: The patient is 38 years old and is Female; SEIZURE TECHNIQUE: Axial computed tomography images of the head/brain without intravenous contrast. Sagitt al and coronal reformatted images were created and reviewed. This CT exam was performed using one o r more of the following dose reduction techniques: automated exposure control, adjustment of the mA and/or kV according to patient size, and/or use of iterative reconstruction technique. COMPARISON: No relevant prior studies available. FINDINGS: Brain: Unremarkable. No hemorrhage. No significant white matter disease. No edema. Ventricles: Unremarkable. No ventriculomegaly. Bones/joints: Unremarkable. No acute skull fracture. Soft tissues: Unremarkable. Sinuses: Unremarkable as visualized. No acute sinusitis. Mastoid air cells: No significant mastoid fluid. IMPRESSION: No acute intracranial findings. No hemorrhage. Electronically signed by: Jaqui Abreu MD 03/10/2023 06:05 AM PROFILER HAND Due to temporary technical issues with the PACS/Fluency reporting system, reports are being signed by the in house radiologist without review as a courtesy to ensure prompt reporting. The interpreting r adiologist is fully responsible for the content of the report.
--- NOTE | 2023-10-28 12:49 | RAD REPORT ---
EXAM DESCRIPTION: CT - Facial Bones W/ Mpr - 10/27/2023 6:44 am CLINICAL HISTORY: The patient is 38 years old and is Female; SEIZURE TECHNIQUE: Axial computed tomography images of the head/brain without intravenous contrast. Sagitt al and coronal reformatted images were created and reviewed. This CT exam was performed using one o r more of the following dose reduction techniques: automated exposure control, adjustment of the mA and/or kV according to patient size, and/or use of iterative reconstruction technique. COMPARISON: No relevant prior studies available. FINDINGS: Brain: Unremarkable. No hemorrhage. No significant white matter disease. No edema. Ventricles: Unremarkable. No ventriculomegaly. Bones/joints: Unremarkable. No acute skull fracture. Soft tissues: Unremarkable. Sinuses: Unremarkable as visualized. No acute sinusitis. Mastoid air cells: No significant mastoid fluid. IMPRESSION: No acute intracranial findings. No hemorrhage. Electronically signed by: Jaqui Abreu MD 03/10/2023 06:05 AM STEWARD/STEWARDESS WINE Due to temporary technical issues with the PACS/Fluency reporting system, reports are being signed by the in house radiologist without review as a courtesy to ensure prompt reporting. The interpreting r adiologist is fully responsible for the content of the report.
== END 2023-10-27 05:45 | disposition home or self-care (01) ==
LOC: ER 03:32
PROC: 0HQ1XZZ Repair Face Skin, External Approach (ICD-10-PCS; principal; 2023-10-27)
DX: S01.112A Laceration without foreign body of left eyelid and periocular area, initial encounter (principal); Y04.8XXA Assault by other bodily force, initial encounter
CPT/HCPCS: 12011; 70450; 70486; 76377; 99284; J2001; Q0162

== ENCOUNTER 2023-11-05 17:41 | Emergency (ER) | payer SELFPAY ==
--- OUTSIDE RECORDS SUMMARY | 2023-11-05 17:45 | XMS REPORT | Continuity of Care Document ---
Author Name Unknown Address [address] [facility] [address] [place] [address] [facility] thconnect Address [address] [facility] [address] [place] [address] Care Team Providers Care Leather Carver Name Role Phone Pcp, Patient Does Not Have A Primary Care Physic casey ALEJANDRO SOLANO Attending Clinician Unavailable ELOISA HARDEN Attending Clinician Unavailkeanu Salvador PA-C, Rafal Attending Clinician [phone] Eloisa Harden MD Attending Clinician [phone] Jayesh Landon MD Attending Clinician [phone] Alejandro Solano MD Attending Clinician [phone] Doctor Unassigned, Yeoman Attending Clinician U billy Esquivel CHIN STRAP MAKER, Sunita A Attending Clinician [phone] Only, Ang Db Test Attending Clinician UnavailLalitha Viveros MD Attending Clinician [phone] LALITHA VENEGAS III Attending Clinician Unavailkeanu berman Service/[place], Surgery C Attending Clinician U Darshan Durham MD Attending Clinician [phone] DARSHAN LAKE Attending Clinician Unavailable LOIS BERMUDEZ Attending Clinician Unavailable Lois Bermudez MD Attending Clinician [phone] Constantin Cabral DO Attending Clinician [phone] Mihai Shine MD Attending Clinician MAXIMO DAY Attending Clinician Unavailab Magalis Morejon Attending Clinician [phone] Onel COLE Ryanchato Killian Attending Clinician Maximo Day MD Attending Clinician Rubia Gómez Attending Clinician [phone] RUBIA LOPEZ Attending Clinician Unavailab ALEJANDRO Galdamez Admitting Clinician Unavailable ELOISA HARDEN Admitting Clinician Unavailkeanu Harden MD, Eloisa Young Admitting Clinician [phone] Maximo Day MD Admitting Clinician [phone] Payers Payer Name Policy Type Policy Number Effective Date Expirati on Date Source [employer] [place] [employer] [id number] 00:00:00 MEDICAID PENDING PENDING 2022 00:00:00 2022 00:00:00 [facility] NON-CONTRACT [id number] 2021 00:00:00 Problems Condition Name Condition Details Condition Category Status Onset Date Resolution Date Last Treatment Date Treating Clinician Comments Source Pilonidal abscess Pilonidal abscess Disease Active 3- 00:00: 00 [facility] Pilonidal cyst Pilonidal cyst Disease Active 04-03 00:00: 00 Overview: Formattin g of this note might be different from the original. Added automatic ally from request for surgery [id number] [facility] Calculus of gallbladde r and bile duct without cholecysti tis Calculus of gallbladde r and bile duct without cholecysti tis Disease Active 2- 00:00: 00 [facility] Status post laparoscop ic cholecyste ctomy Status post laparoscop ic cholecyste ctomy Disease Active 2- 00:00: 00 [facility] Biliary colic Biliary colic Disease Active 2 00:00: 00 [facility] Vaginal dryness Vaginal dryness Disease Active 12-14 00:00: 00 [facility] H/O total hysterecto my with bilateral salpingo-o ophorectom y (BSO) H/O total hysterecto my with bilateral salpingo-o ophorectom y (BSO) Disease Active 2017-03 1-16 00:00: 00 [facility] History of 3 sections History of 3 sections Disease Active 07-22 00:00: 00 Overview: Formattin g of this note might be different from the original. x3 [facility] History of asthma History of asthma Disease Active 07-22 00:00: 00 [facility] Pilonidal abscess of kylah cleft Pilonidal abscess of kylah cleft Diagnosis Active [facility] Allergies, Adverse Reactions, Alerts Allergy Name Allergy Type Status Severity Reaction(s) Onset Date Inactive Date Treating Clinician Comments Source NO KNOWN ALLERGIE S Drug Class Active [facility] Social History Social Habit Start Date Stop Date Quantity Comments Source [facility] to SARS-CoV-2 (event) 2022-05-13 00:00:00 2022-05-23 22:31:[address] [facility] History of Social function 2021-03-28 00:00:00 2021-03-28 00:00:00 [facility] Cigarettes smoked current (pack per day) - Reported 2019-12-15 00:00:00 2019-12-15 00:00:00 [facility] Cigarette pack-years 2019-12-15 00:00:00 2019-12-15 00:00:00 [facility] Tobacco use and exposure 2019-12-15 00:00:00 2019-12-15 00:00:[address]eless tobacco user [facility] Alcohol intake 2019-12-15 00:00:00 2019-12-15 00:00:00 0 /d [facility] History of tobacco use 2017-02-22 00:00:[address] [facility] Sex Assigned At 1990 00:00:00 1990 00:00:00 [facility] Smoking Status Start Date Stop Date Source Ex-smoker 2021-03-28 00:00:00 2021-03-28 00:00:00 [facility] Occasional tobacco smoker 2019-12-15 00:00:00 [facility] Medications Ordered Medication Name Filled Medication Name Start Date Stop Date Current Medication? Ordering Clinician Indication Dosage Frequency Signature (SIG) Comments Components Source HYDROcodone -acetaminop hen (NORCO 5) 5-325 mg tablet 1 tablet 05-24 19:45: 00 05-24 20:12 :00 No 1{tbl} 1 tablet, Oral, ONCE, 1 dose, On Clarita 05/24/22 at 1345, Routine, PACU [facility] HYDROmorphO ne (DILAUDID) injection 0.2 mg 05-24 19:31: 31 Yes .2mg 0.2 mg, Slow IV Push, Q5MIN PRN, 10 doses, Starting on Clarita 05/24/22 at 1331, Until Discontinu ed, Routine, Pain (scale 7-10), PACU
Us e approved by (Faculty): PACU USE -ANESTHESI A SERVICE-HY DROMORPHON E INJECTIONS [facility] FENTanyl PF (SUBLIMAZE (PF)) injection 25 mcg 05-24 19:31: 31 Yes 25ug 25 mcg, Slow IV Push, Q5MIN PRN, 4 doses, Starting on Clarita 05/24/22 at 1331, Until Discontinu ed, Routine, Pain (scale 4-6), PACU [facility] ondansetron (ZOFRAN (PF)) injection 4 mg 05-24 19:31: 31 Yes 4mg 4 mg, Slow IV Push, PRN, 1 dose, Starting on Clarita 05/24/22 at 1331, Until Discontinu ed, Routine, Nausea and Vomiting (N/V), PACU [facility] D5W 0.45% NaCl (1/2NS) 1 L + KCL 20 mEq 05-24 08:00: 00 Yes IV Infusion, at 125 mL/hr, CONTINUOUS , Starting on Clarita 05/24/22 at 0200, Until Discontinu ed, Routine [facility] pantoprazol e (PROTONIX) injection 40 mg 05-24 08:00: 00 05-27 07:59 :00 No 40mg 40 mg, Slow IV Push, Q24H, 3 doses, First dose on Sat05/24/22 at 0200, Last dose on Sat05/26/22 at 0200 [facility] morpHINE (2 mg/mL) injection 2 mg 05-24 07:54: 57 Yes 2mg 2 mg, Slow IV Push, Q4HPRN, Starting on Sat05/24/22 at 0154, Until Discontinu ed, Routine, Breakthrou gh pain [facility] acetaminoph en ADULT (OFIRMEV) injection 1,000 mg 05-24 07:54: 48 05-25 07:53 :48 No 1000mg 1,000 mg, IV Infusion, at 400 mL/hr Administer over 15 Minutes, Q8HPRN, Starting on Sat05/24/22 at 0154, Until Sat05/25/22 at 0153, Routine, Pain (scale 1-3)
In dication: Perioperat mack Patient [facility] HYDROcodone -acetaminop hen (NORCO) 10-325 mg tablet 1 tablet 05-24 06:00: 00 05-24 05:17 :00 No 1{tbl} 1 tablet, Oral, ONCE, 1 dose, On Sat05/24/22 at 0000, Routine [facility] piperacilli n-tazobacta m (ZOSYN) 3.375 g in NaCl 0.9% (NS) 100 mL MINI-BAG 05-24 05:30: 00 05-24 06:20 :00 No 3.375g 3.375 g, IV Piggyback, ONCE, 1 dose, On Sat05/23/22 at 2330, Administer over 30 Minutes, 100 mL
Reas on for Anti-Infec tive: Documented Infection< br>Documen mirta Infection Site: Skin / Soft Tissue
Duration of Therapy: 7 days [facility] acetaminoph en (TYLENOL) tablet 650 mg 05-24 05:00: 00 05-24 05:41 :00 No 650mg 650 mg, Oral, ONCE, 1 dose, On Sat05/23/22 at 2300, LADI [facility] traMADoL 50 mg tablet 05-24 00:00: 00 05-24 00:00 :00 No [id number] 50mg Take 1 tablet by mouth every 6 (six) hours as needed for Pain (scale 7-10). Indication s: acute pain [facility] amoxicillin -clavulanat e (AUGMENTIN) 875-125 mg per tablet 05-24 00:00: 00 05-24 00:00 :00 No [id number] 1{tbl} Take 1 tablet by mouth in the morning and 1 tablet in the evening. Do all this for 7 days. [facility] doxycycline hyclate 100 mg capsule 03-25 00:00: 00 Yes [id number] 100mg Take 1 capsule by mouth 2 (two) times daily. [facility] HYDROcodone -acetaminop hen 5-325 mg tablet 03-25 00:00: 00 Yes [id number] 1{tbl} Take 1-2 tablets by mouth every 6 (six) hours as needed for Pain (scale 1-3). Indication s: acute pain [facility] acetaminoph en 325 mg Cap 04-27 00:00: 00 Yes [id number] 650mg Take 650 mg by mouth every 6 (six) hours as needed for Pain (scale 1-3) or Pain (scale 4-6). [facility] ibuprofen 600 mg tablet 04-27 00:00: 00 Yes [id number] 600mg Take 1 tablet by mouth every 6 (six) hours as needed for Pain (scale 1-3) or Pain (scale 4-6) (Alternate with acetaminop hen for mild-moder ate pain). [facility] estradioL 0.01 % (0.1 mg/gram) vaginal cream 12-14 00:00: 00 Yes [id number] 2g Insert 2 g into vagina weekly. [facility] ascorbic acid, vitamin C, 500 mg tablet 12-14 00:00: 00 Yes [id number] 500mg Take 1 tablet by mouth 3 (three) times daily. [facility] ergocalcife rol, vitamin d2, 1,250 mcg (50,000 unit) capsule 12-14 00:00: 00 Yes [id number] 29472K Take 1 capsule by mouth weekly. [facility] Immunizations Ordered Immunization Name Filled Immunization Name Date Status Comments Source TDAP 2019-11-09 00:00:[address] [facility] Influenza Virus Vaccine Quad .5 mL IM 6+ MO 2019-11-09 00:00:[address] [facility] TDAP 2019-11-09 00:00:[address] [facility] Influenza Virus Vaccine Quad .5 mL IM 6+ MO 2019-11-09 00:00:[address] [facility] TDAP 2019-11-09 00:00:[address] [facility] Influenza Virus Vaccine Quad .5 mL IM 6+ MO 2019-11-09 00:00:[address] [facility] TDAP Unknown Completed [facility] Influenza Virus Vaccine Quad .5 mL IM 6+ MO (FLUZONE/FLULAVAL/F LUARIX) Unknown Completed [facility] TDAP Unknown Completed [facility] Influenza Virus Vaccine Quad .5 mL IM 6+ MO (FLUZONE/FLULAVAL/F LUARIX) Unknown Completed [facility] TDAP Unknown Completed [facility] Influenza Virus Vaccine Quad .5 mL IM 6+ MO (FLUZONE/FLULAVAL/F LUARIX) Unknown Completed [facility] Vital Signs Vital Name Observation Time Observation Value Comments S shala Systolic blood pressure 2022-05-24 22:00:00 112 mm[Hg] [facility] Diastolic blood pressure 2022-05-24 22:00:00 68 mm[Hg] [facility] Respiratory rate 2022-05-24 22:00:00 16 /min [facility] Oxygen saturation in Arterial blood by Pulse oximetry 2022-05-24 22:00:00 96 /min [facility] Heart rate 2022-05-24 19:52:00 93 /min [facility] Body temperature 2022-05-24 19:52:[address] [facility] Body weight 2022-05-24 04:36:[address] [facility] BMI 2022-05-24 04:36:00 38.02 kg/m2 [facility] Systolic blood pressure 2022-05-24 14:41:00 116 mm[Hg] [facility] Diastolic blood pressure 2022-05-24 14:41:00 74 mm[Hg] [facility] Heart rate 2022-05-24 14:41:00 72 /min [facility] Body temperature 2022-05-24 14:41:[address] [facility] Respiratory rate 2022-05-24 14:41:00 18 /min [facility] Oxygen saturation in Arterial blood by Pulse oximetry 2022-05-24 14:41:00 100 /min [facility] Body weight 2022-05-24 04:36:[address] [facility] BMI 2022-05-24 04:36:00 38.02 kg/m2 [facility] Systolic blood pressure 2021-04-03 15:19:00 105 mm[Hg] [facility] Diastolic blood pressure 2021-04-03 15:19:00 68 mm[Hg] [facility] Heart rate 2021-04-03 15:19:00 80 /min [facility] Body temperature 2021-04-03 15:19:[address] [facility] Respiratory rate 2021-04-03 15:19:00 20 /min [facility] Body height 2021-04-03 15:19:[address] [facility] Body weight 2021-04-03 15:19:[address] [facility] BMI 2021-04-03 15:19:00 35.82 kg/m2 [facility] Oxygen saturation in Arterial blood by Pulse oximetry 2021-04-03 15:19:00 98 /min [facility] Procedures Procedure Date / Time Performed Performing Clinicia n Source INCISION AND DRAINAGE BUTTOCK 2022-05-24 18:38:[address] [facility] BASIC METABOLIC PANEL (NA, K, CL, CO2, GLUCOSE, BUN, CREATININE, CA) 2022-05-24 12:25:00 Mariposa [facility] BASIC METABOLIC PANEL (NA, K, CL, CO2, GLUCOSE, BUN, CREATININE, CA) 2022-05-24 12:25:00 Mariposa [facility] TEST, SERUM 2022-05-24 05:24:[address] [facility] COMP. METABOLIC PANEL ([id number]) 2022-05-24 05:24:[address] [facility] CBC WITH DIFF 2022-05-24 05:24:00 Rafal Salvador [facility] TEST, SERUM 2022-05-24 05:24:[address] [facility] COMP. METABOLIC PANEL ([id number]) 2022-05-24 05:24:[address] [facility] CBC WITH DIFF 2022-05-24 05:24:00 Rafal Salvador [facility] CONSENT/REFUSAL FOR DIAGNOSIS AND TREATMENT 2022-05-24 04:26:35 Doctor Unassigned, Yeoman [facility] CONSENT/REFUSAL FOR DIAGNOSIS AND TREATMENT 2022-05-24 04:26:35 Doctor Unassigned, Yeoman [facility] Encounters Start Date/Time End Date/Time Encounter Type Admission Type Attending [facility] Facility Care Department Encounter ID Source 2021-04-06 14:17:13 Outpatient ALEJANDRO BLOOM [facility] LARRY [id number] [facility] 2021-01-21 21:11:00 Emergency [facility] [id number] [facility] 2021-01-21 01:51:26 Emergency [facility] [id number] [facility] 2022-05-23 22:41:00 2022-05-24 16:05:00 Outpatient ELOISA PARISI [facility] LARRY [id number] [facility] 2022-05-23 22:41:00 2022-05-24 16:05:00 Emergency Rafal Salvador Diana [facility] 1.2840.114 350.1.13.10 4.2.7.2.686 [id number] [facility] 2022-05-24 10:43:00 2022-05-24 12:19:00 Surgery Jayesh Landon [facility] 1.2840.114 350.1.13.10 4.2.7.2.686 [id number] [facility] 2021-04-15 09:00:00 2021-04-15 09:00:00 Outpatient R ALEJANDRO SOLANO [facility] [id number] [facility] 2021-04-03 09:00:00 2021-04-03 09:28:54 Outpatient R ALEJANDRO SOLANO [facility] [id number] [facility] 2021-04-03 09:00:00 2021-04-03 09:28:54 Office Visit Alejandro Solano [facility] 1.2840.114 350.1.13.10 4.2.7.2.686 [id number] [facility] 2021-04-03 09:00:00 2021-04-03 09:28:54 Outpatient R ALEJANDRO SOLANO [facility] [id number] [facility] 2021-04-03 09:00:00 2021-04-03 09:28:54 Outpatient R ALEJANDRO SOLANO [facility] [id number] [facility] 2021-04-03 00:00:00 2021-04-03 00:00:00 Orders Only Doctor Unassigned, Yeoman [facility] 1.2840.114 350.1.13.10 4.2.7.2.686 [id number] [facility] 2021-04-03 00:00:00 2021-04-03 00:00:00 Letter (Out) [facility] 1.2.840.114 350.1.13.10 4.2.7.2.686 [id number] [facility] 2021-04-03 00:00:00 2021-04-03 00:00:00 [facility] 1.2.840.114 350.1.13.10 4.2.7.2.686 [id number] [facility] 2021-03-29 10:15:00 2021-03-29 10:15:00 Laboratory Only Only, Ang Rommel Velasco King Lalitha Napoles [facility] 1.2.840.114 350.1.13.10 4.2.7.2.686 [id number] [facility] 2021-03-29 10:15:00 2021-03-29 10:12:34 Outpatient R LALITHA VENEGAS III [facility] [id number] [facility] 2021-03-29 10:15:00 2021-03-29 10:12:34 Outpatient R LALITHA VENEGAS III [facility] [id number] [facility] 2021-03-28 10:45:00 2021-03-28 11:39:27 Office Visit Service/Gen surg, [facility] 1..840.114 350.1.13.10 4.2.7.2.686 [id number] [facility] 2021-03-28 10:45:00 2021-03-28 11:39:27 Outpatient R EBONY LAKESHUA [facility] [id number] [facility] 2021-03-28 10:45:00 2021-03-28 11:39:27 [facility] [id number] [facility] 2021-03-28 10:45:00 2021-03-28 10:45:00 Outpatient R PERSONDARSHAN [facility] [id number] [facility] 2021-03-27 00:00:00 2021-03-27 00:00:00 Patient Secure Msg Doctor Unassigned, Yeoman [facility] 1..114 350.1.13.10 4.2.7.2.686 [id number] [facility] 2021-03-25 13:47:00 2021-03-25 16:01:00 Emergency X LOIS BERMUDEZ [facility] ERT [id number] [facility] 2021-03-25 13:47:00 2021-03-25 16:01:00 Emergency Lois Bermudez [facility] 1.114 350.1.13.10 4.2.7.2.686 [id number] [facility] 2021-03-25 13:47:00 2021-03-25 16:01:00 Emergency X LOIS BERMUDEZ [facility] ERT [id number] [facility] 2021-03-25 13:47:00 2021-03-25 16:01:00 Emergency Janneth LOIS BERMUDEZ [facility] ERT [id number] [facility] 2020-06-14 00:00:00 2020-06-14 00:00:00 Patient Outreach Constantin Cabral [facility] 1.114 350.1.13.10 4.2.7.2.686 [id number] [facility] 2020-05-19 00:00:00 2020-05-19 00:00:00 Patient Secure Msg Doctor Unassigned, Yeoman [facility] 1.114 350.1.13.10 4.2.7.2.686 [id number] [facility] 2020-05-17 11:15:00 2020-05-17 11:15:00 Outpatient R PERSONEBONYDARSHAN [facility] [id number] [facility] 2020-05-17 11:15:00 2020-05-17 11:15:00 Outpatient Teressa DARSHAN [place] [facility] [id number] [facility] 2020-04-26 08:40:00 2020-04-27 17:30:00 Emergency Shine, Eloisa Thomas [facility] 1.114 350.1.13.10 4.2.7.2.686 [id number] [facility] 2020-04-26 08:40:00 2020-04-27 17:30:00 Outpatient X DERECK ELOISA [facility] LARRY [id number] [facility] 2020-02-02 10:30:00 2020-02-02 10:30:00 Outpatient MAXIMO SHEA [facility] [id number] [facility] 2020-01-26 00:00:00 2020-01-26 00:00:00 Transition of Care [place] Magalis Shearjosafat Edgar Best 1..114 350.1.13.10 4.2.7.2.686 [id number] [facility] 2020-01-21 12:43:00 2020-01-24 12:56:00 Hospital Encounter Kapil Sykes [facility] 1..114 350.1.13.10 4.2.7.2.686 [id number] [facility] 2019-12-18 00:00:00 2019-12-18 00:00:00 Patient Secure Msg Doctor Unassigned, Yeoman [facility] DJANGO DEVELOPER [facility] 1..114 350.1.13.10 4.2.7.2.686 [id number] [facility] 2019-12-15 08:48:26 2019-12-15 10:18:11 Office Visit Rubia Lopez [facility] DJANGO DEVELOPER [facility] 1.2.840.114 350.1.13.10 4.2.7.2.686 [id number] [facility] 2019-12-15 08:45:00 2019-12-15 08:45:00 Outpatient R ANA LOPEZALISA [facility] [id number] [facility] 2019-12-15 00:00:00 2019-12-15 00:00:00 Orders Only Doctor Unassigned, Yeoman [facility] 1.2.840.114 350.1.13.10 4.2.7.2.686 [id number] [facility] 2019-12-15 00:00:00 2019-12-15 00:00:00 Maeve Jose G Rubia [facility] DJANGO DEVELOPER [facility] 1..840.114 350.1.13.10 4.2.7.2.686 [id number] [facility] 2018-06-24 13:00:00 2018-06-24 13:00:00 [facility] [id number] [facility] Results Test Description Test Time Test Comments Results Result Co mments Source [facility] (NA, K, CL, CO2, Glucose, BUN, Creatinine, CA)2022-05-24 12:50:13* Test Item Value Reference Range Interpretation Comme nts NA (test code = 1987127219) 142 mmol/L 135-145 K (test code = 5214022749) 4.4 mmol/L 3.5-5.0 CL (test code = 6389382933) 106 mmol/L 98-108 CO2 TOTAL (test code = 9006510369) 29 mmol/L 23-31 AGAP (test code = 0664922393) 7 2-16 BUN (test code = 8974076501) 8 mg/dL 7-23 GLUCOSE (test code = 1203188262) 121 mg/dL 70-110 H CREATININE (test code = 8515920495) 0.74 mg/dL 0.50-1.04 CALCIUM (test code = 8492443897) 8.8 mg/dL 8.6-10.6 eGFR (test code = 8531738974) 91.5 mL/min/1.73m2 BLAINE (test code = BLAINE) [...] imaging tests). Lab Interpretation (test code = 39684-8) Abnormal [facility]. METABOLIC PANEL ([id number])2022-05-24 05:52:48* Test Item Value Reference Range Interpretation Comme nts NA (test code = 1183668897) 137 mmol/L 135-145 K (test code = 9325516900) 4.1 mmol/L 3.5-5.0 CL (test code = 9339903592) 105 mmol/L 98-108 CO2 TOTAL (test code = 5652755193) 25 mmol/L 23-31 AGAP (test code = 8159952015) 7 2-16 BUN (test code = 0488177231) 10 mg/dL 7-23 GLUCOSE (test code = 8435866250) 126 mg/dL 70-110 H CREATININE (test code = 4558855342) 0.80 mg/dL 0.50-1.04 TOTAL BILI (test code = 0664348813) 0.6 mg/dL 0.1-1.1 CALCIUM (test code = 8392602236) 8.7 mg/dL 8.6-10.6 T PROTEIN (test code = 1739613103) 6.3 g/dL 6.3-8.2 ALBUMIN (test code = 6837630443) 3.9 g/dL 3.5-5.0 ALK PHOS (test code = 3522379662) 68 U/L 34-122 ALTv (test code = 1742-6) 20 U/L 5-35 AST(SGOT) (test code = 9974553781) 20 U/L 13-40 eGFR (test code = 4163873333) 83.7 mL/min/1.73m2 BLAINE (test code = BLAINE) [...] imaging tests). Lab Interpretation (test code = 31702-2) Abnormal [facility]. METABOLIC PANEL ([id number])2022-05-24 05:52:48* Test Item Value Reference Range Interpretation Comme nts NA (test code = 4906161174) 137 mmol/L 135-145 K (test code = 2281880477) 4.1 mmol/L 3.5-5.0 CL (test code = 1182224661) 105 mmol/L 98-108 CO2 TOTAL (test code = 5772750438) 25 mmol/L 23-31 AGAP (test code = 9327953304) 7 2-16 BUN (test code = 9893381369) 10 mg/dL 7-23 GLUCOSE (test code = 0539082419) 126 mg/dL 70-110 H CREATININE (test code = 0655899586) 0.80 mg/dL 0.50-1.04 TOTAL BILI (test code = 7040273987) 0.6 mg/dL 0.1-1.1 CALCIUM (test code = 6131771766) 8.7 mg/dL 8.6-10.6 T PROTEIN (test code = 5159155010) 6.3 g/dL 6.3-8.2 ALBUMIN (test code = [id number]) 3.9 g/dL 3.5-5.0 ALK PHOS (test code = 0953429267) 68 U/L 34-122 ALTv (test code = 1742-6) 20 U/L 5-35 AST(SGOT) (test code = 4948584433) 20 U/L 13-40 eGFR (test code = 9509867675) 83.7 mL/min/1.73m2 BLAINE (test code = BLAINE) [...] imaging tests). Lab Interpretation (test code = 95752-2) Abnormal [facility] [id number] 05:51:22* Test Item Value Reference Range Interpretation Comme nts PREG SERUM (test code = 7558928358) Negative BLAINE (test code = BLAINE) Less than 10 IU/L. ?If low titer or ectopic is suspected, resubmit specimen in 48-[address] [facility] [facility], [id number] 05:51:22* Test Item Value Reference Range Interpretation Comme nts PREG SERUM (test code = 9496858376) Negative BLAINE (test code = BLAINE) Less than 10 IU/L. ?If low titer or ectopic is suspected, resubmit specimen in 48-[address] [facility] WITH [id number] 05:47:26* Test Item Value Reference Range Interpretation Comme nts WBC (test code = 6690-2) 10.66 See_Comment [Automated [employer]] The system which generated this result transmitted [...] 33.2 g/dL 31.6-35.1 RDW-SD (test code = 47225-0) 39.8 fL 39.0-49.9 RDW-CV (test code = 788-0) 12.4 % 12.0-15.5 PLT (test code = 777-3) 274 See_Comment [Automated messa ge] The system which generated this result transmitted reference range: 166 - 358 10*3/?L. The reference range was not used to interpret this result as normal/abnormal. MPV (test code = 49972-0) 9.8 fL 9.5-12.9 NRBC/100 WBC (test code = 1040729497) 0.0 See_Comment [Automated [employer] ssage] The system which generated this result transmitted reference range: 0.0 - 10.0 /100 WBCs. The reference range was not used to interpret this result as normal/abnormal. NRBC x10^3 (test code = 7916923986) See_Comment [Automated messa ge] The system which generated this result transmitted reference range: 10*3/?L. The reference range was not used to interpret this result as normal/abnormal. GRAN MAT (NEUT) % (test code = 770-8) 68.4 % IMM GRAN % (test code = 6527475412) 0.40 % LYMPH % (test code = 736-9) 22.7 % MONO % (test code = 5905-5) 6.8 % EOS % (test code = 713-8) 1.3 % BASO % (test code = 706-2) 0.4 % GRAN MAT x10^3(ANC) (test code = 4204121790) 7.29 10*3/uL 1.88-7.09 H IMM GRAN x10^3 (test code = 8664919706) 0.04 10*3/uL 0.00-0.06 LYMPH x10^3 (test code = 731-0) 2.42 10*3/uL 1.32-3.29 MONO x10^3 (test code = 742-7) 0.73 10*3/uL 0.33-0.92 EOS x10^3 (test code = 711-2) 0.14 10*3/uL 0.03-0.39 BASO x10^3 (test code = 704-7) 0.04 10*3/uL 0.01-0.07 Lab Interpretation (test code = 56440-5) Abnormal [facility] WITH [id number] 05:47:26* Test Item Value Reference Range Interpretation Comme nts WBC (test code = 6690-2) 10.66 See_Comment [Automated [employer] ge] The system which generated this result transmitted reference range: 4.30 - 11.10 10*3/?L. The reference range was not used to interpret this result as normal/abnormal. RBC (test code = 789-8) 4.35 See_Comment [Automated [employer]] The system which generated this result [...] 33.2 g/dL 31.6-35.1 RDW-SD (test code = 89876-1) 39.8 fL 39.0-49.9 RDW-CV (test code = 788-0) 12.4 % 12.0-15.5 PLT (test code = 777-3) 274 See_Comment [Automated messa ge] The system which generated this result transmitted reference range: 166 - 358 10*3/?L. The reference range was not used to interpret this result as normal/abnormal. MPV (test code = 23811-6) 9.8 fL 9.5-12.9 NRBC/100 WBC (test code = 3058756257) 0.0 See_Comment [Automated [employer] ([employer] ssage] The system which generated this result transmitted reference range: 0.0 - 10.0 /100 WBCs. The reference range was not used to interpret this result as normal/abnormal. NRBC x10^3 (test code = 1718371511) See_Comment [Automated messa ge] The system which generated this result transmitted reference range: 10*3/?L. The reference range was not used to interpret this result as normal/abnormal. GRAN MAT (NEUT) % (test code = 770-8) 68.4 % IMM GRAN % (test code = 9437068464) 0.40 % LYMPH % (test code = 736-9) 22.7 % MONO % (test code = 5905-5) 6.8 % EOS % (test code = 713-8) 1.3 % BASO % (test code = 706-2) 0.4 % GRAN MAT x10^3(ANC) (test code = 1056795156) 7.29 10*3/uL 1.88-7.09 H IMM GRAN x10^3 (test code = 9315293742) 0.04 10*3/uL 0.00-0.06 LYMPH x10^3 (test code = 731-0) 2.42 10*3/uL 1.32-3.29 MONO x10^3 (test code = 742-7) 0.73 10*3/uL 0.33-0.92 EOS x10^3 (test code = 711-2) 0.14 10*3/uL 0.03-0.39 BASO x10^3 (test code = 704-7) 0.04 10*3/uL 0.01-0.07 Lab Interpretation (test code = 14769-3) Abnormal [facility]"
--- NOTE | 2023-11-05 17:58 | EDPHYS ---
Physician Documentation [facility] Name: Elham Moran Age: 33 yrs Sex: Female : 1990 Arrival Date: 11/05/2023 Time: 17:41 Bed 12 Private MD: ED Physician Mohinder Turcios HPI: 11/04 18:02 This 33 yrs old Female presents to ER via Ambulatory with complaints of Suture Removal. sb4 18:02 The patient has sutures on the outer aspect of left eyebrow. Previous treatment: The sb4 patient was initially treated 9 day(s) ago, the care was rendered at [facility], Treatment type: The patient's original treatment included sutures, Outpatient prescription(s): The patient was given prescription(s) for Keflex. Sutures/amadou progress: The patient has no c/o's. The wound is well-healing with no redness, swelling, discharge, or dehiscence reported. The patient has not experienced similar symptoms in the past. The patient has not recently seen a physician. [employer]: 18:05 LMP N/A - , Not ap3 Historical: - Allergies: 17:48 No Known Allergies; dd2 - Home Meds: 17:48 None [Active]; dd2 - PSHx: 17:48 section; Total abdominal hysterectomy (2018); Elbow; dd2 - Immunization history:: Adult Immunizations up to date. - Infectious Disease History:: Denies. - Social history:: Smoking status: Patient denies any tobacco usage or history of. ROS: 18:02 Constitutional: Negative for fever, chills, and weight loss, sb4 18:02 Skin: Positive for per HPI, 18:02 All other systems are negative, Exam: 18:04 Constitutional: This is a well developed, well nourished patient who is awake, alert, sb4 and in no acute distress. Head/Face: Normocephalic, atraumatic. Eyes: Extra-ocular motions intact. Periorbital areas with no swelling, redness, or edema. ENT: Mucous membranes moist. 18:04 Skin: Wound recheck: Suture laceration closure: the wound is healing well, the edges are well approximated, Vital Signs: 17:48 BP 120 / 74; Pulse 80; Resp 15; Temp 97; Pulse Ox 98% ; dd2 Procedures: 18:04 Suture/Staple removal: Removed 7 sutures, from outer aspect of left eyebrow, site sb4 appears well healed, dressed with none. Patient tolerated well. MDM: 17:45 Patient medically screened. sb4 18:05 Data reviewed: vital signs, nurses notes, and as a result, I will discharge patient. sb4 Counseling: I had a detailed discussion with the patient and/or guardian regarding the historical points, exam findings, and any diagnostic results supporting the discharge/admit diagnosis, to return to the emergency department if symptoms worsen or persist or if there are any questions or concerns that arise at home. Administered Medications: No medications were administered Disposition: 18:09 I was immediately available on-site in the Emergency Department for consultation in the ms3 care of the patient. Disposition Summary: 11/05/23 17:57 Discharge Ordered Notes: Location: Home sb4 Problem: new sb4 Symptoms: have improved sb4 Condition: Stable sb4 Diagnosis - Encounter for removal of sutures sb4 Followup: sb4 - With: Private Physician - When: As needed - Reason: Recheck today's complaints, Re-evaluation by your physician Discharge Instructions: - Discharge Summary Sheet sb4 - Suture Removal, Care After sb4 Forms: - Patient Portal Instructions sb4 - Leadership Thank You Letter sb4 Signatures: Mohinder Turcios DO DO ms3 Marquita Andre PA-C PA-C sb4 CHANTE KWON RN RN dd2
--- NOTE | 2023-11-05 17:58 | ER ---
Nurse's Notes [facility] Name: Elham Moran Age: 33 yrs Sex: Female : 1990 Arrival Date: 11/05/2023 Time: 17:41 Bed 12 Private MD: Diagnosis: Encounter for removal of sutures Presentation: 11/04 17:45 Chief complaint: Patient states: 6 or 7 sutures to the left eyebrow, 10 days out. dd2 Coronavirus screen: At this time, the client does not indicate any symptoms associated with coronavirus-19. Ebola Screen: No symptoms or risks identified at this time. Initial Sepsis Screen: Does the patient meet any 2 criteria? No. Patient's initial sepsis screen is negative. Does the patient have a suspected source of infection? No. Patient's initial sepsis screen is negative. Risk Assessment: Do you want to hurt yourself or someone else? Patient reports no desire to harm self or others. Onset of symptoms is unknown. 17:45 Method Of Arrival: Ambulatory dd2 17:45 Acuity: MISSAEL 5 dd2 Triage Assessment: 17:48 General: Appears in no apparent distress. Behavior is anxious. Pain: Denies pain. 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 - Infectious Disease History:: Denies. - Social history:: Smoking status: Patient denies any tobacco usage or history of. Screenin:04 [facility] ED Fall Risk Assessment (Adult) History of falling in the last 3 months, ap3 including since admission No falls in past 3 months (0 pts) Confusion or Disorientation No (0 pts) Intoxicated or Sedated No (0 pts) Impaired Gait No (0 pts) Mobility Assist Device Used No (0 pt) Altered Elimination No (0 pt) Score/Fall Risk Level 0 - 2 = Low Risk Oriented to surroundings, Maintained a safe environment, Educated pt \T\ family on fall prevention, incl call for assistance when getting out of bed, Assessed \T\ reinforced patient's understanding of fall precautions, Hourly rounding (assess needs \T\ fall precautionary measures) done, Used ambulatory aids as needed (educated on \T\ assisted with), Used gait belt as appropriate. Abuse screen: Denies threats or abuse. Nutritional screening: No deficits noted. Tuberculosis screening: No symptoms or risk factors identified. Vital Signs: 17:48 BP 120 / 74; Pulse 80; Resp 15; Temp 97; Pulse Ox 98% ; dd2 ED Course: 17:43 Patient arrived in ED. mr 17:43 Marquita Andre PA-C is PHCP. sb4 17:44 Mohinder Turcios DO is Attending Physician. sb4 17:48 Triage completed. dd2 17:48 Arm band placed on right wrist. Patient placed in an exam room, on a stretcher, on dd2 pulse oximetry, Patient notified of wait time. 18:04 Patient has correct armband on for positive identification. Bed in low position. Call ap3 light in reach. Provided Education on: wound care. 18:04 Assisted provider with: suture removal. Patient did not have IV access during this ap3 emergency room visit. Administered Medications: No medications were administered Medication: 18:05 VIS not applicable for this client. ap3 Outcome: 17:57 Discharge ordered by MD. sb4 18:04 Discharged to home ambulatory, ap3 18:04 Condition: good 18:04 Discharge instructions given to patient, Instructed on discharge instructions, follow up and referral plans. Demonstrated understanding of instructions, follow-up care, 18:05 Patient left the ED. ap3 Signatures: Margarita Campbell, Reg Reg mr Donna Vásquez RN RN ap3 Marquita Andre PA-C PA-C sb4 CHANTE KWON RN RN dd2
[2023-11-05 18:20] VITALS: BP 120/74; TEMP 97; O2SAT 98
== END 2023-11-05 18:05 | disposition home or self-care (01) ==
LOC: ER 17:41
DX: Z48.02 Encounter for removal of sutures (principal)

== ENCOUNTER 2023-11-26 11:32 | Emergency (ER) | payer SELFPAY ==
--- OUTSIDE RECORDS SUMMARY | 2023-11-26 11:41 | XMS REPORT | Continuity of Care Document ---
Author Name Unknown Address [address] [facility] 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 Name Role Phone Pcp, Patient Does Not Have A Primary Care Physic casey ALEJANDRO SOLANO Attending Clinician Unavailable ELOISA HARDEN Attending Clinician Unavailkeanu Salvador PA-C, Rafal Attending Clinician [phone] Eloisa Harden MD Attending Clinician [phone] Jayesh Landon MD Attending Clinician [phone] Alejandro Solano MD Attending Clinician [phone] Doctor Unassigned, [place] Attending Clinician U billy Esquivel LENS GRINDER, Sunita A Attending Clinician [phone] Only, Ang Db Test Attending Clinician UnavailLalitha Viveros MD Attending Clinician [phone] LALITHA VENEGAS III Attending Clinician Unavailkeanu berman Service/[place], Surgery C Attending Clinician U Darshan Durham MD Attending Clinician [phone] DARSHAN LAKE Attending Clinician Unavailable LOIS BERMUDEZ Attending Clinician Unavailable Lois Bermudez MD Attending Clinician [phone] Constantin Cabral DO Attending Clinician [phone] Mihai Shine MD Attending Clinician MAXIMO DAY Attending Clinician Unavailab Magalis Morejon Attending Clinician [phone] Onel COLE Ryanchato Killian Attending Clinician [phone] Maxmio Day MD Attending Clinician [phone] Rubia Gómez Attending Clinician RUBIA LOPEZ Attending Clinician Unavailab ALEJANDRO Galdamez Admitting Clinician Unavailable ELOISA HARDEN Admitting Clinician Unavailkeanu Harden MD, Eloisa Young Admitting Clinician [phone] Maximo Day MD Admitting Clinician [phone] Payers Payer Name Policy Type Policy Number Effective Date Expirati on Date Source [employer] [place] [employer] [id number] 00:00:00 MEDICAID PENDING PENDING 2022 00:00:00 2022 00:00:00 [facility] NON-CONTRACT [id number] 2021 00:00:00 Problems Condition Name Condition Details Condition Category Status Onset Date Resolution Date Last Treatment Date Treating Clinician Comments Source Pilonidal abscess Pilonidal abscess Disease Active 3- 00:00: 00 [facility] Pilonidal cyst Pilonidal cyst Disease Active 04-03 00:00: 00 Overview: Formattin g of this note might be different from the original. Added automatic ally from request for surgery [id number] [facility] Calculus of gallbladde r and bile duct without cholecysti tis Calculus of gallbladde r and bile duct without cholecysti tis Disease Active 2- 00:00: 00 [facility] Status post laparoscop ic cholecyste ctomy Status post laparoscop ic cholecyste ctomy Disease Active 2- 00:00: 00 [facility] Biliary colic Biliary colic Disease Active 2 00:00: 00 [facility] Vaginal dryness Vaginal dryness Disease Active 12-14 00:00: 00 [facility] H/O total hysterecto my with bilateral salpingo-o ophorectom y (BSO) H/O total hysterecto my with bilateral salpingo-o ophorectom y (BSO) Disease Active 2017-03 1-16 00:00: 00 [facility] History of 3 sections History of 3 sections Disease Active 07-22 00:00: 00 Overview: Formattin g of this note might be different from the original. 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 Allergies, Adverse Reactions, Alerts Allergy Name Allergy Type Status Severity Reaction(s) Onset Date Inactive Date Treating Clinician Comments Source NO KNOWN ALLERGIE S Drug Class Active [facility] Social History Social Habit Start Date Stop Date Quantity Comments Source [facility] to SARS-CoV-2 (event) 2022-05-13 00:00:00 2022-05-23 22:31:00 Not sure [facility] History of Social function 2021-03-28 00:00:00 2021-03-28 00:00:00 [facility] Cigarettes smoked current (pack per day) - Reported 2019-12-15 00:00:00 2019-12-15 00:00:00 [facility] Cigarette pack-years 2019-12-15 00:00:00 2019-12-15 00:00:00 [facility] Tobacco use and exposure 2019-12-15 00:00:00 2019-12-15 00:00:00 Former smokeless tobacco user [facility] Alcohol intake 2019-12-15 00:00:00 2019-12-15 00:00:00 0 /d [facility] History of tobacco use 2017-02-22 00:00:00 Cigarette Smoker [facility] Sex Assigned At 1990 00:00:00 1990 00:00:00 [facility] Smoking Status Start Date Stop Date Source Ex-smoker 2021-03-28 00:00:00 2021-03-28 00:00:00 [facility] Occasional tobacco smoker 2019-12-15 00:00:00 [facility] Medications Ordered Medication Name Filled Medication Name Start Date Stop Date Current Medication? Ordering Clinician Indication Dosage Frequency Signature (SIG) Comments Components Source HYDROcodone -acetaminop hen (NORCO 5) 5-325 mg tablet 1 tablet 05-24 19:45: 00 05-24 20:12 :00 No 1{tbl} 1 tablet, Oral, ONCE, 1 dose, On Clarita 05/24/22 at 1345, Routine, PACU [facility] HYDROmorphO ne (DILAUDID) injection 0.2 mg 05-24 19:31: 31 Yes .2mg 0.2 mg, Slow IV Push, Q5MIN PRN, 10 doses, Starting on Clarita 05/24/22 at 1331, Until Discontinu ed, Routine, Pain (scale 7-10), PACU
Us e approved by (Faculty): PACU USE -ANESTHESI A SERVICE-HY DROMORPHON E INJECTIONS [facility] FENTanyl PF (SUBLIMAZE (PF)) injection 25 mcg 05-24 19:31: 31 Yes 25ug 25 mcg, Slow IV Push, Q5MIN PRN, 4 doses, Starting on Clarita 05/24/22 at 1331, Until Discontinu ed, Routine, Pain (scale 4-6), PACU [facility] ondansetron (ZOFRAN (PF)) injection 4 mg 05-24 19:31: 31 Yes 4mg 4 mg, Slow IV Push, PRN, 1 dose, Starting on Clarita 05/24/22 at 1331, Until Discontinu ed, Routine, Nausea and Vomiting (N/V), PACU [facility] D5W 0.45% NaCl (1/2NS) 1 L + KCL 20 mEq 05-24 08:00: 00 Yes IV Infusion, at 125 mL/hr, CONTINUOUS , Starting on Clarita 05/24/22 at 0200, Until Discontinu ed, Routine [facility] pantoprazol e (PROTONIX) injection 40 mg 05-24 08:00: 00 05-27 07:59 :00 No 40mg 40 mg, Slow IV Push, Q24H, 3 doses, First dose on Sat05/24/22 at 0200, Last dose on Sat05/26/22 at 0200 [facility] morpHINE (2 mg/mL) injection 2 mg 05-24 07:54: 57 Yes 2mg 2 mg, Slow IV Push, Q4HPRN, Starting on Sat05/24/22 at 0154, Until Discontinu ed, Routine, Breakthrou gh pain [facility] acetaminoph en ADULT (OFIRMEV) injection 1,000 mg 05-24 07:54: 48 05-25 07:53 :48 No 1000mg 1,000 mg, IV Infusion, at 400 mL/hr Administer over 15 Minutes, Q8HPRN, Starting on Sat05/24/22 at 0154, Until Sat05/25/22 at 0153, Routine, Pain (scale 1-3)
In dication: Perioperat mack Patient [facility] HYDROcodone -acetaminop hen (NORCO) 10-325 mg tablet 1 tablet 05-24 06:00: 00 05-24 05:17 :00 No 1{tbl} 1 tablet, Oral, ONCE, 1 dose, On Sat05/24/22 at 0000, Routine [facility] piperacilli n-tazobacta m (ZOSYN) 3.375 g in NaCl 0.9% (NS) 100 mL MINI-BAG 05-24 05:30: 00 05-24 06:20 :00 No 3.375g 3.375 g, IV Piggyback, ONCE, 1 dose, On Sat05/23/22 at 2330, Administer over 30 Minutes, 100 mL
Reas on for Anti-Infec tive: Documented Infection< br>Documen mirta Infection Site: Skin / Soft Tissue
Duration of Therapy: 7 days [facility] acetaminoph en (TYLENOL) tablet 650 mg 05-24 05:00: 00 05-24 05:41 :00 No 650mg 650 mg, Oral, ONCE, 1 dose, On Sat05/23/22 at 2300, LADI [facility] traMADoL 50 mg tablet 05-24 00:00: 00 05-24 00:00 :00 No [id number] 50mg Take 1 tablet by mouth every 6 (six) hours as needed for Pain (scale 7-10). Indication s: acute pain [facility] amoxicillin -clavulanat e (AUGMENTIN) 875-125 mg per tablet 05-24 00:00: 00 05-24 00:00 :00 No [id number] 1{tbl} Take 1 tablet by mouth in the morning and 1 tablet in the evening. Do all this for 7 days. [facility] doxycycline hyclate 100 mg capsule 03-25 00:00: 00 Yes [id number] 100mg Take 1 capsule by mouth 2 (two) times daily. [facility] HYDROcodone -acetaminop hen 5-325 mg tablet 03-25 00:00: 00 Yes [id number] 1{tbl} Take 1-2 tablets by mouth every 6 (six) hours as needed for Pain (scale 1-3). Indication s: acute pain [facility] acetaminoph en 325 mg Cap 04-27 00:00: 00 Yes [id number] 650mg Take 650 mg by mouth every 6 (six) hours as needed for Pain (scale 1-3) or Pain (scale 4-6). [facility] ibuprofen 600 mg tablet 04-27 00:00: 00 Yes [id number] 600mg Take 1 tablet by mouth every 6 (six) hours as needed for Pain (scale 1-3) or Pain (scale 4-6) (Alternate with acetaminop hen for mild-moder ate pain). [facility] estradioL 0.01 % (0.1 mg/gram) vaginal cream 12-14 00:00: 00 Yes [id number] 2g Insert 2 g into vagina weekly. [facility] ascorbic acid, vitamin C, 500 mg tablet 12-14 00:00: 00 Yes [id number] 500mg Take 1 tablet by mouth 3 (three) times daily. [facility] ergocalcife rol, vitamin d2, 1,250 mcg (50,000 unit) capsule 12-14 00:00: 00 Yes [id number] 03197F Take 1 capsule by mouth weekly. [facility] Immunizations Ordered Immunization Name Filled Immunization Name Date Status Comments Source TDAP 2019-11-09 00:00:00 Completed [facility] Influenza Virus Vaccine Quad .5 mL IM 6+ MO 2019-11-09 00:00:00 Completed [facility] TDAP 2019-11-09 00:00:00 Completed [facility] Influenza Virus Vaccine Quad .5 mL IM 6+ MO 2019-11-09 00:00:00 Completed [facility] TDAP 2019-11-09 00:00:00 Completed [facility] Influenza Virus Vaccine Quad .5 mL IM 6+ MO 2019-11-09 00:00:00 Completed [facility] TDAP Unknown Completed [facility] Influenza Virus Vaccine Quad .5 mL IM 6+ MO (FLUZONE/FLULAVAL/F LUARIX) Unknown Completed [facility] TDAP Unknown Completed [facility] Influenza Virus Vaccine Quad .5 mL IM 6+ MO (FLUZONE/FLULAVAL/F LUARIX) Unknown Completed [facility] TDAP Unknown Completed [facility] Influenza Virus Vaccine Quad .5 mL IM 6+ MO (FLUZONE/FLULAVAL/F LUARIX) Unknown Completed [facility] Vital Signs Vital Name Observation Time Observation Value Comments S shala Systolic blood pressure 2022-05-24 22:00:00 112 mm[Hg] [facility] Diastolic blood pressure 2022-05-24 22:00:00 68 mm[Hg] [facility] Respiratory rate 2022-05-24 22:00:00 16 /min [facility] Oxygen saturation in Arterial blood by Pulse oximetry 2022-05-24 22:00:00 96 /min [facility] Heart rate 2022-05-24 19:52:00 93 /min [facility] Body temperature 2022-05-24 19:52:00 36 Bhavya [facility] Body weight 2022-05-24 04:36:00 113.399 kg [facility] BMI 2022-05-24 04:36:00 38.02 kg/m2 [facility] Systolic blood pressure 2022-05-24 14:41:00 116 mm[Hg] [facility] Diastolic blood pressure 2022-05-24 14:41:00 74 mm[Hg] [facility] Heart rate 2022-05-24 14:41:00 72 /min [facility] Body temperature 2022-05-24 14:41:00 35.61 Bhavya [facility] Respiratory rate 2022-05-24 14:41:00 18 /min [facility] Oxygen saturation in Arterial blood by Pulse oximetry 2022-05-24 14:41:00 100 /min [facility] Body weight 2022-05-24 04:36:00 113.399 kg [facility] BMI 2022-05-24 04:36:00 38.02 kg/m2 [facility] Systolic blood pressure 2021-04-03 15:19:00 105 mm[Hg] [facility] Diastolic blood pressure 2021-04-03 15:19:00 68 mm[Hg] [facility] Heart rate 2021-04-03 15:19:00 80 /min [facility] Body temperature 2021-04-03 15:19:00 36.83 Bhavya [facility] Respiratory rate 2021-04-03 15:19:00 20 /min [facility] Body height 2021-04-03 15:19:00 172.7 cm [facility] Body weight 2021-04-03 15:19:00 106.867 kg [facility] BMI 2021-04-03 15:19:00 35.82 kg/m2 [facility] Oxygen saturation in Arterial blood by Pulse oximetry 2021-04-03 15:19:00 98 /min [facility] Procedures Procedure Date / Time Performed Performing Clinicia n Source INCISION AND DRAINAGE BUTTOCK 2022-05-24 18:38:00 Jayesh Landon [facility] BASIC METABOLIC PANEL (NA, K, CL, CO2, GLUCOSE, BUN, CREATININE, CA) 2022-05-24 12:25:00 [facility] BASIC METABOLIC PANEL (NA, K, CL, CO2, GLUCOSE, BUN, CREATININE, CA) 2022-05-24 12:25:00 [facility] TEST, SERUM 2022-05-24 05:24:00 Ebony Salvador [facility] COMP. METABOLIC PANEL ([id number]) 2022-05-24 05:24:00 Rafal Salvador [facility] CBC WITH DIFF 2022-05-24 05:24:00 Rafal Salvador [facility] TEST, SERUM 2022-05-24 05:24:00 Ebony Salvador [facility] COMP. METABOLIC PANEL ([id number]) 2022-05-24 05:24:00 Rafal Salvador [facility] CBC WITH DIFF 2022-05-24 05:24:00 Rafal Salvador [facility] CONSENT/REFUSAL FOR DIAGNOSIS AND TREATMENT 2022-05-24 04:26:35 Doctor Unassigned, [place] [facility] CONSENT/REFUSAL FOR DIAGNOSIS AND TREATMENT 2022-05-24 04:26:35 Doctor Unassigned, [place] [facility] Encounters Start Date/Time End Date/Time Encounter Type Admission Type Attending [facility] Facility Care Department Encounter ID Source 2021-04-06 14:17:13 Outpatient ALEJANDRO BLOOM [facility] [id number] [facility] 2021-01-21 21:11:[address] [facility] [id number] [facility] 2021-01-21 01:51:[address] [facility] [id number] [facility] 2022-05-23 22:41:00 2022-05-24 16:05:00 Outpatient ELOISA PARISI [facility] [id number] [facility] 2022-05-23 22:41:00 2022-05-24 16:05:00 Emergency Rafal Salvador Diana [facility] 1.2840.114 350.1.13.10 4.2.7.2.686 [id number] [facility] 2022-05-24 10:43:00 2022-05-24 12:19:00 Surgery Jayesh Landon [facility] 1.2840.114 350.1.13.10 4.2.7.2.686 [id number] [facility] 2021-04-15 09:00:00 2021-04-15 09:00:00 Outpatient R ALEJANDRO SOLANO [facility] [id number] [facility] 2021-04-03 09:00:00 2021-04-03 09:28:54 Outpatient R ALEJANDRO SOLANO [facility] [id number] [facility] 2021-04-03 09:00:00 2021-04-03 09:28:54 Office Visit Alejandro Solano [facility]ESS[facility] 1.2840.114 350.1.13.10 4.2.7.2.686 [id number] [facility] 2021-04-03 09:00:00 2021-04-03 09:28:54 Outpatient R ALEJANDRO SOLANO [facility] [id number] [facility] 2021-04-03 09:00:00 2021-04-03 09:28:54 Outpatient R ALEJANDRO SOLANO [facility] [id number] [facility] 2021-04-03 00:00:00 2021-04-03 00:00:00 Orders Only Doctor Unassigned, [place] [facility] 1.2840.114 350.1.13.10 4.2.7.2.686 [id number] [facility] 2021-04-03 00:00:00 2021-04-03 00:00:00 Letter (Out) [facility] 1.2.840.114 350.1.13.10 4.2.7.2.686 [id number] [facility] 2021-04-03 00:00:00 2021-04-03 00:00:00 Prep For Surgery Sunita [facility]quivel [facility] 1.2.840.114 350.1.13.10 4.2.7.2.686 [id number] [facility] 2021-03-29 10:15:00 2021-03-29 10:15:00 Laboratory Only Only, Ang Rommel Velasco [place] Lalitha Napoles [facility] 1.2.840.114 350.1.13.10 4.2.7.2.686 [id number] [facility] 2021-03-29 10:15:00 2021-03-29 10:12:34 Outpatient R LALITHA VENEGAS III [facility] [id number] [facility] 2021-03-29 10:15:00 2021-03-29 10:12:34 Outpatient R LALITHA VENEGAS III [facility] [id number] [facility] 2021-03-28 10:45:00 2021-03-28 11:39:27 Office Visit Service[facility] surg[facility]..840.114 350.1.13.10 4.2.7.2.686 [id number] [facility] 2021-03-28 10:45:00 2021-03-28 11:39:27 Outpatient R EBONY LAKESHUA [facility] [id number] [facility] 2021-03-28 10:45:00 2021-03-28 11:39:27 [id number] 2021-03-28 10:45:00 2021-03-28 10:45:[address] [facility] [id number] [facility] 2021-03-27 00:00:00 2021-03-27 00:00:00 Patient Secure Msg Doctor Unassigned, [place] [facility] 1..114 350.1.13.10 4.2.7.2.686 [id number] [facility] 2021-03-25 13:47:00 2021-03-25 16:01:00 Emergency X LOIS BERMUDEZ [facility] [id number] [facility] 2021-03-25 13:47:00 2021-03-25 16:01:00 Emergency Lois Bermudez [facility] 1.114 350.1.13.10 4.2.7.2.686 [id number] [facility] 2021-03-25 13:47:00 2021-03-25 16:01:00 Emergency X LOIS BERMUDEZ [facility] [id number] [facility] 2021-03-25 13:47:00 2021-03-25 16:01:00 Emergency Janneth LOIS BERMUDEZ [facility] [id number] [facility] 2020-06-14 00:00:00 2020-06-14 00:00:00 Patient Outreach Constantin Cabral [facility] 1.114 350.1.13.10 4.2.7.2.686 [id number] [facility] 2020-05-19 00:00:00 2020-05-19 00:00:00 Patient Secure Msg Doctor Unassigned, [place] [facility] 1.114 350.1.13.10 4.2.7.2.686 [id number] [facility] 2020-05-17 11:15:00 2020-05-17 11:15:00 Outpatient R PERSONEBONYDARSHAN [facility] [id number] [facility] 2020-05-17 11:15:00 2020-05-17 11:15:00 Outpatient Teressa DARSHAN [facility] [id number] [facility] 2020-04-26 08:40:00 2020-04-27 17:30:00 Emergency Shine, Eloisa Thomas [facility] 1.114 350.1.13.10 4.2.7.2.686 [id number] [facility] 2020-04-26 08:40:00 2020-04-27 17:30:00 Outpatient X DERECK ELOISA [facility] [id number] [facility] 2020-02-02 10:30:00 2020-02-02 10:30:[address] [facility] [id number] [facility] 2020-01-26 00:00:00 2020-01-26 00:00:00 Transition of Care [place] Magalis Shearjosafat Edgar [facility] 1..114 350.1.13.10 4.2.7.2.686 [id number] [facility] 2020-01-21 12:43:00 2020-01-24 12:56:00 Hospital Encounter Kapil Sykes [facility] 1..114 350.1.13.10 4.2.7.2.686 [id number] [facility] 2019-12-18 00:00:00 2019-12-18 00:00:00 Patient Secure Msg Doctor Unassigned, [place] [facility] 1..114 350.1.13.10 4.2.7.2.686 [id number] [facility] 2019-12-15 08:48:26 2019-12-15 10:18:11 Office Visit Rubia Lopez [facility] 1.2.840.114 350.1.13.10 4.2.7.2.686 [id number] [facility] 2019-12-15 08:45:00 2019-12-15 08:45:00 Outpatient R ANA LOPEZALISA [facility] [id number] [facility] 2019-12-15 00:00:00 2019-12-15 00:00:00 Orders Only Doctor Unassigned, [place] [facility] 1.2.840.114 350.1.13.10 4.2.7.2.686 [id number] [facility] 2019-12-15 00:00:00 2019-12-15 00:00:00 Maeve Jose G Rubia [facility] 1..840.114 350.1.13.10 4.2.7.2.686 [id number] [facility] 2018-06-24 13:00:00 2018-06-24 13:00:00 [facility] [id number] [facility] Results Test Description Test Time Test Comments Results Result Co mments Source [facility] (NA, K, CL, CO2, Glucose, BUN, Creatinine, CA)2022-05-24 12:50:13* Test Item Value Reference Range Interpretation Comme nts NA (test code = 6153170021) 142 mmol/L 135-145 K (test code = 0282272660) 4.4 mmol/L 3.5-5.0 CL (test code = 9561903043) 106 mmol/L 98-108 CO2 TOTAL (test code = 7730185637) 29 mmol/L 23-31 AGAP (test code = 3296152221) 7 2-16 BUN (test code = 8097049031) 8 mg/dL 7-23 GLUCOSE (test code = 9322295658) 121 mg/dL 70-110 H CREATININE (test code = 4196557459) 0.74 mg/dL 0.50-1.04 CALCIUM (test code = 5745225368) 8.8 mg/dL 8.6-10.6 eGFR (test code = 2337777838) 91.5 mL/min/1.73m2 BLAINE (test code = BLAINE) [...] imaging tests). Lab Interpretation (test code = 01904-7) Abnormal [facility]. METABOLIC PANEL ([id number])2022-05-24 05:52:48* Test Item Value Reference Range Interpretation Comme nts NA (test code = 9170750454) 137 mmol/L 135-145 K (test code = 7335004349) 4.1 mmol/L 3.5-5.0 CL (test code = 8485719004) 105 mmol/L 98-108 CO2 TOTAL (test code = 4444979824) 25 mmol/L 23-31 AGAP (test code = 8819488302) 7 2-16 BUN (test code = 1819357374) 10 mg/dL 7-23 GLUCOSE (test code = 4699978361) 126 mg/dL 70-110 H CREATININE (test code = 6033325413) 0.80 mg/dL 0.50-1.04 TOTAL BILI (test code = 3355480244) 0.6 mg/dL 0.1-1.1 CALCIUM (test code = 6376591338) 8.7 mg/dL 8.6-10.6 T PROTEIN (test code = 8428935611) 6.3 g/dL 6.3-8.2 ALBUMIN (test code = 5794309084) 3.9 g/dL 3.5-5.0 ALK PHOS (test code = 1825979374) 68 U/L 34-122 ALTv (test code = 1742-6) 20 U/L 5-35 AST(SGOT) (test code = 2465830084) 20 U/L 13-40 eGFR (test code = 0218318451) 83.7 mL/min/1.73m2 BLAINE (test code = BLAINE) [...] imaging tests). Lab Interpretation (test code = 27633-2) Abnormal [facility]. METABOLIC PANEL ([id number])2022-05-24 05:52:48* Test Item Value Reference Range Interpretation Comme nts NA (test code = 3077655623) 137 mmol/L 135-145 K (test code = 6007657600) 4.1 mmol/L 3.5-5.0 CL (test code = 3869857933) 105 mmol/L 98-108 CO2 TOTAL (test code = 2342161755) 25 mmol/L 23-31 AGAP (test code = 6594124306) 7 2-16 BUN (test code = 2000930256) 10 mg/dL 7-23 GLUCOSE (test code = 4296016798) 126 mg/dL 70-110 H CREATININE (test code = 7358123756) 0.80 mg/dL 0.50-1.04 TOTAL BILI (test code = 8971381505) 0.6 mg/dL 0.1-1.1 CALCIUM (test code = 7142764639) 8.7 mg/dL 8.6-10.6 T PROTEIN (test code = 1352753024) 6.3 g/dL 6.3-8.2 ALBUMIN (test code = 2689012258) 3.9 g/dL 3.5-5.0 ALK PHOS (test code = 8282937855) 68 U/L 34-122 ALTv (test code = 1742-6) 20 U/L 5-35 AST(SGOT) (test code = 8396429211) 20 U/L 13-40 eGFR (test code = 0627950995) 83.7 mL/min/1.73m2 BLAINE (test code = BLAINE) [...] imaging tests). Lab Interpretation (test code = 23635-5) [facility]normal [facility] [id number] 05:51:22* Test Item Value Reference Range Interpretation Comme nts PREG SERUM (test code = 4178052895) Negative BLAINE (test code = BLAINE) Less than 10 IU/L. ?If low titer or ectopic is suspected, resubmit specimen in 48-72 hours. [facility], [id number] 05:51:22* Test Item Value Reference Range Interpretation Comme nts PREG SERUM (test code = 5474855447) Negative BLAINE (test code = BLAINE) Less than 10 IU/L. ?If low titer or ectopic is suspected, resubmit specimen in 48-72 hours. [facility] [id number] 05:47:26* Test Item Value Reference Range Interpretation Comme nts WBC (test code = 6690-2) 10.66 See_Comment [Automated [employer]] The system which generated this result transmitted [...] 33.2 g/dL 31.6-35.1 RDW-SD (test code = 99890-0) 39.8 fL 39.0-49.9 RDW-CV (test code = 788-0) 12.4 % 12.0-15.5 PLT (test code = 777-3) 274 See_Comment [Automated messa ge] The system which generated this result transmitted reference range: 166 - 358 10*3/?L. The reference range was not used to interpret this result as normal/abnormal. MPV (test code = 01476-3) 9.8 fL 9.5-12.9 NRBC/100 WBC (test code = 1001827610) 0.0 See_Comment [Automated [employer] ssage] The system which generated this result transmitted reference range: 0.0 - 10.0 /100 WBCs. The reference range was not used to interpret this result as normal/abnormal. NRBC x10^3 (test code = 7860483351) See_Comment [Automated messa ge] The system which generated this result transmitted reference range: 10*3/?L. The reference range was not used to interpret this result as normal/abnormal. GRAN MAT (NEUT) % (test code = 770-8) 68.4 % IMM GRAN % (test code = 5560522190) 0.40 % LYMPH % (test code = 736-9) 22.7 % MONO % (test code = 5905-5) 6.8 % EOS % (test code = 713-8) 1.3 % BASO % (test code = 706-2) 0.4 % GRAN MAT x10^3(ANC) (test code = 3488400372) 7.29 10*3/uL 1.88-7.09 H IMM GRAN x10^3 (test code = 8056018954) 0.04 10*3/uL 0.00-0.06 LYMPH x10^3 (test code = 731-0) 2.42 10*3/uL 1.32-3.29 MONO x10^3 (test code = 742-7) 0.73 10*3/uL 0.33-0.92 EOS x10^3 (test code = 711-2) 0.14 10*3/uL 0.03-0.39 BASO x10^3 (test code = 704-7) 0.04 10*3/uL 0.01-0.07 Lab Interpretation (test code = 73852-4) Abnormal [facility] WITH [id number] 05:47:26* Test Item Value Reference Range Interpretation Comme nts WBC (test code = 6690-2) 10.66 See_Comment [Automated [employer] ge] The system which generated this result transmitted reference range: 4.30 - 11.10 10*3/?L. The reference range was not used to interpret this result as normal/abnormal. RBC (test code = 789-8) 4.35 See_Comment [Automated [employer] ge] The system which generated this result [...] 33.2 g/dL 31.6-35.1 RDW-SD (test code = 47132-8) 39.8 fL 39.0-49.9 RDW-CV (test code = 788-0) 12.4 % 12.0-15.5 PLT (test code = 777-3) 274 See_Comment [Automated messa ge] The system which generated this result transmitted reference range: 166 - 358 10*3/?L. The reference range was not used to interpret this result as normal/abnormal. MPV (test code = 57351-2) 9.8 fL 9.5-12.9 NRBC/100 WBC (test code = 8046282866) 0.0 See_Comment [Automated [employer] ssage] The system which generated this result transmitted reference range: 0.0 - 10.0 /100 WBCs. The reference range was not used to interpret this result as normal/abnormal. NRBC x10^3 (test code = 3712378906) See_Comment [Automated messa ge] The system which generated this result transmitted reference range: 10*3/?L. The reference range was not used to interpret this result as normal/abnormal. GRAN MAT (NEUT) % (test code = 770-8) 68.4 % IMM GRAN % (test code = 8939090335) 0.40 % LYMPH % (test code = 736-9) 22.7 % MONO % (test code = 5905-5) 6.8 % EOS % (test code = 713-8) 1.3 % BASO % (test code = 706-2) 0.4 % GRAN MAT x10^3(ANC) (test code = 9288050829) 7.29 10*3/uL 1.88-7.09 H IMM GRAN x10^3 (test code = 2224176631) 0.04 10*3/uL 0.00-0.06 LYMPH x10^3 (test code = 731-0) 2.42 10*3/uL 1.32-3.29 MONO x10^3 (test code = 742-7) 0.73 10*3/uL 0.33-0.92 EOS x10^3 (test code = 711-2) 0.14 10*3/uL 0.03-0.39 BASO x10^3 (test code = 704-7) 0.04 10*3/uL 0.01-0.07 Lab Interpretation (test code = 57475-1) Abnormal [facility]"
[2023-11-26 12:33] LABS: SARS-CoV-2 Antigen CONTROL BLUE LINE VIS/BG OK; SARS-CoV-2 Antigen Rapid Res Negative (Negative)
--- NOTE | 2023-11-26 13:16 | EDPHYS ---
Physician Documentation [facility] Name: Elham Moran Age: 33 yrs Sex: Female : 1990 Arrival Date: 11/26/2023 Time: 11:32 Bed DX5 Private MD: ED Physician Giovanni Santiago HPI: 11/25 13:14 This 33 yrs old Female presents to ER via Ambulatory with complaints of Flu Symptoms. rn 13:14 The patient or guardian reports cough, flu symptoms. Onset: The symptoms/episode rn began/occurred 3 day(s) ago. Severity of symptoms: At their worst the symptoms were mild, in the emergency department the symptoms are unchanged. Associated signs and symptoms: Pertinent positives: rhinorrhea, sore throat. The patient has experienced similar episodes in the past. Patient reports 2 to 3 days of sore throat and upper respiratory infection, daughter with similar symptoms and daughter got sick first. Denies dyspnea. . Historical: - Allergies: 12:39 No Known Allergies; iw - PSHx: 12:39 section; Elbow; Total abdominal hysterectomy (2018); iw - Family history:: not pertinent. - Hospitalizations: : No recent hospitalization is reported. ROS: 13:14 Constitutional: Negative for fever, chills, and weight loss, ENT: Positive for sore rn throat and congestion Cardiovascular: Negative for chest pain, palpitations, and edema, Respiratory: Positive for cough, negative for shortness of breath Abdomen/GI: Negative for abdominal pain, nausea, vomiting, diarrhea, and constipation, Exam: 13:14 Constitutional: This is a well developed, well nourished patient who is awake, alert, rn and in no acute distress. Head/Face: Normocephalic, atraumatic. ENT: Mild pharyngeal erythema, absent tonsils, uvula midline, no stridor Neck: No Meningismus. Vital Signs: 12:39 Temp 97.4; iw MDM: 11:57 Patient medically screened. rn 13:14 Differential Diagnosis: Bronchitis Influenza Upper Respiratory Infection Sinusitis rn Pharyngitis Viral Syndrome. Data reviewed: vital signs, nurses notes, lab test result(s), and as a result, I will discharge patient. Counseling: I had a detailed discussion with the patient and/or guardian regarding the historical points, exam findings, and any diagnostic results supporting the discharge/admit diagnosis, lab results, the need for outpatient follow up, to return to the emergency department if symptoms worsen or persist or if there are any questions or concerns that arise at home. Special discussion: I discussed with the patient/guardian in detail that at this point there is no indication for admission to the hospital. It is understood, however, that if the symptoms persist or worsen the patient needs to return immediately for re-evaluation. 11/25 11:55 Order name: Flu; Complete Time: 13: 11/25 11:55 Order name: SARS RAPID; Complete Time: 13: 11/25 11:55 Order name: Strep 11/25 12:29 Order name: Throat Culture EDMS Administered Medications: No medications were administered Disposition Summary: 11/26/23 13:16 Discharge Ordered Notes: Location: Home rn Problem: new rn Symptoms: have improved rn Condition: Stable rn Diagnosis - Acute pharyngitis, unspecified rn Followup: rn - With: Private Physician - When: As needed - Reason: Recheck today's complaints, Re-evaluation by your physician Discharge Instructions: - Discharge Summary Sheet rn - Pharyngitis rn Forms: - Medication Reconciliation Form rn - Antibiotic rn hospital - Prescription Opioid Use rn - Patient Portal Instructions rn - Leadership Thank You Letter rn - Work release form me1 Prescriptions: - Augmentin 875-125 mg Oral Tablet - take 1 tablet ORAL route every 12 hours for 10 days; 20 tablet; Refills: 0, rn Product Selection Permitted Signatures: Dispatcher [employer] Samia Turner RN RN Giovanni Santiago MD MD workers compensation attorney: (The following items were deleted from the chart) 13:14 13:14 Patient reports 2 to 3 days of sore throat and upper respiratory infection, rn daughter with similar symptoms and daughter got sick first. Denies dyspnea. No mopped assist.. rn
--- NOTE | 2023-11-26 13:16 | ER ---
Nurse's Notes [facility] Name: Elham Moran Age: 33 yrs Sex: Female : 1990 Arrival Date: 11/26/2023 Time: 11:32 Bed DX5 Private MD: Diagnosis: Acute pharyngitis, unspecified Presentation: 11/25 12:06 Acuity: MISSAEL 4 iw 12:39 Chief complaint: Patient states: cough, runny nose, sore throat, body aches since last iw night. Coronavirus screen: Client presents with at least one sign or symptom that may indicate coronavirus-19. Ebola Screen: No symptoms or risks identified at this time. Initial Sepsis Screen: Does the patient meet any 2 criteria? No. Patient's initial sepsis screen is negative. Does the patient have a suspected source of infection? No. Patient's initial sepsis screen is negative. Risk Assessment: Do you want to hurt yourself or someone else? Patient reports no desire to harm self or others. Onset of symptoms was November 25, 2023. 12:39 Method Of Arrival: Ambulatory iw Historical: - Allergies: 12:39 No Known Allergies; iw - PSHx: 12:39 section; Elbow; Total abdominal hysterectomy (2018); iw - Family history:: not pertinent. - Hospitalizations: : No recent hospitalization is reported. Vital Signs: 12:39 Temp 97.4; ED Course: 11:38 Patient arrived in ED. mr 11:57 Giovanni Santiago MD is Attending Physician. rn 12:02 Strep Sent. bc6 12:02 SARS RAPID Sent. bc6 12:02 Flu Sent. bc6 12:02 COVID swab sent to lab. Flu and/or RSV swab sent to lab. Strep swab sent to lab. bc6 12:06 Samia Page RN is Primary Nurse. iw 12:06 Triage completed. iw Administered Medications: No medications were administered Outcome: 13:16 Discharge ordered by . rn 13:44 Patient left the ED. iw Signatures: Margarita Campbell, Reg Reg mr Samia Page, RN SKYE Giovanni Santiago MD MD rn [place]
[2023-11-26 13:52] VITALS: TEMP 97.4
== END 2023-11-26 13:44 | disposition home or self-care (01) ==
LOC: ER 11:32
DX: J02.9 Acute pharyngitis, unspecified (principal); R05.9 Cough, unspecified; Z11.52 Encounter for screening for COVID-19
CPT/HCPCS: 36415; 87070; 87081; 87804; 87811; 99282